=== PATIENT | female | born 1935 | race Caucasian/White ===

== ENCOUNTER 2016-06-16 22:33 | Emergency (ER) | payer OTHER ==
[~2016-06-16] VITALS: Ht 162.6 cm; Wt 47.6 kg
[~2016-06-16 22:33] MED LIST: ALBUTEROL2.5 MG/3 M INH/SOL; ALPRAZOLAM0.25 MG PO; ANTI ITCH TOP; ASPIR 8181 MG PO; ASPIRIN EC81 M1 PO; AUGMENTIN 500M500 MG PO; AUGMENTIN 875 M1 TAB PO; CIPRO 500MG (E500 MG PO; CIPRO 500MG TA500 MG PO; KROGER NIC14 MG/24 H TOP; KROGER NIC21 MG/24 H TOP; NORVASC5 M1 PO; PREDNICOT10 MG PO; PREDNISONE 10MG10 MG PO; PREDNISONE 20MG20 MG PO; PREDNISONE 5 MG5 MG PO; PREDNISONE10 MG PO; PREDNISONE5 MG PO; PROAIR HFA8.5 GM INH; SPIRIVA 18 MCG18 MCG INH; SPIRIVA RE2.5 MCG/Ac INH; SYMBICORT 16010.2 GM INH; XANAX 0.25MG0.25 MG PO; ZOCOR20 M1 PO; [UNRECOGNIZED DRUG - OTHER] TOP
--- NOTE | 2016-06-16 22:49 | ED NECK/BACK PAIN COMPLAINT ---
History of Present Illness General Chief Complaint: General Adult Stated Complaint: BIBA BACK PAIN, DIFFICULTY AMBULATING Source: patient, family, old records, EMS Exam Limitations: no limitations Vital Signs & Intake/Output Vital Signs & Intake/Output Vital Signs Date Time Temp Pulse Resp B/P Pulse O2 O2 Flow FiO2 Ox Delivery Rate 06/17 1136 97.1 68 18 170/82 98 Room Air 06/17 0701 96.3 66 20 100 Nasal 2.0L Cannula 06/16 2252 99 Nasal 2.0L Cannula 06/16 2239 96.5 79 22 176/96 99 Nasal 2.0L Cannula ED Intake and Output 06/17 0000 06/16 1200 Intake Total 0 Output Total Balance 0 Intake, Oral 0 Patient 105 lb Weight Allergies Coded Allergies: indomethacin (UNKNOWN PT DOESNT REMEMBER 07/20/15) naproxen (UNKNOWN PT DOESNT REMEMBER 07/20/15) Triage Note: PT BIBA FROM HOME C/O BACK PAIN FOR A MONTH. SEES DR HENDRICKS. DX WITH COMPRESSION FX T12 VIA MRI ON 06/06. HAD AN APPOINTMENT WITH DR HENDRICKS FOR TOMORROW , BUT "THE PAIN IS SO BAD I CAN'T GET IN A CAR" TOOK VICODIN AT 9A AND 9P AND TRAMADOL AT 2 PM. PAIN CONTINUES. PT SPOKE TO ELADIO'S OFFICE THIS AFTERNOON, WHO ADVISED PT TO COME TO ED. DR FLORES IN TO EVAL PT ON PT ARRIVAL TO ROOM Triage Nurses Notes Reviewed? yes HPI: Patient brought in from home by EMS for increasing back pain. Patient had a recent MRI which showed a T12 compression fracture. Patient has been on tramadol as well as hydrocodone without relief of the pain. Patient had an appointment to see her orthopedist tomorrow however she felt that she would not be able to get normal car to go to the appointment so she called him and he instructed her to come to the emergency department. The pain is 1010 and is throbbing in nature. The pain increases with movement. There is no radiation of the pain. The pain is constant. Patient denies any incontinence of bowel or bladder. There are no fevers or chills. There is no weakness or numbness. Endocrine much confined to bed secondary to the pain. Patient is unable to do her ADLs at home. (MARK BACON,MARI Sylvester) Reconcile Medications Albuterol Sulfate (Proair Hfa) 90 MCG HFA.AER.AD 1-2 PUF INH AD PRN RESPIRATORY (Reported) Albuterol Sulfate 2.5 MG/3 ML (0.083 %) VIAL.NEB 1 Vial INH/CHUNG BID-TID RESPIRATORY (Reported) Amlodipine (Norvasc 5MG Tab) 5 MG TABLET 1 TAB PO DAILY BP (Reported) Aspirin (Ecotrin) 81 MG ECT 1 TAB PO DAILY HEART/BLOOD (Reported) Budesonide/Formoterol Fumara (Symbicort 160-4.5 Mcg Inhaler) 160 MCG/4.5 MCG PUF 2 PUF INH BID COPD (Reported) Hydrocodone/Acetaminophen (Vicodin 5-300 MG Tablet) 5 MG-300 MG TABLET PAIN ( Reported) Oxycodone HCl/Acetaminophen (Percocet 5-325 MG Tablet) 5 MG-325 MG TABLET 1-2 TAB PO Q6P PRN severe pain Prednisone 5 MG TABLET 10 MG PO QAM STEROID (Reported) Simvastatin (Zocor) 20 MG TAB 1 TAB PO QPM CHOLESTEROL (Reported) Tramadol HCl 50 MG TABLET 1 TAB PO Q6H PRN PAIN (Reported) (DEVIN ALMANZA MD) Past History Travel History Traveled to [place] past 21 day No Medical History Any Pertinent Medical History? 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 No (MARK BACON,MARI Sylvester) Review of Systems Review of Systems Constitutional: Reports: no symptoms. Eyes: Reports: no symptoms. Ears, Nose, Throat, Mouth: Reports: no symptoms. Respiratory: Reports: no symptoms. Cardiovascular: Reports: no symptoms. Gastrointestinal/Abdominal: Reports: no symptoms. Musculoskeletal: Reports: see HPI, back pain. Skin: Reports: no symptoms. Neurological/Psychological: Reports: no symptoms. All Other Systems: Reviewed and Negative (MARK BACON,MARI Sylvester) Physical Exam Physical Exam General Appearance: well developed/nourished, alert, anxious, moderate distress Head: atraumatic Eyes: Bilateral: PERRL, EOMI. Ears, Nose, Throat, Mouth: hearing grossly normal, moist mucous membrane Neck: normal inspection, supple, full range of motion, no midline tenderness Respiratory: normal breath sounds Cardiovascular: regular rate/rhythm, normal peripheral pulses Gastrointestinal: normal bowel sounds, soft, non-tender Back: normal inspection, vertebral tenderness Extremities: normal range of motion Straight Leg Raising: Right: Negative. Left: Negative. Neurologic/Psych: awake, alert, oriented x 3, normal mood/affect Skin: intact, normal color, warm/dry (MARK BACON,MARI Sylvester) Progress Differential Diagnosis: INTRACTABLE BACK PAIN SECONDARY TO VERTEBRAL COMPRESSION FRACTURE Plan of Care: Orders Procedure Date/time Status Regular Diet 06/17 B Active EKG 06/17 0750 Active PT Evaluate & Treat 06/17 0018 Active CASE MANAGEMENT CONSULT 06/17 0018 Active Theraputic Activities 15 Min 06/17 UNK Complete Gait Training, 15 Min 06/17 UNK Complete PT EVAL LOW COMPLEX 20 MIN 06/17 UNK Complete URINALYSIS 06/16 2248 Complete COMPREHENSIVE METABOLIC PANEL 06/16 2248 Complete CBC WITHOUT DIFFERENTIAL 06/16 2248 Complete Laboratory Tests 06/16/16 2326: Urine Color YEL, Urine Clarity HAZY H, Urine pH 6.5, Ur Specific [place] 1.015, Urine Protein 30 H, Urine Ketones 15 H, Urine Nitrite NEG, Urine Bilirubin NEG @ICTO, Urine Urobilinogen 1.0, Ur Leukocyte Esterase SMALL H, Ur Microscopic SEDIMENT EXAMINED, Urine WBC 5-10 H, Ur Epithelial Cells FEW, Hyaline Casts 5- 10 H, Urine Hemoglobin NEG, Urine Glucose NEG 06/16/16 2310: Anion Gap 10, Estimated GFR 43 L, BUN/Creatinine Ratio 19.2, Glucose 75, Calcium 10.0, Total Bilirubin 0.6, AST 24, ALT 24, Alkaline Phosphatase 112, Total Protein 7.1, Albumin 4.1, Globulin 3.0, Albumin/Globulin Ratio 1.4, CBC w Diff NO MAN DIFF REQ, RBC 4.35, MCV 93.4, MCH 30.9, RDW 13.6, MPV 6.9 L, Gran % 74.3, Lymphocytes % 16.6 L, Monocytes % 8.2, Eosinophils % 0.6, Basophils % 0.3 , Absolute Granulocytes 7.6 H, Absolute Lymphocytes 1.7, Absolute Monocytes 0.8 H, Absolute Eosinophils 0.1, Absolute Basophils 0, PUBS MCHC 33.0 Hand-Off Endorsed To: DEVIN ALMANZA MD Endorsed Time: 0700 Pending: consult (PT/CASE MANAGEMENT) (MARK BACON,MARI Sylvester) Departure Departure Condition: Stable Clinical Impression Primary Impression: Compression fracture of body of thoracic vertebra Departure Forms: Customer Survey General Discharge Information (MARK BACON,MARI Sylvester) Departure Time of Disposition: 1128 Disposition: HOME OR SELF CARE Referrals: ELADIO BACON,KAMALA GLASS MD,Isael BUCKLEY (PCP/Family) Prescriptions: Current Visit Scripts Oxycodone HCl/Acetaminophen (Percocet 5-325 MG Tablet) 1-2 TAB PO Q6P PRN severe pain #15 TAB (DEVIN ALMANZA MD)
[2016-06-16] MEDS ORDERED: PREDNISONE5 M1 PO (23:08)
[2016-06-16] MEDS ORDERED: VICODIN 5-3001 EACH PO (23:11)
[2016-06-16] MEDS ORDERED: TRAMADOL HCL50 M1 PO (23:11)
[2016-06-16 23:19] LABS: ABSOLUTE BASOPHIL COUNT 0 /CUMM (0.0-0.2); ABSOLUTE EOSINOPHIL COUNT 0.1 /CUMM (0.0-0.7); ABSOLUTE GRANULOCYTE CT 7.6 /CUMM (1.4-6.5); ABSOLUTE LYMPH COUNT 1.7 /CUMM (1.2-3.4); ABSOLUTE MONOCYTE COUNT 0.8 /CUMM (0.10-0.60); BASOPHIL % 0.3 % (0.0-2.0); EOSINOPHIL % 0.6 % (0-5); GRANULOCYTE % 74.3 % (42.2-75.2); HEMATOCRIT 40.6 % (37-47); MEAN CORPUSCULAR HGB 30.9 PG (27.0-31.0); MEAN CORPUSCULAR VOLUME 93.4 FL (81.0-99.0); MEAN PLATELET VOLUME 6.9 FL (7.4-10.4); PLATELET COUNT 399 /CUMM (130-400); RBC DISTRIBUTION WIDTH 13.6 % (11.5-14.5); RED BLOOD CELL CT 4.35 /CUMM (4.20-5.40); WHITE BLOOD CELL COUNT 10.3 /CUMM (4.8-10.8)
[2016-06-17] MEDS ORDERED: PERCOCET 5-3251 EACH PO (11:30)
[2016-06-17 11:36] VITALS: BP 170/82
== END 2016-06-17 12:08 ==
LOC: ERH 22:33
PROVIDERS: Emergency Medicine
DX: S22.009A Unspecified fracture of unspecified thoracic vertebra, initial encounter for closed fracture (principal); X58.XXXA Exposure to other specified factors, initial encounter
CPT/HCPCS: 81001; 96374; 97116-GP; 97161-GP; 97530-GP; J2405

== ENCOUNTER 2016-07-02 14:11 | Emergency (ER) | payer OTHER ==
[~2016-07-02] VITALS: Ht 162.6 cm; Wt 40.8 kg
[~2016-07-02 14:11] MED LIST changes: +PERCOCET 5-3251 EACH PO; +PREDNISONE5 M1 PO; +TRAMADOL HCL50 M1 PO; +VICODIN 5-3001 EACH PO
--- NOTE | 2016-07-02 14:53 | ED GI/GU/ABDOMINAL COMPLAINT ---
History of Present Illness General Chief Complaint: Nausea, Vomiting, Diarrhea Stated Complaint: NAUSEA, DIARRHEA X 2 DAYS, R/O GIB Source: patient, family, old records Exam Limitations: no limitations Vital Signs & Intake/Output Vital Signs & Intake/Output Vital Signs Date Time Temp Pulse Resp B/P Pulse O2 O2 Flow FiO2 Ox Delivery Rate 07/02 1818 98.3 89 16 124/74 100 Nasal 2.0L Cannula 07/02 1658 97.8 89 20 130/80 97 Nasal 1.0L Cannula 07/02 1521 96 Nasal 2.0L Cannula 07/02 1508 94 120/55 07/02 1422 118/78 07/02 1416 97.0 95 22 95 Nasal 3.0L Cannula Allergies Coded Allergies: indomethacin (UNKNOWN PT DOESNT REMEMBER 07/20/15) naproxen (UNKNOWN PT DOESNT REMEMBER 07/20/15) Reconcile Medications Albuterol Sulfate (Proair Hfa) 90 MCG HFA.AER.AD 1-2 PUF INH AD PRN RESPIRATORY (Reported) Albuterol Sulfate 2.5 MG/3 ML (0.083 %) VIAL.NEB 1 Vial INH/CHUNG BID-TID RESPIRATORY (Reported) Amlodipine Besylate (Norvasc) 5 MG TABLET 1 TAB PO DAILY BP (Reported) Aspirin (Ecotrin*) 81 MG TABLET.DR 1 TAB PO DAILY HEART HEALTH (Reported) Budesonide/Formoterol Fumarate (Symbicort 160-4.5 Mcg Inhaler) 160 MCG-4.5 MCG/ ACTUATION HFA.AER.AD 2 PUF INH BID BREATHING PROBLEMS (Reported) Hydrocodone/Acetaminophen (Vicodin 5-300 MG Tablet) 5 MG-300 MG TABLET PAIN ( Reported) Ondansetron (Zofran Odt) 4 MG TAB.RAPDIS 1 TAB SL TID PRN NAUSEA Prednisone 5 MG TABLET 10 MG PO QAM STEROID (Reported) Simvastatin (Zocor*) 20 MG TABLET 1 TAB PO QPM CHOLESTEROL (Reported) Triage Note: RECEIVED 80 YO FEMALE BIBA FROM HOME. ACCORDING TO REPORT, PT HAS HAD NAUSEA WITH DIARRHEA X 2 DAYS WITH BLACK STOOLS YESTERDAY X ONE. PT DENIES ABDOMINAL PAIN, REPORTS CHRONIC BACK PAIN. PT DENIES ANY FURTHUR EPISODES OF BLACK STOOLS. Triage Nurses Notes Reviewed? yes ? N Is pt currently ? No HPI: Patient was seen 2 weeks ago for back pain and diagnosed with a vertebral compression fracture. Patient was discharged on Percocet. Since then she has been feeling nauseous and having intermittent constipation. Patient is been having left lower quadrant abdominal pain constant over the past week and a half. There are no aggravating or mitigating factors. Patient states that she has no desire to eat or drink anything. Patient stopped taking all of her medications except her pain medications 4 days ago because of the anorexia. Yesterday she thought that her stool looked very dark. Patient states that the stool is not quite diarrhea however it is not deformed. There is nausea but no vomiting. The pain is cramping in nature. There is no radiation of pain. The pain is constant. At its worst the pain is 4 out of 10. Patient denies any chest pain or shortness of breath. Past History Travel History Traveled to [place] past 21 day No Medical History Any Pertinent Medical History? 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 No Review of Systems Review of Systems Constitutional: Reports: see HPI, weakness. EENTM: Reports: no symptoms. Respiratory: Reports: no symptoms. Cardiovascular: Reports: no symptoms. GI: Reports: see HPI, abdominal pain, nausea. Genitourinary: Reports: no symptoms. Musculoskeletal: Reports: no symptoms. Skin: Reports: no symptoms. Neurological/Psychological: Reports: no symptoms. Hematologic/Endocrine: Reports: no symptoms. Immunologic/Allergic: Reports: no symptoms. All Other Systems: Reviewed and Negative Physical Exam Physical Exam General Appearance: well developed/nourished, alert, awake, anxious, mild distress Head: atraumatic, normal appearance Eyes: Bilateral: PERRL, EOMI. Ears, Nose, Throat, Mouth: hearing grossly normal, DRY MUCUS MEMBRANES Neck: normal inspection, supple, full range of motion Respiratory: normal breath sounds, chest non-tender, no respiratory distress, lungs clear Cardiovascular: regular rate/rhythm, normal peripheral pulses Gastrointestinal: soft, no organomegaly, abnormal bowel sounds (INCREASED), NO GAURDING OR REBOUND Rectal: NO STOOL IN VAULT BUT CARD TURNED BLUE Back: normal inspection, normal range of motion Extremities: normal range of motion Neurologic/Psych: no motor/sensory deficits, awake, alert, oriented x 3, normal gait, normal mood/affect Skin: intact, normal color, warm/dry Core Measures ACS in differential dx? No Severe Sepsis Present: No Septic Shock Present: No Progress Differential Diagnosis: bowel obstruction, diverticulitis, gastritis, hepatitis, ischemic bowel, inflamm bowel dis, pancreatitis, SBO Plan of Care: Orders Procedure Date/time Status MISTAKE 07/02 145 Active Telemetry/Adon 07/02 145 Active URINALYSIS 07/02 145 Complete TROPONIN LEVEL 07/02 1452 Complete PARTIAL THROMBOPLASTIN TIME 07/02 1452 Complete PROTHROMBIN TIME 07/02 1452 Complete LIPASE 07/02 1452 Complete COMPREHENSIVE METABOLIC PANEL 07/02 1452 Complete CBC WITHOUT DIFFERENTIAL 07/02 1452 Complete AMYLASE 07/02 1452 Complete EKG 07/02 1452 Active TYPE & SCREEN (NOT X-MATCH) 07/02 1452 Active Laboratory Tests 07/02/16 1614: Urine Color STRAW, Urine Clarity CLEAR, Urine pH 7.0, Ur Specific [place] <= 1.005, Urine Protein NEG, Urine Ketones TRACE H, Urine Nitrite NEG, Urine Bilirubin NEG, Urine Urobilinogen 0.2, Ur Leukocyte Esterase NEG, Ur Microscopic EXAM NOT REQUIRED, Urine Hemoglobin NEG, Urine Glucose NEG 07/02/16 1450: Anion Gap 11, Estimated GFR > 60, BUN/Creatinine Ratio 22.9, Glucose 67, Calcium 9.0, Total Bilirubin 0.9, AST 22, ALT 28, Alkaline Phosphatase 100, Troponin I 0.03, Total Protein 6.5, Albumin 3.7, Globulin 2.8, Albumin/Globulin Ratio 1.3, Amylase < 30 L, Lipase 56, PT 10.9, INR 1.04, APTT 29, CBC w Diff NO MAN DIFF REQ, RBC 4.24, MCV 93.9, MCH 31.1 H, RDW 13.6, MPV 7.2 L, Gran % 86.4 H, Lymphocytes % 7.2 L, Monocytes % 5.9, Eosinophils % 0.2, Basophils % 0.3, Absolute Granulocytes 11.8 H, Absolute Lymphocytes 1.0 L, Absolute Monocytes 0.8 H, Absolute Eosinophils 0, Absolute Basophils 0, PUBS MCHC 33.1 Diagnostic Imaging: Viewed by Me: CT Scan. Discussed w/RAD: CT Scan. Radiology Impression: no acute abnormality Initial ED EKG: sr with st epression v4,v5 Prior EKG: changed Rhythm Strip: normal sinus rhythm Departure Departure Disposition: HOME OR SELF CARE Condition: Stable Clinical Impression Primary Impression: Lower abdominal pain, unspecified Secondary Impressions: Nausea Referrals: MARIA LUISA BACON,Isael BUCKLEY (PCP/Family) Additional Instructions: TAKE ZOFRAN NEEDED TAKE YOU R PREDNISONE EVERY DAY. YOU CAN GET VERY SICK IF YOU ABRUPTLY STOP IT. RETURN IF SYMPTOMS WORSEN OR NEEDED Departure Forms: Customer Survey General Discharge Information Prescriptions: Current Visit Scripts Ondansetron (Zofran Odt) 1 TAB SL TID PRN NAUSEA #20 TAB
[2016-07-02 15:04] LABS: ABSOLUTE BASOPHIL COUNT 0 /CUMM (0.0-0.2); ABSOLUTE EOSINOPHIL COUNT 0 /CUMM (0.0-0.7); ABSOLUTE GRANULOCYTE CT 11.8 /CUMM (1.4-6.5); ABSOLUTE MONOCYTE COUNT 0.8 /CUMM (0.10-0.60); BASOPHIL % 0.3 % (0.0-2.0); EOSINOPHIL % 0.2 % (0-5); HEMATOCRIT 39.8 % (37-47); MEAN CORPUSCULAR HGB 31.1 PG (27.0-31.0); MEAN CORPUSCULAR HGB CONC 33.1 G/DL (33.0-37.0); MEAN CORPUSCULAR VOLUME 93.9 FL (81.0-99.0); MEAN PLATELET VOLUME 7.2 FL (7.4-10.4); RBC DISTRIBUTION WIDTH 13.6 % (11.5-14.5); RED BLOOD CELL CT 4.24 /CUMM (4.20-5.40); WHITE BLOOD CELL COUNT 13.7 /CUMM (4.8-10.8)
[2016-07-02 15:16] LABS: PT 10.9 SEC (9.4-12.5); PTT 29 SEC (25-37)
[2016-07-02 15:21] LABS: PLATELET COUNT 324 /CUMM (130-400)
[2016-07-02 15:22] LABS: GRANULOCYTE % 86.4 % (42.2-75.2)
--- NOTE | 2016-07-02 16:37 | CT SCAN REPORT ---
EXAMINATION: CT ABDOMEN AND PELVIS WITH CONTRAST CLINICAL INFORMATION: Abdominal pain. Evaluate for small bowel obstruction. COMPARISON: PET-CT imaging exam of chest, abdomen and pelvis from 08/01/2014. TECHNIQUE: Multidetector volumetric imaging was performed of the abdomen and pelvis before and after the IV administration of 94 mL of of Optiray 320 intravenous contrast. Sagittal and coronal reformatted images were obtained on the technologist's workstation. DLP: 221 mGy-cm FINDINGS: LUNG BASES: There are a few scattered linear opacities of atelectasis in visualized lung bases. Atherosclerotic calcification of the tortuous descending thoracic aorta. Coronary artery atherosclerotic calcification is seen, as well. No pericardial or pleural effusion. LIVER, GALLBLADDER, AND BILIARY TREE: Liver has normal size, contour and attenuation. Gallbladder surgically absent and common bile duct measures up to 0.8 cm diameter. The central intrahepatic bile ducts are mildly dilated. No acute hepatobiliary findings compared to 08/01/2014. PANCREAS: Unremarkable. SPLEEN: Unremarkable. ADRENAL GLANDS: Unremarkable. KIDNEYS AND URETERS: Kidneys are normal in size and enhance symmetrically. There are bilateral renal cortical cysts, largest at the right upper pole measuring 1.8 cm. Small, 0.2 cm calyceal stone in the mid right kidney and 0.4 cm calyceal stone within the right lower pole. There is a 0.4 cm calyceal stone of the mid left kidney, as well. No ureterolithiasis or hydroureteronephrosis. BLADDER: Unremarkable. GASTROINTESTINAL TRACT: Bowel loops are normal in caliber. The wall of the colon is suboptimally evaluated due to lack of distention. There is apparent diffuse circumferential colonic wall thickening. This is associated with mild mesenteric vascular congestion and slight haziness of pericolonic fat within the pelvis. Findings are suggestive of mild pancolitis. Also, there is pancolonic diverticulosis and chronic wall thickening from diverticular disease of the sigmoid colon. No ascites or pneumoperitoneum. ABDOMINAL WALL: Abdominal wall muscles are atrophied. No focal abdominal wall hernia. LYMPH NODES: No pathologic sized lymph nodes within the abdomen or pelvis. VASCULAR: There is extensive atherosclerotic calcification of the abdominal aorta and branch vessels, including renal, superior mesenteric and splenic arteries. The tortuous infrarenal abdominal aorta measures up to 2.5 cm transverse and 2.1 cm AP diameter. Atherosclerotic plaque produces irregular stenosis of the iliac arteries. The calcified plaque produces [id number] stenosis of the SMA. PELVIC VISCERA: There are calcified intramural leiomyomas of the uterus. There is a 2.8 x 3.5 x 2.6 cm septated cystic structure of the left adnexa, similar in size compared to 08/01/2014. At the right adnexa, a 2.1 x 2.4 x 2.3 cm hypodense structure likely represents the right ovary (images [id number], series 2). No pelvic free fluid. OSSEOUS STRUCTURES: Bones appear diffusely osteoporotic. Lines of sclerosis within the sacral ala compatible with subacute, healing insufficiency fractures. Sacral insufficiency fractures were present on the MRI of 06/06/2016. Compression fracture of T12 vertebral body with approximately 60% anterior height loss is a new finding compared to 07/28/2015. The T12 vertebral height loss has progressed compared to 06/06/2016 and sclerosis within the vertebral body suggests possibility of superimposed avascular necrosis. There is vacuum disc phenomenon of T11-T12. At L4-L5, there is moderate loss of disc space, disc bulge, facet arthropathy and minimal anterolisthesis of L4 on L5. IMPRESSION: 1. Colonic wall appears diffusely thickened but suboptimally evaluated due to lack of colonic distention. Mild pancolitis is suspected. 2. Pancolonic diverticulosis. 3. Nonobstructing bilateral renal calculi (and multiple bilateral renal cysts). 4. Stable, mild dilatation of the common bile duct and intrahepatic ducts in this patient who is status post cholecystectomy. 5. 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 6. Osteoporosis with insufficiency fractures of the sacral ala and T12 vertebra. The T12 vertebral compression fracture has worsened compared to 06/06/2016. 7. Septated cyst of the left ovary/adnexa is stable compared to 08/01/2014. Consider pelvic ultrasound follow-up/surveillance.
[2016-07-02] MEDS ORDERED: ZOFRAN ODT4 M1 SL (17:55)
[2016-07-02 18:18] VITALS: BP 124/74
== END 2016-07-02 18:19 ==
LOC: ERH 14:11
PROVIDERS: Emergency Medicine
DX: R10.32 Left lower quadrant pain (principal); R11.0 Nausea; R19.7 Diarrhea, unspecified
CPT/HCPCS: 74177; 81003; 93005; 93010; 96361; 96374; 96375; J1720; J2405

== ENCOUNTER 2016-07-15 13:29 | Observation (INO) | payer OTHER ==
[~2016-07-15] VITALS: Ht 162.6 cm; Wt 40.8 kg
[~2016-07-15 13:29] MED LIST changes: +ZOFRAN ODT4 M1 SL
--- NOTE | 2016-07-15 13:30 | ED NECK/BACK PAIN COMPLAINT ---
History of Present Illness General Chief Complaint: Low Back Pain/Injury Stated Complaint: BIBA BACK PAIN Source: patient, old records, EMS Exam Limitations: no limitations Vital Signs & Intake/Output Vital Signs & Intake/Output Vital Signs Date Time Temp Pulse Resp B/P Pulse O2 O2 Flow FiO2 Ox Delivery Rate 07/15 1420 98 Nasal 3.0L Cannula 07/15 1330 96.9 83 18 180/88 94 Nasal 2.0L Cannula Allergies Coded Allergies: indomethacin (UNKNOWN PT DOESNT REMEMBER 07/20/15) naproxen (UNKNOWN PT DOESNT REMEMBER 07/20/15) Reconcile Medications Albuterol Sulfate (Proair Hfa) 90 MCG HFA.AER.AD 1-2 PUF INH AD PRN RESPIRATORY (Reported) Albuterol Sulfate 2.5 MG/3 ML (0.083 %) VIAL.NEB 1 Vial INH/CHUNG BID-TID RESPIRATORY (Reported) Amlodipine Besylate (Norvasc) 5 MG TABLET 1 TAB PO DAILY BP (Reported) Aspirin (Ecotrin*) 81 MG TABLET.DR 1 TAB PO DAILY HEART HEALTH (Reported) Budesonide/Formoterol Fumarate (Symbicort 160-4.5 Mcg Inhaler) 160 MCG-4.5 MCG/ ACTUATION HFA.AER.AD 2 PUF INH BID BREATHING PROBLEMS (Reported) Hydrocodone/Acetaminophen (Vicodin 5-300 MG Tablet) 5 MG-300 MG TABLET PAIN ( Reported) Ondansetron (Zofran Odt) 4 MG TAB.RAPDIS 1 TAB SL TID PRN NAUSEA Prednisone 5 MG TABLET 10 MG PO QAM STEROID (Reported) Simvastatin (Zocor*) 20 MG TABLET 1 TAB PO QPM CHOLESTEROL (Reported) Tramadol HCl 50 MG TABLET 1 TAB PO Q6P PRN PAIN (Reported) Triage Nurses Notes Reviewed? yes Onset: Gradual Duration: week(s):, constant, getting worse Timing: recent history Quality/Severity: severe, sharpness Location: T-spine Radiation: none Method of Injury: unknown Loss of Consciousness: no loss of consciousness Modifying Factors: movement, pain medication Associated Symptoms: denies HPI: 81-year-old female with history of (on 2 L home O2) on prednisone, lung CA diagnosed 2013, emphysema, HTN, HLD presents brought in by ambulance complaining of an exacerbation of chronic mid back pain unrelieved with taking her Percocet last dose was 3 hours ago. The patient denies any new injury or trauma, there is no radiation of her pain sudden onset aching throbbing severe 10 out of 10. The patient is scheduled to have IR vertebral augmentation performed tomorrow by Dr. Jorge Weiner. The patient states she called his office and the nurse after speaking with him advised the patient to come to the emergency room to be admitted today for her intractable pain. She denies any urinary symptoms urgency frequency and incontinence no abdominal pain fever or chills. The patient denies any exacerbation of her shortness of breath, cough no fever no chills The patient has a history of T12 vertebral body compression fracture found on MRI that was performed in May. The patient has failed outpatient management according to old records. The patient has had severe constant sudden onset worsening of her back pain causing her to have decreased at activities of daily living. The plan was for the patient to have vertebral augmentation performed on July 16 (DAMION BARRETO) Past History Medical History Any Pertinent Medical History? see below for history Neurological: NONE EENT: cataracts Cardiovascular: hypertension, hyperlipidemia, PERIPHERAL EDEMA Respiratory: COPD, emphysema, Lung cancer O2 DEPENDENT AT 2L Gastrointestinal: NONE Hepatic: NONE Renal: NONE Musculoskeletal: fracture, (T12) Psychiatric: NONE Endocrine: NONE Blood Disorders: NONE Cancer(s): LUNG CANCER RT TECHNICAL SME/Reproductive: NONE History of MRSA: No History of VRE: No History of CDIFF: No Surgical History Surgical History: non-contributory Psychosocial History Who do you live with Patient/Self Services at Home None What is your primary language E[place]re[place] Family History Family History, If Any: MOTHER FATHER FH: cancer Hx Contributory? No (DAMION BARRETO) Review of Systems Review of Systems Constitutional: Reports: see HPI. All Other Systems: Reviewed and Negative Comments Review of systems: See HPI, All other systems negative. Constitutional, no chills no fever, no malaise HEENT: no sore throat no congestion Cardiovascular: No chest pain , no palpitation Skin, no rashes, no change in skin Respiratory: dyspnea no cough no sputum no hemoptysis GI: No nausea no vomiting, no diarrhea, : No dysuria No hematuria Muscle skeletal: No joint pain, no joint swelling, back pain, no neck pain, Neurologic: No numbness no headache Psych: No stress Heme/endocrine: No bruising no bleeding Immunology: No lymphadenopathy (DAMION BARRETO) Physical Exam Physical Exam General Appearance: alert, awake, cachetic Neck: normal inspection, supple, full range of motion, normal alignment Comments: Well-developed well-nourished person in no acute distress HEENT: Normal EENT exam; PERRL, EOMI. HEAD is atraumatic. moist mucous membranes. Neck: Supple, normal range of motion Back: Nontender, no CVA tenderness. Limited range of motion secondary to pain Cardiovascular: Regular rate and rhythms no murmurs rubs Respiratory: No respiratory distress. Patient speaking in full complete sentences. Breath sounds clear to auscultation bilaterally: NO W/R/R Abdomen: Soft, nontender nondistended, no appreciable organomegaly. Extremity: No edema, full range of motion of extremities, normal and equal pulses bilaterally, 5 out of 5 strength noted to bilateral upper and lower extremities Neuro: Alert oriented x3, motor sensory normal, There were no obvious focal neurologic abnormalities. Skin: No appreciable rash on exposed skin, skin is warm and dry. Psych: Mood and affect is normal, memory and judgment is normal. (DAMION BARRETO) Progress Differential Diagnosis: cauda equina syn, herniated disc, myofascial strain, pyelo/UTI, spinal cord inj, COMPRESSION FRACTURE INTRACTABLE PAIN Plan of Care: Orders Procedure Date/time Status Regular Diet 07/15 D Active Patient Data 07/[address] in observation 07/15 1538 Active Vital Signs 07/15 1538 Active Code Status 07/15 1538 Active Saline Lock 07/15 1348 Active PROTHROMBIN TIME 07/15 1348 Complete COMPREHENSIVE METABOLIC PANEL 07/15 1348 Complete CBC WITHOUT DIFFERENTIAL 07/15 1348 Complete EKG 07/15 1348 Active TYPE & SCREEN (NOT X-MATCH) 07/15 1348 Complete Laboratory Tests 07/15/16 1400: Anion Gap 11, Estimated GFR 53 L, BUN/Creatinine Ratio 18.0, Glucose 79, Calcium 9.9, Total Bilirubin 0.7, AST 21, ALT 20, Alkaline Phosphatase 93, Total Protein 6.8, Albumin 4.0, Globulin 2.8, Albumin/Globulin Ratio 1.4, PT 10.1, INR 0.96, CBC w Diff NO MAN DIFF REQ, RBC 4.40, MCV 91.6, MCH 30.8, RDW 13.7, MPV 6.5 L, Gran % 83.7 H, Lymphocytes % 8.8 L, Monocytes % 5.5, Eosinophils % 1.0 , Basophils % 1.0, Absolute Granulocytes 9.2 H, Absolute Lymphocytes 1.0 L, Absolute Monocytes 0.6, Absolute Eosinophils 0.1, Absolute Basophils 0.1, PUBS MCHC 33.6 Old records including the patient's previous MRI and CAT scan from 07/02/2016 were reviewed that demonstrated further progression of her compression deformity now at approximately 60% height loss. Call was placed to the patient's INR physician Dr. Weiner PT MED with dilaudid 1mg iv, case d/w dr upton CASE D/W DR SPRAGUE IR- PT SCHEDULED FOR MRI TOMORROW AT 720, FOLLOWD BYKYPHOPLASTY AT 1030 TOMORROW (DAMION BARRETO) Initial ED EKG: NSR AT 60, NO ACUTE ST SEG CHANGES, NORMAL AXIS Prior EKG: unchanged (07/02/2016) (DAMION BARRETO) Departure Departure Time of Disposition: 1535 Disposition: STILL A PATIENT Condition: Stable Clinical Impression Primary Impression: Intractable back pain Referrals: MARIA LUISA BACON,Isael BUCKLEY (PCP/Family) Departure Forms: Customer Survey General Discharge Information Observation Note Spoke With: SARA POZO MD Physician Advisor Notified: BARTOLOME BACON,KLEVER Delaney Patient In: Non-ED OBS Care Area Rationale for Observation: My rational for observation is as follows IV pain control gait instability unable to perform activities of daily living premature discharge be medically harmful (DAMION BARRETO) PA/[employer] RE[employer]ER[employer] WORKER Co-Sign Statement Statement: ED Attending supervision documentation- [X] I saw and evaluated the patient. I have also reviewed all the pertinent lab results and diagnostic results. I agree with the findings and the plan of care as documented in the PA's/AMMONIA REFRIGERATION WORKER's documentation. [X] I have reviewed the ED Record and agree with the PA's/AMMONIA REFRIGERATION WORKER's documentation. [] Additions or exceptions (if any) to the PAs/AMMONIA REFRIGERATION WORKER's note and plan are summarized below: [] (MAL BACON,SIMBA)
--- NOTE | 2016-07-15 13:30 | NUR ---
Case Mgmnt TSF: I was called by [facility] to let me know that patient was being sent in. CM will follow.
--- NOTE | 2016-07-15 13:30 | NUR ---
PT TO ROOM 21 BIBA FROM HOME BY REFERRAL FOR REPEAT MRI. PT HAS BACK SURGERY SCHEDULED FOR TOMORROW AND C/O BACK PAIN 02/17. PT ARRIVED AAOx3, ON O2 2L NC O2SAT 98%. HX OF COPD,LUNG CA. PT ON O2 NEEDED. ALSO PT C/O ABD PAIN AND NAUSEA. SOB SINCE THIS MORNING. DENIES CHEST PAIN. VSS.
--- NOTE | 2016-07-15 14:02 | NUR ---
BLOOD SENT NOW
[2016-07-15 14:08] LABS: ABSOLUTE BASOPHIL COUNT 0.1 /CUMM (0.0-0.2); ABSOLUTE EOSINOPHIL COUNT 0.1 /CUMM (0.0-0.7); ABSOLUTE GRANULOCYTE CT 9.2 /CUMM (1.4-6.5); ABSOLUTE MONOCYTE COUNT 0.6 /CUMM (0.10-0.60); HEMATOCRIT 40.3 % (37-47); MEAN CORPUSCULAR HGB 30.8 PG (27.0-31.0); MEAN CORPUSCULAR HGB CONC 33.6 G/DL (33.0-37.0); MEAN CORPUSCULAR VOLUME 91.6 FL (81.0-99.0); MEAN PLATELET VOLUME 6.5 FL (7.4-10.4); PLATELET COUNT 424 /CUMM (130-400); RBC DISTRIBUTION WIDTH 13.7 % (11.5-14.5)
[2016-07-15 14:13] LABS: PT 10.1 SEC (9.4-12.5)
--- NOTE | 2016-07-15 14:20 | NUR ---
PT MEDCIATED NOW WITH DILAUDID AND TOLERATE WELL STATES PAIN IS NOW 6/10 AND FEELS CONTROLED. PT REPOSTION AND NOTED TO HAVE A ULCER TO HER COCCYX AREA. SKIN APPEARS TO BE HEALING.
[2016-07-15 14:24] LABS: GRANULOCYTE % 83.7 % (42.2-75.2)
[2016-07-15] MEDS ORDERED: TRAMADOL HCL50 M1 PO (14:33)
--- NOTE | 2016-07-15 15:14 | NUR ---
ASSUMED CARE OF PT PER RN JADE. PT SLEEPING WITH RR, PT PLACED ON MONITOR. WILL CONTINUE TO MONITOR
--- NOTE | 2016-07-15 15:53 | NUR ---
PT RECIEVED FOOD TRAY, SOUP AND A COFFEE ALSO ORDERED.
--- NOTE | 2016-07-15 16:02 | History & Physical ---
See Addendum MANAS NICHOLS 07/15/16 1549: General Information and HPI MD Statement: I have seen and personally examined ARDEN ALEXANDRA and documented this H&P. The patient is a 81 year old F who presented with a patient stated chief complaint of [low back pain]. 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 According to the patient she was in the usual state of health up until May when she started to experience lower back pain and saw her primary care physician who was advised her to go to the orthopedic physician. She ended up getting an x-ray and eventually an MRI of the lumbar spine which showed vertebral compression compression fracture of the T12 vertebrae. She was started on oral pain medications including Percocet, however ,her symptoms continued to worsen with worsening pain in her lower back to the point that she was forced to come to the ER today. She denies any radiation of the pain down her lower extremities, any episodes of urinary incontinence or bowel incontinence, any numbness or weakness in her lower extremities. She denies having any fall or having a trauma to her lower back. She does endorse weight loss within the past few months. Patient is scheduled to have an IR guided vertebral augmentation by Dr. Jorge Weiner tomorrow 07/16/16. The patient states that she called his office and nurse after speaking with him advice the patient to come to the ER for further evaluation for intractable pain. Of note patient denies any fever, chills, shortness of breath, cough. Allergies/Medications Allergies: Coded Allergies: indomethacin (UNKNOWN PT DOESNT REMEMBER 07/20/15) naproxen (UNKNOWN PT DOESNT REMEMBER 07/20/15) Home Med list Albuterol Sulfate (Proair Hfa) 90 MCG HFA.AER.AD 1-2 PUF INH AD PRN RESPIRATORY (Reported) Albuterol Sulfate 2.5 MG/3 ML (0.083 %) VIAL.NEB 1 Vial INH/CHUNG BID-TID RESPIRATORY (Reported) Amlodipine Besylate (Norvasc) 5 MG TABLET 1 TAB PO DAILY BP (Reported) Aspirin (Ecotrin*) 81 MG TABLET.DR 1 TAB PO DAILY HEART HEALTH (Reported) Budesonide/Formoterol Fumarate (Symbicort 160-4.5 Mcg Inhaler) 160 MCG-4.5 MCG/ ACTUATION HFA.AER.AD 2 PUF INH BID BREATHING PROBLEMS (Reported) Hydrocodone/Acetaminophen (Vicodin 5-300 MG Tablet) 5 MG-300 MG TABLET PAIN ( Reported) Ondansetron (Zofran Odt) 4 MG TAB.RAPDIS 1 TAB SL TID PRN NAUSEA Prednisone 5 MG TABLET 10 MG PO QAM STEROID (Reported) Simvastatin (Zocor*) 20 MG TABLET 1 TAB PO QPM CHOLESTEROL (Reported) Tramadol HCl 50 MG TABLET 1 TAB PO Q6P PRN PAIN (Reported) Past History Travel History Traveled to [place] past 21 day No Medical History Neurological: NONE EENT: cataracts Cardiovascular: hypertension, hyperlipidemia, PERIPHERAL EDEMA Respiratory: COPD, emphysema, Lung cancer O2 DEPENDENT AT 2L Gastrointestinal: NONE Hepatic: NONE Renal: NONE Musculoskeletal: fracture, (T12) Psychiatric: NONE Endocrine: NONE Blood Disorders: NONE Cancer(s): LUNG CANCER RT SEAT MENDER/Reproductive: NONE History of MRSA: No History of VRE: No History of CDIFF: No Isolation History: Standard Surgical History Surgical History: non-contributory Past Family/Social History Family History Relations & Conditions if any MOTHER FATHER FH: cancer Psychosocial History Services at Home: None Functional Ability ADLs Independent: dressing. Review of Systems Review of Systems Constitutional: Denies: chills, fever, weakness. EENTM: Denies: visual changes. Cardiovascular: Denies: chest pain, orthopena, palpitations, peripheral edema, syncope. Respiratory: Denies: cough, short of breath, sputum production, wheezing. GI: Reports: constipation. Denies: abdominal pain, diarrhea, nausea, vomiting. Genitourinary: Reports: no symptoms. Musculoskeletal: Reports: back pain. Skin: Reports: see HPI, change in skin color. Neurological/Psychological: Denies: headache, numbness, tingling, tremors, unable to move lower ext, unable to move upper ext, weakness. Exam & Diagnostic Data Last 24 Hrs of Vital Signs/I&O Vital Signs Date Time Temp Pulse Resp B/P Pulse O2 O2 Flow FiO2 Ox Delivery Rate 07/15 1420 98 Nasal 3.0L Cannula 07/15 1330 96.9 83 18 180/88 94 Nasal 2.0L Cannula Intake & Output 07/15 1600 07/15 0800 07/15 0000 Intake Total 0 Output Total Balance 0 Intake, Oral 0 Patient 89 lb 15.99 oz Weight Physical Exam General Appearance Alert, Oriented X3, Cooperative, Mild Distress Skin No Rashes, No Breakdown, No Significant Lesion HEENT Atraumatic, PERRLA, EOMI, dry mucous membranes Neck Supple, No JVD, No thryomegaly, +2 Carotid Pulse wo Bruit, No LAD Cardiovascular Regular Rate, Normal S1, Normal S2, No Murmurs Lungs Clear to Auscultation, Normal Air Movement, decreased breath sounds Abdomen Normal Bowel Sounds, Soft, No Hepatospenomegaly, No Masses, mild tenderness to palptaion in lower abdomen Neurological Normal Speech, Strength at 5/5 X4 Ext, Normal Tone, Sensation Intact, Cranial Nerves 3-12 NL, Reflexes 2+ Extremities No Clubbing, No Cyanosis, Normal Pulses, No Tenderness/Swelling, b/l 1-2+ lower extremity edma Vascular Normal Pulses, Pulses Symmetrical Last 24 Hrs of Labs/Nikolas: Laboratory Tests 07/15/16 1400: Anion Gap 11, Estimated GFR 53 L, BUN/Creatinine Ratio 18.0, Glucose 79, Calcium 9.9, Total Bilirubin 0.7, AST 21, ALT 20, Alkaline Phosphatase 93, Total Protein 6.8, Albumin 4.0, Globulin 2.8, Albumin/Globulin Ratio 1.4, PT 10.1, INR 0.96, CBC w Diff NO MAN DIFF REQ, RBC 4.40, MCV 91.6, MCH 30.8, RDW 13.7, MPV 6.5 L, Gran % 83.7 H, Lymphocytes % 8.8 L, Monocytes % 5.5, Eosinophils % 1.0 , Basophils % 1.0, Absolute Granulocytes 9.2 H, Absolute Lymphocytes 1.0 L, Absolute Monocytes 0.6, Absolute Eosinophils 0.1, Absolute Basophils 0.1, PUBS MCHC 33.6 Diagnostic Data EKG Results NSR, HR: 60, normal axis, no ST-T changes, CA: 136 Other Results SERVICE DATE: 06/06/16-9881 EXAM TYPE: MRI - MRI-LUMBAR SPINE EXAMINATION: MR LUMBAR SPINE WITHOUT CONTRAST CLINICAL INFORMATION: Low back pain. COMPARISON: Lumbar spine radiographs 03/17/2016. TECHNIQUE: MRI of the lumbar spine without contrast was obtained using routine sequences. FINDINGS: There is slight grade 1 anterolisthesis of L4 on L5. Vertebral alignment is otherwise maintained in the sagittal dimension. There is bone marrow edema associated with an acute compression fracture of the T12 vertebral body with impaction of the lower endplate and approximately 10% vertebral body height loss anteriorly. There is no retropulsion of posterior cortex an no canal compromise at this level. There is loss of intervertebral disc height and T2 signal intensity at multiple levels within the lumbar spine related to degenerative disc disease. The tip of the conus medullaris is located at the level of L1. No mass effect on the conus. Visualized distal cord signal intensity is normal. At L1-L2 there is a slight annular bulge. No canal or neuroforaminal compromise. At L2-L3 there is a slight annular bulge. No canal or neuroforaminal compromise. At L3-L4 there is a diffusely bulging disc causing ventral flattening of the thecal sac. No canal stenosis. Mild bilateral facet degenerative change. No foraminal nerve root compression. At L4-L5 there is a diffuse annular bulge causing ventral flattening of the thecal sac. Bilateral facet degenerative change. No canal stenosis. No foraminal nerve root compression. At L5-S1 there is a slight annular bulge. Advanced bilateral facet degenerative change. No canal stenosis. No foraminal nerve root compression. Limited visualization of the retroperitoneal structures reveals no abnormal finding. Although only partially visualized within the [id number] this examination there is abnormal bone marrow edema involving the both sacral ala consistent with nondisplaced sacral insufficiency fracture, with greater edema visualized within the left sacral wing. IMPRESSION: There is an acute compression fracture of the T12 vertebral body with impaction of the lower endplate and approximately 10% vertebral body height loss anteriorly. Consultation with interventional radiology is recommended for possible vertebral augmentation for symptomatic relief. There is also bone marrow edema associated with bilateral sacral insufficiency fractures, worse on the left. There is grade 1 anterolisthesis of L4 on L5 related to advanced facet degenerative changes at this level. No canal stenosis and no substantial mass effect on the traversing or foraminal nerve roots. 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 Vitals at the time of admission blood pressure 180/88, respiratory rate 18, pulse 83, afebrile saturating 90% on room air. On physical exam, she is alert and oriented x3, and in mild distress, sitting in bed. HEENT revealed PERRLA, dry mucous membranes. Examinationof neck did not reveal any JVD, or LAD. Cardiobvascular exam was benign with normal S1, S2, no murmurs appreciated. Chest was clear to auscultation bilaterally with decreased breath sounds bilaterally. Abdominal exam revealed mild tenderness to palpation lower abdomen. Abdomen was soft, nondistended, normal bowel sounds in all 4 quadrants. Examination of the lower extremities revealed bilateral lower extremity edema is noted she did have a lot of bruises on her extremities. Labs pertinent for leukocytosis with a white blood cell count of 11,000, H&H of 13.6/40.3, MCV of 91.6 and a platelet count of 424,000. Serum chemistries revealed a sodium of 139, potassium of 3.9, BUN 18, creatinine 1.0 with a normal anion gap of 11. LFTs unremarkable with a total bili of 0.7, AST/L2 21/20, alkaline phosphatase of 93. INR is 0.96. She had an MRI of the lumbar spine done on 06/06/2016 as an outpatient which showed acute compression fracture of the T12 vertebral body with impaction of the lower endplate and approximately 10% vertebral body height loss anteriorly. There is also evidence of bone marrow edema associated with bilateral sacral insufficiency fractures worse on the left, grade 1 anterolisthesis of L4 on L5 related to advanced facet degenerative changes at this level, no canal stenosis and no substantial mass effect on the traversing of foraminal nerve roots. A repeat T scan of the abdomen and pelvis for abdominal pain had revealed worsening of the T12 vertebral compression fracture compared to the one seen on May 12 20 11/27/2016. In the ER she received Dilaudid 1 mg IV 1 She will be admitted to [facility] for observation and will undergo IR vertebral augmentation to be performed by Dr. Jorge Weiner. Assessment and plan #Intractable lower back pain Most likely secondary to compression fraction of T12 vertebral body Optimize pain management with IV Tylenol, Dilaudid. Nothing by mouth after midnight for vertebral augmentation tomorrow. She is scheduled for MRI tomorrow at 7:20 AM followed by kyphoplasty at 10:[address] Casillas is aware,a nd we do not have to put any orders for MRI. #Hypertension Most likely secondary to pain in the setting of benign essential hypertension Continue on amlodipine 5 mg daily #Hyperlipidemia Continue on simvastatin 20 mg daily #COPD Continue on Symbicort and albuterol Couretsy call to rah Encarnacion patient is in the hospital. On 2.0 liters at night and on an as nded basis Due to prophylaxis Heparin 5000 international units 3 times a day subcutaneous Diet Heart healthy CODE STATUS Full Code As Ranked By This Provider Problem List: 1. Intractable back pain Core Measures/Miscellaneous Acute Coronary Syndrome ACS Diagnosis: No Cerebrovascular Accident CVA/TIA Diagnosis: No Congestive Heart Failure CHF Diagnosis: No Venous Thromboembolism VTE Risk Factors: Age > 40 [facility] prophylaxis d/t: No contraindications No VTE Pharm Prophylaxis d/t: No contraindications VTE Diagnosis: No VTE Type: NONE VTE Confirmed by (Test): NONE Severe Sepsis Severe Sepsis Present: No Septic Shock Septic Shock Present: No Miscellaneous Documentation Attending Case Discussed With: Dr. Javier Primary Care Physician: Isael GLASS MD Patient sees these Specialists Gagandeep Anderson MD Level of Patient Care: General Medicine Resident Review Statement Resident Statement: admitted by resident SARA JAVIER MD 07/15/16 1465: Attending MD Review Statement Attending Statement Attending MD Statement: examined this patient, discuss w/resident/PA/ELECTROPLATER, agreed w/resident/PA/ELECTROPLATER, reviewed EMR data (avail), discussed with nursing, reviewed images, amended to note Attending Assessment/Plan: The patient is an 81 yo female with h/o HTN, HL, oxygen dependent COPD (2 L/min) , lung cancer, and osteoporosis who presented in the [place] ED with intractable mid back pain that has been progressing over last several weeks and not responding to po pain medication. She was scheduled for an OP vertebral augmentation procedure (T12) with Dr. Weiner in Interventional Radiology tomorrow, however could no longer tolerate the pain at home. She had some relieve from IV Dilaudid given in ED. She denied any increase in baseline dyspnea, chest pain, fever, or lower extremity weakness or radiation of pain. The patient is followed by Dr. Anderson for pulmonary. Physical Exam: VS: T 96.9, P 83, R 18, BP 180/88, PO 94% on 2 L nasal HEENT: eyes- PERRLA, EOMI kadeem- no lesions, moist mucosa Neck: no adenopathy, bruits, or JVD Chest: mild diffuse diminished breath sounds, clear Cor: RRR, nl S1, S2 w/o murm Abd: BS +, soft, NT, - HSM Ext: no edema, pulses 1+ Neuro: alert & oriented x 3, non-focal exam Derm: multiple ecchymoses Labs/Tests- as above Impression/Plan: #Intractable Back Pain- mid back c/w known T12 compression fracture. Has failed on OP oral pain meds. Responded well to IV Dilaudid in ED. Is scheduled for vertebral augmentation as OP tomorrow. Plan: Will bring into observation bed on medical floor. Treat pain as per pain protocol- IV Dilaudid. Will proceed with planned MRI of spine and vertebral augmentation in IR tomorrow. NPO post midnight and begin IV fluids. Will observe response of pain from augmentation. May need short term rehab. #COPD-Oxygen Dependent- stable at present. Plan: Continue nasal oxygen. Continue Albuterol/Budesonide/Formoterol/Prednisone. Monitor oxygen saturation closely on narcotics. #Essential HTN- on Amlodipine. BP slightly increased due to pain. Plan: Continue Amlodipine and observe. #Hyperlipidemia- on Simvastatin. Plan: Continue Simvastatin.
--- NOTE | 2016-07-15 16:06 | NUR ---
PT HAS SOUP AND COFFEE WITH ASSISTANCE. PT WATCHING TV WITH RR.
--- NOTE | 2016-07-15 17:20 | NUR ---
Emergency Dept UC Admit Note: To be admitted to [facility] by DR POZO with LOW BACK PAIN as the diagnosis, to [facility]OBSERVATION location. Nursing Pool Servicer and admitting notified 07/15/16 at 1550 PT WILL GO TO ROOM [id number]
--- NOTE | 2016-07-15 17:43 | NUR ---
REPORT GIVEN TO CLEMENTE CRUZ, CLEMENTE CRUZ WILL CALL WHEN RM IS CLEAN.
--- NOTE | 2016-07-15 17:55 | Admission Certification ---
Admission Certification Certification Statement - As attending physician, I certify that at the time of - admission, based on clinical presentation, severity of - symptoms, need for further diagnostic testing and - therapeutic interventions, and risk of adverse outcomes - without in-hospital treatment, in my clinical assessment, - this patient requires an acute hospital stay for a minimum - of two nights or longer. I have also considered psychsocial - factors such as support system, advanced age, financial - issues, cognitive issues, and failed out-patient treatments, - past re-admission history, safety of patient, and lack of - compliance as applicable. Specific rationale supporting this admission is: Patient placed in Observation status with intractable back pain requiring IV narcotics for relief. Scheduled for thoracic vertebral augmentation procedure in interventional radiology tomorrow. MRI of spine prior.
--- NOTE | 2016-07-15 18:42 | NUR ---
RM CLEAN, TRANSPORT CALLED
--- NOTE | 2016-07-15 19:10 | NUR ---
PT ARRIVED TO FLOOR AT THIS TIME VIA STRETCHER FROM ER. PT A/V/OX3. ON 2LNC, HX OF COPD. USES O2 SUPPLEMENTALLY AT HOME. DIMINISHED LUNG SOUNDS, EXERTIONAL SOB NOTED. BRUISING TO BUE AND BLE. OPEN AREA TO COCCYX, SKIN MAN COMPLETED. SKIN INTEGRITY & TURN & REPOSITIONED ADDED. SIZEWISE ORDERED. PT IN 01/18 PAIN TO LOWER BACK. 2MG IV DILAUDID ORDERED, VERIFIED DOSE & ORDER WITH VICE PRESIDENT QUALITY ASSURANCE. PER VICE PRESIDENT QUALITY ASSURANCE, PTS PAIN LEVEL IS HIGH, OK TO GIVE 2MG IV DILAUDID. PT TOLERATED DOSE WELL. HX OF FALLS, FALL PROTOCOL IN PLACE. BED ALARM IN PLACE. PT EDUCATED ON USE OF CALL CALERO. #22 SADIA FLUSHING EASILY. PT AWARE OF POC AND BEING NPO AT MIDNIGHT. VSS. PT OFFERS NO COMPLAINTS AT THIS TIME. DAUGHTER AT BEDSIDE. WILL CONTINUE TO MONITOR.
[2016-07-15 19:47] VITALS: BP 142/62
[2016-07-15 22:49] VITALS: BP 138/88
[2016-07-16 06:00] VITALS: BP 102/60
--- NOTE | 2016-07-16 07:27 | PN- Housestaff ---
[facility] 07/16/16 0726: Subjective Follow-up For: Intractable lower back pain Subjective: Patient was in the OR on the whole day, patient was seen around evening time after she came up from OR, pain is controlled with pain medication, patient denied any chest pain, abdominal pain, palpitation, shortness of breath. Vital signs are stable Review of Systems Constitutional: Reports: see HPI. Objective Last 24 Hrs of Vital Signs/I&O Vital Signs Date Time Temp Pulse Resp B/P Pulse O2 O2 Flow FiO2 Ox Delivery Rate 07/16 1530 61 140/60 07/16 1521 97.9 68 20 140/60 97 Nasal 2.0L Cannula 07/16 0800 Nasal 2.0L Cannula 07/16 0600 98.0 61 18 102/60 100 Nasal Cannula 07/16 0000 99 Nasal 2.0L Cannula 07/15 2249 98.0 70 18 138/88 99 Nasal 2.0L Cannula 07/15 1947 142/62 07/15 1915 97.9 68 20 95 Nasal 1.5L Cannula 07/15 1910 Nasal 2.0L Cannula Intake & Output 07/16 1600 07/16 0800 07/16 0000 Intake Total 0 450 480 Output Total 150 750 300 Balance -150 -300 180 Intake, IV 450 Intake, Oral 0 0 480 Number 0 0 Bowel Movements Output, Urine 150 750 300 Patient 40.823 kg Weight Physical Exam General Appearance: Alert, Oriented X3, Cooperative, No Acute Distress Skin: bruses over BUE HEENT: Atraumatic, PERRLA, EOMI, Mucous Membr. 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 MRI of the lumbar spine 06/06/2016 outpatient Reveled acute compression fracture of the T12 vertebral body with impaction of the lower endplate and approximately 10% vertebral body height loss anteriorly. There is also evidence of bone marrow edema associated with bilateral sacral insufficiency fractures worse on the left, grade 1 anterolisthesis of L4 on L5 related to advanced facet degenerative changes at this level, no canal stenosis and no substantial mass effect on the traversing of foraminal nerve roots. CT scan of the abdomen and pelvis 11/27/2016 revealed worsening of the T12 vertebral compression fracture compared to the one seen on May 30 . Assessment and plan #Intractable lower back pain -Secondary to compression fraction of T11 and 12 vertebral body -Patient underwent IR vertebral augmentation performed by Dr. Jroge Weiner -MRI without FAHEEM thoracic and lumbar spines Ryer to IR operation reveled IMPRESSION: Thoracic Spine: 1. There is an acute compression fracture of the body of T12, demonstrated on prior imaging. 2. There is abnormal signal in the body of T11, and abnormal signal in the T12 spinous process, consistent with edema. At present the T11 vertebral body is maintained. 3. Increased STIR signal in the right T11 and T12 ribs is consistent with fractures. 4. There is no spinal cord compression. 5. There is a stable nodule in the right upper lobe. Lumbar Spine: 1. The study redemonstrates multilevel spondylosis. 2. Increased STIR signal in the left greater than right sacral ala are consistent with previously described insufficiency fractures. -Continue pain management acetaminophen 650 mg every 6 when necessary, acetaminophen IV every 6 when necessary, Dilaudid IV 2 mg every 4-6 when necessary #Hypertension -Continue on amlodipine 5 mg daily #Hyperlipidemia -Continue on simvastatin 20 mg daily #COPD -Continue on Symbicort and albuterol -Couretsy call to Dr. Anderson was given, that patient is in the hospital -Nocturnal 2 L oxygen -Continue prednisone 10 mg daily -Due to prophylaxis Heparin subcutaneous -Diet Heart healthy -CODE Full Code -Consultation IR Problem List: 1. Intractable back pain Pain Ratin Pain Location: back pain Pain Goal: Pain 4 or less Pain Plan: acetaminophen 650 mg every 6 when necessary acetaminophen IV every 6 when necessary Dilaudid IV 2 mg every 4-6 when necessary Tomorrow's Labs & Rationales: CBC, CMP SARA POZO MD 07/16/161: Attending MD Review Statement Attending Statement Attending MD Statement: examined this patient, discuss w/resident/PA/UNSTACKER, agreed w/resident/PA/UNSTACKER, reviewed EMR data (avail), discussed with nursing, reviewed images, amended to note Attending Assessment/Plan: The patient was seen after returning from recovering from her vertebral augmentation procedure. As noted, T12 augmentation was planned originally, however pre-procedure MRI showed a new acute fracture in T11 and both bodies were augmented. MRI also showed rib fractures which may be adding to pain. Post procedure the patient does complain of pain and is recovering from sedation. Will have PT evaluation in morning and decide potential need for rehab.
[2016-07-16 08:05] LABS: ABSOLUTE BASOPHIL COUNT 0.1 /CUMM (0.0-0.2); ABSOLUTE EOSINOPHIL COUNT 0.1 /CUMM (0.0-0.7); ABSOLUTE GRANULOCYTE CT 5.9 /CUMM (1.4-6.5); ABSOLUTE LYMPH COUNT 1.2 /CUMM (1.2-3.4); ABSOLUTE MONOCYTE COUNT 0.8 /CUMM (0.10-0.60); BASOPHIL % 0.7 % (0.0-2.0); GRANULOCYTE % 73.8 % (42.2-75.2); HEMATOCRIT 40.5 % (37-47); MEAN CORPUSCULAR HGB 30.6 PG (27.0-31.0); MEAN CORPUSCULAR HGB CONC 32.6 G/DL (33.0-37.0); MEAN CORPUSCULAR VOLUME 93.8 FL (81.0-99.0); MEAN PLATELET VOLUME 7.2 FL (7.4-10.4); PLATELET COUNT 371 /CUMM (130-400); RBC DISTRIBUTION WIDTH 13.8 % (11.5-14.5); RED BLOOD CELL CT 4.32 /CUMM (4.20-5.40)
--- NOTE | 2016-07-16 08:33 | NUR ---
PT LEFT FLOOR VIA STRETCHER TO MRI- PREMEDICATED WITH ATIVAN IV AND IV DILAUDID FOR PAIN, DAUGHTER @ BEDSIDE.
--- NOTE | 2016-07-16 09:58 | NUR ---
PHYSICAL THERAPY: RECIEVED CONSULT ORDERS, REVIEWED CHART. PATIENT CURRENTLY OFF THE FLOOR; P.T. TO F/U APPROPRAITE WHEN PATIENT RETURNS.
--- NOTE | 2016-07-16 10:20 | MRI REPORT ---
EXAMINATION: MR THORACIC SPINE WITHOUT CONTRAST MR LUMBAR SPINE WITHOUT CONTRAST CLINICAL INFORMATION: Back pain. Compression fracture. COMPARISON: MRI scan of the lumbar spine 06/06/2016. CT scan of the abdomen and pelvis 07/02/2016. CT scan of the chest 02/13/2016. TECHNIQUE: MRI of the thoracic and lumbar spine was obtained using routine sequences without contrast. FINDINGS: MRI THORACIC SPINE: Vertebral Bodies and Paraspinal Structures: There is mild hyperkyphosis at T11-T12. Intervertebral disc heights are mildly decreased in the mid thoracic region. There is a compression fracture of the body of T12 with loss of approximately 65% of vertebral body height anteriorly. This vertebral body has diffusely increased STIR signal, also extending into the right pedicle. There is relatively diffuse increased STIR signal in the body of T11 which has mild loss of vertebral body height with invagination of disc into the superior endplate. There is increased STIR signal in the right T11 and T12 posteromedial ribs, and in the spinous process of T11. There may be a fracture of the left T11-T12 facet joint with edematous signal. The signal from the osseous structures elsewhere is normal and homogenous; the signal is increased in the T1 and T2 sequences with low STIR signal consistent with osteopenia/osteoporosis, corresponding to prior CT scans. The study redemonstrates the mass in the right upper lobe anteromedially which measures 1.4 cm in diameter, not significantly changed compared to the prior study. The nodule in the left upper lobe is not visualized on the current study. There is a small hiatal hernia. The paravertebral structures are unremarkable. The conus is at the level of L1-L2. Accounting for artifact, spinal cord signal appears normal. Spinal Levels: C7-T1 through T9-T10: Posterior disc contours appear normal. There is no central stenosis or spinal cord compression. T10-T11: There is mild posterior protrusion of the superior body of T11. There is no central stenosis or spinal cord compression. T11-T12: There is protrusion of the superior body of T12 posteriorly with loss of caliber of the spinal canal at approximately 20%. There is no compression of the lower thoracic spinal cord. The neural foramina are patent. MRI LUMBAR SPINE: Vertebral Bodies and Paraspinal Structures: The study redemonstrates the mild grade 1 anterolisthesis of L4 on L5. There is narrowing of intervertebral disc height at this level. Loss of signal from the intervertebral discs at multiple levels is consistent with disc desiccation. Vertebral body heights are maintained. There are no compression fractures. Increased STIR signal in the left greater than right sacral ala are consistent with previously described insufficiency fractures. Elsewhere, marrow signal is diffusely hyperintense on the T1 and T2 images with low STIR signal, consistent with osteopenia/osteoporosis. Adrenal glands are not enlarged. There is ectasia of the infrarenal abdominal aorta. There are bilateral renal cysts. The visualized pelvic structures are unremarkable. Conus Medullaris and Cauda Equina: Normal, terminating at the level of L1. The cauda equina nerve roots and filum terminale appear normal. Spinal Levels: L1-L2: There is a mild diffuse disc bulge. There is no central stenosis or foraminal narrowing. Facet joints appear normal. L2-L3: There is mild bilateral facet arthropathy. There is a diffuse disc bulge. There is no central stenosis or foraminal narrowing. L3-L4: There is mild bilateral facet arthropathy. There is a broad-based posterior disc protrusion extending into the inferior neural foramina bilaterally. There is no central stenosis or foraminal nerve root compression. L4-L5: There is [id number] bilateral facet arthropathy. There is mild unroofing of the disc as a result of anterolisthesis. There is a right foraminal disc protrusion impinging on the exiting right L4 nerve root, unchanged. L5-S1: There is mild bilateral facet arthropathy. There is a small central disc protrusion. The neural foramina are patent. There is no central stenosis. IMPRESSION: Thoracic Spine: 1. There is an acute compression fracture of the body of T12, demonstrated on prior imaging. 2. There is abnormal signal in the body of T11, and abnormal signal in the T12 spinous process, consistent with edema. At present the T11 vertebral body is maintained. 3. Increased STIR signal in the right T11 and T12 ribs is consistent with fractures. 4. There is no spinal cord compression. 5. There is a stable nodule in the right upper lobe. Lumbar Spine: 1. The study redemonstrates multilevel spondylosis. 2. Increased STIR signal in the left greater than right sacral ala are consistent with previously described insufficiency fractures.
--- NOTE | 2016-07-16 13:57 | NUR ---
PHYSICAL THERAPY: Patient continues to remain off the floor. Will f/u as appropriate for evaluation tomorrow.
[2016-07-16 15:21] VITALS: BP 140/60
--- NOTE | 2016-07-16 15:22 | NUR ---
PT ARRIVED TO FLOOR VIA STRETCHER FROM IIU, AO , 2L NC, VSS, C/O PAIN 12/18, PT TRANSFERRED TO [facility], WILL CONTINUE TO MONITOR.
--- NOTE | 2016-07-16 16:08 | INTERVENTIONAL RADIOLOGY RPT ---
EXAMINATION: FLUOROSCOPICALLY-GUIDED T11 and T12 VERTEBRAL AUGMENTATION DATED 07/16/2016: CLINICAL HISTORY: 81-year-old female with history of COPD, osteoporosis, found to have a mild compression fracture on MRI of the spine performed 06/06/2016. Patient was seen in consultation on 07/14/2016 to discuss vertebral augmentation. Approximately 1 week prior to evaluation the patient had acute worsening of her symptoms. We discussed a plan to perform vertebral augmentation of the T12 vertebral body however before the procedure, we discussed obtaining a thoracic and lumbar spine MRI to evaluate for additional fractures given her new acute onset of worsening pain. The MRI of the thoracic and lumbar spine performed on the morning of 07/16/2016 demonstrates a new acute compression fracture in the T11 vertebral body. The plan to perform vertebral augmentation at both T11 and T12 was discussed with the patient and her daughter. Informed consent was obtained prior to the procedure. INTERVENTIONAL RADIOLOGIST: Jorge Weiner MD TECHNIQUE: Informed consent was obtained from the patient prior to the procedure. During this process, the procedure and potential alternatives were explained along with the intended outcome and benefits. The risks of the procedure including the possibility of an unsuccessful procedure, as well as the risk of not doing the procedure were discussed. The patient was given the opportunity to ask questions regarding the procedure and appeared competent to make decisions. A signed consent form which documented this discussion was placed in the medical record. A time out procedure was performed. The medical record was reviewed to ensure that the patient is stable for the planned surgical procedure. The radiographic studies were reviewed. Radiographic findings were correlated with the clinical examination and the surgical plan is confirmed. I also conferred with the patient and family explaining the current condition and the need for intervention. All questions were answered. Following informed consent the patient was placed prone on the fluoroscopic table. Sedation was provided by the anesthesia service. Please refer to the anesthesia records for medication administration. A total of 25.6 minutes of fluoroscopy and 22.5micro-pearson per meter squared was utilized. T11 VERTEBRAL BODY: A small skin neck was made at the appropriate level. PA and lateral fluoroscopy was utilized for targeting of the abnormal vertebral body. A left transpedicular approach was utilized. Triangulation was performed. A standard Dfine 10.5-gauge needle introducer cannula was utilized. This was placed through the pedicle. Great care was utilized to avoid adjacent structures. The posterior wall of the vertebral body was traversed. After final positioning of the working cannula under fluoroscopic guidance, the introducer 10.5-gauge needle stylette was removed. Under fluoroscopic guidance, an initial cavity was created within the vertebral body by inserting a straight hollow coring cement staging osteotome to the working cannula into the anterior third of the vertebral body. A larger directional staging osteotome was then inserted through the working cannula and across the midline to specific areas within the vertebral body as a cavity was created. The articulated arm was then deployed to further enlarge the cavity. The device was then withdrawn into the working cannula rotated and reinserted and articulated multiple times to large existing cavity at the T11 vertebral body. T12 VERTEBRAL BODY: A small skin neck was made at the appropriate level. PA and lateral fluoroscopy was utilized for targeting of the abnormal vertebral body. A right transpedicular approach was utilized. Triangulation was performed. A standard Dfine 10.5-gauge needle introducer cannula was utilized. This was placed through the pedicle. Great care was utilized to avoid adjacent structures. The posterior wall of the vertebral body was traversed. After final positioning of the working cannula under fluoroscopic guidance, the introducer 10.5-gauge needle stylette was removed. Under fluoroscopic guidance, an initial cavity was created within the vertebral body by inserting a straight hollow coring cement staging osteotome to the working cannula into the anterior third of the vertebral body. A larger directional staging osteotome was then inserted through the working cannula and across the midline to specific areas within the vertebral body as a cavity was created. The articulated arm was then deployed to further enlarge the cavity. The device was then withdrawn into the working cannula rotated and reinserted and articulated multiple times to large existing cavity at the T12 vertebral body. VERTEBRAL AUGMENTATION T11: The controller from the Dfine system was turned on. The warming cartridge, delivery cables, hydraulic assembly were connected to the controller. The bone cement was mixed and the cement cartridge was filled to attach to the warming cartridge. After removal of the introducer stylette, the locking delivery cannula was attached to the cement. This was then inserted through the working cannula and into the locking delivery cannula into the cavity created within the vertebral body. This was then locked in place with the working cannula in the T11 vertebral body to establish and stabilize its position. The bone cement was converted to a ultra-high viscosity, semi-solid material and was driven through the warming cartridge. The Ultra-high viscosity cement was delivered through the locking delivery camera cannula to fill the cavity created by the osteotome. The mass in the ultra high viscosity cement continued to grow at 1.3 cc/minute. This expands the cavity size while filling it. The cement was allowed to interdigitate within the fractures within the vertebral body. The cement was allowed to heal. Great care was utilized to avoid passing the cement to the fractures into the disc spaces. Great care was also utilized to prevent cement from passing into the spinal canal cavity. A total of 3.5 mL of the cement was placed into the T11 vertebral body. This was placed in the appropriate position across the midline. This help to elevate the endplate fracture. The introducer was placed into the cannula to tap out the remaining cement. VERTEBRAL AUGMENTATION T12: After removal of the introducer stylette, the locking delivery cannula was attached to the cement. This was then inserted through the working cannula and into the locking delivery cannula into the cavity created within the vertebral body. This was then locked in place with the working cannula in the T12 vertebral body to establish and stabilize its position. The bone cement was converted to a ultra-high viscosity, semi-solid material and was driven through the warming cartridge. The Ultra-high viscosity cement was delivered through the locking delivery camera cannula to fill the cavity created by the osteotome. The mass in the ultra high viscosity cement continued to grow at 1.3 cc/minute. This expands the cavity size while filling it. The cement was allowed to interdigitate within the fractures within the vertebral body. The cement was allowed to heal. Great care was utilized to avoid passing the cement to the fractures into the disc spaces. Great care was also utilized to prevent cement from passing into the spinal canal cavity. A total of 2.5 mL of the cement was placed into the T12 vertebral body. This was placed in the appropriate position across the midline. This help to elevate the endplate fracture. The introducer was placed into the cannula to tap out the remaining cement. The cannulas were removed under fluoroscopic guidance to ensure stability of the cement. Glue was placed over the wound sites after good hemostasis was achieved. The patient tolerated the procedure well. The patient was discharged from the Department in good condition with written instructions after appropriate monitoring. The patient will followup in one month. FINDINGS: Acute osteoporotic T11 vertebral body fracture. Acute osteoporotic T11 vertebral body fracture. A cavity was created with using a mechanical osteotome in the T11 vertebral body. This was then filled with bone cement. A cavity was created with using a mechanical osteotome in the T12 vertebral body. This was then filled with bone cement. The bone cement appears in good position and across the midline using standard technique. COMPLICATIONS: None. IMPRESSION: Successful T11 and T12 vertebral body augmentation.
[2016-07-16 23:51] VITALS: BP 110/58
[2016-07-17 06:54] VITALS: BP 130/80
--- NOTE | 2016-07-17 07:11 | PN- Housestaff ---
[facility] 07/17/16 0710: Subjective Follow-up For: Intractable lower back pain Post vertebral augmentation Day#1 Subjective: Patient was seen and examined this morning, she is resting comfortably on bed, she reported that back pain improved a lot and its 5 out of 10, well controlled with medication. Patient denied any shortness of breath, cough, chest pain, abdominal pain, nausea or vomiting, dysuria, last bowel movement was last week given the patient was not able to eat well because of the pain and also taking a lot of narcotics. Patient had good sleep overnight, continue to be on 2 L oxygen with saturation 97%, vital signs are stable, no overnight events reported by the nurse or the patient. Patient didn't move out of bed since the surgery, will have PT session this morning, will DC IV fluid as she is eating and drinking well. Review of Systems Constitutional: Reports: see HPI. Objective Last 24 Hrs of Vital Signs/I&O Vital Signs Date Time Temp Pulse Resp B/P Pulse O2 O2 Flow FiO2 Ox Delivery Rate 07/17 0851 76 130/80 07/17 0820 98 Nasal 2.0L Cannula 07/17 0654 97.7 76 20 130/80 98 Nasal 2.0L Cannula 07/17 0000 100 Nasal 2.0L Cannula 07/16 2351 97.8 66 18 110/58 100 Nasal 2.0L Cannula 07/16 2154 Nasal 2.0L Cannula 07/16 1600 Nasal 2.0L Cannula 07/16 1530 61 140/60 07/16 1521 97.9 68 20 140/60 97 Nasal 2.0L Cannula Intake & Output 07/17 1600 07/17 0800 07/17 0000 Intake Total 250 Output Total 150 Balance 250 -150 Intake, IV 10 Intake, Oral 240 Output, Urine 150 Physical Exam General Appearance: Alert, Oriented X3, Cooperative, No Acute Distress Skin: multiple bruses upper and lower extermities bilateral multiple stages HEENT: Atraumatic, PERRLA, EOMI, Mucous Membr. 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 MRI of the lumbar spine 06/06/2016 outpatient Reveled acute compression fracture of the T12 vertebral body with impaction of the lower endplate and approximately 10% vertebral body height loss anteriorly. There is also evidence of bone marrow edema associated with bilateral sacral insufficiency fractures worse on the left, grade 1 anterolisthesis of L4 on L5 related to advanced facet degenerative changes at this level, no canal stenosis and no substantial mass effect on the traversing of foraminal nerve roots. CT scan of the abdomen and pelvis 11/27/2016 revealed worsening of the T12 vertebral compression fracture compared to the one seen on May 30 . Assessment and plan #Intractable lower back pain -Secondary to compression fraction of T11 and 12 vertebral body -Post vertebral augmentation Day #[address] Jorge Weiner -MRI without FAHEEM thoracic and lumbar spines prior to IR operation reveled IMPRESSION: Thoracic Spine: 1. There is an acute compression fracture of the body of T12, demonstrated on prior imaging. 2. There is abnormal signal in the body of T11, and abnormal signal in the T12 spinous process, consistent with edema. At present the T11 vertebral body is maintained. 3. Increased STIR signal in the right T11 and T12 ribs is consistent with fractures. 4. There is no spinal cord compression. 5. There is a stable nodule in the right upper lobe. Lumbar Spine: 1. The study redemonstrates multilevel spondylosis. 2. Increased STIR signal in the left greater than right sacral ala are consistent with previously described insufficiency fractures. -Continue pain management * Acetaminophen 650 mg every 6 for pain 1-3 * Tramadol 50 mg every 4 for pain 4-6 * Percocet 1 tab every 4 for pain 7-10 -Aggressive bowel regimen, MiraLAX, senna and Colace -We will start ambulate the patient with PT today, will follow PT recommendation for discharge plan Patient wishes is to go home with physical therapy services #Hypertension -Continue on amlodipine 5 mg daily #Hyperlipidemia -Continue on simvastatin 20 mg daily #COPD -Continue on Symbicort and albuterol -Couretsy call to Dr. Anderson was given, that patient is in the hospital -Nocturnal 2 L oxygen -Continue prednisone 10 mg daily -DVT prophylaxis Heparin subcutaneous -Diet Heart healthy -CODE Full Code -Consultation IR, PT Problem List: 1. Intractable back pain 2. Compression fracture of body of thoracic vertebra Pain Ratin Pain Location: Low back pain Pain Goal: Pain 4 or less Pain Plan: Acetaminophen 650 mg every 6 for pain 1-3 Tramadol 50 mg every 4 for pain 4-6 Percocet 1 tab every 4 for pain 7-10 Tomorrow's Labs & Rationales: None SARA POZO MD 07/17/16 1215: Attending MD Review Statement Attending Statement Attending MD Statement: examined this patient, discuss w/resident/PA/HISTOLOGY MANAGER, agreed w/resident/PA/HISTOLOGY MANAGER, discussed with family, reviewed EMR data (avail), discussed with nursing, discussed with case mgmt, reviewed images, amended to note Attending Assessment/Plan: The patient was seen and discussed with house staff. Agree with plan of care as outlined.
[2016-07-17 08:27] LABS: ABSOLUTE BASOPHIL COUNT 0 /CUMM (0.0-0.2); ABSOLUTE EOSINOPHIL COUNT 0 /CUMM (0.0-0.7); ABSOLUTE GRANULOCYTE CT 8.6 /CUMM (1.4-6.5); ABSOLUTE LYMPH COUNT 0.5 /CUMM (1.2-3.4); ABSOLUTE MONOCYTE COUNT 0.6 /CUMM (0.10-0.60); BASOPHIL % 0.2 % (0.0-2.0); EOSINOPHIL % 0.1 % (0-5); HEMATOCRIT 38.3 % (37-47); MEAN CORPUSCULAR HGB 30.8 PG (27.0-31.0); MEAN CORPUSCULAR HGB CONC 32.9 G/DL (33.0-37.0); MEAN CORPUSCULAR VOLUME 93.6 FL (81.0-99.0); MEAN PLATELET VOLUME 6.9 FL (7.4-10.4); PLATELET COUNT 353 /CUMM (130-400); RBC DISTRIBUTION WIDTH 13.9 % (11.5-14.5); RED BLOOD CELL CT 4.09 /CUMM (4.20-5.40); WHITE BLOOD CELL COUNT 9.7 /CUMM (4.8-10.8)
[2016-07-17 09:26] LABS: GRANULOCYTE % 88.3 % (42.2-75.2)
--- NOTE | 2016-07-17 14:29 | PN- Student ---
Subjective Subjective: Pt was sitting up in bed eating breakfast. Her son is also present. Pt says her back pain is much better after the t11-t12 vertebroplasty procedure done yesterday but she is overdue for her pain meds and can feel the pain getting worse. Her primary complaint is a lack of bowel movements for the past week. She also conveyed this concern to her nurse who relayed the message to me. She seemed frustrated that so many people kept coming in and out of her room asking her the same questions repeatedly so I respectfull told her that I would stay out of the room during attending rounds so only the MD and internet e commerce specialist would enter her room. She said she preferred that. Her son was inquiring about the "prognosis" which I said the attending MD will discuss with them at [facility]. The pt was also hoping to have the IR MD (Dr.Robert Weiner) come check in on her and I told her I wasn't sure if that typically happens but I could look into it for her. Pt denies N/V, F/C numbness or tingling, dysuria. Objective Objective: Vital Signs Date Time Temp Pulse Resp B/P Pulse O2 O2 Flow FiO2 Ox Delivery Rate 07/17 0851 76 130/80 07/17 0820 98 Nasal 2.0L Cannula 07/17 0800 Nasal 2.0L Cannula 07/17 0654 97.7 76 20 130/80 98 Nasal 2.0L Cannula 07/17 0000 100 Nasal 2.0L Cannula 07/16 2351 97.8 66 18 110/58 100 Nasal 2.0L Cannula 07/16 2154 Nasal 2.0L Cannula 07/16 1600 Nasal 2.0L Cannula 07/16 1530 61 140/60 07/16 1521 97.9 68 20 140/60 97 Nasal 2.0L Cannula 07/16 0800 Nasal 2.0L Cannula 07/16 0600 98.0 61 18 102/60 100 Nasal Cannula 07/16 0000 99 Nasal 2.0L Cannula 07/15 2249 98.0 70 18 138/88 99 Nasal 2.0L Cannula 07/15 1947 142/62 07/15 1915 97.9 68 20 95 Nasal 1.5L Cannula 07/15 1910 Nasal 2.0L Cannula 07/15 1609 98.6 68 18 140/60 94 Room Air 07/15 1420 98 Nasal 3.0L Cannula 07/15 1330 96.9 83 18 180/88 94 Nasal 2.0L Cannula Last 24 Hours I&Os 07/17 1600 07/17 0800 07/17 0000 Intake Total 500 250 Output Total 150 Balance 500 250 -150 Intake, IV 10 Intake, Oral 500 240 Output, Urine 150 Patient 89 lb 15.99 oz Weight Laboratory Tests 07/17/16 0750: Anion Gap 7, Estimated GFR > 60, BUN/Creatinine Ratio 22.9, CBC w Diff NO MAN DIFF REQ, RBC 4.09 L, MCV 93.6, MCH 30.8, RDW 13.9, MPV 6.9 L, Gran % 88.3 H, Lymphocytes % 5.4 L, Monocytes % 6.0, Eosinophils % 0.1, Basophils % 0.2, Absolute Granulocytes 8.6 H, Absolute Lymphocytes 0.5 L, Absolute Monocytes 0.6, Absolute Eosinophils 0, Absolute Basophils 0, PUBS MCHC 32.9 L Orders Procedure Date/time Status CBC WITHOUT DIFFERENTIAL 07/17 599 Complete BASIC ELECTROLYTES PLUS BUN&CR 07/17 599 Complete Gait Training, 15 Min 07/17 UNK Complete PT EVAL LOW COMPLEX 20 MIN 07/17 UNK Complete MISSING MEDICATION FORM 07/17 UNK Active Regular Diet 07/16 D Active Nothing by Mouth 07/16 B Complete THERAPIST ORDERS 07/16 2201 Complete RT: Evaluation 07/17 2151 Active OXYGEN SETUP (GEN) 07/16 1600 Complete CBC WITHOUT DIFFERENTIAL 07/16 06 Complete BASIC ELECTROLYTES PLUS BUN&CR 07/16 06 Complete OXYGEN SETUP CHG 07/16 UNK Complete INCENTIVE SPIROMETRY TRX CHG 07/16 UNK Complete AEROSOL CHG 07/16 UNK Complete OXYGEN 07/16 UNK Complete OXYGEN TRANSPORT 07/16 UNK Complete Regular Diet 07/15 D Complete Turn and Reposition 07/16 1931 Active Skin Integrity Protocol 07/15 193 Active Vital Signs 07/15 1906 Active Teach/Educate 07/15 1906 Active Pain Treatment and Response 07/15 1906 Active Nutritional Intake, Monitor 07/15 1906 Active Isolation 07/15 1906 Active Intake & Output 07/15 1906 Active Patient Care Conference 07/15 1906 Active Activity/Ambulation 07/15 1906 Active Code Status 07/15 1634 Active PT Evaluate & Treat 07/15 1604 Active Pathway - chart 07/15 1604 Active House Staff 07/15 1604 Active Patient Data 07/[address] in observation 07/15 1538 Active Vital Signs 07/15 1538 Active Code Status 07/15 1538 Complete Intake & Output 07/15 1419 Active Skin/Pressure Ulcer Assess (Sk 07/15 1417 Active Saline Lock 07/15 1348 Active PROTHROMBIN TIME 07/15 1348 Complete COMPREHENSIVE METABOLIC PANEL 07/15 1348 Complete CBC WITHOUT DIFFERENTIAL 07/15 1348 Complete EKG 07/15 1348 Active TYPE & SCREEN (NOT X-MATCH) 07/15 1348 Complete TRC EVALUATION (GEN) 07/15 UNK Complete VTE Mechanical Prophylaxis 07/15 UNK Active Vital Signs 07/15 UNK Complete Physical Exam: General: limited due to pt eating breakfast on breakfast tray Neuro: A&O x3, full ROM in both lower extremities, sensation intact bilaterally in lower extremities Resp: no increased work of breathing Card: no peripheral edema, no JVD Extremities: well perfused Current Medications Sig/Yecenia Start time Last Medication Dose Stop Time Status Admin Albuterol Sulfate 3 ML TIDPRN 07/15 1830 AC (Proventil) Albuterol Sulfate 2 PUF Q6P PRN 07/15 1830 AC (Ventolin) Docusate Sodium 100 MG DAILY NEEDED PRN 07/17 1100 AC (Colace) Heparin Sodium 5,000 UNIT Q8 07/15 2200 AC (Porcine) Ondansetron HCl 4 MG Q4-6 PRN PRN 07/15 1845 AC (Zofran) Oxycodone/ 1 TAB Q4P PRN 07/17 1100 AC Acetaminophen (Percocet) Senna 187 MG AT BEDTIME 07/17 2200 AC (Senokot) Tramadol HCl 50 MG Q4P PRN 07/17 1100 AC (Ultram) Results Results: T11 and T12 vertebral body augmentation Report: -Acute osteoporotic T11 vertebral body fracture. -Acute osteoporotic T11 vertebral body fracture. -A cavity was created with using a mechanical osteotome in the T11 vertebral body. This was then filled with bone cement. -A cavity was created with using a mechanical osteotome in the T12 vertebral body. This was then filled with bone cement. -The bone cement appears in good position and across the midline using standard technique. -No complications Assessment/Plan Assessment: Pt is a 81yoF hospitalized for unremitting back pain due to T11-T12 compression fracture. in IR performed an uncomplicated T11-T12 kyphoplasty. Pt is back on the unit and recovering well with medically managed pain but continues to be concerned about absent bowel movements for the past week. Plan: Kyphoplasty - completed with no complications - Pt tolerated treatment well - pt is at her baseline mobility - acute skilled PT is not necessary for the time being, home PT will suffice Pain - pt not complaining of pain - currently managed with PRN meds: Tylenol, Tramadol, Percocet IVF/Diet - d/c as pt is eating regular diet Constipation - miralax had not induced a BM so docusate QD added - will continue to inquire about BMs and abdominal fullness Code status: FULL CODE
[2016-07-17 15:32] VITALS: BP 160/90
[2016-07-17 21:57] VITALS: BP 144/60
--- NOTE | 2016-07-17 23:43 | NUR ---
PT ACCIDENTLY SCRAPPED R LEG AGAINST BEDSIDE RAILING. SMALL SKIN TEAR NOTED, GAUZE APPLIED. NO S/S INFECTION, WILL MONITOR.
--- NOTE | 2016-07-18 07:13 | PN- Housestaff ---
KIP BACON,[facility] 07/18/16 0712: Subjective Follow-up For: Intractable lower back pain Post vertebral augmentation Day#2 Subjective: Patient was seen and examined this morning, no overnight events reported by the nurse or the patient. Vital signs are stable. Patient was lying comfortably on bed having breakfast, her back pain is controlled with medication, aggravate by movement, she had PT session yesterday and was cleared to go home. No bowel movement yet last one on 07/08. No new complaints. Review of Systems Constitutional: Reports: see HPI. Objective Last 24 Hrs of Vital Signs/I&O Vital Signs Date Time Temp Pulse Resp B/P Pulse O2 O2 Flow FiO2 Ox Delivery Rate 07/18 0730 97.5 72 20 120/70 99 Nasal 2.0L Cannula 07/17 2157 98.1 75 20 144/60 94 Nasal 2.0L Cannula 07/17 1845 98 Nasal 2.0L Cannula 07/17 1600 Nasal 2.0L Cannula 07/17 1532 97.9 73 24 160/90 95 Intake & Output 07/18 1600 07/18 0800 07/18 0000 Intake Total 100 450 Output Total 400 Balance -300 450 Intake, Oral 100 450 Output, Urine 400 Physical Exam General Appearance: Alert, Oriented X3, Cooperative, No Acute Distress Skin: No Rashes, No Breakdown, bruses all over upper and lower extermities. HEENT: Atraumatic, PERRLA, EOMI, Mucous Membr. 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 MRI of the lumbar spine 06/06/2016 outpatient Reveled acute compression fracture of the T12 vertebral body with impaction of the lower endplate and approximately 10% vertebral body height loss anteriorly. There is also evidence of bone marrow edema associated with bilateral sacral insufficiency fractures worse on the left, grade 1 anterolisthesis of L4 on L5 related to advanced facet degenerative changes at this level, no canal stenosis and no substantial mass effect on the traversing of foraminal nerve roots. CT scan of the abdomen and pelvis 11/27/2016 revealed worsening of the T12 vertebral compression fracture compared to the one seen on May 30 . Assessment and plan #Intractable lower back pain -Secondary to compression fraction of T11 and 12 vertebral body -Post vertebral augmentation Day #[address] Jorge Weiner -MRI without FAHEEM thoracic and lumbar spines prior to IR operation reveled IMPRESSION: Thoracic Spine: 1. There is an acute compression fracture of the body of T12, demonstrated on prior imaging. 2. There is abnormal signal in the body of T11, and abnormal signal in the T12 spinous process, consistent with edema. At present the T11 vertebral body is maintained. 3. Increased STIR signal in the right T11 and T12 ribs is consistent with fractures. 4. There is no spinal cord compression. 5. There is a stable nodule in the right upper lobe. Lumbar Spine: 1. The study redemonstrates multilevel spondylosis. 2. Increased STIR signal in the left greater than right sacral ala are consistent with previously described insufficiency fractures. -Continue pain management * Acetaminophen 650 mg every 6 for pain 1-3 * Tramadol 50 mg every 4 for pain 4-6 * Percocet 1 tab every 4 for pain 7-10 -Aggressive bowel regimen, MiraLAX, senna and Colace. Patient was given 1 time Dulcolax supp ast night, small bowel movement this morning -PT session yesterday, patient was cleared to go home #History of osteoporosis -Patient is not on any vitamin D or calcium supplementation -Patient was advised to contact her PCP for bone health supplementation #Hypertension -Continue on amlodipine 5 mg daily #Hyperlipidemia -Continue on simvastatin 20 mg daily #COPD -Continue on Symbicort and albuterol -Couretsy call to Dr. Anderson was given, that patient is in the hospital -Nocturnal 2 L oxygen -Continue prednisone 10 mg daily -DVT prophylaxis Heparin subcutaneous -Diet Heart healthy -CODE Full Code -Consultation IR, PT -Patient is for discharge today to home physical therapy services Problem List: 1. Intractable back pain 2. Compression fracture of body of thoracic vertebra Pain Ratin Pain Location: Back pain Pain Goal: Pain 4 or less Pain Plan: Acetaminophen 650 mg every 6 for pain 1-3 Tramadol 50 mg every 4 for pain 4-6 Percocet 1 tab every 4 for pain 7-10 Tomorrow's Labs & Rationales: None SARA POZO MD 07/18/16 1739: Attending MD Review Statement Attending Statement Attending MD Statement: examined this patient, discuss w/resident/PA/LINUX SYSTEM ENGINEER, agreed w/resident/PA/LINUX SYSTEM ENGINEER, discussed with family, reviewed EMR data (avail), discussed with nursing, discussed with case mgmt, reviewed images, amended to note Attending Assessment/Plan: The patient was seen and discussed with house staff. Agree with the plan of care as outlined. OK to discharge to home today with home services.
[2016-07-18] MEDS ORDERED: DOCUSATE SODIU100 M3 PO (07:17)
[2016-07-18] MEDS ORDERED: MIRALAX119 GM PO (07:18)
[2016-07-18] MEDS ORDERED: PERCOCET 5-3251 EACH PO (07:22)
--- NOTE | 2016-07-18 07:27 | Patient Discharge Instructions ---
Discharge Instructions General Discharge Information You were seen/treated for: Intractable back pain You had these procedures: Vertebral augmentation of T11 and T12 Special Instructions: -Please follow up with your primary care physician within one week after discharge -Please follow up with pain clinic for back pain if needed after discharge -Please follow up with Dr. Anderson after discharge Acute Coronary Syndrome Inclusion Criteria At DC or during hospital stay patient has or had the following: ACS DIAGNOSIS No Discharge Core Measures Meds if any: Prescribed or Continued at Discharge Meds if any: NOT Prescribed or Continued at Discharge Congestive Heart Failure Inclusion Criteria At DC or during hospital stay patient has or had the following: CHF DIAGNOSIS No Discharge Core Measures Meds if any: Prescribed or Continued at Discharge Meds if any: NOT Prescribed or Continued at Discharge Cerebrovascular accident Inclusion Criteria At DC or during hospital stay patient has or had the following: CVA/TIA Diagnosis No Discharge Core Measures Meds if any: Prescribed or Continued at Discharge Meds if any: NOT Prescribed or Continued at Discharge Venous thromboembolism Inclusion Criteria VTE Diagnosis No VTE Type NONE VTE Confirmed by (Test) NONE Discharge Core Measures - Per Current guidelines, there needs to be overlap - treatment for the first 5 days of Warfarin therapy. - If discharged on Warfarin prior to 5 days of - overlap therapy, the patient will need to be - assessed for post discharge needs including - *Post discharge parental anticoagulation - *Warfarin and/or parental anticoagulation education - *Follow up date to check INR post discharge At least 5 days overlap therapy as Inpatient Yes Meds if any: Prescribed or Continued at Discharge Note: Overlap Therapy is Warfarin and Anticoagulant Meds if any: NOT Prescribed or Continued at Discharge
[2016-07-18 07:30] VITALS: BP 120/70
--- NOTE | 2016-07-18 09:02 | Discharge Summary ---
Visit Information Visit Dates Admission Date: 07/15/16 Discharge Date: 07/18/16 Hospital Course Course Attending Physician: SARA POZO MD Primary Care Physician: Isael CERVANTES MD [facility] Course: Ms. Shane is a 81 year old female with past medical history significant for hypertension, hyperlipidemia, COPD on 2 L of nocturnal O2, PET positive lung nodule suspicious for malignancy, T11 and T12 vertebral body compression fracture who presented to ED with chief complaint of intractable back pain. Patient was scheduled to have an IR guided vertebral augmentation by Dr. Jorge Weiner as an outpatient on 07/16/16. patient denied any fever, chills, weakness, numbness, urinary or stool incontinence. On admission Vital signs blood pressure 180/88, respiratory rate 18, pulse 83, afebrile saturating 90% on room air Physical exam Alert and oriented x3, and in mild distress, sitting in bed. HEENT revealed PERRLA, dry mucous membranes. Examination of neck did not reveal any JVD, or LAD. Cardiobvascular exam was benign with normal S1, S2, no murmurs appreciated. Chest was clear to auscultation bilaterally with decreased breath sounds bilaterally. Abdominal exam revealed mild tenderness to palpation lower abdomen. Abdomen was soft, nondistended, normal bowel sounds in all 4 quadrants. Examination of the lower extremities revealed bilateral lower extremity edema is noted she did have a lot of bruises on her extremities. Pertinent Lab Leukocytosis with a white blood cell count of 11,000, H&H of 13.6/40.3, MCV of 91.6 and a platelet count of 424,000. Serum chemistries revealed a sodium of 139, potassium of 3.9, BUN 18, creatinine 1.0 with a normal anion gap of 11. LFTs unremarkable with a total bili of 0.7, AST/L2 21/20, alkaline phosphatase of 93. INR is 0.96. 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 MRI of the lumbar spine 06/06/2016 outpatient Reveled acute compression fracture of the T12 vertebral body with impaction of the lower endplate and approximately 10% vertebral body height loss anteriorly. There is also evidence of bone marrow edema associated with bilateral sacral insufficiency fractures worse on the left, grade 1 anterolisthesis of L4 on L5 related to advanced facet degenerative changes at this level, no canal stenosis and no substantial mass effect on the traversing of foraminal nerve roots. CT scan of the abdomen and pelvis 11/27/2016 Revealed worsening of the T12 vertebral compression fracture compared to the one seen on May 30. MRI without FAHEEM thoracic and lumbar spines prior to IR operation On 07/16/16 IMPRESSION: Thoracic Spine: 1. There is an acute compression fracture of the body of T12, demonstrated on prior imaging. 2. There is abnormal signal in the body of T11, and abnormal signal in the T12 spinous process, consistent with edema. At present the T11 vertebral body is maintained. 3. Increased STIR signal in the right T11 and T12 ribs is consistent with fractures. 4. There is no spinal cord compression. 5. There is a stable nodule in the right upper lobe. Lumbar Spine: 1. The study redemonstrates multilevel spondylosis. 2. Increased STIR signal in the left greater than right sacral ala are consistent with previously described insufficiency fractures. Plan #Intractable lower back pain -Secondary to compression fraction of T11 and T12 vertebral body -Post vertebral augmentation performed by Dr. Jorge Weiner -Continue pain management * Acetaminophen 650 mg every 6 for pain 1-3 * Tramadol 50 mg every 4 for pain 4-6 * Percocet 1 tab every 4 for pain 7-10 -Aggressive bowel regimen, MiraLAX, senna and Colace -PT, patient was cleared to go home with home physical therapy -Patient was instructed to follow up with PCP for pain management and pain clinic if needed #History of osteoporosis -Patient is not on any vitamin D or calcium supplementation -Patient was advised to contact her PCP for bone health supplementation #Hypertension -Continue on amlodipine 5 mg daily #Hyperlipidemia -Continue on simvastatin 20 mg daily #COPD -Continue on Symbicort and albuterol -Couretsy call to Dr. Anderson was given, that patient is in the hospital -Nocturnal 2 L oxygen -Continue prednisone 10 mg daily -DVT prophylaxis Heparin subcutaneous -Diet Heart healthy -CODE Full Code -Consultation IR, PT Allergies: Coded Allergies: indomethacin (UNKNOWN PT DOESNT REMEMBER 07/20/15) naproxen (UNKNOWN PT DOESNT REMEMBER 03/11/16) Disposition Summary Disposition Principal Diagnosis: Intractable lower back pain Additional Diagnosis: Constipation Discharge Disposition: home health services Discharge Instructions General Discharge Information Code Status: Full Code Patient's Diet: Heart Healthy diet Patient's Activity: As tolerated Follow-Up Instructions/Appts: -Please follow up with your primary care physician within one week after discharge -Please follow up with pain clinic for back pain if needed after discharge -Please follow up with Dr. Anderson after discharge Medications at Discharge Discharge Medications: Continue taking these medications: Albuterol Sulfate (Proair Hfa) 90 MCG HFA.AER.AD 1-2 Puff Inhale through mouth As Directed as needed for RESPIRATORY Comments: PER PT MED LIST Simvastatin (Zocor*) 20 MG TABLET 1 Tablet ORAL Every night Comments: Last Taken:07/15/16 Time:6 45 PM Budesonide/Formoterol Fumarate (Symbicort 160-4.5 Mcg Inhaler) 160 MCG-4.5 MCG/ ACTUATION HFA.AER.AD 2 Puff Inhale through mouth TWICE DAILY Comments: Last Taken:07/18/16 Time:10 AM Amlodipine Besylate (Norvasc) 5 MG TABLET 1 Tablet ORAL DAILY Comments: Last Taken:07/18/16 Time:10 AM Albuterol Sulfate (Albuterol Sulfate) 2.5 MG/3 ML (0.083 %) VIAL.NEB 1 Vial Inhale Solution BID-TID Comments: PER PT MED LIST Aspirin (Ecotrin*) 81 MG TABLET.DR 1 Tablet ORAL DAILY Prednisone (Prednisone) 5 MG TABLET 10 Milligram ORAL Every Morning Comments: Last Taken:07/18/16 Time:10 AM Ondansetron (Zofran Odt) 4 MG TAB.RAPDIS 1 Tablet SUBLINGUAL THREE TIMES DAILY as needed for NAUSEA Qty = 20 Start taking the following new medications: Docusate Sodium (Docusate Sodium) 100 MG CAPSULE 100 Milligram ORAL DAILY NEEDED as needed for CONSTIPATION Qty = 30 No Refills Polyethylene Glycol 3350 (Miralax) 17 GRAM/DOSE POWDER 17 Gram ORAL DAILY Qty = 30 No Refills The following medications have been changed: Old: Hydrocodone/Acetaminophen (Vicodin 5-300 MG Tablet) 5 MG-300 MG TABLET Tablet ORAL EVERY SIX HOURS as needed for PAIN Qty = 20 New: Hydrocodone/Acetaminophen (Vicodin 5-300 MG Tablet) 5 MG-300 MG TABLET 1 Tablet ORAL EVERY SIX HOURS as needed for PAIN SCALE 7-10 (SEVERE) Qty = 15 Old: Tramadol HCl (Tramadol HCl) 50 MG TABLET 1 Tablet ORAL EVERY SIX HOURS NEEDED as needed for PAIN Qty = 30 New: Tramadol HCl (Tramadol HCl) 50 MG TABLET 1 Tablet ORAL EVERY SIX HOURS NEEDED as needed for PAIN SCALE 4-6 ( MODERATE) Qty = 15 Copies To: Gagandeep ANDERSON MD; Isael CERVANTES MD Attending MD Review Statement Documenting Attending: SARA POZO MD Other Findings: The patient was seen and discussed with house staff. OK to discharge to home today with home PT/OT and services. Patient to discuss possible osteoporosis treatment with her PCP (Dr. Cervantes).
[2016-07-18 09:58] VITALS: BP 132/86
[2016-07-18] MEDS ORDERED: TRAMADOL HCL50 M1 PO (13:52)
[2016-07-18] MEDS ORDERED: VICODIN 5-3001 EACH PO (13:52)
--- NOTE | 2016-07-18 14:25 | NUR ---
1400- PT REFUSES SHORT TERM REHAB. STATES SHE WILL BE FINE AT HOME WITH HOME HEALTH CARE AND PT/OT. PT LIVES WITH 91 Y/O SISTER. 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 HAS FRIEND COME 2X PER WEEK TO HELP WITH LAUNDRY. SON STATES PT DOES FINE AT HOME AND DOES NOT WANT REHAB. HAS HOME O2 ALREADY.
--- NOTE | 2016-07-18 15:09 | NUR ---
1445- PER DR. POZO, DRESSING TO BACK CAN BE REMOVED AND PT MAY SHOWER WHEN SHE GOES HOME. VERTEBRAL AUGMENTATION DONE IN IR AND PT HAS A PUNCTURE ONLY TO BACK.
== END 2016-07-18 15:05 | disposition home health service (06) ==
LOC: ENRESERVDT → ENRESERVTM → ERH 13:29 → ENPENDDIS 15:38 → ERHI 15:38 → 2NA 15:38
PROVIDERS: Internal Medicine; Internal Medicine Infectious Disease; Physician Assistant Medical; ADMIT Internal Medicine
DX: M80.88XA Other osteoporosis with current pathological fracture, vertebra(e), initial encounter for fracture (principal); J44.9 Chronic obstructive pulmonary disease, unspecified; I10 Essential (primary) hypertension; E78.5 Hyperlipidemia, unspecified; J96.10 Chronic respiratory failure, unspecified whether with hypoxia or hypercapnia
CPT/HCPCS: 1255; 1263; 1328; 1425; 1530; 1748; 4007; 72146; 72148; 82436; 93005; 93010; 96374; 97116-GP; 97161-GP; G0378; J0690; J1644; J2060; J3101; J3490; J7042; J7512

== ENCOUNTER 2016-07-25 15:58 | Emergency (ER) | payer OTHER ==
[~2016-07-25] VITALS: Ht 162.6 cm; Wt 40.8 kg
[~2016-07-25 15:58] MED LIST changes: +DOCUSATE SODIU100 M3 PO; +MIRALAX119 GM PO
--- NOTE | 2016-07-25 17:37 | ED GI/GU/ABDOMINAL COMPLAINT ---
History of Present Illness General Chief Complaint: Nausea, Vomiting, Diarrhea Stated Complaint: BIBA FOR [place] Source: patient Exam Limitations: no limitations Vital Signs & Intake/Output Vital Signs & Intake/Output Vital Signs Date Time Temp Pulse Resp B/P Pulse O2 O2 Flow FiO2 Ox Delivery Rate 07/26 0644 96.8 88 18 98 Nasal 2.0L Cannula 07/25 2103 98.0 91 18 160/70 98 Nasal 2.0L Cannula 07/25 1935 98.0 91 18 166/74 98 Nasal 2.0L Cannula 07/25 1812 97.4 94 18 176/91 99 Nasal 2.0L Cannula 07/25 1702 98 07/25 1600 24 98 Room Air 07/25 1559 97.5 98 20 164/79 99 Nasal 2.0L Cannula ED Intake and Output 07/26 0000 07/25 1200 Intake Total 500 Output Total Balance 500 Intake, IV 500 Patient 89 lb 15.99 oz Weight Allergies Coded Allergies: Iodinated Contrast Media - Oral and (RASH ALL OVER BODY 07/25/16) indomethacin (UNKNOWN PT DOESNT REMEMBER 07/20/15) naproxen (UNKNOWN PT DOESNT REMEMBER 07/20/15) Reconcile Medications Albuterol Sulfate (Proair Hfa) 90 MCG HFA.AER.AD 1-2 PUF INH AD PRN RESPIRATORY (Reported) Albuterol Sulfate 2.5 MG/3 ML (0.083 %) VIAL.NEB 1 Vial INH/CHUNG BID-TID RESPIRATORY (Reported) Amlodipine Besylate (Norvasc) 5 MG TABLET 1 TAB PO DAILY BP (Reported) Aspirin (Ecotrin*) 81 MG TABLET.DR 1 TAB PO DAILY HEART HEALTH (Reported) Budesonide/Formoterol Fumarate (Symbicort 160-4.5 Mcg Inhaler) 160 MCG-4.5 MCG/ ACTUATION HFA.AER.AD 2 PUF INH BID BREATHING PROBLEMS (Reported) Docusate Sodium 100 MG CAPSULE 100 MG PO DAILY NEEDED PRN CONSTIPATION Hydrocodone/Acetaminophen (Vicodin 5-300 MG Tablet) 5 MG-300 MG TABLET 1 TAB PO Q6 PRN PAIN SCALE 7-10 (SEVERE) Polyethylene Glycol 3350 (Miralax) 17 GRAM/DOSE POWDER 17 GM PO DAILY CONSTIPATION Prednisone 5 MG TABLET 10 MG PO QAM STEROID (Reported) Simvastatin (Zocor*) 20 MG TABLET 1 TAB PO QPM CHOLESTEROL (Reported) Tramadol HCl 50 MG TABLET 1 TAB PO Q6P PRN PAIN SCALE 4-6 (MODERATE) Triage Note: BIBA FROM HOME C/O NAUSEA AND WEAKNESS SINCE BACK SURGERY 07/16/16, ALSO C/O DIARRHEA FOR 3 DAYS. PT WITH BASELINE COPD, REPORTS INCREASED 02 USE SINCE SURGERY, UNCHANGED SINCE SEVERAL WEEKS AGO. Triage Nurses Notes Reviewed? yes ? N Is pt currently ? No HPI: Patient presents for evaluation of severe nausea and loose bowel movements. Patient states that the nausea status is been present for about one week. She states she feels like she has to vomit but can't. She has been taking sublingual Zofran without relief. She was recently admitted to the hospital for constipation. On Thursday she tried MiraLAX with good effect. She has had multiple formed soft bowel movements since. He is experiencing a severe cramping lower midline abdominal pain prior to bowel movements. She has also felt hot and cold and occasionally sweaty but denies fever or cold symptoms or dysuria. Nothing seems to make her feel better. (GALILEA BACON,GAVIOTA Garcia) Past History Travel History Traveled to [place] past 21 day No Medical History Any Pertinent Medical History? see below for history Neurological: NONE EENT: cataracts Cardiovascular: hypertension, hyperlipidemia, PERIPHERAL EDEMA Respiratory: COPD, emphysema, Lung cancer O2 DEPENDENT AT 2L Gastrointestinal: NONE Hepatic: NONE Renal: NONE Musculoskeletal: fracture, (T12) Psychiatric: NONE Endocrine: NONE Blood Disorders: NONE Cancer(s): LUNG CANCER RT HABILITATION SPECIALIST/Reproductive: NONE History of MRSA: No History of VRE: No History of CDIFF: No Surgical History Surgical History: non-contributory Psychosocial History Who do you live with Patient/Self Services at Home None What is your primary language Faroese Tobacco Use: Never used ETOH Use: denies use Family History Family History, If Any: MOTHER FATHER FH: cancer Hx Contributory? No (GALILEA BACON,GAVIOTA Garcia) Review of Systems Review of Systems Constitutional: Reports: no symptoms. EENTM: Reports: no symptoms. Respiratory: Reports: no symptoms. Cardiovascular: Reports: no symptoms. GI: Reports: see HPI. Genitourinary: Reports: no symptoms. Musculoskeletal: Reports: no symptoms. Skin: Reports: no symptoms. Neurological/Psychological: Reports: no symptoms. Hematologic/Endocrine: Reports: no symptoms. Immunologic/Allergic: Reports: no symptoms. All Other Systems: Reviewed and Negative (GALILEA BACON,GAVIOTA Garcia) Physical Exam Physical Exam Gastrointestinal: see below Comments: Gen.: Well-nourished, well-developed, no acute respiratory distress. Head: Normocephalic, atraumatic. Eyes: Normal inspection bilaterally Ears: Normal inspection bilaterally Nose: Normal inspection Throat/mouth : Moist mucosa Neck: Supple, full range of motion, no goiter Heart: Regular rate and rhythm, no murmurs rubs or gallops Lungs: Clear to auscultation bilaterally with normal air entry Chest: Nontender Back: Normal range of motion Abdomen: Soft, epigastric and left mid abdominal tenderness with brief voluntary guarding but no rebound, nondistended, normal bowel sounds, no palpable masses Extremities: Normal range of motion grossly, equal radial pulses, no cyanosis clubbing or edema Neurologic: Cranial nerves grossly intact, speech is clear Skin: warm and dry Psychiatric: Calm, cooperative, no apparent delusions or hallucinations Core Measures ACS in differential dx? No Severe Sepsis Present: No Septic Shock Present: No (GALILEA BACON,GAVIOTA Garcia) Progress Differential Diagnosis: diverticulitis, ischemic bowel, pancreatitis Plan of Care: Orders Procedure Date/time Status Heart Healthy Diet 07/26 B Active Add-on Test (ER Only) 07/25 2030 Active CULTURE,URINE 07/25 1805 Active URINALYSIS 07/25 1736 Complete LIPASE 07/25 1736 Complete COMPREHENSIVE METABOLIC PANEL 07/25 1736 Complete CBC WITHOUT DIFFERENTIAL 07/25 1736 Complete EKG 07/25 1606 Active Laboratory Tests 07/25/16 1805: Anion Gap 13, Estimated GFR 48 L, BUN/Creatinine Ratio 30.9 H, Glucose 72, Calcium 10.0, Total Bilirubin 0.8, AST 25, ALT 33, Alkaline Phosphatase 120, Total Protein 7.0, Albumin 4.2, Globulin 2.8, Albumin/Globulin Ratio 1.5, Lipase 65, CBC w Diff NO MAN DIFF REQ, RBC 4.73, MCV 92.6, MCH 30.2, RDW 13.7, MPV 7.0 L, Gran % 94.3 H, Lymphocytes % 3.4 L, Monocytes % 1.6 L, Eosinophils % 0.1, Basophils % 0.6, Absolute Granulocytes 10.9 H, Absolute Lymphocytes 0.4 L, Absolute Monocytes 0.2, Absolute Eosinophils 0, Absolute Basophils 0.1, PUBS MCHC 32.6 L, Urine Color YEL, Urine Clarity HAZY H, Urine pH 6.0, Ur Specific [place] 1.025, Urine Protein 30 H, Urine Ketones 40 H, Urine Nitrite NEG, Urine Bilirubin NEG@ICTO, Urine Urobilinogen 1.0, Ur Leukocyte Esterase TRACE H , Ur Microscopic SEDIMENT EXAMINED, Urine RBC 3-5, Urine WBC 5-10 H, Ur Epithelial Cells TRANS H, Hyaline Casts PACK H, Granular Casts FEW H, Urine Mucus MOD H, Urine Hemoglobin TRACE-INTACT, Urine Glucose NEG Microbiology 07/25 1804 URINE ROUT: Urine Culture - RECD 7:10 PM PATIENT SIGNED OUT TO ME BY DR CALERO. PENDING CT SCAN ABDOMEN. CT SCAN SHOWS NOTHING ACUTE. BARRIE WITH PERSISTENT SOFT STOOLS. BARRIE WANTS TO STAY OVERNIGHT FOR OBSERVATION UNTIL HER SON CAN PICK HER UP. CASE MANAGEMENT INVOLVED TO SET UP HOME SERVICES FOR HER. PATIENT WILL WAIT UNTIL AM FOR SON TO PICK HER UP. REFUSING TO GO HOME VIA [employer]. NIECE WILL GO HOME TO TAKE CARE OF THE OLDER SISTER AT THIS TIME. (MAL BACON,SIMBA) Initial ED EKG: sinus tachycardia with a rate of 97 and frequent PACs Prior EKG: unchanged (prior ekg normal) Hand-Off Endorsed To: SIMBA RESENDEZ MD Pending: CT (GALILEA BACON,GAVIOTA Garcia) Diagnostic Imaging: Viewed by Me: CT Scan. Discussed w/RAD: CT Scan. Radiology Impression: PATIENT: ARDEN ALEXANDRA PRESENT AGE: 81 PATIENT ACCOUNT NO: [id number] : 35 LOCATION: [facility] ORDERING PHYSICIAN: GAVIOTA CALERO MD SERVICE DATE: 07/25/16 EXAM TYPE: CAT - CT ABD & PELVIS W/O IV CONTRAS EXAMINATION: CT ABDOMEN AND PELVIS WITHOUT CONTRAST CLINICAL INFORMATION: Epigastric pain. Left-sided abdominal pain and tenderness. Fecal impaction. Colitis. Bowel ischemia. Diverticulitis. COMPARISON: CT scan abdomen and pelvis 07/02/2016. TECHNIQUE: Multidetector volumetric imaging was performed from the superior aspect of the liver through the pubic symphysis. Sagittal and coronal reformatted images were obtained on the technologist's workstation. DLP: 231.15 mGy-cm FINDINGS: LUNG BASES: The visualized lung bases are unremarkable. LIVER, GALLBLADDER, AND BILIARY TREE: The liver is normal in size, shape, and attenuation. No focal hepatic lesion or biliary ductal dilatation is present. Status post cholecystectomy. Extrahepatic CBD measures 1.1 cm and tapers to the ampulla with no calcified stone in the duct. PANCREAS: There is atrophy of the pancreas. SPLEEN: Unremarkable. ADRENAL GLANDS: Unremarkable. KIDNEYS AND URETERS: Left kidney: 5 mm nonobstructive stone in the midpole. No ureteral stone or hydronephrosis. 7 mm pedunculated cortical cyst at the midpole left kidney. Right kidney: Multiple renal stones. Largest in lower pole measuring 5 mm. There are 2 or 3, 1 to 2 mm sized stones in the mid to upper pole; 1.7 cm cortical cyst mid upper pole of right kidney; and a pedunculated 8 mm cyst at the lower pole of right kidney. BLADDER: Unremarkable. GASTROINTESTINAL TRACT: Marked diverticulosis of the sigmoid colon and descending colon with scattered diverticula throughout the colon. No diverticulitis. No acute change of the bowel. No bowel obstruction. No bowel wall thickening or edema. Moderate volume of stool in colon. The appendix is normal. The small-bowel loops are normal. ABDOMINAL WALL: No significant hernia is appreciated. LYMPH NODES: Normal. VASCULAR: Extensive vascular wall calcifications of the aorta and iliac vessels without aneurysm. PELVIC VISCERA: Uterus is anteverted. Coarse calcification and fibroids in the uterus. OSSEOUS STRUCTURES: Compression fracture of T12 vertebrae and T11 vertebrae status post thoracoplasty. IMPRESSION: No acute abnormality CT scan abdomen pelvis. Diverticulosis of colon but no acute change of the bowel. Nonobstructive bilateral renal stones. DICTATED BY: TANNER MONROY MD DATE/TIME DICTATED:07/25/161899 LEAD ACCOUNTANT:RISA DATE/TIME TRANSCRIBED:07/25/161899 CONFIDENTIAL, DO NOT COPY WITHOUT APPROPRIATE AUTHORIZATION. <Electronically signed in Other Vendor System> SIGNED BY: TANNER MONROY MD 07/25/162017 (SIMBA RESENDEZ MD) Departure Departure Condition: Stable Referrals: Isael GLASS MD (PCP/Family) Departure Forms: Customer Survey General Discharge Information (GALILEA BACON,GAVIOTA Garcia) Departure Time of Disposition: 2217 Disposition: HOME OR SELF CARE Clinical Impression Primary Impression: Diarrhea Secondary Impressions: Dehydration Additional Instructions: INCREASE YOUR ORAL FLUID INTAKE. FOLLOW UP WITH YOUR DOCTOR IN THE OFFICE. FOLLOW UP WITH YOUR THE HOME SERVICES SEST UP FOR YOU BY AI FROM OUR CRISIS DEPARTMENT. (MAL BACON,SIMBA)
[2016-07-25 18:17] LABS: ABSOLUTE BASOPHIL COUNT 0.1 /CUMM (0.0-0.2); ABSOLUTE EOSINOPHIL COUNT 0 /CUMM (0.0-0.7); ABSOLUTE GRANULOCYTE CT 10.9 /CUMM (1.4-6.5); ABSOLUTE LYMPH COUNT 0.4 /CUMM (1.2-3.4); ABSOLUTE MONOCYTE COUNT 0.2 /CUMM (0.10-0.60); BASOPHIL % 0.6 % (0.0-2.0); EOSINOPHIL % 0.1 % (0-5); HEMATOCRIT 43.8 % (37-47); MEAN CORPUSCULAR HGB 30.2 PG (27.0-31.0); MEAN CORPUSCULAR HGB CONC 32.6 G/DL (33.0-37.0); MEAN CORPUSCULAR VOLUME 92.6 FL (81.0-99.0); PLATELET COUNT 351 /CUMM (130-400); RBC DISTRIBUTION WIDTH 13.7 % (11.5-14.5); RED BLOOD CELL CT 4.73 /CUMM (4.20-5.40); WHITE BLOOD CELL COUNT 11.5 /CUMM (4.8-10.8)
[2016-07-25 18:46] LABS: GRANULOCYTE % 94.3 % (42.2-75.2)
--- NOTE | 2016-07-25 20:18 | CT SCAN REPORT ---
EXAMINATION: CT ABDOMEN AND PELVIS WITHOUT CONTRAST CLINICAL INFORMATION: Epigastric pain. Left-sided abdominal pain and tenderness. Fecal impaction. Colitis. Bowel ischemia. Diverticulitis. COMPARISON: CT scan abdomen and pelvis 07/02/2016. TECHNIQUE: Multidetector volumetric imaging was performed from the superior aspect of the liver through the pubic symphysis. Sagittal and coronal reformatted images were obtained on the technologist's workstation. DLP: 231.15 mGy-cm FINDINGS: LUNG BASES: The visualized lung bases are unremarkable. LIVER, GALLBLADDER, AND BILIARY TREE: The liver is normal in size, shape, and attenuation. No focal hepatic lesion or biliary ductal dilatation is present. Status post cholecystectomy. Extrahepatic CBD measures 1.1 cm and tapers to the ampulla with no calcified stone in the duct. PANCREAS: There is atrophy of the pancreas. SPLEEN: Unremarkable. ADRENAL GLANDS: Unremarkable. KIDNEYS AND URETERS: Left kidney: 5 mm nonobstructive stone in the midpole. No ureteral stone or hydronephrosis. 7 mm pedunculated cortical cyst at the midpole left kidney. Right kidney: Multiple renal stones. Largest in lower pole measuring 5 mm. There are 2 or 3, 1 to 2 mm sized stones in the mid to upper pole; 1.7 cm cortical cyst mid upper pole of right kidney; and a pedunculated 8 mm cyst at the lower pole of right kidney. BLADDER: Unremarkable. GASTROINTESTINAL TRACT: Marked diverticulosis of the sigmoid colon and descending colon with scattered diverticula throughout the colon. No diverticulitis. No acute change of the bowel. No bowel obstruction. No bowel wall thickening or edema. Moderate volume of stool in colon. The appendix is normal. The small-bowel loops are normal. ABDOMINAL WALL: No significant hernia is appreciated. LYMPH NODES: Normal. VASCULAR: Extensive vascular wall calcifications of the aorta and iliac vessels without aneurysm. PELVIC VISCERA: Uterus is anteverted. Coarse calcification and fibroids in the uterus. OSSEOUS STRUCTURES: Compression fracture of T12 vertebrae and T11 vertebrae status post thoracoplasty. IMPRESSION: No acute abnormality CT scan abdomen pelvis. Diverticulosis of colon but no acute change of the bowel. Nonobstructive bilateral renal stones.
[2016-07-26 09:57] VITALS: BP 156/84
== END 2016-07-26 09:57 ==
LOC: ERH 15:58
PROVIDERS: Emergency Medicine
DX: R19.7 Diarrhea, unspecified (principal); E86.0 Dehydration; R10.9 Unspecified abdominal pain
CPT/HCPCS: 74176; 81001; 87086; 93005; 93010; 96374; J2405; J7040

== ENCOUNTER 2016-08-23 10:52 | Emergency (ER) | payer OTHER ==
[~2016-08-23] VITALS: Ht 154.9 cm; Wt 49.9 kg
--- NOTE | 2016-08-23 10:56 | ED NECK/BACK PAIN COMPLAINT ---
History of Present Illness General Chief Complaint: Abdominal Pain/Flank Pain Stated Complaint: FLANK PAIN Source: patient, old records, EMS Exam Limitations: no limitations Vital Signs & Intake/Output Vital Signs & Intake/Output Vital Signs Date Time Temp Pulse Resp B/P Pulse O2 O2 Flow FiO2 Ox Delivery Rate 08/23 1318 97.3 74 20 144/82 98 Nasal 2.0L Cannula 08/23 1138 97 Nasal 2.0L Cannula 08/23 1053 97.0 90 24 224/107 99 Nasal 3.0L Cannula Allergies Coded Allergies: Iodinated Contrast Media - Oral and (RASH ALL OVER BODY 07/25/16) indomethacin (UNKNOWN PT DOESNT REMEMBER 07/20/15) naproxen (UNKNOWN PT DOESNT REMEMBER 07/20/15) Reconcile Medications Albuterol Sulfate (Proair Hfa) 90 MCG HFA.AER.AD 1-2 PUF INH AD PRN RESPIRATORY (Reported) Albuterol Sulfate 2.5 MG/3 ML (0.083 %) VIAL.NEB 1 Vial INH/CHUNG BID-TID RESPIRATORY (Reported) Amlodipine Besylate (Norvasc) 5 MG TABLET 1 TAB PO DAILY BP (Reported) Aspirin (Ecotrin*) 81 MG TABLET.DR 1 TAB PO DAILY HEART HEALTH (Reported) Budesonide/Formoterol Fumarate (Symbicort 160-4.5 Mcg Inhaler) 160 MCG-4.5 MCG/ ACTUATION HFA.AER.AD 2 PUF INH QPM BREATHING PROBLEMS (Reported) Docusate Sodium 100 MG CAPSULE 100 MG PO DAILY NEEDED PRN CONSTIPATION Oxycodone HCl/Acetaminophen (Oxycodone-Acetaminophen 5-325) 5 MG-325 MG TABLET 1 TAB PO Q6-PRN PRN PAIN (Reported) Polyethylene Glycol 3350 (Miralax) 17 GRAM/DOSE POWDER 17 GM PO DAILY CONSTIPATION Prednisone 5 MG TABLET 10 MG PO QAM STEROID (Reported) Simvastatin (Zocor*) 20 MG TABLET 1 TAB PO QPM CHOLESTEROL (Reported) Tramadol HCl 50 MG TABLET 1 TAB PO Q6P PRN PAIN SCALE 4-6 (MODERATE) Triage Nurses Notes Reviewed? yes HPI: Patient presents with increasing pain to her back. The pain is in the right flank and radiates around to the right upper quadrant. The pain is constant. Patient has been seen multiple times for the same. Patient has a known compression fracture and recent had vertebral plasty. Patient states that the vertebroplasty help the pain for a few days but then the pain came back. Patient has been taking pain medication without relief. Patient states she ambulated home with a walker and has help at home. Patient states that the pain this morning was so bad that she could not even get out of her bed. The pain increases with movement. The pain is sharp and throbbing in nature. Patient rates the pain is 10 out of 10. Past History Medical History Any Pertinent Medical History? see below for history Neurological: NONE EENT: cataracts Cardiovascular: hypertension, hyperlipidemia, PERIPHERAL EDEMA Respiratory: COPD, emphysema, Lung cancer O2 DEPENDENT AT 2L Gastrointestinal: NONE Hepatic: NONE Renal: NONE Musculoskeletal: fracture, (T12) Psychiatric: NONE Endocrine: NONE Blood Disorders: NONE Cancer(s): LUNG CANCER RT CONCERT SINGER/Reproductive: NONE History of MRSA: No History of VRE: No History of CDIFF: No Surgical History Surgical History: non-contributory Psychosocial History Who do you live with Patient/Self Services at Home None What is your primary language Japanese Tobacco Use: Quit >30 days ago ETOH Use: denies use Illicit Drug Use: denies illicit drug use Family History Family History, If Any: MOTHER FATHER FH: cancer Hx Contributory? No Review of Systems Review of Systems Constitutional: Reports: no symptoms. Eyes: Reports: no symptoms. Ears, Nose, Throat, Mouth: Reports: no symptoms. Respiratory: Reports: see HPI, short of breath. Cardiovascular: Reports: no symptoms. Gastrointestinal/Abdominal: Reports: see HPI, abdominal pain. Musculoskeletal: Reports: see HPI, back pain. Skin: Reports: no symptoms. Neurological/Psychological: Reports: no symptoms. All Other Systems: Reviewed and Negative Physical Exam Physical Exam General Appearance: well developed/nourished, alert, awake, anxious, moderate distress Head: atraumatic, normal appearance Eyes: Bilateral: PERRL, EOMI. Ears, Nose, Throat, Mouth: hearing grossly normal, moist mucous membrane Neck: normal inspection, supple, full range of motion Respiratory: normal breath sounds, chest non-tender, no respiratory distress, lungs clear Cardiovascular: regular rate/rhythm, normal peripheral pulses Gastrointestinal: normal bowel sounds, soft, non-tender, no organomegaly Back: decreased range of motion Extremities: non-tender, normal range of motion, pedal edema Straight Leg Raising: Right: Negative. Left: Negative. Neurologic/Psych: no motor/sensory deficits, awake, alert, oriented x 3, normal mood/affect Progress Differential Diagnosis: herniated disc, myofascial strain, sciatica, T/L spine injury Plan of Care: Orders Procedure Date/time Status PT Evaluate & Treat 08/23 1215 Active Add-on Test (ER Only) 08/23 1110 Active EKG 08/23 111 Active URINALYSIS 08/23 1056 Complete D-DIMER 08/23 1056 Complete COMPREHENSIVE METABOLIC PANEL 08/23 1056 Complete CBC WITHOUT DIFFERENTIAL 08/23 1056 Complete Laboratory Tests 08/23/16 1308: Urinalysis LIGHT H, Urine Color YEL, Urine Clarity CLEAR, Urine pH 6.0, Ur Specific [place] 1.015, Urine Protein TRACE H, Urine Ketones NEG, Urine Nitrite NEG, Urine Bilirubin NEG, Urine Urobilinogen 0.2, Ur Leukocyte Esterase NEG, Ur Microscopic SEDIMENT EXAMINED, Urine RBC RARE, Urine WBC 3-5 H, Ur Epithelial Cells FEW, Urine Bacteria RARE H, Hyaline Casts 1-3 H, Urine Mucus RARE, Urine Hemoglobin TRACE-INTACT, Urine Glucose NEG 08/23/16 1137: D-Dimer 571 H 08/23/16 1112: Anion Gap 12, Estimated GFR 48 L, BUN/Creatinine Ratio 32.7 H, Glucose 85, Calcium 10.0, Total Bilirubin 0.6, AST 26, ALT 34, Alkaline Phosphatase 95, Total Protein 7.2, Albumin 4.2, Globulin 3.0, Albumin/Globulin Ratio 1.4, CBC w Diff NO MAN DIFF REQ, RBC 4.17 L, MCV 92.7, MCH 30.4, RDW 14.6 H, MPV 6.5 L, Gran % 84.6 H, Lymphocytes % 8.9 L, Monocytes % 5.8, Eosinophils % 0.5, Basophils % 0.2, Absolute Granulocytes 8.9 H, Absolute Lymphocytes 0.9 L, Absolute Monocytes 0.6, Absolute Eosinophils 0.1, Absolute Basophils 0, PUBS MCHC 32.8 L Diagnostic Imaging: Viewed by Me: CT Scan. Discussed w/RAD: CT Scan. Radiology Impression: PATIENT: ARDEN ALEXANDRA PRESENT AGE: 81 PATIENT ACCOUNT NO: [id number] : 35 LOCATION: [facility] ORDERING PHYSICIAN: MARI FLORES MD SERVICE DATE: 08/23/168849 EXAM TYPE: CAT - CT ABD & PELVIS W/O IV CONTRAS EXAMINATION: CT ABDOMEN AND PELVIS WITHOUT CONTRAST CLINICAL INFORMATION: Severe right-sided flank pain and right upper quadrant pain. Presumptive diagnosis of cholecystitis. COMPARISON: CT scan of the abdomen and pelvis dated 07/25/2016, 07/02/2016. MRI scan of the pelvis dated 07/20/2008. TECHNIQUE: Multidetector volumetric imaging was performed from the superior aspect of the liver through the pubic symphysis. Sagittal and coronal reformatted images were obtained on the technologist workstation. DLP: 207.04 mGy-cm. FINDINGS: LUNG BASES: Scattered areas of subsegmental atelectasis are seen in the lung bases bilaterally. LIVER, GALLBLADDER, AND BILIARY TREE: The liver is normal in size, shape, and attenuation. No focal hepatic lesion on noncontrast imaging. As seen previously, there is abnormal dilatation of the intra and extrahepatic biliary tree with the common hepatic duct measuring 1.4 cm in diameter and tapering smoothly with the common bile duct in the pancreatic head measuring 0.8 cm. Findings are likely related to the patient's postcholecystectomy state and age and are similar to prior exams. PANCREAS, SPLEEN, ADRENAL GLANDS: Diffuse pancreatic atrophy and mild fatty infiltration are noted. No pancreatic ductal dilatation is seen. Spleen is normal in size and unremarkable. Both adrenal glands are unremarkable. KIDNEYS AND URETERS: The kidneys are normal in size, shape, and attenuation. No hydronephrosis or hydroureter seen. There is a 0.5 cm nonobstructing mid left renal calcification and a 0.4 cm nonobstructing lower pole right renal calcification. Additional smaller 0.2 -0.3 cm mid right renal calcifications are noted, unclear if related to additional renal calculi versus renal arterial calcifications. There are multiple bilateral variably sized low-attenuation masses in the kidneys again seen, less well visualized than on the 07/02/2016 contrast enhanced study, but most consistent with cysts. No perinephric stranding. Ureters bilaterally decompressed and unremarkable with no ureteral calculi seen. BLADDER: Partially distended and unremarkable with no bladder calculi noted. GASTROINTESTINAL TRACT : The small and large bowel are decompressed and aside from prominent sigmoid colonic diverticulosis are unremarkable. The appendix is unremarkable. ABDOMINAL WALL: No significant hernia is appreciated. LYMPH NODES, VASCULAR: No significant abdominal or pelvic adenopathy or free fluid collection is seen. There is severe atherosclerotic calcification of the abdominal aorta and all branch vessels, including the renal arteries, SMA and CARISA, causing apparent luminal compromise of these branch vessels. The abdominal aorta is mildly ectatic. No periaortic collections seen. PELVIC VISCERA: Small calcified fibroids are again seen within the uterine fundus, unchanged. Both ovaries are cystic. The left ovary overall is not smaller compared to previous study, measuring 3.2 x 2.1 cm as compared to 3.7 x 2.7 cm previously. On prior MRI scan from 07/20/2008, left ovary measured 2.7 x 2.7 x 3.2 cm. OSSEOUS STRUCTURES: Compression deformities of T11 and T12 with vertebroplasty cement are noted. Diffuse osteopenia is present. Multilevel mild vertebral spondylosis throughout the lumbar spine. Mild degenerative disc disease is seen at L4-L5. Healing bilateral sacral insufficiency fractures are again seen. IMPRESSION: 1. The patient is status post cholecystectomy. There is persistent intra and extrahepatic ductal dilatation seen, similar to prior studies, most likely related to patient's age and postcholecystectomy state. No focal fluid collection in the right upper quadrant. 2. Nonobstructing nephrolithiasis, similar to previous exam. No evidence of ureteral or bladder calculi. 3. Extensive atherosclerotic vascular calcifications involving the aorta and all branch vessels, causing significant luminal narrowing of all of the branch vessels, including mesenteric vessels. Findings would predispose the patient to bowel ischemia, though no abnormality of bowel is appreciated on today's exam. 4. Prominent sigmoid colonic diverticulosis with no evidence of acute diverticulitis. 5. Other incidental findings include stable bilateral renal cysts, fibroid uterus and cystic ovaries, and osteopenia with vertebroplasty changes of compression deformities in the T11 and T12 vertebral bodies. DICTATED BY: CYDNEY BLOCK MD DATE/TIME DICTATED:08/23/161222 INSURANCE LOSS ADJUSTER: RISA DATE/TIME TRANSCRIBED:08/23/161222 CONFIDENTIAL, DO NOT COPY WITHOUT APPROPRIATE AUTHORIZATION. <Electronically signed in Other Vendor System> SIGNED BY: CYDNEY BLOCK MD 08/23/16 9121 Comments: Patient ambulated in the emergency department with the use of the walker. Departure Departure Disposition: HOME OR SELF CARE Condition: Stable Clinical Impression Primary Impression: Back pain Referrals: Isael GLASS MD (PCP/Family) Additional Instructions: FOLLOW UP WITH DR. GLASS FOR FURTHER TREATMENT Departure Forms: Customer Survey General Discharge Information
[2016-08-23 11:20] LABS: ABSOLUTE BASOPHIL COUNT 0 /CUMM (0.0-0.2); ABSOLUTE EOSINOPHIL COUNT 0.1 /CUMM (0.0-0.7); ABSOLUTE GRANULOCYTE CT 8.9 /CUMM (1.4-6.5); ABSOLUTE LYMPH COUNT 0.9 /CUMM (1.2-3.4); ABSOLUTE MONOCYTE COUNT 0.6 /CUMM (0.10-0.60); BASOPHIL % 0.2 % (0.0-2.0); EOSINOPHIL % 0.5 % (0-5); HEMATOCRIT 38.7 % (37-47); MEAN CORPUSCULAR HGB 30.4 PG (27.0-31.0); MEAN CORPUSCULAR HGB CONC 32.8 G/DL (33.0-37.0); MEAN CORPUSCULAR VOLUME 92.7 FL (81.0-99.0); MEAN PLATELET VOLUME 6.5 FL (7.4-10.4); PLATELET COUNT 371 /CUMM (130-400); RBC DISTRIBUTION WIDTH 14.6 % (11.5-14.5); RED BLOOD CELL CT 4.17 /CUMM (4.20-5.40); WHITE BLOOD CELL COUNT 10.5 /CUMM (4.8-10.8)
[2016-08-23 12:06] LABS: GRANULOCYTE % 84.6 % (42.2-75.2)
[2016-08-23] MEDS ORDERED: OXYCODONE-ACET1 EACH PO (12:28)
--- NOTE | 2016-08-23 13:01 | CT SCAN REPORT ---
EXAMINATION: CT ABDOMEN AND PELVIS WITHOUT CONTRAST CLINICAL INFORMATION: Severe right-sided flank pain and right upper quadrant pain. Presumptive diagnosis of cholecystitis. COMPARISON: CT scan of the abdomen and pelvis dated 07/25/2016, 07/02/2016. MRI scan of the pelvis dated 07/20/2008. TECHNIQUE: Multidetector volumetric imaging was performed from the superior aspect of the liver through the pubic symphysis. Sagittal and coronal reformatted images were obtained on the technologist workstation. DLP: 207.04 mGy-cm. FINDINGS: LUNG BASES: Scattered areas of subsegmental atelectasis are seen in the lung bases bilaterally. LIVER, GALLBLADDER, AND BILIARY TREE: The liver is normal in size, shape, and attenuation. No focal hepatic lesion on noncontrast imaging. As seen previously, there is abnormal dilatation of the intra and extrahepatic biliary tree with the common hepatic duct measuring 1.4 cm in diameter and tapering smoothly with the common bile duct in the pancreatic head measuring 0.8 cm. Findings are likely related to the patient's postcholecystectomy state and age and are similar to prior exams. PANCREAS, SPLEEN, ADRENAL GLANDS: Diffuse pancreatic atrophy and mild fatty infiltration are noted. No pancreatic ductal dilatation is seen. Spleen is normal in size and unremarkable. Both adrenal glands are unremarkable. KIDNEYS AND URETERS: The kidneys are normal in size, shape, and attenuation. No hydronephrosis or hydroureter seen. There is a 0.5 cm nonobstructing mid left renal calcification and a 0.4 cm nonobstructing lower pole right renal calcification. Additional smaller 0.2 -0.3 cm mid right renal calcifications are noted, unclear if related to additional renal calculi versus renal arterial calcifications. There are multiple bilateral variably sized low-attenuation masses in the kidneys again seen, less well visualized than on the 07/02/2016 contrast enhanced study, but most consistent with cysts. No perinephric stranding. Ureters bilaterally decompressed and unremarkable with no ureteral calculi seen. BLADDER: Partially distended and unremarkable with no bladder calculi noted. GASTROINTESTINAL TRACT: The small and large bowel are decompressed and aside from prominent sigmoid colonic diverticulosis are unremarkable. The appendix is unremarkable. ABDOMINAL WALL: No significant hernia is appreciated. LYMPH NODES, VASCULAR: No significant abdominal or pelvic adenopathy or free fluid collection is seen. There is severe atherosclerotic calcification of the abdominal aorta and all branch vessels, including the renal arteries, SMA and CARISA, causing apparent luminal compromise of these branch vessels. The abdominal aorta is mildly ectatic. No periaortic collections seen. PELVIC VISCERA: Small calcified fibroids are again seen within the uterine fundus, unchanged. Both ovaries are cystic. The left ovary overall is not smaller compared to previous study, measuring 3.2 x 2.1 cm as compared to 3.7 x 2.7 cm previously. On prior MRI scan from 07/20/2008, left ovary measured 2.7 x 2.7 x 3.2 cm. OSSEOUS STRUCTURES: Compression deformities of T11 and T12 with vertebroplasty cement are noted. Diffuse osteopenia is present. Multilevel mild vertebral spondylosis throughout the lumbar spine. Mild degenerative disc disease is seen at L4-L5. Healing bilateral sacral insufficiency fractures are again seen. IMPRESSION: 1. The patient is status post cholecystectomy. There is persistent intra and extrahepatic ductal dilatation seen, similar to prior studies, most likely related to patient's age and postcholecystectomy state. No focal fluid collection in the right upper quadrant. 2. Nonobstructing nephrolithiasis, similar to previous exam. No evidence of ureteral or bladder calculi. 3. Extensive atherosclerotic vascular calcifications involving the aorta and all branch vessels, causing significant luminal narrowing of all of the branch vessels, including mesenteric vessels. Findings would predispose the patient to bowel ischemia, though no abnormality of bowel is appreciated on today's exam. 4. Prominent sigmoid colonic diverticulosis with no evidence of acute diverticulitis. 5. Other incidental findings include stable bilateral renal cysts, fibroid uterus and cystic ovaries, and osteopenia with vertebroplasty changes of compression deformities in the T11 and T12 vertebral bodies.
[2016-08-23 13:18] VITALS: BP 144/82
== END 2016-08-23 15:33 ==
LOC: ERH 10:52
PROVIDERS: Emergency Medicine
DX: M54.5 Low back pain (principal)
CPT/HCPCS: 74176; 81001; 93005; 93010; 96374; 96376

== ENCOUNTER 2016-08-27 17:26 | Inpatient (IN) | payer OTHER ==
[~2016-08-27] VITALS: Ht 154.9 cm; Wt 43.1 kg
[~2016-08-27 17:26] MED LIST changes: +OXYCODONE-ACET1 EACH PO
--- NOTE | 2016-08-27 17:57 | ED DYSPNEA/ASTHMA COMPLAINT ---
History of Present Illness General Chief Complaint: Dyspnea (COPD, CHF, Other) Stated Complaint: SOB Source: patient Exam Limitations: no limitations Vital Signs & Intake/Output Vital Signs & Intake/Output Vital Signs Date Time Temp Pulse Resp B/P B/P Pulse O2 O2 Flow FiO2 Mean Ox Delivery Rate 09/02 0955 90 130/70 09/02 0855 95 Nasal 2.0L Cannula 09/02 0600 99.0 90 20 130/70 97 Nasal Cannula 09/02 0000 94 Nasal 2.0L Cannula 09/01 2252 97.7 76 20 138/60 94 Nasal 2.0L Cannula 09/01 1912 98 Nasal 2.0L Cannula 09/01 1600 Nasal 2.0L Cannula 09/01 1458 Nasal 2.0L Cannula 09/01 1445 97.8 75 20 120/60 94 Nasal 2.0L Cannula ED Intake and Output 09/02 0000 09/01 1200 Intake Total 1450 Output Total 300 Balance 1150 Intake, Oral 1450 Number 1 Bowel Movements Output, Urine 300 Allergies Coded Allergies: Iodinated Contrast Media - Oral and (RASH ALL OVER BODY 07/25/16) indomethacin (UNKNOWN PT DOESNT REMEMBER 07/20/15) naproxen (UNKNOWN PT DOESNT REMEMBER 07/20/15) Reconcile Medications Albuterol Sulfate (Proair Hfa) 90 MCG HFA.AER.AD 1-2 PUF INH AD PRN RESPIRATORY (Reported) Albuterol Sulfate 2.5 MG/3 ML (0.083 %) VIAL.NEB 1 Vial INH/CHUNG BID-TID RESPIRATORY (Reported) Amlodipine Besylate (Norvasc) 5 MG TABLET 1 TAB PO DAILY BP (Reported) Aspirin (Ecotrin*) 81 MG TABLET.DR 1 TAB PO DAILY HEART HEALTH (Reported) Budesonide/Formoterol Fumarate (Symbicort 160-4.5 Mcg Inhaler) 160 MCG-4.5 MCG/ ACTUATION HFA.AER.AD 2 PUF INH QPM BREATHING PROBLEMS (Reported) Docusate Sodium 100 MG CAPSULE 100 MG PO DAILY NEEDED PRN CONSTIPATION Oxycodone HCl/Acetaminophen (Oxycodone-Acetaminophen 5-325) 5 MG-325 MG TABLET 1 TAB PO Q6-PRN PRN PAIN (Reported) Polyethylene Glycol 3350 (Miralax) 17 GRAM/DOSE POWDER 17 GM PO DAILY CONSTIPATION Prednisone 5 MG TABLET 10 MG PO QAM STEROID (Reported) Prednisone 10 MG TABLET 1 TAB PO BID copd take 40 mg for 3days take 30 mg for 3 days take 20 mg for 3 days take 10 mg and then continue at your baseline. Simvastatin (Zocor*) 20 MG TABLET 1 TAB PO QPM CHOLESTEROL (Reported) Tramadol HCl 50 MG TABLET 1 TAB PO Q6P PRN PAIN SCALE 4-6 (MODERATE) Triage Note: PT TO TRIAGE WITH C/O SOB, CHEST TIGHTNESS SINCE THIS MORNING, ALSO CHRONIC BACK PAIN 11/17. HX OF COPD, LUNG CA, PT O2 DEPENDENT 2L NC. O2SAT 93% ON O2 2L NC IN TRIAGE. PT WAS SEEN HERE IN ER FOR SAME ON 08/23. PT TO [place] FOR EKG. Triage Nurses Notes Reviewed? yes Onset: Abrupt Duration: hour(s): (FEW) Timing: multiple episodes today Severity: moderate, severe Activities at Onset: none Associated Symptoms: cough, DYSPNEA HPI: 81 year old female with history of htn, COPD home oxygen dependent, lung mass, recent vertebral augmentation who presents to [facility] ED for chief complaint of sudden onset shortness of breath since last night. She states she thought she might have been having an allergic reaction to corticosteroid injection. She denies chest pain or palpitations but admits to some chest heaviness. No fever or chills. Past History Travel History Traveled to [place] past 21 day No Medical History Any Pertinent Medical History? 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 No Review of Systems Review of Systems Constitutional: Denies: chills, fever. EENTM: Reports: no symptoms. Respiratory: Reports: cough, short of breath. Denies: sputum production. Cardiovascular: Reports: see HPI (tightness). Denies: chest pain, palpitations. GI: Denies: abdominal pain, nausea, steatorrhea. Genitourinary: Reports: no symptoms. Musculoskeletal: Reports: no symptoms. Skin: Denies: rash. Neurological/Psychological: Reports: anxiety. Hematologic/Endocrine: Denies: bruising, bleeding. Immunologic/Allergic: Reports: no symptoms. All Other Systems: Reviewed and Negative Physical Exam Physical Exam General Appearance: alert, awake, cachetic, thin Head: atraumatic, normal appearance Eyes: Bilateral: normal appearance, PERRL, EOMI. Ears, Nose, Throat: normal pharynx, normal ENT inspection Neck: normal inspection, supple, full range of motion Respiratory: decreased breath sounds, wheezing Cardiovascular: regular rate/rhythm Peripheral Pulses: 2+ radial (R), 2+ radial (L) Gastrointestinal: soft, non-tender Extremities: normal range of motion, no edema Neurologic/Psych: awake, alert, oriented x 3 Skin: intact, normal color, warm/dry Core Measures ACS in differential dx? No Severe Sepsis Present: No Septic Shock Present: No Progress Differential Diagnosis: CHF, COPD, pulmonary embolism, pneumonia, pneumothorax Plan of Care: Orders Procedure Date/time Status House Staff 09/02 UNK Active AEROSOL CHG 09/01 UNK Complete OXYGEN 09/01 UNK Complete OXYGEN DAILY CHARGE 09/01 UNK Complete Nursing Misc 09/01 UNK Active Current Medications Sig/Yecenia Start time Last Medication Dose Stop Time Status Admin Vitamin A/Vitamin D 1 BIPIN BID 09/02 1111 AC (A+D Original) Ondansetron HCl 4 MG Q6 PRN 09/02 1015 CAN (Zofran) Ondansetron HCl 4 MG Q6P PRN 09/02 1015 AC 09/02 (Zofran) 1018 Senna/Docusate Sodium 2 TAB DAILY PRN 09/02 1015 AC (Senokot S) Omeprazole 20 MG DAILY AC 09/02 1014 AC (Prilosec) Prednisone 40 MG DAILY 09/02 1000 AC 09/02 0955 Alprazolam 0.25 MG BID 08/29 2200 AC 09/02 (Xanax) 09/05 2158 0955 Atorvastatin Calcium 10 MG 1700 08/28 1700 AC 09/01 (Lipitor) 1610 Albuterol Sulfate 3 ML BID 08/28 1000 AC 09/02 (Proventil) 0840 Amlodipine Besylate 5 MG DAILY 08/28 1000 AC 09/02 (Norvasc) 0955 Aspirin Buffered 81 MG DAILY 08/28 1000 AC 09/02 (Ecotrin) 0955 Budesonide/ 2 PUF QPM 08/27 220 AC 09/01 Formoterol Fumarate 2158 (Symbicort) Guaifenesin 600 MG Q12 08/27 2200 AC 09/02 (Mucinex) 0955 Heparin Sodium 5,000 UNIT Q8 08/27 2200 AC 08/28 (Porcine) 1425 Albuterol Sulfate 2 PUF Q4P PRN 08/27 2100 AC (Ventolin) Docusate Sodium 100 MG DAILY NEEDED PRN 08/27 2100 AC 09/02 (Colace) 1018 Guaifenesin/ 10 ML Q6P PRN 08/27 2100 AC Dextromethorphan (Robitussin Dm) Oxycodone/ 1 TAB Q6-PRN PRN 08/27 2100 AC Acetaminophen (Percocet) Tramadol HCl 50 MG Q6P PRN 08/27 2100 AC 09/02 (Ultram) 1005 NEBS, IV STEROIDS, LABS, CULTURES, SPUTUM CULTURE, CXR ORDERED. IV ABX ORDERED. PATIENT REPORTS CHANGE IN OLOR OF SPUTUM. CXR NNO ACUTE PROCESS. PATIENT ADMITTED TO HOSPITALIST SERVICE. (MAL BACON,SIMBA) Diagnostic Imaging: Viewed by Me: Radiology Read. Discussed w/RAD: Radiology Read. Initial ED EKG: NSR Rhythm Strip: normal sinus rhythm Comments: PATIENT: ARDEN ALEXANDRA PRESENT AGE: 81 PATIENT ACCOUNT NO: [id number] : 35 LOCATION: [facility] ORDERING PHYSICIAN: SIMBA RESENDEZ MD SERVICE DATE: 08/27/16 EXAM TYPE: RAD - XRY-PORTABLE CHEST XRAY EXAMINATION: XR PORTABLE CHEST CLINICAL INFORMATION: Cough, sputum production COMPARISON: 08/02/2015 TECHNIQUE: Portable AP view of the chest was obtained. FINDINGS: No convincing evidence for an acute process. No obvious failure or infiltrate. There is no effusion. Cardiac comparable to previous. The hilar structures were also comparable to previous. IMPRESSION: No convincing evidence for an acute process. DICTATED BY: GAVIOTA ZHENG MD DATE/TIME DICTATED:08/27/161855 MASTER HEARTH TECHNICIAN:RISA DATE/TIME TRANSCRIBED:08/27/161855 CONFIDENTIAL, DO NOT COPY WITHOUT APPROPRIATE AUTHORIZATION. <Electronically signed in Other Vendor System> SIGNED BY: GAVIOTA ZHENG MD 08/27/161900 Departure Departure Time of Disposition: 1949 Disposition: STILL A PATIENT Condition: Stable Clinical Impression Primary Impression: COPD exacerbation Referrals: Isael GLASS MD (PCP/Family) Departure Forms: Customer Survey General Discharge Information Prescriptions: Current Visit Scripts Prednisone 1 TAB PO BID #10 TAB take 40 mg for 3days take 30 mg for 3 days take 20 mg for 3 days take 10 mg and then continue at your baseline. Admission Note Spoke With: WANDA ODONNELL MD Documentation of Exam: Documentation of any treatments & extenuating circumstances including Concerns Regarding Discharge (functional status, medication knowledge or non-compliance, living conditions, etc.) that warrant an admission rather than observation: [TRC /NEBS, IV STEROIDS,IV ABX, PULM CONSULT] Critical Care Note Critical Care Note Critical Care Time: non-applicable
[2016-08-27 18:47] LABS: ABSOLUTE BASOPHIL COUNT 0 /CUMM (0.0-0.2); ABSOLUTE EOSINOPHIL COUNT 0 /CUMM (0.0-0.7); ABSOLUTE GRANULOCYTE CT 15.4 /CUMM (1.4-6.5); ABSOLUTE LYMPH COUNT 0.2 /CUMM (1.2-3.4); ABSOLUTE MONOCYTE COUNT 0.2 /CUMM (0.10-0.60); BASOPHIL % 0 % (0.0-2.0); EOSINOPHIL % 0.2 % (0-5); HEMATOCRIT 37.8 % (37-47); MEAN CORPUSCULAR HGB 30.2 PG (27.0-31.0); MEAN CORPUSCULAR HGB CONC 32.5 G/DL (33.0-37.0); MEAN CORPUSCULAR VOLUME 92.8 FL (81.0-99.0); MEAN PLATELET VOLUME 6.8 FL (7.4-10.4); PLATELET COUNT 371 /CUMM (130-400); RBC DISTRIBUTION WIDTH 14.8 % (11.5-14.5); RED BLOOD CELL CT 4.07 /CUMM (4.20-5.40)
[2016-08-27 18:48] LABS: WHITE BLOOD CELL COUNT 15.9 /CUMM (4.8-10.8)
[2016-08-27 18:53] LABS: PT 10.1 SEC (9.4-12.5); PTT 25 SEC (25-37)
--- NOTE | 2016-08-27 19:01 | RADIOLOGY REPORT ---
EXAMINATION: XR PORTABLE CHEST CLINICAL INFORMATION: Cough, sputum production COMPARISON: 08/02/2015 TECHNIQUE: Portable AP view of the chest was obtained. FINDINGS: No convincing evidence for an acute process. No obvious failure or infiltrate. There is no effusion. Cardiac comparable to previous. The hilar structures were also comparable to previous. IMPRESSION: No convincing evidence for an acute process.
[2016-08-27 19:02] LABS: GRANULOCYTE % 96.8 % (42.2-75.2)
--- NOTE | 2016-08-27 20:06 | History & Physical ---
NGA BACON,OSMANY 08/27/161957: General Information and HPI History of Present Illness: Ms. Shane is a 81-year-old lady with a PMH significant for HTN, HLD, advanced COPD on 2L nocturnal home oxygen and chronic prednisone, suspected lung cancer on recent PET and CT scan, T12 vertebral body compression fracture s/p vertebral augmentation about a month ago, last admitted in July 2016 for intractable back pain and July 2015 for pneumonia, who presents with worsening dyspnea with cough productive of thick yellowish sputum for a few days. She also reports subjective fever with chills. She increased the home oxygen level without improvement in her sxs. She quit smoking a year ago and has been abstinent since then. Denies any chest pain, palpitations, headaches, dizziness, nausea, vomiting or abdominal pain. In the ED she was found to have leukocytosis of 16 on labs (increased from ER visit 4 days ago). No acute findings on CXR. Patient received one time dose of IV Solumedrol 125mg and antibiotic therapy with IV CTX and Zithromax. PCP - Dr. Cervantes Pulm - Dr. Anderson Full code. Allergies/Medications Allergies: Coded Allergies: Iodinated Contrast Media - Oral and (RASH ALL OVER BODY 07/25/16) indomethacin (UNKNOWN PT DOESNT REMEMBER 07/20/15) naproxen (UNKNOWN PT DOESNT REMEMBER 07/20/15) Home Med list Albuterol Sulfate (Proair Hfa) 90 MCG HFA.AER.AD 1-2 PUF INH AD PRN RESPIRATORY (Reported) Albuterol Sulfate 2.5 MG/3 ML (0.083 %) VIAL.NEB 1 Vial INH/CHUNG BID-TID RESPIRATORY (Reported) Amlodipine Besylate (Norvasc) 5 MG TABLET 1 TAB PO DAILY BP (Reported) Aspirin (Ecotrin*) 81 MG TABLET.DR 1 TAB PO DAILY HEART HEALTH (Reported) Budesonide/Formoterol Fumarate (Symbicort 160-4.5 Mcg Inhaler) 160 MCG-4.5 MCG/ ACTUATION HFA.AER.AD 2 PUF INH QPM BREATHING PROBLEMS (Reported) Docusate Sodium 100 MG CAPSULE 100 MG PO DAILY NEEDED PRN CONSTIPATION Oxycodone HCl/Acetaminophen (Oxycodone-Acetaminophen 5-325) 5 MG-325 MG TABLET 1 TAB PO Q6-PRN PRN PAIN (Reported) Polyethylene Glycol 3350 (Miralax) 17 GRAM/DOSE POWDER 17 GM PO DAILY CONSTIPATION Prednisone 5 MG TABLET 10 MG PO QAM STEROID (Reported) Simvastatin (Zocor*) 20 MG TABLET 1 TAB PO QPM CHOLESTEROL (Reported) Tramadol HCl 50 MG TABLET 1 TAB PO Q6P PRN PAIN SCALE 4-6 (MODERATE) Past History Travel History Traveled to [place] past 21 day No Medical History Neurological: NONE EENT: cataracts Cardiovascular: hypertension, hyperlipidemia, PERIPHERAL EDEMA Respiratory: COPD, emphysema, Lung cancer O2 DEPENDENT AT 2L Gastrointestinal: NONE Hepatic: NONE Renal: NONE Musculoskeletal: fracture, (T12) Psychiatric: NONE Endocrine: NONE Blood Disorders: NONE 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 Review of Systems Review of Systems Constitutional: Reports: see HPI. Exam & Diagnostic Data Last 24 Hrs of Vital Signs/I&O Vital Signs Date Time Temp Pulse Resp B/P B/P Pulse O2 O2 Flow FiO2 Mean Ox Delivery Rate 08/27 1936 96.7 79 20 94 Nasal 2.0L Cannula 08/27 1916 97 Nasal 2.0L Cannula 08/27 1814 Nasal Cannula 08/28 1735 98.0 94 24 132/72 93 Nasal 2.0L Cannula Physical Exam General Appearance Alert, Oriented X3, Cooperative, Mild Distress Skin No Rashes, No Breakdown, No Significant Lesion HEENT Atraumatic, PERRLA, EOMI, Mucous Membr. moist/pink Neck Supple, No JVD, No thryomegaly Cardiovascular Regular Rate, Normal S1, Normal S2, No Murmurs, Gallops, Rubs Lungs Decreased breath sounds, Wheezing diffusely, worse with expiration Abdomen Normal Bowel Sounds, Soft, No Tenderness Neurological Normal Speech, Strength at 5/5 X4 Ext, Sensation Intact, Cranial Nerves 3-12 NL Extremities No Clubbing, No Cyanosis, No Edema, Normal Pulses, No Tenderness/ Swelling Vascular Normal Pulses, Pulses Symmetrical Last 24 Hrs of Labs/Nikolas: Laboratory Tests 08/27/161824: Anion Gap 11, Estimated GFR > 60, BUN/Creatinine Ratio 25.6 H, Glucose 105 H, Calcium 9.4, Total Bilirubin 0.7, AST 24, ALT 28, Alkaline Phosphatase 92, Troponin I 0.03, Djn-L-Acbayfftcsd Pept 1120 H, Total Protein 6.6, Albumin 3.9, Globulin 2.7, Albumin/Globulin Ratio 1.4, PT 10.1, INR 0.96, APTT 25, CBC w Diff NO MAN DIFF REQ, RBC 4.07 L, MCV 92.8, MCH 30.2, RDW 14.8 H, MPV 6.8 L, Gran % 96.8 H, Lymphocytes % 1.5 L, Monocytes % 1.5 L, Eosinophils % 0.2, Basophils % 0 L, Absolute Granulocytes 15.4 H, Absolute Lymphocytes 0.2 L, Absolute Monocytes 0.2, Absolute Eosinophils 0, Absolute Basophils 0, PUBS MCHC 32.5 L Microbiology 08/27 2050 NASOPHARYN: Influenza Virus A & B Rapid Smear - ORD 08/27 2034 LOWER RESP: Respiratory Culture - RECD 08/27 2034 LOWER RESP: Gram Stain - RECD 08/27 2014 BLOOD: Blood Culture - RECD 08/27 2004 BLOOD: Blood Culture - RECD Assessment/Plan Assessment: Ms. Shane is a 81-year-old lady with a PMH significant for HTN, HLD, advanced COPD on 2L nocturnal home oxygen and chronic prednisone, suspected lung cancer on recent PET and CT scan, T12 vertebral body compression fracture s/p vertebral augmentation about a month ago who presents with worsening dyspnea with cough productive of thick yellowish sputum for a few days, concerning for COPD/ bronchitis vs. possible pneumonia. # Acute hypoxic respiratory failure failure 2/2 COPD exacerbation Patient is currently requiring 2L currently to maintain oxygen saturation above 92%. She uses oxygen only during the night at home. CXR without any acute findings. * Admit to GM service * Vitals per protocol * Check ABG * TRC neb tx and * Oxygen support as needed to maintain O2 sat between 88-92% * Serial troponin and EKGs (first set trop = 0.03) # COPD exacerbation * TRC nebulizer tx and oxygen support as needed * Send pancultures * IV Zithromax * Solumedrol 40mg Q6] * Control cough with Mucinex and Robitussin * Consult pulm in the AM (Dr. Anderson) * Resume home inhalers Spiriva, Symbicort * Xanax 0.235 mg BID for anxiety # Leukocytosis WBC on admission elevated to 16, may secondary to chronic steroid use but her WBC 4 days ago in the ED was 10. CXR didn't show any signs of PNA. * CBC daily * Hold off treating for PNA for now * Consider CT chest * Follow sputum cx * Follow Bcx, UA/Ucx # HTN/HLD * Resume home antihypertensives including Norvasc * Resume Lipitor at home dose - Heart healthy diet - Mild pain pathway - DVTppx with SQH - Full code. As Ranked By This Provider Problem List: 1. Lung cancer 2. Pneumonia 3. COPD 4. Benign essential hypertension 5. DVT prophylaxis Core Measures/Miscellaneous Acute Coronary Syndrome ACS Diagnosis: No Cerebrovascular Accident CVA/TIA Diagnosis: No Congestive Heart Failure CHF Diagnosis: No Venous Thromboembolism VTE Risk Factors: Age > 40 [facility] prophylaxis d/t: No contraindications No VTE Pharm Prophylaxis d/t: No contraindications VTE Diagnosis: No VTE Type: NONE VTE Confirmed by (Test): NONE Severe Sepsis Severe Sepsis Present: No Septic Shock Septic Shock Present: No Miscellaneous Documentation Attending Case Discussed With: WANDA ODONNELL MD Primary Care Physician: Isael CERVANTES MD Patient sees these Specialists HPI Level of Patient Care: General Medicine LIOR HARRIS MD 08/27/162044: Resident Review Statement Resident Statement: examined this patient, discussed with international specialist Other Findings: Patient is a 81-year-old lady whose medical issues include long-standing COPD, nocturnal home oxygen dependent, previous history of 60+ pack year smoking, quit 1 year ago, hypertension, hyperlipidemia, recent vertebroplasty by IR the presented to the emergency room today with a chief complaint of cough with productive sputum and tactile fevers over the course of last 4 days. She states that her oxygen demands have increased. She was previously admitted here a few weeks ago for back pain and a vertebroplasty was done by IR. States that that her back pain is a lot better now. Physical exam significant for expiratory wheezing and cachexia, 2/6 systolic ejection murmur at the right upper sternal border Chest x-ray shows no infiltrate Labs significant for a white count of 15,900 (on prednisone chronically), proBNP 1120, troponin 0.03 EKG unchanged since previous, normal sinus rhythm and LVH Assessment- 1. COPD exacerbation 2. Hypertension 3. Hyperlipidemia 4. Recent IR guided vertebroplasty Plan- General medicine admission Vitals per protocol Solu-Medrol 40 every 6 hours Accu-Cheks TR evaluation ABG Redd culture, sputum culture, blood cultures 2, flu swab Continue home meds Pulmonary eval in the morning with Gagandeep Anderson MD Pain pathway Heart healthy diet DVT prophylaxis with subcutaneous heparin Full code WANDA ODONNELL 08/27/16 2333: Attending MD Review Statement Attending Statement Attending MD Statement: examined this patient, discuss w/resident/PA/PRIVATE BRANCH EXCHANGE SERVICE ADVISER, agreed w/resident/PA/PRIVATE BRANCH EXCHANGE SERVICE ADVISER, reviewed EMR data (avail), reviewed images, amended to note Attending Assessment/Plan: CC : SOB, productive cough PMH: HTN, HLD, COPD on continuous O2 2 L by nasal cannula, suspected lung cancer , osteoporosis, history of T2 vertebral fracture S/P surgery Patient presented in ER with severe shortness of breath worsened insults 2 days, associated with productive cough with yellow colored sputum, feeling hot and cold at home, no objective temperature measurement, nausea, decreased appetite, lower abdominal pain. Denies any sinus congestion, flulike symptoms, seasonal allergies. Her sister was sick and was treated with antibiotics 15 days back, with respiratory symptoms. Patient's sister is 91-year-old, has been living with patient. Since July patient has been using oxygen during daytime. Vitals: Afebrile, pulse 94, RR 24, blood pressure 132/72, saturating 93% on 2 L patient desaturates up to 84% with minimal movements, respiratory rate going up to 40s in these episodes. On exam: A O 3, cooperative, severe respiratory distress, cannot complete a sentence without pauses, mouth breather, neck supple, no JVD, no lymphadenopathy , mucosa moist, no focal neurological deficit, trace pedal edema, multiple skin bruises CVS: S1-S2, RRR. RS: Markedly decreased air entry all lung estrada bilaterally. Abdomen: Soft, mild tenderness right lower quadrant, no guarding or rigidity, ND, bowel sounds present. Lower Extremities are cold to touch, pulses normal. Stage I pressure ulcer on sacrum Labs: WBC 15.9 (increased as compared to August 23), neutrophils 96%, sodium 135, chloride 94, bicarbonate 31, glucose 105, calcium 9.4, LFT unremarkable, proBNP 1120 AB.52/30/79/24 on 2 L NC CXR: No acute processes EKG unremarkable A and P Patient presents with severe worsening of shortness of breath, productive cough but denies any pleuritic chest pain, no documented fever. Patient does have some hot and cold feelings and her sister was sick with upper respiratory symptoms treated with antibiotics. Even though patient has significant leukocytosis x-ray does not show any infiltrates at this time. This appears more to be COPD exacerbation, but given respiratory alkalosis, hyperventilation, tachypnea, and desaturation on pulse ox: She will require close monitoring, and reconsideration of diagnosis if not symptomatically better with further evaluation with CT chest without contrast, 2-D echocardiogram to rule out heart failure. At this point we will hold off on this investigations, continue treatment for COPD exacerbation. Patient also complains of right lower quadrant abdominal pain which has been chronic on and off, patient has been in ER a few times for the symptoms with alternating constipation and diarrhea, CT abdomen without contrast obtain at that time did not show any significant changes, patient does have some tenderness to palpation but no guarding and rigidity, does not have significant metabolic acidosis. Conservative management for now. # COPD exacerbation # Respiratory alkalosis # Abdominal pain # History of suspected lung cancer # History of T12 vertebral fracture S/P surgery, HTN, HLD - Admit to telemetry floor at least overnight for continuous pulse ox considering desaturation events - IV methylprednisolone 40 mg every 6 hours - IV azithromycin - Scheduled and when necessary nebulization with albuterol and Atrovent - Mucinex 600 mg by mouth twice a day - Continuous O2 by nasal cannula - Influenza swab, sputum culture, blood culture, - 1 dose of IV Lasix 20 mg - Watch I's and O's - Consider CT chest without contrast if not improving symptomatic - Pulmonary consult in AM
--- NOTE | 2016-08-27 23:35 | Admission Certification ---
Admission Certification Certification Statement - As attending physician, I certify that at the time of - admission, based on clinical presentation, severity of - symptoms, need for further diagnostic testing and - therapeutic interventions, and risk of adverse outcomes - without in-hospital treatment, in my clinical assessment, - this patient requires an acute hospital stay for a minimum - of two nights or longer. I have also considered psychsocial - factors such as support system, advanced age, financial - issues, cognitive issues, and failed out-patient treatments, - past re-admission history, safety of patient, and lack of - compliance as applicable. Specific rationale supporting this admission is: COPD exacerbation, respiratory distress
[2016-08-28 02:16] VITALS: BP 118/80
--- NOTE | 2016-08-28 08:00 | PN- Housestaff ---
Subjective Follow-up For: Worsening shortness of breath Complaints: no change Tele-Events Since Last Visit: Sinus rhythm, heart rate ranging from 70-80 Overnight oxygen saturation has remained above 95% at 3 L oxygen via nasal cannula, most of the time around 97-98%. Subjective: I met the patient, and examined the patient as well. She was resting comfortably in bed, is using additional oxygen via nasal cannula at 3 L/m (her baseline is 2 L/m) with pursed lips, but not in respiratory distress. She does not have any complaints currently, telemetry events recorded as above, with continuous pulse oximetry showing satisfactory recordings above 95% all the time overnight, no overnight event. Of note, patient has multiple bruises over her forearms in her upper arms as well, which she mentioned happens every time if she gets a blood pressure measurement from her upper arm. Review of Systems Constitutional: Reports: see HPI. EENTM: Reports: no symptoms. Cardiovascular: Reports: see HPI, orthopena. Respiratory: Reports: see HPI. Gastrointestinal: Reports: no symptoms. Genitourinary: Reports: no symptoms. Musculoskeletal: Reports: no symptoms. Skin: Reports: see HPI. Neurological/Psychological: Reports: no symptoms. Objective Last 24 Hrs of Vital Signs/I&O Vital Signs Date Time Temp Pulse Resp B/P B/P Pulse O2 O2 Flow FiO2 Mean Ox Delivery Rate 08/28 0817 97.4 78 24 154/78 98 Nasal 3.0L Cannula 08/28 0216 97.9 76 24 118/80 97 Nasal Cannula 08/28 0019 97 Nasal 3.0L Cannula 08/27 2151 96.5 76 24 124/64 97 Nasal 2.0L Cannula 08/27 1937 96.7 79 20 94 Nasal 2.0L Cannula 08/27 1917 97 Nasal 2.0L Cannula 08/27 1815 Nasal Cannula 08/27 1736 98.0 94 24 132/72 93 Nasal 2.0L Cannula Intake & Output 08/28 1600 08/28 0800 08/28 0000 Intake Total 420 520 Output Total 500 Balance -80 520 Intake, IV 400 Intake, Oral 420 120 Output, Urine 500 Patient 43.091 kg 42.638 kg Weight Weight Reported by Patient Reported by Patient Measurement Method Physical Exam General Appearance: Alert, Oriented X3, Cooperative, Mild Distress Other Physical Findings: General Appearance Alert, Oriented X3, Cooperative, Mild resp distress, pursed lips while breathing Skin multiple bruises/ecchymosis over her skin including forearm and upper arms, No Breakdown HEENT Atraumatic, PERRLA, EOMI, Mucous Membr. moist/pink Neck Supple, No JVD, No thryomegaly Cardiovascular Regular Rate, Normal S1, Normal S2, No Murmurs, Gallops, Rubs Lungs Decreased breath sounds, no wheezes heard tis morning Abdomen Normal Bowel Sounds, Soft, No Tenderness Neurological Normal Speech, grossly intact Extremities No Clubbing, No Cyanosis, No Edema, Normal Pulses, No Tenderness/ Swelling Vascular Normal Pulses, Pulses Symmetrical Current Medications: Current Medications Sig/Yecenia Start time Last Medication Dose Route Stop Time Status Admin Albuterol Sulfate 2 PUF Q4P PRN 08/27 2099 AC INH Albuterol Sulfate 3 ML ONCE ONE 08/27 1944 DC 08/27 INH 08/27 Albuterol Sulfate 3 ML ONCE ONE 08/27 1844 DC 08/27 INH 08/27 1845 184 Amlodipine Besylate 5 MG DAILY 08/28 1000 AC PO Aspirin Buffered 81 MG DAILY 08/28 1000 AC PO Atorvastatin Calcium 10 MG 1700 08/28 1700 AC PO Azithromycin 500 MG 2100 08/28 2099 AC Sodium Chloride 250 ML IV Azithromycin 500 MG ONCE ONE 08/27 1914 DC 08/27 Sodium Chloride 250 ML IV 08/27 Budesonide/ 2 PUF QPM 08/27 2199 AC 08/28 Formoterol Fumarate INH 003 Ceftriaxone Sodium 0 .STK-MED ONE 08/27 2025 DC .ROUTE Ceftriaxone Sodium 1,000 MG ONCE ONE 08/27 1914 DC 08/27 IV 08/27 Docusate Sodium 100 MG DAILY NEEDED PRN 08/27 2099 AC PO Furosemide 20 MG ONCE ONE 08/27 2330 DC 08/28 IV 08/27 233 0032 Guaifenesin 600 MG Q12 08/27 2199 AC 08/28 PO 0031 Guaifenesin/ 10 ML Q6P PRN 08/27 2099 AC Dextromethorphan PO Heparin Sodium 5,000 UNIT Q8 08/27 2199 AC 08/28 (Porcine) SC 0628 Ipratropium [place] 2.5 ML ONCE ONE 08/27 1844 DC 08/27 INH 08/27 1845 184 Magnesium Sulfate 1 GM ONCE ONE 08/27 2014 DC 08/27 Dextrose/Water 100 ML IV 08/284 8 Methylprednisolone 40 MG Q6 08/27 2359 AC 08/28 IV 08/30 180 0628 Methylprednisolone 125 MG ONCE ONE 08/27 1844 DC 08/27 IV 08/27 184 184 Methylprednisolone 0 .STK-MED ONE 08/27 1844 DC .ROUTE Oxycodone/ 1 TAB Q6-PRN PRN 08/27 2100 AC Acetaminophen PO Polyethylene Glycol 17 GM DAILY 08/28 1000 AC PO Tramadol HCl 50 MG Q6P PRN 08/27 2100 AC PO Last 24 Hrs of Lab/Nikolas Results Last 24 Hrs of Labs/Mics: Laboratory Tests 08/28/16 0609: Sodium Pending, Potassium Pending, Chloride Pending, Carbon Dioxide Pending, Anion Gap Pending, BUN Pending, Creatinine Pending, BUN/Creatinine Ratio Pending , CBC w Diff Pending, WBC Pending, RBC Pending, Hgb Pending, Hct Pending, MCV Pending, MCH Pending, RDW Pending, Plt Count Pending, MPV Pending, PUBS MCHC Pending 08/28/16 0025: Lactic Acid 1.1 08/27/16 2145: Lactic Acid Cancelled 08/27/160: pH 7.52 H, pCO2 30 L, pO2 79 L, HCO3 24, ABG O2 Sat (Measured) 96.0, P-50 ( Temp Corrected) N, Carboxyhemoglobin 0.1 L, O2 Concentration % 2L, Temperature 97.0, O2 Delivery Method NC, Phlebotomy Draw Site RIGHT RADIAL 08/27/161824: Anion Gap 11, Estimated GFR > 60, BUN/Creatinine Ratio 25.6 H, Glucose 105 H, Calcium 9.4, Total Bilirubin 0.7, AST 24, ALT 28, Alkaline Phosphatase 92, Troponin I 0.03, Yni-T-Blszhzslwjt Pept 1120 H, Total Protein 6.6, Albumin 3.9, Globulin 2.7, Albumin/Globulin Ratio 1.4, PT 10.1, INR 0.96, APTT 25, CBC w Diff NO MAN DIFF REQ, RBC 4.07 L, MCV 92.8, MCH 30.2, RDW 14.8 H, MPV 6.8 L, Gran % 96.8 H, Lymphocytes % 1.5 L, Monocytes % 1.5 L, Eosinophils % 0.2, Basophils % 0 L, Absolute Granulocytes 15.4 H, Absolute Lymphocytes 0.2 L, Absolute Monocytes 0.2, Absolute Eosinophils 0, Absolute Basophils 0, PUBS MCHC 32.5 L Microbiology 08/27 2199 NASOPHARYN: Influenza Virus A & B Rapid Smear - COMP 08/27 2034 LOWER RESP: Respiratory Culture - RES 08/27 2034 LOWER RESP: Gram Stain - RES 08/27 2014 BLOOD: Blood Culture - RECD 08/27 2004 BLOOD: Blood Culture - RECD Assessment/Plan Assessment: Ms. Shane is a 81-year-old lady with a PMH significant for HTN, HLD, advanced COPD on 2L nocturnal home oxygen and chronic prednisone, suspected lung cancer on recent PET and CT scan, T12 vertebral body compression fracture s/p vertebral augmentation about a month ago who presents with worsening dyspnea with cough productive of thick yellowish sputum for a few days, concerning for COPD/ bronchitis vs. possible pneumonia. # Acute hypoxic respiratory failure failure 2/2 COPD exacerbation Patient is currently requiring 3L currently to maintain oxygen saturation above 92%. She uses oxygen only during the night at home. CXR without any acute findings. ABG showed hypoxia at 79. * Continue pulse oxumetry monitoring, and vitals regularly for now. Plan to transfer to [facility] floor once stable. * Continue TRC neb tx and * Oxygen support as needed to maintain O2 sat between 88-92% (currently at 3L/ min) * Follow up cultures * Continue IV Zithromax * Continue Solumedrol 40mg Q6 * Control cough with Mucinex and Robitussin * Appreciate Pulm consultation. Will follow the recommendations and per Dr Anderson, will have a family meeting to discuss about goals of care and code status soon (possibly tomorrow) * Continue home inhalers Spiriva, Symbicort * Xanax 0.235 mg BID for anxiety # Leukocytosis WBC on admission elevated to 16, may secondary to chronic steroid use but her WBC 4 days ago in the ED was 10. CXR didn't show any signs of PNA. * CBC daily * Continue IV Azithromycin * Consider CT chest if she doesn't improve * Follow cultures # HTN/HLD * Resume home antihypertensives including Norvasc * Resume Lipitor at home dose #Recent vertebral augmentation procedure Patient had a recent vertebral augmentation procedure last month, and was supposed to get an MRI of spine tomorrow. Since she is currently admitted and being managed for a completely different reason, upon discharge, she will be handed over a prescription for MRI spine. - Heart healthy diet - Mild pain pathway - DVTppx with SQH - Full code. Problem List: 1. COPD exacerbation 2. Hypoxia Pain Ratin Pain Location: - Pain Goal: Pain 4 or less Pain Plan: prn Tomorrow's Labs & Rationales: CBC, BEP to check on infection, and renal status, had high BUN earlier
[2016-08-28 08:17] VITALS: BP 154/78
[2016-08-28 08:23] LABS: ABSOLUTE BASOPHIL COUNT 0 /CUMM (0.0-0.2); ABSOLUTE EOSINOPHIL COUNT 0 /CUMM (0.0-0.7); ABSOLUTE GRANULOCYTE CT 8.9 /CUMM (1.4-6.5); ABSOLUTE LYMPH COUNT 0.2 /CUMM (1.2-3.4); ABSOLUTE MONOCYTE COUNT 0 /CUMM (0.10-0.60); BASOPHIL % 0 % (0.0-2.0); EOSINOPHIL % 0 % (0-5); HEMATOCRIT 34.3 % (37-47); MEAN CORPUSCULAR HGB 30.8 PG (27.0-31.0); MEAN CORPUSCULAR HGB CONC 33.3 G/DL (33.0-37.0); MEAN CORPUSCULAR VOLUME 92.3 FL (81.0-99.0); MEAN PLATELET VOLUME 7.1 FL (7.4-10.4); PLATELET COUNT 326 /CUMM (130-400); RBC DISTRIBUTION WIDTH 14.3 % (11.5-14.5); RED BLOOD CELL CT 3.72 /CUMM (4.20-5.40); WHITE BLOOD CELL COUNT 9.1 /CUMM (4.8-10.8)
--- NOTE | 2016-08-28 09:08 | PN- Student ---
Subjective Subjective: This morning Mrs. Shane reports no chest pain, abdominal pain, or extremity pain. She is sitting in bed comfortably and on 3L oxygen via nasal cannula. She complains of some shortness of breath that has improved since admission. She is able to carry conversation and answer questions without much difficulty or dyspnea. She is breathing through pursed lips and has occasional cough which was producing sputum. Objective Objective: Vital Signs Date Time Temp Pulse Resp B/P B/P Pulse O2 O2 Flow FiO2 Mean Ox Delivery Rate 08/28 1103 148/88 08/28 1035 Nasal 2.0L Cannula 08/28 0931 95 Nasal 2.0L Cannula 08/28 0817 97.4 78 24 154/78 98 Nasal 3.0L Cannula 08/28 0800 96 Nasal 3.0L Cannula 08/28 0216 97.9 76 24 118/80 97 Nasal Cannula 08/28 0019 97 Nasal 3.0L Cannula 08/27 2151 96.5 76 24 124/64 97 Nasal 2.0L Cannula 08/27 1937 96.7 79 20 94 Nasal 2.0L Cannula 08/27 1917 97 Nasal 2.0L Cannula 08/27 1815 Nasal Cannula 08/27 1736 98.0 94 24 132/72 93 Nasal 2.0L Cannula Telemetry: sinus rhythm 78-82 no events, patient is being monitored for pulse oximetry and her value at time of exam was 98% on 3L NC. overnight low was 95%. Labs: BNP- 1120, H/H-12.3/37.8, WBC- 15.9, BUN- 22, Puller Through.-0.8 ABG: pH- 7.52, pCO2-30, HCO3- 24, PO2- 79 Sputum culture growing mixed jonny Patient was sitting comfortably in bed during the exam and was able to communicate effectively while breathing through pursed lips. She did not seem to be in acute distress and was alert and oriented x3. PE: HEENT- atraumatic, FARRAH, membranes moist and pink Neck- supple, midline trachea, no thyromegaly or lymphadenopathy CV- S1 and S2 appreciated, no rubs or murmurs Chest- decreased breath sounds throughout, no wheezes, no crackles, no rhonchi Abd- no distention, bowel sounds heard, soft with slight tenderness over Right upper quadrant to palpation, no rebound tenderness. Ext.- 5/5 strength in all extremities with intact normal sensation Results Results: Microbiology Date/Time Procedure - Status Source Growth 08/27 2199 Influenza Virus A & B Rapid Smear - COMP NASOPHARYN 08/27 2034 Respiratory Culture - RES LOWER RESP 08/27 2034 Gram Stain - RES LOWER RESP 08/27 2014 Blood Culture - RES BLOOD 08/27 2004 Blood Culture - RES BLOOD Laboratory Tests 08/28 08/28 08/27 0609 0025 2149 Chemistry Sodium (137 - 145 mmol/L) 136 L Potassium (3.5 - 5.1 mmol/L) 3.9 Chloride (98 - 107 mmol/L) 95 L Carbon Dioxide (22 - 30 mmol/L) 29 Anion Gap (5 - 16) 12 BUN (7 - 17 mg/dL) 22 H Creatinine (0.5 - 1.0 mg/dL) 0.8 Estimated GFR (>60 ml/min) > 60 BUN/Creatinine Ratio (7 - 25 %) 27.5 H Lactic Acid (0.7 - 2.1 mmol/L) 1.1 Cancelled Hematology CBC w Diff NO MAN DIFF REQ WBC (4.8 - 10.8 /CUMM) 9.1 RBC (4.20 - 5.40 /CUMM) 3.72 L Hgb (12.0 - 16.0 G/DL) 11.4 L Hct (37 - 47 %) 34.3 L MCV (81.0 - 99.0 FL) 92.3 MCH (27.0 - 31.0 PG) 30.8 RDW (11.5 - 14.5 %) 14.3 Plt Count (130 - 400 /CUMM) 326 MPV (7.4 - 10.4 FL) 7.1 L Gran % (42.2 - 75.2 %) 97.0 H Lymphocytes % (20.5 - 51.1 %) 2.5 L Monocytes % (1.7 - 9.3 %) 0.5 L Eosinophils % (0 - 5 %) 0 Basophils % (0.0 - 2.0 %) 0 L Absolute Granulocytes (1.4 - 6.5 /CUMM) 8.9 H Absolute Lymphocytes (1.2 - 3.4 /CUMM) 0.2 L Absolute Monocytes (0.10 - 0.60 /CUMM) 0 L Absolute Eosinophils (0.0 - 0.7 /CUMM) 0 Absolute Basophils (0.0 - 0.2 /CUMM) 0 PUBS MCHC (33.0 - 37.0 G/DL) 33.3 08/27 1825 Blood Gas pH (7.35 - 7.45 PH) 7.52 H pCO2 (35 - 45 TORR) 30 L pO2 (80 - 100 TORR) 79 L HCO3 (21 - 28 MEQ/L) 24 ABG O2 Sat (Measured) (>96.0 %) 96.0 P-50 (Temp Corrected) N Carboxyhemoglobin (1.5 - 5.0 %) 0.1 L O2 Concentration % 2L Temperature (97.0 - 100.0 FARH) 97.0 O2 Delivery Method NC Chemistry Sodium (137 - 145 mmol/L) 135 L Potassium (3.5 - 5.1 mmol/L) 4.3 Chloride (98 - 107 mmol/L) 94 L Carbon Dioxide (22 - 30 mmol/L) 31 H Anion Gap (5 - 16) 11 BUN (7 - 17 mg/dL) 23 H Creatinine (0.5 - 1.0 mg/dL) 0.9 Estimated GFR (>60 ml/min) > 60 BUN/Creatinine Ratio (7 - 25 %) 25.6 H Glucose (65 - 99 mg/dL) 105 H Calcium (8.4 - 10.2 mg/dL) 9.4 Total Bilirubin (0.2 - 1.3 mg/dL) 0.7 AST (14 - 36 U/L) 24 ALT (9 - 52 U/L) 28 Alkaline Phosphatase (<127 U/L) 92 Troponin I (< 0.11 ng/ml) 0.03 Phv-K-Xqshxwzfskf Pept (<125 pg/mL) 1120 H Total Protein (6.3 - 8.2 g/dL) 6.6 Albumin (3.5 - 5.0 g/dL) 3.9 Globulin (1.9 - 4.2 gm/dL) 2.7 Albumin/Globulin Ratio (1.1 - 2.2 %) 1.4 Coagulation PT (9.4 - 12.5 SEC) 10.1 INR (0.90 - 1.19) 0.96 APTT (25 - 37 SEC) 25 Hematology CBC w Diff NO MAN DIFF REQ WBC (4.8 - 10.8 /CUMM) 15.9 H RBC (4.20 - 5.40 /CUMM) 4.07 L Hgb (12.0 - 16.0 G/DL) 12.3 Hct (37 - 47 %) 37.8 MCV (81.0 - 99.0 FL) 92.8 MCH (27.0 - 31.0 PG) 30.2 RDW (11.5 - 14.5 %) 14.8 H Plt Count (130 - 400 /CUMM) 371 MPV (7.4 - 10.4 FL) 6.8 L Gran % (42.2 - 75.2 %) 96.8 H Lymphocytes % (20.5 - 51.1 %) 1.5 L Monocytes % (1.7 - 9.3 %) 1.5 L Eosinophils % (0 - 5 %) 0.2 Basophils % (0.0 - 2.0 %) 0 L Absolute Granulocytes (1.4 - 6.5 /CUMM) 15.4 H Absolute Lymphocytes (1.2 - 3.4 /CUMM) 0.2 L Absolute Monocytes (0.10 - 0.60 /CUMM) 0.2 Absolute Eosinophils (0.0 - 0.7 /CUMM) 0 Absolute Basophils (0.0 - 0.2 /CUMM) 0 PUBS MCHC (33.0 - 37.0 G/DL) 32.5 L Miscellaneous Phlebotomy Draw Site RIGHT RADIAL Laboratory Tests 08/28/16 0609: Anion Gap 12, Estimated GFR > 60, BUN/Creatinine Ratio 27.5 H, CBC w Diff NO MAN DIFF REQ, RBC 3.72 L, MCV 92.3, MCH 30.8, RDW 14.3, MPV 7.1 L, Gran % 97.0 H, Lymphocytes % 2.5 L, Monocytes % 0.5 L, Eosinophils % 0, Basophils % 0 L, Absolute Granulocytes 8.9 H, Absolute Lymphocytes 0.2 L, Absolute Monocytes 0 L, Absolute Eosinophils 0, Absolute Basophils 0, PUBS MCHC 33.3 08/28/16 0025: Lactic Acid 1.1 08/27/162144: Lactic Acid Cancelled 08/27/162129: pH 7.52 H, pCO2 30 L, pO2 79 L, HCO3 24, ABG O2 Sat (Measured) 96.0, P-50 ( Temp Corrected) N, Carboxyhemoglobin 0.1 L, O2 Concentration % 2L, Temperature 97.0, O2 Delivery Method NC, Phlebotomy Draw Site RIGHT RADIAL 08/27/165: Anion Gap 11, Estimated GFR > 60, BUN/Creatinine Ratio 25.6 H, Glucose 105 H, Calcium 9.4, Total Bilirubin 0.7, AST 24, ALT 28, Alkaline Phosphatase 92, Troponin I 0.03, Xew-A-Evwnbwnmgtm Pept 1120 H, Total Protein 6.6, Albumin 3.9, Globulin 2.7, Albumin/Globulin Ratio 1.4, PT 10.1, INR 0.96, APTT 25, CBC w Diff NO MAN DIFF REQ, RBC 4.07 L, MCV 92.8, MCH 30.2, RDW 14.8 H, MPV 6.8 L, Gran % 96.8 H, Lymphocytes % 1.5 L, Monocytes % 1.5 L, Eosinophils % 0.2, Basophils % 0 L, Absolute Granulocytes 15.4 H, Absolute Lymphocytes 0.2 L, Absolute Monocytes 0.2, Absolute Eosinophils 0, Absolute Basophils 0, PUBS MCHC 32.5 L Microbiology 08/27 2199 NASOPHARYN: Influenza Virus A & B Rapid Smear - COMP 08/27 2034 LOWER RESP: Respiratory Culture - RES 08/27 2034 LOWER RESP: Gram Stain - RES 08/27 2014 BLOOD: Blood Culture - RES 08/27 2004 BLOOD: Blood Culture - RES Assessment/Plan Assessment: Current Medications Sig/Yecenia Start time Last Medication Dose Route Stop Time Status Admin Albuterol Sulfate 3 ML BID 08/28 1000 AC 08/28 INH 0916 Albuterol Sulfate 2 PUF Q4P PRN 08/27 2100 AC INH Albuterol Sulfate 3 ML ONCE ONE 08/27 194 DC 08/27 INH 08/27 194 194 Albuterol Sulfate 3 ML ONCE ONE 08/27 184 DC 08/27 INH 08/27 184 184 Amlodipine Besylate 5 MG DAILY 08/28 1000 AC 08/28 PO 1103 Aspirin Buffered 81 MG DAILY 08/28 1000 AC 08/28 PO 1103 Atorvastatin Calcium 10 MG 1700 08/28 1700 AC PO Azithromycin 500 MG 2100 08/28 2100 AC Sodium Chloride 250 ML IV Azithromycin 500 MG ONCE ONE 08/27 1914 DC 08/27 Sodium Chloride 250 ML IV 08/27 Budesonide/ 2 PUF QPM 08/27 2199 AC 08/28 Formoterol Fumarate INH 003 Ceftriaxone Sodium 0 .STK-MED ONE 08/27 2025 DC .ROUTE Ceftriaxone Sodium 1,000 MG ONCE ONE 08/27 1914 DC 08/27 IV 08/27 Docusate Sodium 100 MG DAILY NEEDED PRN 08/27 2100 AC PO Furosemide 40 MG .STK-MED ONE 08/28 0032 DC IV 08/28 0033 Furosemide 20 MG ONCE ONE 08/27 2329 DC 08/28 IV 08/27 233 0032 Guaifenesin 600 MG Q12 08/270 AC 08/28 PO 1103 Guaifenesin/ 10 ML Q6P PRN 08/27 2100 AC Dextromethorphan PO Heparin Sodium 5,000 UNIT Q8 08/27 2199 AC 08/28 (Porcine) SC 0628 Ipratropium [place] 2.5 ML ONCE ONE 08/27 184 DC 08/27 INH 08/27 184 184 Magnesium Sulfate 1 GM ONCE ONE 08/27 2014 DC 08/27 Dextrose/Water 100 ML IV 08/28 0014 2048 Methylprednisolone 40 MG Q6 08/27 2359 AC 08/28 IV 08/30 180 1103 Methylprednisolone 125 MG ONCE ONE 08/27 1844 DC 08/27 IV 08/27 1845 184 Methylprednisolone 0 .STK-MED ONE 08/27 1844 DC .ROUTE Oxycodone/ 1 TAB Q6-PRN PRN 08/27 2100 AC Acetaminophen PO Patient Medication 1 ED .STK-MED ONE 08/28 1154 DC Teaching ED 08/28 1155 Polyethylene Glycol 17 GM DAILY 08/28 1000 AC 08/28 PO 1103 Tramadol HCl 50 MG Q6P PRN 08/27 2100 AC PO Ms. Shane is a 81-year-old white female with a PMH significant for HTN, HLD, advanced COPD (currently on 3L oxygen NC and prednisone), suspected lung cancer on recent PET and CT scan (patient declined RT), T12 vertebral body compression fracture s/p vertebral augmentation on July 17. Recent admits where July 2016 for intractable back pain and July 2015 for pneumonia. She presented with worsening dyspnea and a cough productive of thick yellowish sputum for a few days. She stated that she quit smoking a year ago and has been smoke free since. She denies any chest pain, palpitations, headaches, dizziness, nausea, vomiting or abdominal pain. She is able to communicate effectively with complete sentences but does have to pause periodically in order to catch her breath. Her sputum culture has grown a mix of jonny thus far and her leukocytosis has seemed to resolved. Will continue to monitor labs and O2 saturation. Plan: Problem List: 1. Acute Hypoxic Resp. failure- monitor oxygen saturation, currently on 3L nasal cannula. increas flow if needed. * Continue pulse ox and vitals monitoring for now. transfer to [facility] floor once stable. * Continue TRC neb tx and Oxygen support as needed to maintain O2 sat between 88 -92% * Follow up cultures- growing mixed jonny * Continue IV Zithromax * Continue Solumedrol 40mg Q6 * Control cough with Mucinex and Robitussin * Team will follow the recommendations and per Dr Anderson, will have a family meeting to discuss about goals of care and code status soon (possibly tomorrow) * Continue home inhalers Spiriva, Symbicort * Xanax 0.235 mg BID for anxiet 2. COPD exacerbation- continue current medication therapy. 3. Leukocytosis- latest labs seem to show resolution, continue to monitor CBC. 4. HTN- continue home medications as long as BP is controlled 5. Hyperlipidemia- continue home medications
--- NOTE | 2016-08-28 09:27 | Cons- Pulmonary ---
General Information and HPI Consulting Request Date of Consult: 08/28/16 Requested By: Dr. Pena Reason for Consult: COPD management Source of Information: patient, old records Exam Limitations: no limitations History of Present Illness: The patient is an 81-year-old female well-known to me from previous hospitalizations and outpatient visits. She has an extensive past medical history. Her most recent problem has been with acute compression fractures, and is status post vertebral augmentation. The patient felt improved following the procedure however she developed increased back pain once again which she has been struggling with. She also has a history of end stage COPD on nocturnal oxygen 2 L, PET positive lung nodule suspicious for malignancy (the patient has opted not to pursue radiation) and long standing tobacco use disorder (quit 1 year ago). She has had previous lung cancer, s/p RT. she also has history of hypertension, and hyperlipidemia. The patient presented to the emergency department with a few days of increased shortness of breath, and cough productive of thick yellow sputum. She also had subjective fever and chills. She was using her home oxygen without improvement in her symptoms. In the ED, the patient was found to have increased leukocytosis, and bronchospasm. She was desaturating into the 80s. An ABG showed respiratory alkalosis. She received IV Solu-Medrol, ceftriaxone and azithromycin. She was admitted to telemetry for oxygen saturation monitoring. She was continued on IV Solu-Medrol, IV azithromycin, TRC/nebs, Spiriva and Symbicort. Allergies/Medications Allergies: Coded Allergies: Iodinated Contrast Media - Oral and (RASH ALL OVER BODY 07/25/16) indomethacin (UNKNOWN PT DOESNT REMEMBER 07/20/15) naproxen (UNKNOWN PT DOESNT REMEMBER 07/20/15) Home Med List: Albuterol Sulfate (Proair Hfa) 90 MCG HFA.AER.AD 1-2 PUF INH AD PRN RESPIRATORY (Reported) Albuterol Sulfate 2.5 MG/3 ML (0.083 %) VIAL.NEB 1 Vial INH/CHUNG BID-TID RESPIRATORY (Reported) Amlodipine Besylate (Norvasc) 5 MG TABLET 1 TAB PO DAILY BP (Reported) Aspirin (Ecotrin*) 81 MG TABLET.DR 1 TAB PO DAILY HEART HEALTH (Reported) Budesonide/Formoterol Fumarate (Symbicort 160-4.5 Mcg Inhaler) 160 MCG-4.5 MCG/ ACTUATION HFA.AER.AD 2 PUF INH QPM BREATHING PROBLEMS (Reported) Docusate Sodium 100 MG CAPSULE 100 MG PO DAILY NEEDED PRN CONSTIPATION Oxycodone HCl/Acetaminophen (Oxycodone-Acetaminophen 5-325) 5 MG-325 MG TABLET 1 TAB PO Q6-PRN PRN PAIN (Reported) Polyethylene Glycol 3350 (Miralax) 17 GRAM/DOSE POWDER 17 GM PO DAILY CONSTIPATION Prednisone 5 MG TABLET 10 MG PO QAM STEROID (Reported) Simvastatin (Zocor*) 20 MG TABLET 1 TAB PO QPM CHOLESTEROL (Reported) Tramadol HCl 50 MG TABLET 1 TAB PO Q6P PRN PAIN SCALE 4-6 (MODERATE) Current Medications: Current Medications Sig/Yecenia Start time Last Medication Dose Route Stop Time Status Admin Albuterol Sulfate 3 ML BID 08/28 1000 AC 08/28 INH 0916 Albuterol Sulfate 2 PUF Q4P PRN 08/27 2099 AC INH Albuterol Sulfate 3 ML ONCE ONE 08/27 1944 DC 08/27 INH 08/27 1945 194 Albuterol Sulfate 3 ML ONCE ONE 08/27 184 DC 08/27 INH 08/27 1845 184 Amlodipine Besylate 5 MG DAILY 08/28 1000 AC PO Aspirin Buffered 81 MG DAILY 08/28 1000 AC PO Atorvastatin Calcium 10 MG 1700 08/28 1700 AC PO Azithromycin 500 MG 2100 08/28 2099 AC Sodium Chloride 250 ML IV Azithromycin 500 MG ONCE ONE 08/27 1914 DC 08/27 Sodium Chloride 250 ML IV 08/27 Budesonide/ 2 PUF QPM 08/27 2199 AC 08/28 Formoterol Fumarate INH 003 Ceftriaxone Sodium 0 .STK-MED ONE 08/27 2025 DC .ROUTE Ceftriaxone Sodium 1,000 MG ONCE ONE 08/27 1914 DC 08/27 IV 08/27 Docusate Sodium 100 MG DAILY NEEDED PRN 08/27 2099 AC PO Furosemide 40 MG .STK-MED ONE 08/29 31 DC IV 08/28 0033 Furosemide 20 MG ONCE ONE 08/27 2329 DC 08/28 IV 08/27 2330 0032 Guaifenesin 600 MG Q12 08/27 2200 AC 08/28 PO 0031 Guaifenesin/ 10 ML Q6P PRN 08/27 2100 AC Dextromethorphan PO Heparin Sodium 5,000 UNIT Q8 08/27 2200 AC 08/28 (Porcine) SC 0628 Ipratropium Azalea 2.5 ML ONCE ONE 08/27 184 DC 08/27 INH 08/27 184 184 Magnesium Sulfate 1 GM ONCE ONE 08/27 2014 DC 08/27 Dextrose/Water 100 ML IV 08/28 0014 2048 Methylprednisolone 40 MG Q6 08/27 2359 AC 08/28 IV 08/30 180 06 Methylprednisolone 125 MG ONCE ONE 08/27 184 DC 08/27 IV 08/27 184 184 Methylprednisolone 0 .STK-MED ONE 08/27 184 DC .ROUTE Oxycodone/ 1 TAB Q6-PRN PRN 08/27 2100 AC Acetaminophen PO Polyethylene Glycol 17 GM DAILY 08/28 1000 AC PO Tramadol HCl 50 MG Q6P PRN 08/27 2100 AC PO Review of Systems Review of Systems All Other Systems: Reviewed and Negative Past History Travel History Traveled to [place] past 21 day No Medical History Blood Transfusion Hx: No Neurological: NONE EENT: cataracts Cardiovascular: hypertension, hyperlipidemia, PERIPHERAL EDEMA Respiratory: COPD, emphysema, Lung cancer O2 DEPENDENT AT 2L Gastrointestinal: NONE Hepatic: NONE Renal: NONE Musculoskeletal: fracture, (T12) Psychiatric: NONE Endocrine: NONE Blood Disorders: NONE Cancer(s): LUNG CANCER RT J2EE CONSULTANT/Reproductive: NONE Surgical History Surgical History: non-contributory Family History Relations & Conditions If Any: MOTHER FATHER FH: cancer Psychosocial History Services at Home: Home Health Aide Smoking Status: Former Smoker Functional Ability ADLs Independent: dressing. Exam & Diagnostic Data Last 24 Hrs of Vital Signs/I&O Vital Signs Date Time Temp Pulse Resp B/P B/P Pulse O2 O2 Flow FiO2 Mean Ox Delivery Rate 08/28 08 97.4 78 24 154/78 98 Nasal 3.0L Cannula 08/28 0216 97.9 76 24 118/80 97 Nasal Cannula 08/28 0019 97 Nasal 3.0L Cannula 08/27 2150 96.5 76 24 124/64 97 Nasal 2.0L Cannula 08/27 193 96.7 79 20 94 Nasal 2.0L Cannula 08/27 191 97 Nasal 2.0L Cannula 08/27 181 Nasal Cannula 08/27 1736 98.0 94 24 132/72 93 Nasal 2.0L Cannula Intake & Output 08/28 1600 08/28 0800 08/28 0000 Intake Total 420 520 Output Total 500 Balance -80 520 Intake, IV 400 Intake, Oral 420 120 Output, Urine 500 Patient 94 lb 15.99 oz 94 lb 0.01 oz Weight Weight Reported by Patient Reported by Patient Measurement Method Physical Exam General Appearance: alert, awake, thin Head: atraumatic, normal appearance Eyes: Bilateral: PERRL. Neck: supple Respiratory: decreased breath sounds, severely diminished breath sounds, lungs expand symmetrically and trachea is midline Cardiovascular: regular rate/rhythm, distant heart sounds Gastrointestinal: normal bowel sounds, soft, non-tender Extremities: no edema Skin: intact, normal color, warm/dry Last 48 Hrs of Labs/Nikolas: Laboratory Tests 08/28/16 0609: Anion Gap 12, Estimated GFR > 60, BUN/Creatinine Ratio 27.5 H, CBC w Diff Pending, WBC Pending, RBC Pending, Hgb Pending, Hct Pending, MCV Pending, MCH Pending, RDW Pending, Plt Count Pending, MPV Pending, Gran % Pending, Lymphocytes % Pending, Monocytes % Pending, Eosinophils % Pending, Basophils % Pending, Absolute Granulocytes Pending, Absolute Lymphocytes Pending, Absolute Monocytes Pending, Absolute Eosinophils Pending, Absolute Basophils Pending, PUBS MCHC Pending 08/28/16 0025: Lactic Acid 1.1 08/27/16 2145: Lactic Acid Cancelled 08/27/16 2130: pH 7.52 H, pCO2 30 L, pO2 79 L, HCO3 24, ABG O2 Sat (Measured) 96.0, P-50 ( Temp Corrected) N, Carboxyhemoglobin 0.1 L, O2 Concentration % 2L, Temperature 97.0, O2 Delivery Method NC, Phlebotomy Draw Site RIGHT RADIAL 08/27/16 1825: Anion Gap 11, Estimated GFR > 60, BUN/Creatinine Ratio 25.6 H, Glucose 105 H, Calcium 9.4, Total Bilirubin 0.7, AST 24, ALT 28, Alkaline Phosphatase 92, Troponin I 0.03, Azx-G-Ogskapvokso Pept 1120 H, Total Protein 6.6, Albumin 3.9, Globulin 2.7, Albumin/Globulin Ratio 1.4, PT 10.1, INR 0.96, APTT 25, CBC w Diff NO MAN DIFF REQ, RBC 4.07 L, MCV 92.8, MCH 30.2, RDW 14.8 H, MPV 6.8 L, Gran % 96.8 H, Lymphocytes % 1.5 L, Monocytes % 1.5 L, Eosinophils % 0.2, Basophils % 0 L, Absolute Granulocytes 15.4 H, Absolute Lymphocytes 0.2 L, Absolute Monocytes 0.2, Absolute Eosinophils 0, Absolute Basophils 0, PUBS MCHC 32.5 L Microbiology 08/27 2200 NASOPHARYN: Influenza Virus A & B Rapid Smear - COMP Diagnostic Data CXR Results No convincing evidence for an acute process. Assessment/Plan Impression/Plan: 1. Acute exacerbation of COPD, with acute hypoxemic respiratory failure. 2. Intractable back pain secondary to compression fractures, status post vertebral augmentation. The patient's back pain is improved due to IV steroids. 3. Leukocytosis, possibly related to chronic steroid use. No evidence of pneumonia, cultures are pending. 4. Hypertension/hyperlipidemia. Recommendations: * Agree with oxygen saturation monitoring. * Continue nebs/total respiratory care. * Since maintain saturations between 80 and 92%. * Follow-up cultures. * Continue on azithromycin pending results. * Continue IV Solu-Medrol 40 mg every 6 hours. * Control cough with Mucinex and Robitussin as ordered. * Continue Spiriva and Simcor. * Continue anxiolytics. * DVT prophylaxis at all times. * Will have a family meeting with the patient and her daughter tomorrow afternoon regarding her direction of care and code status. Consult Acknowledgment - Thank you for your consult request.
--- NOTE | 2016-08-28 16:09 | PN- Att Addend ---
Attending MD Review Statement Attending Statement Attending MD Statement: examined this patient, discuss w/resident/PA/METALLURGICAL TECHNICIAN, agreed w/resident/PA/METALLURGICAL TECHNICIAN, reviewed EMR data (avail), discussed w/nursing, discussed w/ case mgmt Attending Assessment/Plan: Laboratory Tests 08/28/16 0609: Anion Gap 12, Estimated GFR > 60, BUN/Creatinine Ratio 27.5 H, CBC w Diff NO MAN DIFF REQ, RBC 3.72 L, MCV 92.3, MCH 30.8, RDW 14.3, MPV 7.1 L, Gran % 97.0 H, Lymphocytes % 2.5 L, Monocytes % 0.5 L, Eosinophils % 0, Basophils % 0 L, Absolute Granulocytes 8.9 H, Absolute Lymphocytes 0.2 L, Absolute Monocytes 0 L, Absolute Eosinophils 0, Absolute Basophils 0, PUBS MCHC 33.3 08/28/16 0025: Lactic Acid 1.1 08/27/16 2145: Lactic Acid Cancelled 08/27/16 2130: pH 7.52 H, pCO2 30 L, pO2 79 L, HCO3 24, ABG O2 Sat (Measured) 96.0, P-50 ( Temp Corrected) N, Carboxyhemoglobin 0.1 L, O2 Concentration % 2L, Temperature 97.0, O2 Delivery Method NC, Phlebotomy Draw Site RIGHT RADIAL 08/27/16 1825: Anion Gap 11, Estimated GFR > 60, BUN/Creatinine Ratio 25.6 H, Glucose 105 H, Calcium 9.4, Total Bilirubin 0.7, AST 24, ALT 28, Alkaline Phosphatase 92, Troponin I 0.03, Cua-E-Pzunyzvjdee Pept 1120 H, Total Protein 6.6, Albumin 3.9, Globulin 2.7, Albumin/Globulin Ratio 1.4, PT 10.1, INR 0.96, APTT 25, CBC w Diff NO MAN DIFF REQ, RBC 4.07 L, MCV 92.8, MCH 30.2, RDW 14.8 H, MPV 6.8 L, Gran % 96.8 H, Lymphocytes % 1.5 L, Monocytes % 1.5 L, Eosinophils % 0.2, Basophils % 0 L, Absolute Granulocytes 15.4 H, Absolute Lymphocytes 0.2 L, Absolute Monocytes 0.2, Absolute Eosinophils 0, Absolute Basophils 0, PUBS MCHC 32.5 L Microbiology 04/19 2200 NASOPHARYN: Influenza Virus A & B Rapid Smear - COMP Vital Signs Date Time Temp Pulse Resp B/P B/P Pulse O2 O2 Flow FiO2 Mean Ox Delivery Rate 08/28 1103 148/88 08/28 1035 Nasal 2.0L Cannula 08/28 0931 95 Nasal 2.0L Cannula 08/28 0817 97.4 78 24 154/78 98 Nasal 3.0L Cannula 08/28 0800 96 Nasal 3.0L Cannula 08/28 0216 97.9 76 24 118/80 97 Nasal Cannula 08/28 0019 97 Nasal 3.0L Cannula 08/27 2151 96.5 76 24 124/64 97 Nasal 2.0L Cannula 08/27 1937 96.7 79 20 94 Nasal 2.0L Cannula 08/27 1917 97 Nasal 2.0L Cannula 08/27 1815 Nasal Cannula 08/27 1736 98.0 94 24 132/72 93 Nasal 2.0L Cannula Patient seen and examined at bedside. Discussed with patient the care plan. Patient admitted with acute hypoxic respiratory failure secondary to COPD exacerbation. Patient seen by clinical neuropsychologist and we will follow-up with the recommendation. Patient also had recently vertebral augmentation done by interventional radiology. I discussed with interventional radiology today as patient was scheduled to get a repeat MRI. We will reschedule her MRI for next week after which she will follow up with interventional radiology.
[2016-08-28 16:12] VITALS: BP 148/62
[2016-08-29 00:02] VITALS: BP 132/78
--- NOTE | 2016-08-29 07:37 | PN- Housestaff ---
Subjective Follow-up For: Acute hypoxic respiratory failure, secondary to exacerbation of COPD Complaints: no complaints Tele-Events Since Last Visit: Normal sinus rhythm, with heart rate ranging from 71-79, continuous pulse oximetry shows saturation of 96% all the time overnight, and is taking oxygen via nasal cannula at 2 L/m (baseline) Subjective: I followed up and examined the patient today. She is resting comfortably, is using oxygen at 2 L/m which is baseline, not in distress, was mildly nauseated this morning which has now decreased, no vomiting, vitals otherwise has remained stable, no overnight event. Review of Systems Constitutional: Reports: no symptoms. Objective Last 24 Hrs of Vital Signs/I&O Vital Signs Date Time Temp Pulse Resp B/P B/P Pulse O2 O2 Flow FiO2 Mean Ox Delivery Rate 08/29 0743 79 16 140/80 95 Nasal 2.0L Cannula 08/29 0002 97.9 79 20 132/78 95 Nasal Cannula 08/29 0000 Nasal 2.0L Cannula 08/28 1858 98 Nasal 2.0L Cannula 08/28 1612 98.5 84 20 148/62 96 Nasal 2.0L Cannula 08/28 1600 93 Nasal 3.0L Cannula 08/28 1103 148/88 08/28 1035 Nasal 2.0L Cannula 08/28 0931 95 Nasal 2.0L Cannula 08/28 0817 97.4 78 24 154/78 98 Nasal 3.0L Cannula 08/28 0800 96 Nasal 3.0L Cannula Intake & Output 08/29 0800 08/29 0000 08/28 1600 Intake Total 12 440 600 Output Total 350 200 550 Balance -338 240 50 Intake, IV 12 40 Intake, Oral 400 600 Number 1 1 Bowel Movements Output, Urine 350 200 550 Physical Exam General Appearance: Alert, Oriented X3, Cooperative, No Acute Distress Other Physical Findings: General Appearance Alert, Oriented X3, Cooperative, Mild resp distress, pursed lips while breathing Skin multiple bruises/ecchymosis over her skin including forearm and upper arms (since admission), No Breakdown HEENT Atraumatic, PERRLA, EOMI, Mucous Membr. moist/pink Neck Supple, No JVD, No thryomegaly Cardiovascular Regular Rate, Normal S1, Normal S2, No Murmurs, Gallops, Rubs Lungs Breath sounds more clear today, crackles present over left alteral and basal side, no wheezes heard this morning (hasn't received her nebulization yet though) Abdomen Normal Bowel Sounds, Soft, No Tenderness Neurological Normal Speech, grossly intact Extremities No Clubbing, No Cyanosis, No Edema, Normal Pulses, No Tenderness/ Swelling Vascular Normal Pulses, Pulses Symmetrical Current Medications: Current Medications Sig/Yecenia Start time Last Medication Dose Route Stop Time Status Admin Albuterol Sulfate 3 ML BID 08/28 1000 AC 08/28 INH 1857 Albuterol Sulfate 2 PUF Q4P PRN 08/27 2100 AC INH Amlodipine Besylate 5 MG DAILY 08/28 1000 AC 08/28 PO 1103 Aspirin Buffered 81 MG DAILY 08/28 1000 AC 08/28 PO 1103 Atorvastatin Calcium 10 MG 1700 08/28 1700 AC 08/28 PO 1720 Azithromycin 500 MG 08/28 AC 08/28 Sodium Chloride 250 ML IV 2110 Budesonide/ 2 PUF QPM 08/27 2199 AC 08/28 Formoterol Fumarate INH 2116 Docusate Sodium 100 MG DAILY NEEDED PRN 08/27 2099 AC 08/28 PO 211 Guaifenesin 600 MG Q12 08/27 2199 AC 08/28 PO 2118 Guaifenesin/ 10 ML Q6P PRN 08/27 2099 AC Dextromethorphan PO Heparin Sodium 5,000 UNIT Q8 08/27 2199 AC 08/28 (Porcine) SC 1425 Methylprednisolone 40 MG Q6 08/27 2359 AC 08/29 IV 08/30 1801 0549 Ondansetron HCl 4 MG ONCE ONE 08/29 0700 DC 08/29 IV 08/29 0701 0659 Oxycodone/ 1 TAB Q6-PRN PRN 08/27 2100 AC Acetaminophen PO Patient Medication 1 ED .STK-MED ONE 08/28 1154 DC Teaching ED 08/28 1155 Polyethylene Glycol 17 GM DAILY 08/28 1000 AC 08/28 PO 1103 Tramadol HCl 50 MG Q6P PRN 08/27 2100 AC PO Last 24 Hrs of Lab/Nikolas Results Last 24 Hrs of Labs/Mics: Laboratory Tests 08/29/16 0620: Sodium Pending, Potassium Pending, Chloride Pending, Carbon Dioxide Pending, Anion Gap Pending, BUN Pending, Creatinine Pending, BUN/Creatinine Ratio Pending , Magnesium Pending, CBC w Diff Pending, WBC Pending, RBC Pending, Hgb Pending, Hct Pending, MCV Pending, MCH Pending, RDW Pending, Plt Count Pending, MPV Pending, PUBS MCHC Pending Assessment/Plan Assessment: Ms. Shane is a 81-year-old lady with a PMH significant for HTN, HLD, advanced COPD on 2L nocturnal home oxygen and chronic prednisone, suspected lung cancer on recent PET and CT scan, T12 vertebral body compression fracture s/p vertebral augmentation about a month ago who presents with worsening dyspnea with cough productive of thick yellowish sputum for a few days, concerning for COPD/ bronchitis vs. possible pneumonia. # Acute hypoxic respiratory failure failure 2/2 COPD exacerbation Patient is currently requiring 3L currently to maintain oxygen saturation above 92%. She uses oxygen only during the night at home. CXR without any acute findings. ABG showed hypoxia at 79. * Continue pulse oxumetry monitoring, and vitals regularly for now. She does NOT require CONTINOUS pulse oximetry anymore, and orders has been placed accordingly. However, to avoid confusion to the patient, who according to party plan salesperson might be discharged soon, we are keeping her in tele as a [facility] hold, and not transfering physically to [facility] currently. * Continue TRC neb tx * Oxygen support as needed to maintain O2 sat between 88-92% (currently at 2L/ min), she is at her home baseline oxygen requirement level * Follow up cultures, so far negative, final blood culture pending. * Continue IV Zithromax * Solumedrol 40mg has been changed to q8 after reassessment today * Continue to control cough with Mucinex and Robitussin * Appreciate Pulm consultation. Dr Anderson, had a family meeting to discuss about goals of care and code status today and with patient's permission, an advance directive document was prepared. Her code status was changed from full code to do not resuscitate and do ant intubate. She clearly understands the choices and the consequences all available choices. Code status changed accordingly. * Continue home inhalers Spiriva, Symbicort * Xanax 0.25 mg BID for anxiety # Leukocytosis WBC on admission elevated to 16, may be secondary to chronic steroid use. Is still high today. CXR didn't show any signs of PNA. No fever either. * CBC daily * Continue IV Azithromycin * Consider CT chest if she doesn't improve * Awaiting final cultures # HTN/HLD * Resume home antihypertensives including Norvasc * Resume Lipitor at home dose #Recent vertebral augmentation procedure Patient had a recent vertebral augmentation procedure last month, and was supposed to get an MRI of spine tomorrow. Since she is currently admitted and being managed for a completely different reason, upon discharge, she will be handed over a prescription for MRI spine. - Heart healthy diet - Mild pain pathway - DVTppx with SQH - Full code. Problem List: 1. COPD exacerbation 2. Acute and chronic respiratory failure with hypoxia Pain Ratin Pain Location: - Pain Goal: Remain pain free Pain Plan: prn Tomorrow's Labs & Rationales: cbc for her persistant leukocytosis (?steroid use vs infection)
[2016-08-29 07:43] VITALS: BP 140/80
[2016-08-29 08:05] LABS: ABSOLUTE BASOPHIL COUNT 0 /CUMM (0.0-0.2); ABSOLUTE EOSINOPHIL COUNT 0 /CUMM (0.0-0.7); ABSOLUTE GRANULOCYTE CT 14.7 /CUMM (1.4-6.5); ABSOLUTE LYMPH COUNT 0.3 /CUMM (1.2-3.4); ABSOLUTE MONOCYTE COUNT 0.2 /CUMM (0.10-0.60); BASOPHIL % 0.1 % (0.0-2.0); EOSINOPHIL % 0.1 % (0-5); MEAN CORPUSCULAR HGB 30.9 PG (27.0-31.0); MEAN CORPUSCULAR HGB CONC 33.4 G/DL (33.0-37.0); MEAN CORPUSCULAR VOLUME 92.4 FL (81.0-99.0); MEAN PLATELET VOLUME 7.1 FL (7.4-10.4); PLATELET COUNT 332 /CUMM (130-400); RBC DISTRIBUTION WIDTH 14.4 % (11.5-14.5); RED BLOOD CELL CT 3.46 /CUMM (4.20-5.40)
[2016-08-29 08:47] LABS: GRANULOCYTE % 96.9 % (42.2-75.2); WHITE BLOOD CELL COUNT 15.1 /CUMM (4.8-10.8)
--- NOTE | 2016-08-29 09:18 | PN- Pulmonary ---
Subjective HPI/Critical Care Issues: The patient is awake and alert. She reports having ongoing shortness of breath along with some chest congestion. She continues to cough but is not making much sputum. She has ongoing intermittent back pain but notes this is improved, on IV steroids. She has an increasing leukocytosis but is afebrile, and again on steroids. There were no overnight events reported. Objective Current Medications: Current Medications Sig/Yecenia Start time Last Medication Dose Route Stop Time Status Admin Albuterol Sulfate 3 ML BID 08/28 1000 AC 08/28 INH 1857 Albuterol Sulfate 2 PUF Q4P PRN 08/27 2100 AC INH Amlodipine Besylate 5 MG DAILY 08/28 1000 AC 08/29 PO 0913 Aspirin Buffered 81 MG DAILY 08/28 1000 AC 08/29 PO 0913 Atorvastatin Calcium 10 MG 1700 08/28 1700 AC 08/28 PO 1720 Azithromycin 500 MG 2100 08/28 2099 AC 08/28 Sodium Chloride 250 ML IV 2110 Budesonide/ 2 PUF QPM 08/27 2199 AC 08/28 Formoterol Fumarate INH 211 Docusate Sodium 100 MG DAILY NEEDED PRN 08/27 2099 AC 08/28 PO 2118 Guaifenesin 600 MG Q12 08/27 2199 AC 08/29 PO 0913 Guaifenesin/ 10 ML Q6P PRN 08/27 2099 AC Dextromethorphan PO Heparin Sodium 5,000 UNIT Q8 08/270 AC 08/28 (Porcine) SC 1425 Methylprednisolone 40 MG Q6 08/27 2359 AC 08/29 IV 08/30 1801 0549 Ondansetron HCl 4 MG ONCE ONE 08/29 0700 DC 08/29 IV 08/29 0701 0659 Oxycodone/ 1 TAB Q6-PRN PRN 08/27 2100 AC Acetaminophen PO Patient Medication 1 ED .STK-MED ONE 08/28 1154 DC Teaching ED 08/28 1155 Polyethylene Glycol 17 GM DAILY 08/28 1000 AC 08/29 PO 0913 Tramadol HCl 50 MG Q6P PRN 08/27 2100 AC PO Vital Signs & I&O Last 24 Hrs of Vitals and I&O: Vital Signs Date Time Temp Pulse Resp B/P B/P Pulse O2 O2 Flow FiO2 Mean Ox Delivery Rate 08/29 0800 94 Nasal 2.0L Cannula 08/29 0743 79 16 140/80 95 Nasal 2.0L Cannula 08/29 0002 97.9 79 20 132/78 95 Nasal Cannula 08/29 0000 Nasal 2.0L Cannula 08/28 1858 98 Nasal 2.0L Cannula 08/28 1612 98.5 84 20 148/62 96 Nasal 2.0L Cannula 08/28 1600 93 Nasal 3.0L Cannula 08/28 1103 148/88 08/28 1035 Nasal 2.0L Cannula 08/28 0931 95 Nasal 2.0L Cannula Intake & Output 08/29 1600 08/29 0800 08/29 0000 Intake Total 12 440 Output Total 350 250 Balance -338 190 Intake, IV 12 40 Intake, Oral 400 Number 1 Bowel Movements Output, Urine 350 250 Physical Exam General Appearance: alert, awake, thin Head: atraumatic, normal appearance Neck: supple Respiratory: decreased breath sounds, severely diminished breath sounds, lungs expand symmetrically and trachea is midline Cardiovascular: regular rate/rhythm, distant heart sounds Gastrointestinal: normal bowel sounds, soft, non-tender Extremities: no edema Skin: intact, normal color, warm/dry Results Last 24 Hrs of Lab Results: Laboratory Tests 08/29/16 0620: Anion Gap 9, Estimated GFR > 60, BUN/Creatinine Ratio 43.8 H, Magnesium 2.3, CBC w Diff NO MAN DIFF REQ, RBC 3.46 L, MCV 92.4, MCH 30.9, RDW 14.4, MPV 7.1 L, Gran % 96.9 H, Lymphocytes % 1.9 L, Monocytes % 1.0 L, Eosinophils % 0.1, Basophils % 0.1, Absolute Granulocytes 14.7 H, Absolute Lymphocytes 0.3 L, Absolute Monocytes 0.2, Absolute Eosinophils 0, Absolute Basophils 0, PUBS MCHC 33.4 Impression/Plan Impression/Plan Impression/Plan: 1. Acute exacerbation of COPD, with acute hypoxemic respiratory failure. 2. Intractable back pain secondary to compression fractures, status post vertebral augmentation. The patient's back pain is improved due to IV steroids. 3. Leukocytosis secondary to steroids. No evidence of pneumonia, cultures are negative so far. 4. Hypertension/hyperlipidemia. Recommendations: * Continue nebs/total respiratory care. * Maintain saturations between 90 and 92%. * Follow-up cultures. * Continue on azithromycin pending results. * Continue IV Solu-Medrol 40 mg every 6 hours. Will consider decreasing/change to prednisone tomorrow pending results. * Control cough with Mucinex and Robitussin as ordered. * Continue Spiriva and Simbicort. * Continue anxiolytics. * DVT prophylaxis at all times. * Will have a family meeting with the patient and her daughter today regarding her direction of care and code status.
--- NOTE | 2016-08-29 10:30 | PN- Student ---
CHIDI CARTAGENA 08/29/16 1025: Subjective Subjective: Today Mrs. Shane reported some nausea this morning for which she was given zofran. She has no nausea now and has been eating well. She states that she slept very well last night with no problems breathing while on oxygen. She reports no chest pains or abdominal pains at rest. Objective Objective: Vital Signs Date Time Temp Pulse Resp B/P B/P Pulse O2 O2 Flow FiO2 Mean Ox Delivery Rate 08/29 1026 98 Nasal 2.0L Cannula 08/29 0800 94 Nasal 2.0L Cannula 08/29 0743 79 16 140/80 95 Nasal 2.0L Cannula 08/29 0002 97.9 79 20 132/78 95 Nasal Cannula 08/29 0000 Nasal 2.0L Cannula 08/28 1858 98 Nasal 2.0L Cannula 08/28 1612 98.5 84 20 148/62 96 Nasal 2.0L Cannula 08/28 1600 93 Nasal 3.0L Cannula 08/28 1103 148/88 08/28 1035 Nasal 2.0L Cannula Intake & Output 08/29 1600 08/29 0800 08/29 0000 Intake Total 12 440 Output Total 350 250 Balance -338 190 Intake, IV 12 40 Intake, Oral 400 Number 1 Bowel Movements Output, Urine 350 250 Telemetry: SR 71-79, Oxygen saturation 96-98% overnight on 2L nasal Cannula ( baseline) PE: HEENT- atraumatic, FARRAH, membranes moist and pink Neck- supple, midline trachea, no thyromegaly or lymphadenopathy CV- S1 and S2 appreciated, no rubs or murmurs Chest- decreased breath sounds throughout, no wheezes, no crackles, no rhonchi Abd- no distention, bowel sounds heard, soft with slight tenderness over Right and Left upper quadrants to palpation, no rebound tenderness. Ext.- 5/5 strength in all extremities with intact normal sensation Results Results: Laboratory Tests 08/29/16 0620: Anion Gap 9, Estimated GFR > 60, BUN/Creatinine Ratio 43.8 H, Magnesium 2.3, CBC w Diff NO MAN DIFF REQ, RBC 3.46 L, MCV 92.4, MCH 30.9, RDW 14.4, MPV 7.1 L, Gran % 96.9 H, Lymphocytes % 1.9 L, Monocytes % 1.0 L, Eosinophils % 0.1, Basophils % 0.1, Absolute Granulocytes 14.7 H, Absolute Lymphocytes 0.3 L, Absolute Monocytes 0.2, Absolute Eosinophils 0, Absolute Basophils 0, PUBS MCHC 33.4 08/28/16 0609: Anion Gap 12, Estimated GFR > 60, BUN/Creatinine Ratio 27.5 H, CBC w Diff NO MAN DIFF REQ, RBC 3.72 L, MCV 92.3, MCH 30.8, RDW 14.3, MPV 7.1 L, Gran % 97.0 H, Lymphocytes % 2.5 L, Monocytes % 0.5 L, Eosinophils % 0, Basophils % 0 L, Absolute Granulocytes 8.9 H, Absolute Lymphocytes 0.2 L, Absolute Monocytes 0 L, Absolute Eosinophils 0, Absolute Basophils 0, PUBS MCHC 33.3 08/28/16 0025: Lactic Acid 1.1 08/27/162144: Lactic Acid Cancelled 08/27/162129: pH 7.52 H, pCO2 30 L, pO2 79 L, HCO3 24, ABG O2 Sat (Measured) 96.0, P-50 ( Temp Corrected) N, Carboxyhemoglobin 0.1 L, O2 Concentration % 2L, Temperature 97.0, O2 Delivery Method NC, Phlebotomy Draw Site RIGHT RADIAL 08/27/16 1825: Anion Gap 11, Estimated GFR > 60, BUN/Creatinine Ratio 25.6 H, Glucose 105 H, Calcium 9.4, Total Bilirubin 0.7, AST 24, ALT 28, Alkaline Phosphatase 92, Troponin I 0.03, Edb-U-Ihiljnknmvh Pept 1120 H, Total Protein 6.6, Albumin 3.9, Globulin 2.7, Albumin/Globulin Ratio 1.4, PT 10.1, INR 0.96, APTT 25, CBC w Diff NO MAN DIFF REQ, RBC 4.07 L, MCV 92.8, MCH 30.2, RDW 14.8 H, MPV 6.8 L, Gran % 96.8 H, Lymphocytes % 1.5 L, Monocytes % 1.5 L, Eosinophils % 0.2, Basophils % 0 L, Absolute Granulocytes 15.4 H, Absolute Lymphocytes 0.2 L, Absolute Monocytes 0.2, Absolute Eosinophils 0, Absolute Basophils 0, PUBS MCHC 32.5 L [facility] 08/27 2199 NASOPHARYN: Influenza Virus A & B Rapid Smear - COMP 08/27 2034 LOWER RESP: Respiratory Culture - COMP 08/27 2034 LOWER RESP: Gram Stain - COMP 08/27 2014 BLOOD: Blood Culture - RES 08/27 2004 BLOOD: Blood Culture - RES Assessment/Plan Assessment: Current Medications Sig/Yecenia Start time Last Medication Dose Route Stop Time Status Admin Albuterol Sulfate 3 ML BID 08/28 1000 AC 08/29 INH 1021 Albuterol Sulfate 2 PUF Q4P PRN 08/27 2100 AC INH Amlodipine Besylate 5 MG DAILY 08/28 1000 AC 08/29 PO 0913 Aspirin Buffered 81 MG DAILY 08/28 1000 AC 08/29 PO 0913 Atorvastatin Calcium 10 MG 1700 08/28 1700 AC 08/28 PO 1720 Azithromycin 500 MG 2100 08/28 2100 AC 08/28 Sodium Chloride 250 ML IV 211 Budesonide/ 2 PUF QPM 08/27 2200 AC 08/28 Formoterol Fumarate INH 211 Docusate Sodium 100 MG DAILY NEEDED PRN 08/27 2100 AC 08/28 PO 2118 Guaifenesin 600 MG Q12 08/27 2200 AC 08/29 PO 0913 Guaifenesin/ 10 ML Q6P PRN 08/27 2100 AC Dextromethorphan PO Heparin Sodium 5,000 UNIT Q8 08/27 2200 AC 08/28 (Porcine) SC 1425 Methylprednisolone 40 MG Q8 08/29 1400 AC IV 08/31 0601 Methylprednisolone 40 MG Q6 08/27 2359 DC 08/29 IV 08/30 1801 0549 Ondansetron HCl 4 MG ONCE ONE 08/29 0700 DC 08/29 IV 08/29 0701 0659 Oxycodone/ 1 TAB Q6-PRN PRN 08/27 2100 AC Acetaminophen PO Patient Medication 1 ED .STK-MED ONE 08/28 1154 DC Teaching ED 08/28 1155 Polyethylene Glycol 17 GM DAILY 08/28 1000 AC 08/28 PO 1103 Tramadol HCl 50 MG Q6P PRN 08/27 2100 AC PO Ms. Shane is a 81-year-old white female with a PMH significant for HTN, HLD, advanced COPD (currently on 3L oxygen NC and prednisone), suspected lung cancer on recent PET and CT scan (patient declined RT), T12 vertebral body compression fracture s/p vertebral augmentation on July 17. Recent admits where July 2016 for intractable back pain and July 2015 for pneumonia. She presented with worsening dyspnea and a cough productive of thick yellowish sputum for a few days. She stated that she quit smoking a year ago and has been smoke free since. She denies any chest pain, palpitations, headaches, dizziness, nausea, vomiting or abdominal pain. She is able to communicate effectively with complete sentences but does have to pause periodically in order to catch her breath. She is still coughing periodically yet she is not able to produce anything anymore. Her sputum culture has grown a mix of jonny thus far and she has leukocytosis secondary to steroid therapy. She is currently at her baseline oxygen therapy and has a pulse ox of 95%. Will continue to monitor O2 saturation. Plan: Plan to DC tomorrow. Problem List: 1. Acute Hypoxic Resp. failure- monitor oxygen saturation, currently on 2L nasal cannula. * Discontinue Telemetry * Continue TRC neb tx and Oxygen support as needed to maintain O2 sat between 88 -92% * Follow up cultures- growing mixed jonny * Continue IV Zithromax * Continue Solumedrol 40mg Q8 * Control cough with Mucinex and Robitussin * Team will follow the recommendations and per Dr Anderson, will have a family meeting to discuss about goals of care and code status soon (possibly tomorrow) * Continue home inhalers Spiriva, Symbicort * Xanax 0.25 mg prn for anxiety 2. COPD exacerbation- continue current medication therapy. 3. Leukocytosis-secondary to steroid therapy. Is on methylprednisone 40mg Q8, will be switched to PO tomorrow. 4. HTN- continue home medications as long as BP is controlled 5. Hyperlipidemia- continue home medications Patient changed to DNR/DNI after speaking with Dr. Walsh @0400 08/29/2016 MARINE ANDRE MD 09/01/16 1029: Resident Review Statement Resident Statement: examined this patient, discussed with family, reviewed EMR data (avail), discussed with nursing, discussed with case mgmt, reviewed images, amended to note, discussed and agreed with student Other Findings: Patient's code status was discussed and changed to DNR/DNI from Full code at 4pm (1600hrs), and not 0400 hrs as mentioned above. Typographical error. Discussed with student.
--- NOTE | 2016-08-29 14:43 | PN- Att Addend ---
Attending MD Review Statement Attending Statement Attending MD Statement: examined this patient, discuss w/resident/PA/BUILDING CONSTRUCTION CONTRACTOR, agreed w/resident/PA/BUILDING CONSTRUCTION CONTRACTOR, reviewed EMR data (avail), discussed w/nursing, discussed w/ case mgmt Attending Assessment/Plan: Laboratory Tests 08/29/16 0620: Anion Gap 9, Estimated GFR > 60, BUN/Creatinine Ratio 43.8 H, Magnesium 2.3, CBC w Diff NO MAN DIFF REQ, RBC 3.46 L, MCV 92.4, MCH 30.9, RDW 14.4, MPV 7.1 L, Gran % 96.9 H, Lymphocytes % 1.9 L, Monocytes % 1.0 L, Eosinophils % 0.1, Basophils % 0.1, Absolute Granulocytes 14.7 H, Absolute Lymphocytes 0.3 L, Absolute Monocytes 0.2, Absolute Eosinophils 0, Absolute Basophils 0, PUBS MCHC 33.4 Vital Signs Date Time Temp Pulse Resp B/P B/P Pulse O2 O2 Flow FiO2 Mean Ox Delivery Rate 08/29 1026 98 Nasal 2.0L Cannula 08/29 0800 94 Nasal 2.0L Cannula 08/29 0743 79 16 140/80 95 Nasal 2.0L Cannula 08/29 0002 97.9 79 20 132/78 95 Nasal Cannula 08/29 0000 Nasal 2.0L Cannula 08/28 1858 98 Nasal 2.0L Cannula 08/28 1612 98.5 84 20 148/62 96 Nasal 2.0L Cannula 08/28 1600 93 Nasal 3.0L Cannula Patient seen and examined at bedside. Discussed with patient the care plan. We will decrease her steroids to every 8 hours. Leukocytosis likely secondary to her steroids. Her COPD exacerbation is getting better and the lung sounds better with no audible wheezings today. Pulmonology following the patient along with us and they're going to discuss with patient's family the goals of care.
[2016-08-29 16:02] VITALS: BP 142/68
--- NOTE | 2016-08-29 16:02 | Event Note ---
Event Note Event Note: After discussion with the family with Gagnadeep Anderson MD, it was decided that the CODE STATUS changed to DNR/DNI. xanax 0.25 BID on the clock was added as well.
[2016-08-30 00:23] VITALS: BP 110/70
[2016-08-30 07:30] VITALS: BP 138/68
[2016-08-30 08:19] LABS: ABSOLUTE BASOPHIL COUNT 0 /CUMM (0.0-0.2); ABSOLUTE EOSINOPHIL COUNT 0 /CUMM (0.0-0.7); ABSOLUTE GRANULOCYTE CT 13.4 /CUMM (1.4-6.5); ABSOLUTE LYMPH COUNT 0.3 /CUMM (1.2-3.4); ABSOLUTE MONOCYTE COUNT 0.3 /CUMM (0.10-0.60); BASOPHIL % 0.1 % (0.0-2.0); EOSINOPHIL % 0.1 % (0-5); HEMATOCRIT 32.8 % (37-47); MEAN CORPUSCULAR HGB 30.4 PG (27.0-31.0); MEAN CORPUSCULAR VOLUME 92.1 FL (81.0-99.0); MEAN PLATELET VOLUME 6.9 FL (7.4-10.4); PLATELET COUNT 327 /CUMM (130-400); RBC DISTRIBUTION WIDTH 14.6 % (11.5-14.5); RED BLOOD CELL CT 3.56 /CUMM (4.20-5.40)
--- NOTE | 2016-08-30 08:55 | PN- Housestaff ---
Subjective Follow-up For: Acute hypoxic respiratory failure, secondary to exacerbation of COPD Complaints: no complaints Tele-Events Since Last Visit: off telemetry Subjective: patient followed up today by me, she is lying in bed, in mild resp distress, still on oxygen via NC @2L/min (baseline at home), no event overnight Review of Systems Constitutional: Reports: no symptoms. Objective Last 24 Hrs of Vital Signs/I&O Vital Signs Date Time Temp Pulse Resp B/P B/P Pulse O2 O2 Flow FiO2 Mean Ox Delivery Rate 08/30 191 94 Nasal 2.0L Cannula 08/30 1637 98.5 79 20 136/54 93 Nasal Cannula 08/30 1354 96 Nasal 2.0L Cannula 08/30 0913 73 138/68 08/30 0800 Nasal 2.0L Cannula 08/30 0730 98.7 73 14 138/68 94 Nasal 2.0L Cannula 08/30 0023 98.0 84 20 110/70 95 Nasal 2.0L Cannula Intake & Output 08/31 0800 08/31 0000 08/30 1600 Intake Total 360 Output Total 100 Balance -100 360 Intake, Oral 360 Number 1 Bowel Movements Output, Urine 100 Physical Exam General Appearance: Alert, Oriented X3, Cooperative, Mild Distress Other Physical Findings: General Appearance Alert, Oriented X3, Cooperative, Mild resp distress, pursed lips while breathing Skin multiple bruises/ecchymosis over her skin including forearm and upper arms (since admission), No Breakdown HEENT Atraumatic, PERRLA, EOMI, Mucous Membr. moist/pink Neck Supple, No JVD, No thryomegaly Cardiovascular Regular Rate, Normal S1, Normal S2, No Murmurs, Gallops, Rubs Lungs Breath sounds heard b/l with crackles present over left lateral and basal side, wheezes present b/l, pt in mild resp distress Abdomen Normal Bowel Sounds, Soft, No Tenderness Neurological Normal Speech, grossly intact Extremities No Clubbing, No Cyanosis, No Edema, Normal Pulses, No Tenderness/ Swelling Vascular Normal Pulses, Pulses Symmetrical Current Medications: Current Medications Sig/Yecenia Start time Last Medication Dose Route Stop Time Status Admin Albuterol Sulfate 3 ML BID 08/28 1000 AC 08/30 INH 1909 Albuterol Sulfate 2 PUF Q4P PRN 08/27 2099 AC INH Alprazolam 0.25 MG BID 08/29 2199 AC 08/30 PO 09/05 Amlodipine Besylate 5 MG DAILY 08/28 1000 AC 08/30 PO 0913 Aspirin Buffered 81 MG DAILY 08/28 1000 AC 08/30 PO 0913 Atorvastatin Calcium 10 MG 1700 08/28 1700 AC 08/30 PO 1706 Azithromycin 500 MG 2100 08/28 2100 AC 08/30 Sodium Chloride 250 ML IV 220 Budesonide/ 2 PUF QPM 08/27 2199 AC 08/30 Formoterol Fumarate INH 2200 Calcium Carbonate 500 MG ONCE ONE 08/30 0915 DC 08/30 PO 08/30 09 0916 Docusate Sodium 100 MG DAILY NEEDED PRN 08/27 2100 AC 08/29 PO 2102 Guaifenesin 10 ML Q6P PRN 08/30 0245 CAN PO Guaifenesin 600 MG Q12 08/27 2200 AC 08/30 PO 2200 Guaifenesin/ 10 ML Q6P PRN 08/27 2100 AC Dextromethorphan PO Heparin Sodium 5,000 UNIT Q8 08/27 2199 AC 08/28 (Porcine) SC 1425 Methylprednisolone 40 MG Q8 08/29 1400 AC 08/30 IV 08/31 0601 2200 Oxycodone/ 1 TAB Q6-PRN PRN 08/27 2100 AC Acetaminophen PO Polyethylene Glycol 17 GM DAILY 08/28 1000 AC 08/30 PO 0913 Potassium Chloride 40 MEQ ONCE ONE 08/30 1615 CAN PO 08/30 161 Tramadol HCl 50 MG Q6P PRN 08/27 2100 AC PO Last 24 Hrs of Lab/Nikolas Results Last 24 Hrs of Labs/Mics: Laboratory Tests 08/30/16 0645: CBC w Diff NO MAN DIFF REQ, RBC 3.56 L, MCV 92.1, MCH 30.4, RDW 14.6 H, MPV 6.9 L, Gran % 95.3 H, Lymphocytes % 2.4 L, Monocytes % 2.1, Eosinophils % 0.1 , Basophils % 0.1, Absolute Granulocytes 13.4 H, Absolute Lymphocytes 0.3 L, Absolute Monocytes 0.3, Absolute Eosinophils 0, Absolute Basophils 0, PUBS MCHC 33.0 Assessment/Plan Assessment: Ms. Shane is a 81-year-old lady with a PMH significant for HTN, HLD, advanced COPD on 2L nocturnal home oxygen and chronic prednisone, suspected lung cancer on recent PET and CT scan, T12 vertebral body compression fracture s/p vertebral augmentation about a month ago who presents with worsening dyspnea with cough productive of thick yellowish sputum for a few days, concerning for COPD/ bronchitis vs. possible pneumonia. # Acute hypoxic respiratory failure failure 2/2 COPD exacerbation Patient is currently requiring 2L/min to maintain oxygen saturation above 92%. * Pulse oximetry monitoring continously was discontinued yesterday, telemetry discontinued. However, to avoid confusion to the patient, who according to graphic design intern might be discharged soon, we are keeping her in tele as a [facility] hold, and not transfering physically to [facility] currently. * Patient's condition is worse than yesterday, so will not be discharged today. Per PT, she has been recommended for STR. * Continue TRC neb tx * Oxygen support as needed to maintain O2 sat between 88-92% (currently at 2L/ min), she is at her home baseline oxygen requirement level * Follow up cultures, so far negative, final blood culture pending. * Continue IV Zithromax * Continue Solumedrol 40mg q8, no change for today * Continue to control cough with Mucinex and Robitussin * Continue home inhalers Spiriva, Symbicort * Continue Xanax 0.25 mg BID for anxiety # Leukocytosis WBC on admission elevated to 16, may be secondary to chronic steroid use. Is still high today. CXR didn't show any signs of PNA. No fever either. * CBC daily * Continue IV Azithromycin * Consider CT chest if she doesn't improve * Awaiting final cultures # HTN/HLD * Resume home antihypertensives including Norvasc * Resume Lipitor at home dose #Recent vertebral augmentation procedure Patient had a recent vertebral augmentation procedure last month, and was supposed to get an MRI of spine tomorrow. Since she is currently admitted and being managed for a completely different reason, upon discharge, she will be handed over a prescription for MRI spine. - Heart healthy diet - Mild pain pathway - D[facility]ppx with [facility] - Full code. Problem List: 1. COPD exacerbation 2. Acute and chronic respiratory failure with hypoxia Pain Ratin Pain Location: - Pain Goal: Pain 4 or less Pain Plan: prn Tomorrow's Labs & Rationales: CBC to follow up on clinical condition not improving causes
[2016-08-30 09:34] LABS: GRANULOCYTE % 95.3 % (42.2-75.2)
--- NOTE | 2016-08-30 10:23 | PN- Pulmonary ---
Subjective HPI/Critical Care Issues: pt seen and examined afebrile hemodynamically stable code status changed to dnr/dni 94% 2LNC Objective Current Medications: Current Medications Sig/Yecenia Start time Last Medication Dose Route Stop Time Status Admin Albuterol Sulfate 3 ML BID 08/28 1000 AC 08/29 INH 1858 Albuterol Sulfate 2 PUF Q4P PRN 08/27 2100 AC INH Alprazolam 0.25 MG BID 08/290 AC 08/30 PO 09/05 2159 0915 Amlodipine Besylate 5 MG DAILY 08/28 1000 AC 08/30 PO 0913 Aspirin Buffered 81 MG DAILY 08/28 1000 AC 08/30 PO 0913 Atorvastatin Calcium 10 MG 1700 08/28 1700 AC 08/29 PO 1723 Azithromycin 500 MG 08/28 AC 08/29 Sodium Chloride 250 ML IV 205 Budesonide/ 2 PUF QPM 08/270 AC 08/29 Formoterol Fumarate INH 2100 Calcium Carbonate 500 MG ONCE ONE 08/30 0915 DC 08/30 PO 08/30 0916 0916 Docusate Sodium 100 MG DAILY NEEDED PRN 08/27 2100 AC 08/29 PO 2102 Guaifenesin 10 ML Q6P PRN 08/30 0245 CAN PO Guaifenesin 600 MG Q12 08/270 AC 08/30 PO 0913 Guaifenesin/ 10 ML Q6P PRN 08/27 2100 AC Dextromethorphan PO Heparin Sodium 5,000 UNIT Q8 08/270 AC 08/28 (Porcine) SC 1425 Methylprednisolone 40 MG Q8 08/29 1400 AC 08/30 IV 08/31 0601 0555 Oxycodone/ 1 TAB Q6-PRN PRN 08/27 2100 AC Acetaminophen PO Polyethylene Glycol 17 GM DAILY 08/28 1000 AC 08/30 PO 0913 Tramadol HCl 50 MG Q6P PRN 08/27 2100 AC PO Vital Signs & I&O Last 24 Hrs of Vitals and I&O: Vital Signs Date Time Temp Pulse Resp B/P B/P Pulse O2 O2 Flow FiO2 Mean Ox Delivery Rate 08/30 0913 73 138/68 08/30 0800 Nasal 2.0L Cannula 08/30 0730 98.7 73 14 138/68 94 Nasal 2.0L Cannula 08/30 0023 98.0 84 20 110/70 95 Nasal 2.0L Cannula 08/30 0000 Non 2.0L ReBreather 08/29 1858 98 Nasal 2.0L Cannula 08/29 1602 98.0 89 20 142/68 93 Nasal 2.0L Cannula 08/29 1600 94 Nasal 2.0L Cannula 08/29 1026 98 Nasal 2.0L Cannula Intake & Output 08/30 1600 08/30 0800 08/30 0000 Intake Total 120 650 Output Total 700 150 Balance -580 500 Intake, IV 250 Intake, Oral 120 400 Number 0 Bowel Movements Output, Urine 700 150 Exam Other Physical Findings: gen awake and alert heent ncat cvs s1, s2 lungs decreased bs, prolonged end expiratory phase abd soft bs+ ext without edema Results Last 24 Hrs of Lab Results: Laboratory Tests 08/30/16 0645: CBC w Diff NO MAN DIFF REQ, RBC 3.56 L, MCV 92.1, MCH 30.4, RDW 14.6 H, MPV 6.9 L, Gran % 95.3 H, Lymphocytes % 2.4 L, Monocytes % 2.1, Eosinophils % 0.1 , Basophils % 0.1, Absolute Granulocytes 13.4 H, Absolute Lymphocytes 0.3 L, Absolute Monocytes 0.3, Absolute Eosinophils 0, Absolute Basophils 0, PUBS MCHC 33.0 Impression/Plan Impression/Plan Impression/Plan: Impression 81 year old woman * Acute exacebation of COPD - acute hypoxemic respiratory failure * back pain/compression fractures * improved leukocytosis likely steroid induced Plan -code status changed to DNR/DNI -trc/nebs -cont zithromax -mucinex -spiriva/symbicort -anxiolysis and pain control -solumedrol was switched to 40mg iv q8h which we can keep at this time with a very slow taper DVT prophylaxis at all times DNR/DNI
--- NOTE | 2016-08-30 13:42 | PN- Student ---
Subjective Subjective: Today Mrs. Shane was complaining of some chest tightness and some diffuse abdominal pain which she described as "soreness". She denied any palpitations or dyspnea that was out of the norm for her. She also denied any problems urinating or defecating. She directed the chest discomfort to around both sides of her rib cage. She did not seem to be in any distress at the time of exam. Objective Objective: Vital Signs Date Time Temp Pulse Resp B/P B/P Pulse O2 O2 Flow FiO2 Mean Ox Delivery Rate 08/30 0913 73 138/68 08/30 0800 Nasal 2.0L Cannula 08/30 0730 98.7 73 14 138/68 94 Nasal 2.0L Cannula 08/30 0023 98.0 84 20 110/70 95 Nasal 2.0L Cannula 08/30 0000 Non 2.0L ReBreather 08/29 1858 98 Nasal 2.0L Cannula 08/29 1602 98.0 89 20 142/68 93 Nasal 2.0L Cannula 08/29 1600 94 Nasal 2.0L Cannula Intake & Output 08/30 1600 08/30 0800 08/30 0000 Intake Total 120 650 Output Total 700 150 Balance -580 500 Intake, IV 250 Intake, Oral 120 400 Number 0 Bowel Movements Output, Urine 700 150 Telemetry: junctional/NSR; S-space/NSR 65-91 w/PVC. 4 beat triplet @0000. Labs: 24 hr fluid-(-900), WBC- 14, H/H- 10.7/32, BUN- 35, Meat Wrapper- 0.8, BUN/Meat Wrapper- 43.8, Mg- 2.3 PE: HEENT- atraumatic, FARRAH, membranes moist and pink Neck- supple, midline trachea, no thyromegaly or lymphadenopathy CV- S1 and S2 appreciated, no rubs or murmurs Chest- decreased breath sounds throughout, no wheezes, no crackles, no rhonchi Abd- no distention, bowel sounds heard, soft with diffuse tenderness over epigastrum. no rebound tenderness Ext.- 4/5 strength in all extremities with intact normal sensation Skin- slight bruising of upper and lower ext bilaterally that is slowely resolving. no other lesions noted. Results Results: Laboratory Tests 08/30/16 0645: CBC w Diff NO MAN DIFF REQ, RBC 3.56 L, MCV 92.1, MCH 30.4, RDW 14.6 H, MPV 6.9 L, Gran % 95.3 H, Lymphocytes % 2.4 L, Monocytes % 2.1, Eosinophils % 0.1 , Basophils % 0.1, Absolute Granulocytes 13.4 H, Absolute Lymphocytes 0.3 L, Absolute Monocytes 0.3, Absolute Eosinophils 0, Absolute Basophils 0, PUBS MCHC 33.0 08/29/16 0620: Anion Gap 9, Estimated GFR > 60, BUN/Creatinine Ratio 43.8 H, Magnesium 2.3, CBC w Diff NO MAN DIFF REQ, RBC 3.46 L, MCV 92.4, MCH 30.9, RDW 14.4, MPV 7.1 L, Gran % 96.9 H, Lymphocytes % 1.9 L, Monocytes % 1.0 L, Eosinophils % 0.1, Basophils % 0.1, Absolute Granulocytes 14.7 H, Absolute Lymphocytes 0.3 L, Absolute Monocytes 0.2, Absolute Eosinophils 0, Absolute Basophils 0, PUBS MCHC 33.4 08/28/16 0609: Anion Gap 12, Estimated GFR > 60, BUN/Creatinine Ratio 27.5 H, CBC w Diff NO MAN DIFF REQ, RBC 3.72 L, MCV 92.3, MCH 30.8, RDW 14.3, MPV 7.1 L, Gran % 97.0 H, Lymphocytes % 2.5 L, Monocytes % 0.5 L, Eosinophils % 0, Basophils % 0 L, Absolute Granulocytes 8.9 H, Absolute Lymphocytes 0.2 L, Absolute Monocytes 0 L, Absolute Eosinophils 0, Absolute Basophils 0, PUBS MCHC 33.3 08/28/16 0025: Lactic Acid 1.1 08/27/16 2145: Lactic Acid Cancelled 08/27/16 2130: pH 7.52 H, pCO2 30 L, pO2 79 L, HCO3 24, ABG O2 Sat (Measured) 96.0, P-50 ( Temp Corrected) N, Carboxyhemoglobin 0.1 L, O2 Concentration % 2L, Temperature 97.0, O2 Delivery Method NC, Phlebotomy Draw Site RIGHT RADIAL 08/27/16 1825: Anion Gap 11, Estimated GFR > 60, BUN/Creatinine Ratio 25.6 H, Glucose 105 H, Calcium 9.4, Total Bilirubin 0.7, AST 24, ALT 28, Alkaline Phosphatase 92, Troponin I 0.03, Pqc-C-Pdvriapjmsw Pept 1120 H, Total Protein 6.6, Albumin 3.9, Globulin 2.7, Albumin/Globulin Ratio 1.4, PT 10.1, INR 0.96, APTT 25, CBC w Diff NO MAN DIFF REQ, RBC 4.07 L, MCV 92.8, MCH 30.2, RDW 14.8 H, MPV 6.8 L, Gran % 96.8 H, Lymphocytes % 1.5 L, Monocytes % 1.5 L, Eosinophils % 0.2, Basophils % 0 L, Absolute Granulocytes 15.4 H, Absolute Lymphocytes 0.2 L, Absolute Monocytes 0.2, Absolute Eosinophils 0, Absolute Basophils 0, PUBS MCHC 32.5 L Microbiology 08/27 2199 NASOPHARYN: Influenza Virus A & B Rapid Smear - COMP 08/27 2034 LOWER RESP: Respiratory Culture - COMP 08/27 2034 LOWER RESP: Gram Stain - COMP 08/27 2014 BLOOD: Blood Culture - RES 08/27 2004 BLOOD: Blood Culture - RES Assessment/Plan Assessment: Current Medications Sig/Yecenia Start time Last Medication Dose Route Stop Time Status Admin Albuterol Sulfate 3 ML BID 08/28 1000 AC 08/30 INH 1255 Albuterol Sulfate 2 PUF Q4P PRN 08/27 2100 AC INH Alprazolam 0.25 MG BID 08/29 2199 AC 08/30 PO 09/05 215 0915 Amlodipine Besylate 5 MG DAILY 08/28 1000 AC 08/30 PO 09 Aspirin Buffered 81 MG DAILY 08/28 1000 AC 08/30 PO 0913 Atorvastatin Calcium 10 MG 1700 08/28 1700 AC 08/29 PO 1723 Azithromycin 500 MG 2100 08/28 2100 AC 08/29 Sodium Chloride 250 ML IV 205 Budesonide/ 2 PUF QPM 08/27 2199 AC 08/29 Formoterol Fumarate INH 2100 Calcium Carbonate 500 MG ONCE ONE 08/30 0915 DC 08/30 PO 08/30 0916 0916 Docusate Sodium 100 MG DAILY NEEDED PRN 08/27 2100 AC 08/29 PO 210 Guaifenesin 10 ML Q6P PRN 08/30 0245 CAN PO Guaifenesin 600 MG Q12 08/270 AC 08/30 PO 0913 Guaifenesin/ 10 ML Q6P PRN 08/27 2100 AC Dextromethorphan PO Heparin Sodium 5,000 UNIT Q8 08/27 2200 AC 08/28 (Porcine) SC 1425 Methylprednisolone 40 MG Q8 08/29 1400 AC 08/30 IV 08/31 0601 0555 Oxycodone/ 1 TAB Q6-PRN PRN 08/27 2100 AC Acetaminophen PO Polyethylene Glycol 17 GM DAILY 08/28 1000 AC 08/30 PO 0913 Tramadol HCl 50 MG Q6P PRN 08/27 2100 AC PO Ms. Shane is a 81-year-old white female with a PMH significant for HTN, HLD, advanced COPD (currently on 2L oxygen NC and prednisone), suspected lung cancer on recent PET and CT scan (patient declined RT), T12 vertebral body compression fracture s/p vertebral augmentation on July 17. Recent admits where July 2016 for intractable back pain and July 2015 for pneumonia. She presented with worsening dyspnea and a cough productive of thick yellowish sputum for a few days. She stated that she quit smoking a year ago and has been smoke free since. She denies any chest pain, palpitations, headaches, dizziness, nausea, vomiting or abdominal pain. She is able to communicate effectively with complete sentences but does have to pause periodically in order to catch her breath. She is still coughing periodically yet she is not able to produce anything anymore. Her sputum culture has grown a mix of jonny thus far and she has leukocytosis secondary to steroid therapy. She is currently at her baseline oxygen therapy and has a pulse ox of 94%. Will continue to monitor O2 saturation until discharge. Plan: Patient is being held another day to monitor oxygen consumption. Problem List: 1. Acute Hypoxic Resp. failure- monitor oxygen saturation, currently on 2L nasal cannula. * Discontinue Telemetry * Continue TRC neb tx and Oxygen support as needed to maintain O2 sat between 88 -92% * Follow up cultures- growing mixed jonny * Continue IV Zithromax * Continue Solumedrol 40mg Q8 * Control cough with Mucinex and Robitussin * Continue home inhalers Spiriva, Symbicort * Xanax 0.25 mg BID for anxiety 2. COPD exacerbation- continue current medication therapy. 3. Leukocytosis-secondary to steroid therapy. Is on methylprednisone 40mg Q8. 4. HTN- continue home medications as long as BP is controlled 5. Hyperlipidemia- continue home medications Patient changed to DNR/DNI after speaking with Dr. Walsh @[facility] 08/29/2016
[2016-08-30 16:37] VITALS: BP 136/54
--- NOTE | 2016-08-30 18:25 | PN- Att Addend ---
Attending MD Review Statement Attending Statement Attending MD Statement: examined this patient, discuss w/resident/PA/[employer]OPPER MARKETING MANAGER, agreed w/resident/PA/SHOPPER MARKETING MANAGER, reviewed EMR data (avail), discussed w/nursing Attending Assessment/Plan: Laboratory Tests 08/30/16 0645: CBC w Diff NO MAN DIFF REQ, RBC 3.56 L, MCV 92.1, MCH 30.4, RDW 14.6 H, MPV 6.9 L, Gran % 95.3 H, Lymphocytes % 2.4 L, Monocytes % 2.1, Eosinophils % 0.1 , Basophils % 0.1, Absolute Granulocytes 13.4 H, Absolute Lymphocytes 0.3 L, Absolute Monocytes 0.3, Absolute Eosinophils 0, Absolute Basophils 0, PUBS MCHC 33.0 Vital Signs Date Time Temp Pulse Resp B/P B/P Pulse O2 O2 Flow FiO2 Mean Ox Delivery Rate 08/30 1637 98.5 79 20 136/54 93 Nasal Cannula 08/30 1354 96 Nasal 2.0L Cannula 08/30 0913 73 138/68 08/30 0800 Nasal 2.0L Cannula 08/30 0730 98.7 73 14 138/68 94 Nasal 2.0L Cannula 08/30 0023 98.0 84 20 110/70 95 Nasal 2.0L Cannula 08/30 0000 Non 2.0L ReBreather 08/29 1858 98 Nasal 2.0L Cannula Patient seen and examined at bedside. Discussed with patient the care plan. Patient with COPD exacerbation continue with current dose of IV steroids. May taper the steroids tomorrow morning if she is doing better. Appreciated pulmonology follow-up.
[2016-08-31 00:07] VITALS: BP 110/70
[2016-08-31 08:07] VITALS: BP 130/80
[2016-08-31 09:17] LABS: ABSOLUTE BASOPHIL COUNT 0 /CUMM (0.0-0.2); ABSOLUTE EOSINOPHIL COUNT 0 /CUMM (0.0-0.7); ABSOLUTE GRANULOCYTE CT 11.1 /CUMM (1.4-6.5); ABSOLUTE LYMPH COUNT 0.2 /CUMM (1.2-3.4); ABSOLUTE MONOCYTE COUNT 0.3 /CUMM (0.10-0.60); BASOPHIL % 0 % (0.0-2.0); EOSINOPHIL % 0 % (0-5); HEMATOCRIT 32.9 % (37-47); MEAN CORPUSCULAR HGB 30.6 PG (27.0-31.0); MEAN CORPUSCULAR HGB CONC 33.3 G/DL (33.0-37.0); PLATELET COUNT 311 /CUMM (130-400); RBC DISTRIBUTION WIDTH 14.4 % (11.5-14.5); RED BLOOD CELL CT 3.57 /CUMM (4.20-5.40); WHITE BLOOD CELL COUNT 11.6 /CUMM (4.8-10.8)
[2016-08-31 10:08] LABS: GRANULOCYTE % 95.5 % (42.2-75.2)
--- NOTE | 2016-08-31 11:39 | PN- Pulmonary ---
Subjective HPI/Critical Care Issues: Patient seen and examined this morning she is complaining of constipation and her shortness of breath has not changed for the better. She remains on Solu- Medrol and is reluctant to decrease the dose at this point. Objective Current Medications: Current Medications Sig/Yecenia Start time Last Medication Dose Route Stop Time Status Admin Albuterol Sulfate 3 ML BID 08/28 1000 AC 08/31 INH 1040 Albuterol Sulfate 2 PUF Q4P PRN 08/27 2099 AC INH Alprazolam 0.25 MG BID 08/29 2199 AC 08/31 PO 09/05 2159 0956 Amlodipine Besylate 5 MG DAILY 08/28 1000 AC 08/31 PO 0955 Aspirin Buffered 81 MG DAILY 08/28 1000 AC 08/31 PO 0956 Atorvastatin Calcium 10 MG 1700 08/28 1700 AC 08/30 PO 1706 Azithromycin 500 MG 2100 08/28 2099 AC 08/30 Sodium Chloride 250 ML IV 220 Budesonide/ 2 PUF QPM 08/27 2199 AC 08/30 Formoterol Fumarate INH 2200 Docusate Sodium 100 MG DAILY NEEDED PRN 08/27 2099 AC 08/29 PO 2102 Guaifenesin 600 MG Q12 08/27 2199 AC 08/31 PO 0956 Guaifenesin/ 10 ML Q6P PRN 08/27 2099 AC Dextromethorphan PO Heparin Sodium 5,000 UNIT Q8 08/27 2199 AC 08/28 (Porcine) SC 1425 Methylprednisolone 40 MG Q8 08/29 1400 DC 08/31 IV 08/31 0601 0658 Oxycodone/ 1 TAB Q6-PRN PRN 08/27 2099 AC Acetaminophen PO Polyethylene Glycol 17 GM DAILY 08/28 1000 AC 08/31 PO 0956 Potassium Chloride 40 MEQ ONCE ONE 08/30 1615 CAN PO 08/30 1616 Tramadol HCl 50 MG Q6P PRN 08/27 2100 AC PO Vital Signs & I&O Last 24 Hrs of Vitals and I&O: Vital Signs Date Time Temp Pulse Resp B/P B/P Pulse O2 O2 Flow FiO2 Mean Ox Delivery Rate 08/31 1048 94 Nasal 2.0L Cannula 08/31 0955 128/74 08/31 0807 97.7 70 16 130/80 96 Nasal 2.0L Cannula 08/31 0007 98.9 80 20 110/70 95 Nasal 2.0L Cannula 08/31 0000 Nasal 2.0L Cannula 08/30 1910 94 Nasal 2.0L Cannula 08/30 1637 98.5 79 20 136/54 93 Nasal Cannula 08/30 1354 96 Nasal 2.0L Cannula Intake & Output 08/31 1600 08/31 0800 08/31 0000 Intake Total 140 Output Total 500 100 Balance -360 -100 Intake, Oral 140 Number 1 Bowel Movements Output, Urine 500 100 Exam Other Physical Findings: gen awake and alert heent ncat cvs s1, s2 lungs decreased bs, prolonged end expiratory phase abd soft bs+ ext without edema Results Last 24 Hrs of Lab Results: Laboratory Tests 08/31/16622: CBC w Diff NO MAN DIFF REQ, RBC 3.57 L, MCV 92.0, MCH 30.6, RDW 14.4, MPV 7.0 L, Gran % 95.5 H, Lymphocytes % 2.1 L, Monocytes % 2.4, Eosinophils % 0, Basophils % 0 L, Absolute Granulocytes 11.1 H, Absolute Lymphocytes 0.2 L, Absolute Monocytes 0.3, Absolute Eosinophils 0, Absolute Basophils 0, PUBS MCHC 33.3 Impression/Plan Impression/Plan Impression/Plan: Impression 81 year old woman * Acute exacebation of COPD - acute hypoxemic respiratory failure * back pain/compression fractures * improved leukocytosis likely steroid induced Plan -trc/nebs -cont zithromax -mucinex -spiriva/symbicort -anxiolysis and pain control -keep solumedrol 40mg iv q8h today, can reduce to q12h tomorrow if no events -bowel regimen for constipation DVT prophylaxis at all times DNR/DNI
[2016-08-31 15:51] VITALS: BP 100/60
--- NOTE | 2016-08-31 17:23 | PN- Gen Med ---
Assessment/Plan Assessment: Ms. Shane is a 81-year-old lady with a PMH significant for HTN, HLD, advanced COPD on 2L nocturnal home oxygen and chronic prednisone, suspected lung cancer on recent PET and CT scan, T12 vertebral body compression fracture s/p vertebral augmentation about a month ago who presents with worsening dyspnea with cough productive of thick yellowish sputum for a few days, concerning for COPD/ bronchitis vs. possible pneumonia. # Acute hypoxic respiratory failure failure 2/2 COPD exacerbation Patient is currently requiring 2L/min to maintain oxygen saturation above 92%. * Pulse oximetry monitoring continously was discontinued yesterday, telemetry discontinued. Patient will be transferred to a general medical floor today. * Continue TRC neb tx * Oxygen support as needed to maintain O2 sat between 88-92% (currently at 2L/ min), she is at her home baseline oxygen requirement level * Follow up cultures, so far negative, final blood culture pending. * Continue IV Zithromax * Continue Solumedrol 40mg q8, no change for today * Continue to control cough with Mucinex and Robitussin * Continue home inhalers Spiriva, Symbicort * Continue Xanax 0.25 mg BID for anxiety # Leukocytosis WBC trending down and is 11K today. CXR didn't show any signs of PNA. No fever either. * Continue IV Azithromycin * Consider CT chest if she doesn't improve * Awaiting final cultures # HTN/HLD * Resumed home antihypertensives including Norvasc * Resumed Lipitor at home dose #Recent vertebral augmentation procedure Patient had a recent vertebral augmentation procedure last month, and was supposed to get an MRI of spine but was admitted to inpatient service. Since she is currently admitted and being managed for a completely different reason, upon discharge, she will be handed over a prescription for MRI spine to be done next week.. - Heart healthy diet - Mild pain pathway - DVTppx with SQH - Full code. Problem List: 1. COPD exacerbation 2. Acute and chronic respiratory failure with hypoxia Discharge Plan Discharge Disposition: home Stable for Discharge? No Anticipated Discharge (Day): two days Subjective Review of Systems Constitutional: Denies: chills, fever. EENTM: Denies: visual changes. Cardiovascular: Denies: chest pain. Respiratory: Reports: cough. Gastrointestinal: Denies: abdominal pain, diarrhea. Genitourinary: Denies: dysuria. Skin: Denies: rash. Objective Last 24 Hrs of Vital Signs/I&O Vital Signs Date Time Temp Pulse Resp B/P B/P Pulse O2 O2 Flow FiO2 Mean Ox Delivery Rate 08/31 1600 Nasal 2.0L Cannula 08/31 1551 98.1 84 22 100/60 93 08/31 1048 94 Nasal 2.0L Cannula 08/31 0955 128/74 08/31 0807 97.7 70 16 130/80 96 Nasal 2.0L Cannula 08/31 0800 95 Nasal 2.0L Cannula 08/31 0007 98.9 80 20 110/70 95 Nasal 2.0L Cannula 08/31 0000 Nasal 2.0L Cannula 08/30 1910 94 Nasal 2.0L Cannula Intake & Output 08/31 1600 08/31 0800 08/31 0000 Intake Total 140 Output Total 500 100 Balance -360 -100 Intake, Oral 140 Number 1 Bowel Movements Output, Urine 500 100 Physical Exam General Appearance: Alert, Oriented X3, Cooperative, No Acute Distress Skin: No Rashes Skin Temp/Moisture Exam: Warm/Dry Sepsis Skin Exam (color): Normal for Ethnicity HEENT: EOMI Cardiovascular: Regular Rate, Normal S1, Normal S2 Lungs: b/l mild wheezing. Abdomen: Normal Bowel Sounds, Soft, No Tenderness Neurological: Normal Speech, Normal Tone Extremities: No Cyanosis Vascular: Normal Pulses
[2016-08-31 22:49] VITALS: BP 122/60
[2016-09-01 06:49] VITALS: BP 126/66
[2016-09-01 08:05] LABS: ABSOLUTE BASOPHIL COUNT 0 /CUMM (0.0-0.2); ABSOLUTE EOSINOPHIL COUNT 0 /CUMM (0.0-0.7); ABSOLUTE GRANULOCYTE CT 10.4 /CUMM (1.4-6.5); ABSOLUTE LYMPH COUNT 0.3 /CUMM (1.2-3.4); ABSOLUTE MONOCYTE COUNT 0.3 /CUMM (0.10-0.60); BASOPHIL % 0.2 % (0.0-2.0); EOSINOPHIL % 0 % (0-5); GRANULOCYTE % 94.9 % (42.2-75.2); HEMATOCRIT 33.8 % (37-47); MEAN CORPUSCULAR HGB 30.6 PG (27.0-31.0); MEAN CORPUSCULAR HGB CONC 33.1 G/DL (33.0-37.0); MEAN CORPUSCULAR VOLUME 92.4 FL (81.0-99.0); MEAN PLATELET VOLUME 6.9 FL (7.4-10.4); PLATELET COUNT 325 /CUMM (130-400); RBC DISTRIBUTION WIDTH 14.4 % (11.5-14.5); RED BLOOD CELL CT 3.65 /CUMM (4.20-5.40)
[2016-09-01 09:12] LABS: WHITE BLOOD CELL COUNT 10.9 /CUMM (4.8-10.8)
--- NOTE | 2016-09-01 10:15 | PN- Pulmonary ---
Subjective HPI/Critical Care Issues: The patient is awake and alert. She reports feeling improved overall. She has ongoing back pain. Her shortness of breath has improved since admission. Objective Current Medications: Current Medications Sig/Yecenia Start time Last Medication Dose Route Stop Time Status Admin Albuterol Sulfate 3 ML BID 08/28 1000 AC 09/01 INH 0916 Albuterol Sulfate 2 PUF Q4P PRN 08/27 2100 AC INH Alprazolam 0.25 MG BID 08/29 2199 AC 09/01 PO 09/05 2159 0938 Amlodipine Besylate 5 MG DAILY 08/28 1000 AC 09/01 PO 0940 Aspirin Buffered 81 MG DAILY 08/28 1000 AC 09/01 PO 0939 Atorvastatin Calcium 10 MG 1700 08/28 1700 AC 08/31 PO 1715 Azithromycin 500 MG 08/28 AC 08/31 Sodium Chloride 250 ML IV 205 Budesonide/ 2 PUF QPM 08/27 2199 AC 08/31 Formoterol Fumarate INH 2101 Docusate Sodium 100 MG DAILY NEEDED PRN 08/27 2100 AC 09/01 PO 0939 Guaifenesin 600 MG Q12 08/270 AC 09/01 PO 0938 Guaifenesin/ 10 ML Q6P PRN 08/27 2100 AC Dextromethorphan PO Heparin Sodium 5,000 UNIT Q8 08/27 2199 AC 08/28 (Porcine) SC 1425 Methylprednisolone 40 MG Q12 09/01 1000 AC 09/01 IV 0939 Methylprednisolone 40 MG Q8 08/31 1400 DC 09/01 IV 0510 Oxycodone/ 1 TAB Q6-PRN PRN 08/27 2100 AC Acetaminophen PO Polyethylene Glycol 17 GM DAILY 08/28 1000 AC 08/31 PO 0956 Tramadol HCl 50 MG Q6P PRN 08/27 2100 AC PO Vital Signs & I&O Last 24 Hrs of Vitals and I&O: Vital Signs Date Time Temp Pulse Resp B/P B/P Pulse O2 O2 Flow FiO2 Mean Ox Delivery Rate 09/01 0919 95 Nasal 2.0L Cannula 09/01 0800 Nasal 2.0L Cannula 09/01 0649 97.8 76 22 126/66 92 Nasal 2.0L Cannula 09/01 0000 Nasal 2.0L Cannula 08/31 2249 97.5 68 18 122/60 91 Nasal Cannula 08/31 1830 94 Nasal 2.0L Cannula 09/01 1599 Nasal 2.0L Cannula 08/31 1551 98.1 84 22 100/60 93 08/31 1048 94 Nasal 2.0L Cannula Intake & Output 09/01 1600 09/01 0800 09/01 0000 Intake Total 300 Output Total Balance 300 Intake, IV 100 Intake, Oral 200 Physical Exam General Appearance: alert, awake, thin Head: atraumatic, normal appearance Neck: supple Respiratory: decreased breath sounds, severely diminished breath sounds, lungs expand symmetrically and trachea is midline Cardiovascular: regular rate/rhythm, distant heart sounds Gastrointestinal: normal bowel sounds, soft, non-tender Extremities: no edema Skin: intact, normal color, warm/dry Impression/Plan Impression/Plan Impression/Plan: 1. Acute exacerbation of COPD, with acute hypoxemic respiratory failure. 2. Intractable back pain secondary to compression fractures, status post vertebral augmentation. The patient's back pain is improved due to IV steroids. 3. Leukocytosis secondary to steroids. No evidence of pneumonia, cultures are negative so far. 4. Hypertension/hyperlipidemia. Recommendations: * Continue nebs/total respiratory care. * Maintain saturations between 90 and 92%. * Follow-up cultures. * Continue on azithromycin pending results. * Continue IV Solu-Medrol 40 mg every 12 hours. * Control cough with Mucinex and Robitussin. * Continue Spiriva and Simbicort. * Continue anxiolytics. * DVT prophylaxis at all times. * DNR/DNI. * Assess for short-term rehabilitation.
--- NOTE | 2016-09-01 11:39 | PN- Housestaff ---
[facility] 09/01/16 1138: Subjective Follow-up For: Acute hypoxic respiratory failure, secondary to exacerbation of COPD Subjective: Afebrile, hemodynamically stable, no acute overnight events reported. Patient now saturating well on 2 L oxygen, this is her baseline oxygen requirement. Review of Systems Constitutional: Reports: no symptoms. Objective Last 24 Hrs of Vital Signs/I&O Vital Signs Date Time Temp Pulse Resp B/P B/P Pulse O2 O2 Flow FiO2 Mean Ox Delivery Rate 09/01 1445 97.8 75 20 120/60 94 Nasal 2.0L Cannula 09/01 0919 95 Nasal 2.0L Cannula 09/01 0800 Nasal 2.0L Cannula 09/01 0649 97.8 76 22 126/66 92 Nasal 2.0L Cannula 09/01 0000 Nasal 2.0L Cannula 08/31 2249 97.5 68 18 122/60 91 Nasal Cannula 08/31 1830 94 Nasal 2.0L Cannula 08/31 1600 Nasal 2.0L Cannula 08/31 1551 98.1 84 22 100/60 93 Intake & Output 09/01 1600 09/01 0800 09/01 0000 Intake Total 300 Output Total Balance 300 Intake, IV 100 Intake, Oral 200 Physical Exam General Appearance: Alert, Oriented X3, Cooperative, No Acute Distress HEENT: Atraumatic, PERRLA, EOMI, Mucous Membr. moist/pink Cardiovascular: Regular Rate, Normal S1, Normal S2, No Murmurs Lungs: wheezing and rhonchi over lung bilaterally Abdomen: Normal Bowel Sounds, Soft, No Tenderness Neurological: Normal Speech Extremities: No Cyanosis, No Edema Current Medications: Current Medications Sig/Yecenia Start time Last Medication Dose Route Stop Time Status Admin Albuterol Sulfate 3 ML BID 08/28 1000 AC 09/01 INH 0916 Albuterol Sulfate 2 PUF Q4P PRN 08/27 2100 AC INH Alprazolam 0.25 MG BID 08/290 AC 09/01 PO 09/059 0938 Amlodipine Besylate 5 MG DAILY 08/28 1000 AC 09/01 PO 0940 Aspirin Buffered 81 MG DAILY 08/28 1000 AC 09/01 PO 0939 Atorvastatin Calcium 10 MG 1700 08/28 1700 AC 08/31 PO 1715 Azithromycin 250 MG ONCE ONE 09/01 1100 DC 09/01 PO 09/01 1101 1155 Azithromycin 500 MG 2100 08/28 2100 DC 08/31 Sodium Chloride 250 ML IV 2051 Budesonide/ 2 PUF QPM 08/27 2199 AC 08/31 Formoterol Fumarate INH 2101 Docusate Sodium 100 MG DAILY NEEDED PRN 08/27 2099 AC 09/01 PO 0939 Guaifenesin 600 MG Q12 08/27 2199 AC 09/01 PO 0938 Guaifenesin/ 10 ML Q6P PRN 08/27 2099 AC Dextromethorphan PO Heparin Sodium 5,000 UNIT Q8 08/27 2199 AC 08/28 (Porcine) SC 1425 Methylprednisolone 40 MG Q12 09/01 1000 AC 09/01 IV 0939 Methylprednisolone 40 MG Q8 08/31 1400 DC 09/01 IV 0510 Oxycodone/ 1 TAB Q6-PRN PRN 08/27 2099 AC Acetaminophen PO Patient Medication 1 ED .STK-MED ONE 09/01 1346 [place] Teaching ED 09/01 1347 Polyethylene Glycol 17 GM DAILY 08/28 1000 AC 08/31 PO 0956 Tramadol HCl 50 MG Q6P PRN 08/27 2099 AC 09/01 PO 1041 Last 24 Hrs of Lab/Nikolas Results Last 24 Hrs of Labs/Mics: Laboratory Tests 09/01/16 0610: Anion Gap 8, Estimated GFR > 60, BUN/Creatinine Ratio 41.3 H, CBC w Diff MAN DIFF ORDERED, RBC 3.65 L, MCV 92.4, MCH 30.6, RDW 14.4, MPV 6.9 L, Gran % 94.9 H, Lymphocytes % 2.5 L, Monocytes % 2.4, Eosinophils % 0, Basophils % 0.2, Absolute Granulocytes 10.4 H, Absolute Lymphocytes 0.3 L, Absolute Monocytes 0.3, Absolute Eosinophils 0, Absolute Basophils 0, Platelet Estimate VERIFIED BY SMEAR, Poikilocytosis 1+, Ovalocytes 1+, Zahra Cells 1+, PUBS MCHC 33.1 Assessment/Plan Assessment: Ms. Shane is a 81-year-old lady with a PMH significant for HTN, HLD, advanced COPD on 2L nocturnal home oxygen and chronic prednisone, suspected lung cancer on recent PET and CT scan, T12 vertebral body compression fracture s/p vertebral augmentation about a month ago who presents with worsening dyspnea with cough productive of thick yellowish sputum for a few days, concerning for COPD/ bronchitis vs. possible pneumonia. # Acute hypoxic respiratory failure failure 2/2 COPD exacerbation Patient is currently requiring 2L/min to maintain oxygen saturation above 92%. * Continue TRC neb tx * Continue Zithromax to finish 5 days * Decrease Solumedrol 40mg q12 * Continue to control cough with Mucinex and Robitussin * Continue home inhalers Spiriva, Symbicort * Continue Xanax 0.25 mg BID for anxiety # HTN/HLD * Resumed home antihypertensives including Norvasc * Resumed Lipitor at home dose #Recent vertebral augmentation procedure Patient had a recent vertebral augmentation procedure last month, and was supposed to get an MRI of spine but was admitted to inpatient service. Since she is currently admitted and being managed for a completely different reason, upon discharge, she'll be instructed to follow as an outpatient. #History of lung cancer Patient knows that she has a lung cancer, however she stated that the cancer is slowly growing and because of her old age she decided not to pursue any further treatment for it. - Heart healthy diet - Mild pain pathway - DVTppx with SQH - Full code. Problem List: 1. COPD exacerbation Pain Ratin Pain Location: back Pain Goal: Remain pain free Pain Plan: See A&P Tomorrow's Labs & Rationales: none TINO BORRERO 09/01/16 1423: Attending MD Review Statement Attending Statement Attending MD Statement: examined this patient, discuss w/resident/PA/DIRECTOR OF REVENUE CYCLE MANAGEMENT, agreed w/resident/PA/DIRECTOR OF REVENUE CYCLE MANAGEMENT, discussed with family, reviewed EMR data (avail), discussed with nursing, discussed with case mgmt, reviewed images, amended to note Attending Assessment/Plan: "Ms. Shane is a 81-year-old lady with a PMH significant for HTN, HLD, advanced COPD on 2L nocturnal home oxygen and chronic prednisone, suspected lung cancer on recent PET and CT scan, T12 vertebral body compression fracture s/p vertebral augmentation about a month ago who presents with worsening dyspnea with cough productive of thick yellowish sputum for a few days, concerning for COPD/ bronchitis vs. possible pneumonia. " # Acute hypoxic respiratory failure failure 2/2 COPD exacerbation # Leukocytosis # HTN/HLD # h/o lung cancer s/p raditherapy # abnormal CT chest findings but stable. PLAN: Patient is currently requiring 2L/min to maintain oxygen saturation above 92%. Continue TRC neb tx Oxygen support as needed to maintain O2 sat between 88-92% (currently at 2L/min) , she is at her home baseline oxygen requirement level Follow up cultures, so far negative, final blood culture pending. Continue abx Continue steroids, taper as per pulm. Continue to control cough with Mucinex and Robitussin Continue home inhalers Spiriva, Symbicort Continue Xanax 0.25 mg BID for anxiety Patient says she does not want further investiagtion into abnormal CT chest findings even if it is cancer as she thinks it will not be futile. Will respect patient wishes. Also patient had lenghty discussion with her bowling floor manager about CT findings. #Recent vertebral augmentation procedure Patient had a recent vertebral augmentation procedure last month, and was supposed to get an MRI of spine but was admitted to inpatient service. Since she is currently admitted and being managed for a completely different reason, upon discharge, she will be handed over a prescription for MRI spine to be done next week.. d/c planning as per pulmonary, f/u o/p PCP and pulmoanry Dr Anderson.
--- NOTE | 2016-09-01 13:44 | Discharge Summary ---
Visit Information Visit Dates Admission Date: 08/27/16 Discharge Date: 09/05/16 Hospital Course Course Attending Physician: TINO BORRERO MD Primary Care Physician: Isael GLASS MD Hospital Course: The patient is an 81-year-old female with an extensive an extensive past medical history , which includes COPD on nocturnal oxygen 2 L, hypertension, hyperlipidemia history of lung nodule suspicious for malignancy which the patient has opted not to pursue any further workup, She also has a history of acute compression fractures and status post vertebral augmentation. The patient felt improved following the procedure however she developed increased back pain once again which she has been struggling with. she also has history of hypertension, and hyperlipidemia. The patient presented to the emergency department with a few days of increased shortness of breath, and cough productive of thick yellow sputum. She also had subjective fever and chills. She was using her home oxygen without improvement in her symptoms. In the ED, the patient was found to have increased leukocytosis, and bronchospasm. She was desaturating into the 80s. An ABG showed respiratory alkalosis. She received IV Solu-Medrol, ceftriaxone and azithromycin. She was admitted to telemetry for oxygen saturation monitoring. The patient hospital course is as follows and she was treated in the hospital for the following problems 1. Acute hypoxic respiratory failure secondary to COPD exacerbation, requiring continuous pulse oximetry but no noninvasive or invasive pressure ventilation . Patient has a history of COPD maintained on 2 L of nocturnal oxygen 2. Persistent back pain secondary to compression fractures status post vertebral augmentation in July 2016 3. History of suspicion noted to on the PET scan suspicion for malignancy status post radiation therapy in early 2015 but now refusing further workup and treatment 4. History of hypertension 5. History of hyperlipidemia Hospital course The patient was treated with IV Solu-Medrol and IV azithromycin along with TRC evaluation The patient is being discharged on prednisone taper of 40 mg for 3 ,30 mg for 3 ,20 mg for 3 ,10 mg for 3 and then stop. The patient completed 5 days of azithromycin in the hospital The patient needs to follow-up with Gagandeep Rojo MD once discharged For the patient's back pain she is due for a repeat MRI in this week. She's been provided with a prescription for the MRI No changes were made to the patient's other medication. Patient is being discharged to [facility]. Allergies: Coded Allergies: Iodinated Contrast Media - Oral and (RASH ALL OVER BODY 07/25/16) indomethacin (UNKNOWN PT DOESNT REMEMBER 07/20/15) naproxen (UNKNOWN PT DOESNT REMEMBER 07/20/15) Significant Procedures: Laboratory Tests 09/01 08/31 0610 0623 Chemistry Sodium (137 - 145 mmol/L) 137 Potassium (3.5 - 5.1 mmol/L) 3.9 Chloride (98 - 107 mmol/L) 100 Carbon Dioxide (22 - 30 mmol/L) 29 Anion Gap (5 - 16) 8 BUN (7 - 17 mg/dL) 33 H Creatinine (0.5 - 1.0 mg/dL) 0.8 Estimated GFR (>60 ml/min) > 60 BUN/Creatinine Ratio (7 - 25 %) 41.3 H Hematology CBC w Diff MAN DIFF ORDERED NO MAN DIFF REQ WBC (4.8 - 10.8 /CUMM) 10.9 H 11.6 H RBC (4.20 - 5.40 /CUMM) 3.65 L 3.57 L Hgb (12.0 - 16.0 G/DL) 11.2 L 10.9 L Hct (37 - 47 %) 33.8 L 32.9 L MCV (81.0 - 99.0 FL) 92.4 92.0 MCH (27.0 - 31.0 PG) 30.6 30.6 RDW (11.5 - 14.5 %) 14.4 14.4 Plt Count (130 - 400 /CUMM) 325 311 MPV (7.4 - 10.4 FL) 6.9 L 7.0 L Gran % (42.2 - 75.2 %) 94.9 H 95.5 H Lymphocytes % (20.5 - 51.1 %) 2.5 L 2.1 L Monocytes % (1.7 - 9.3 %) 2.4 2.4 Eosinophils % (0 - 5 %) 0 0 Basophils % (0.0 - 2.0 %) 0.2 0 L Absolute Granulocytes (1.4 - 6.5 /CUMM) 10.4 H 11.1 H Absolute Lymphocytes (1.2 - 3.4 /CUMM) 0.3 L 0.2 L Absolute Monocytes (0.10 - 0.60 /CUMM) 0.3 0.3 Absolute Eosinophils (0.0 - 0.7 /CUMM) 0 0 Absolute Basophils (0.0 - 0.2 /CUMM) 0 0 Platelet Estimate (ADEQUATE) VERIFIED BY SMEAR Poikilocytosis 1+ Ovalocytes 1+ [place] Cells 1+ PUBS MCHC (33.0 - 37.0 G/DL) 33.1 33.3 Disposition Summary Disposition Principal Diagnosis: Acute hypoxic respiratory failure secondary to COPD exacerbation Additional Diagnosis: Intractable back pain secondary to compression fractures status post vertebral augmentation History of hypertension and hyperlipidemia History of COPD on nocturnal oxygen at 2 L Discharge Disposition: SNF Discharge Instructions General Discharge Information Code Status: Do Not Resucitate/Intubat Patient's Diet: As tolerated Patient's Activity: As tolerated Follow-Up Instructions/Appts: Please follow-up with Gagandeep Rojo MD in 1 week Please get a repeat MRI of the lumbar spine in 1 week Medications at Discharge Discharge Medications: Stop taking the following medications: Prednisone (Prednisone) 5 MG TABLET ORAL Every Morning Docusate Sodium (Docusate Sodium) 100 MG CAPSULE ORAL DAILY NEEDED as needed for CONSTIPATION Qty = 30 Polyethylene Glycol 3350 (Miralax) 17 GRAM/DOSE POWDER ORAL DAILY Qty = 30 Continue taking these medications: Albuterol Sulfate (Proair Hfa) 90 MCG HFA.AER.AD 1-2 Puff Inhale through mouth As Directed as needed for RESPIRATORY Comments: Last Taken:09/04/16 Time:1029 Simvastatin (Zocor*) 20 MG TABLET 1 Tablet ORAL Every night Comments: Last Taken:09/03/16 LIPITOR Time:174 Budesonide/Formoterol Fumarate (Symbicort 160-4.5 Mcg Inhaler) 160 MCG-4.5 MCG/ ACTUATION HFA.AER.AD 2 Puff Inhale through mouth Every night Comments: Last Taken:09/03/16 Time:213 Amlodipine Besylate (Norvasc) 5 MG TABLET 1 Tablet ORAL DAILY Comments: Last Taken:09/04/16 Time:1129 Albuterol Sulfate (Albuterol Sulfate) 2.5 MG/3 ML (0.083 %) VIAL.NEB 1 Vial Inhale Solution BID-TID Comments: Last Taken:TRC WHILE IN HOSPITAL Time: Aspirin (Ecotrin*) 81 MG TABLET.DR 1 Tablet ORAL DAILY Comments: Last Taken:09/04/16 Time:1128 Tramadol HCl (Tramadol HCl) 50 MG TABLET 1 Tablet ORAL EVERY SIX HOURS NEEDED as needed for PAIN SCALE 4-6 ( MODERATE) Qty = 15 Comments: Last Taken:09/04/16 Time:0538 Oxycodone HCl/Acetaminophen (Oxycodone-Acetaminophen 5-325) 5 MG-325 MG TABLET 1 Tablet ORAL EVERY 6 HOURS NEEDED as needed for PAIN Qty = 20 Comments: Last Taken:NOT TAKEN IN HOSPITAL Time: Start taking the following new medications: Prednisone (Prednisone) 10 MG TABLET 1 Tablet ORAL SEE INSTRUCTIONS Qty = 60 No Refills Instructions: take 30 mg for until 09/07 take 20 mg for 3 days 09/08-09/10 take 10 mg and then continue at your baseline. Docusate Sodium (Docusate Sodium) 100 MG CAPSULE 100 Milligram ORAL DAILY Days = 30 No Refills Comments: Last Taken:09/02/16 Time:1018 Sennosides/Docusate Sodium (Senna Plus Tablet) 8.6 MG-50 MG TABLET 2 Tablet ORAL DAILY Days = 30 No Refills Comments: Last Taken:09/04/16 Time:1128 Copies To: Gagandeep ROJO MD; Isael GLASS MD, MD, K. MARYA; Isael GLASS MD
[2016-09-01 14:45] VITALS: BP 120/60
[2016-09-01 22:52] VITALS: BP 138/60
[2016-09-02 06:00] VITALS: BP 130/70
--- NOTE | 2016-09-02 06:56 | PN- Housestaff ---
MAXI BACON,COLIN 09/02/16 0655: Subjective Follow-up For: COPD exacerbation Subjective: Pt seen today, reports feeling "lousy" and not herself. She is noticable short of breath just talking. She has not ambulated much except to go to the bathroom, with the assistance of walker and her nurse. She does not feel ready to go home. She is currently on 2L NC, which is her home O2 requirement. She reports cough without sputum, not improved. She complains of chest soreness but unable to elaborate. She had a small BM yesterday, and felt better but later in the morning, was complaining that her bottom hurts and her abdomen was sore, and she was feeling nauseous. Zofran and PPI ordered. Will get abdominal xray to r/o obstruction. Pt agreed to have 1X dulcolax . Senna also added. Pt refused miralax because she had incontinence when it was given in the ED and she feels embarrassed. Prednisone has been changed to 40 mg daily. Review of Systems Constitutional: Reports: weakness. Denies: chills, fever. EENTM: Denies: visual changes. Cardiovascular: Reports: chest pain. Respiratory: Reports: cough, short of breath. Denies: sputum production. Gastrointestinal: Reports: abdominal pain, constipation. Genitourinary: Denies: dysuria. Objective Last 24 Hrs of Vital Signs/I&O Vital Signs Date Time Temp Pulse Resp B/P B/P Pulse O2 O2 Flow FiO2 Mean Ox Delivery Rate 09/02 0955 90 130/70 09/02 0855 95 Nasal 2.0L Cannula 09/02 0600 99.0 90 20 130/70 97 Nasal Cannula 09/02 0000 94 Nasal 2.0L Cannula 09/01 2252 97.7 76 20 138/60 94 Nasal 2.0L Cannula 09/01 1912 98 Nasal 2.0L Cannula 09/01 1600 Nasal 2.0L Cannula 09/01 1458 Nasal 2.0L Cannula 09/01 1445 97.8 75 20 120/60 94 Nasal 2.0L Cannula Intake & Output 09/02 1600 09/02 0800 09/02 0000 Intake Total 0 700 Output Total Balance 0 700 Intake, IV 0 Intake, Oral 0 700 Number 0 Bowel Movements Physical Exam General Appearance: Alert, Oriented X3, Cooperative, appears tired and forgetful , anxious about leaving her 91-year-old sister at home by herself Skin: redness over the buttocks (as per nurse), no skin breakdown, diffuse bruises on arms and legs HEENT: Atraumatic Cardiovascular: Regular Rate, Normal S1, Normal S2 Lungs: decreased air entry, no wheezes noted Abdomen: No Tenderness, mildly tender all over, hard to palpation , no guarding Extremities: No Edema Current Medications: Current Medications Sig/Yecenia Start time Last Medication Dose Route Stop Time Status Admin Albuterol Sulfate 3 ML BID 08/28 1000 AC 09/02 INH 0840 Albuterol Sulfate 2 PUF Q4P PRN 08/27 2100 AC INH Alprazolam 0.25 MG BID 08/29 2200 AC 09/02 PO 09/05 2159 0955 Amlodipine Besylate 5 MG DAILY 08/28 1000 AC 09/02 PO 0955 Aspirin Buffered 81 MG DAILY 08/28 1000 AC 09/02 PO 0955 Atorvastatin Calcium 10 MG 1700 08/28 1700 AC 09/01 PO 1610 Bisacodyl 10 MG ONCE ONE 09/02 1015 DC 09/02 SC 09/02 1016 1018 Budesonide/ 2 PUF QPM 08/27 2200 AC 09/01 Formoterol Fumarate INH 2158 Docusate Sodium 100 MG DAILY NEEDED PRN 08/27 2100 AC 09/02 PO 1018 Guaifenesin 600 MG Q12 08/27 2200 AC 09/02 PO 0955 Guaifenesin/ 10 ML Q6P PRN 08/27 2100 AC Dextromethorphan PO Heparin Sodium 5,000 UNIT Q8 08/270 AC 08/28 (Porcine) SC 1425 Methylprednisolone 40 MG Q12 09/01 1000 DC 09/01 IV 0939 Omeprazole 20 MG DAILY AC 09/02 1014 AC PO Ondansetron HCl 4 MG Q6 PRN 09/02 1015 CAN PO Ondansetron HCl 4 MG Q6P PRN 09/02 1015 AC 09/02 IV 1018 Oxycodone/ 1 TAB Q6-PRN PRN 08/27 2100 AC Acetaminophen PO Patient Medication 1 ED .STK-MED ONE 09/01 1346 [place] Teaching ED 09/01 1347 Polyethylene Glycol 17 GM DAILY 08/28 1000 AC 08/31 PO 0956 Prednisone 20 MG ONCE ONE 09/02 1015 DC 09/02 PO 09/02 1016 1012 Prednisone 40 MG DAILY 09/02 1000 AC 09/02 PO 0955 Senna/Docusate Sodium 2 TAB DAILY PRN 09/02 1015 AC PO Tramadol HCl 50 MG Q6P PRN 08/27 2100 AC 09/02 PO 1005 Vitamin A/Vitamin D 1 BIPIN BID 09/02 1111 AC TOP Assessment/Plan Assessment: Ms. Shane is a 81-year-old lady with a PMH significant for HTN, HLD, advanced COPD on 2L nocturnal home oxygen and chronic prednisone, suspected lung cancer on recent PET and CT scan, T12 vertebral body compression fracture s/p vertebral augmentation about a month ago who presents with worsening dyspnea with cough productive of thick yellowish sputum for a few days, concerning for COPD/ bronchitis vs. possible pneumonia. # Acute hypoxic respiratory failure failure 2/2 COPD exacerbation - Patient is currently requiring 2L to maintain oxygen saturation above 92%. * Continue TRC neb tx * Completed 5 days Zithromax * Prednisone 40 mg daily * Continue to control cough with Mucinex and Robitussin * Continue home inhalers Spiriva, Symbicort * Continue Xanax 0.25 mg BID for anxiety * Will discuss home vs STR. Pt needs to take care of her 91-year-old sister at home. # Constipation/abdominal discomfort, could be medication induced (pain meds and steroids) * Bowel regimen with senna and colace. Pt refused miralax. 1X supp as needed * Zofran and PPI for nausea * Abdominal xray to r/o obstruction * Skin precautions, Vit A&D ointment # HTN/HLD * Continue home antihypertensives including Norvasc * Continue Lipitor at home dose # Recent vertebral augmentation procedure - Patient had a recent vertebral augmentation procedure last month, and was supposed to get an MRI of spine but was admitted to inpatient service. Since she is currently admitted and being managed for a completely different reason, upon discharge, she'll be instructed to follow as an outpatient * Will give script for MRI of spine at discharge # History of lung cancer - Patient knows that she has a lung cancer, however she stated that the cancer is slowly growing and because of her old age she decided not to pursue any further treatment for it. Dr. Anderson has discussed this in details with her. - Heart healthy diet - Mild pain pathway - DVTppx with SQ - Full code Problem List: 1. COPD (chronic obstructive pulmonary disease) Pain Ratin Pain Location: abdomen, back Pain Goal: Pain 7 or less Pain Plan: tramadol Tomorrow's Labs & Rationales: none DVT/Prophylaxis: mechanical, pharmacological TINO BORRERO 09/02/16 1049: Attending Review Statement Attending Statement Attending MD Statement: examined this patient, discuss w/resident/PA/GENERAL PRODUCTION LABORER, agreed w/resident/PA/GENERAL PRODUCTION LABORER, discussed with family, reviewed EMR data (avail), discussed with nursing, discussed with case mgmt, reviewed images, amended to note Attending Assessment/Plan: "Ms. Shane is a 81-year-old lady with a PMH significant for HTN, HLD, advanced COPD on 2L nocturnal home oxygen and chronic prednisone, suspected lung cancer on recent PET and CT scan, T12 vertebral body compression fracture s/p vertebral augmentation about a month ago who presents with worsening dyspnea with cough productive of thick yellowish sputum for a few days, concerning for COPD/ bronchitis vs. possible pneumonia. " # Acute hypoxic respiratory failure failure 2/2 COPD exacerbation # Leukocytosis # HTN/HLD # h/o lung cancer s/p raditherapy # abnormal CT chest findings but stable. # Constipation # Nasuea and acute steroid induced gastritis. PLAN: obtain abdominal xray r/o obstruction, add dulcolax suppossitory. PPI . prn zofran. (reduced steroids) Patient is currently requiring 2L/min to maintain oxygen saturation above 92%. Continue TRC neb tx Oxygen support as needed to maintain O2 sat between 88-92% (currently at 2L/min) , she is at her home baseline oxygen requirement level Continue abx, taper steroids as per pulm. Mucinex and Robitussin Continue home inhalers Spiriva, Symbicort Continue Xanax 0.25 mg BID for anxiety skin and fall precautions. Patient says she does not want further investiagtion into abnormal CT chest findings even if it is cancer as she thinks it will not be futile. Will respect patient wishes. Also patient had lenghty discussion with her urologist md about CT findings. #Recent vertebral augmentation procedure Patient had a recent vertebral augmentation procedure last month, and was supposed to get an MRI of spine but was admitted to inpatient service. Since she is currently admitted and being managed for a completely different reason, upon discharge, she will be handed over a prescription for MRI spine to be done next week.. d/c planning as per pulmonary, f/u o/p PCP and pulmoanry Dr Anderson.
--- NOTE | 2016-09-02 07:53 | Patient Discharge Instructions ---
Discharge Instructions General Discharge Information You were seen/treated for: copd exacerbation Special Instructions: please repeat the MRI IN 1 WEEK OF DISCHARGE please f/u with your pcp in1 week of discharge Acute Coronary Syndrome Inclusion Criteria At DC or during hospital stay patient has or had the following: ACS DIAGNOSIS No Discharge Core Measures Meds if any: Prescribed or Continued at Discharge Meds if any: NOT Prescribed or Continued at Discharge Congestive Heart Failure Inclusion Criteria At DC or during hospital stay patient has or had the following: CHF DIAGNOSIS No Discharge Core Measures Meds if any: Prescribed or Continued at Discharge Meds if any: NOT Prescribed or Continued at Discharge Cerebrovascular accident Inclusion Criteria At DC or during hospital stay patient has or had the following: CVA/TIA Diagnosis No Discharge Core Measures Meds if any: Prescribed or Continued at Discharge Meds if any: NOT Prescribed or Continued at Discharge Venous thromboembolism Inclusion Criteria VTE Diagnosis No VTE Type NONE VTE Confirmed by (Test) NONE Discharge Core Measures - Per Current guidelines, there needs to be overlap - treatment for the first 5 days of Warfarin therapy. - If discharged on Warfarin prior to 5 days of - overlap therapy, the patient will need to be - assessed for post discharge needs including - *Post discharge parental anticoagulation - *Warfarin and/or parental anticoagulation education - *Follow up date to check INR post discharge At least 5 days overlap therapy as Inpatient No Meds if any: Prescribed or Continued at Discharge Note: Overlap Therapy is Warfarin and Anticoagulant Meds if any: NOT Prescribed or Continued at Discharge
[2016-09-02] MEDS ORDERED: PREDNISONE10 M2 PO (08:01)
--- NOTE | 2016-09-02 09:29 | PN- Pulmonary ---
Subjective HPI/Critical Care Issues: The patient is awake and alert. She reports feeling generally unwell. She is complaining of a soreness in the buttock area. She has been trying to ambulate more. She complains of feeling anxious. She denies any increased shortness of breath, cough, sputum production, fever or chills. Objective Current Medications: Current Medications Sig/Yecenia Start time Last Medication Dose Route Stop Time Status Admin Albuterol Sulfate 3 ML BID 08/28 1000 AC 09/02 INH 0840 Albuterol Sulfate 2 PUF Q4P PRN 08/27 2100 AC INH Alprazolam 0.25 MG BID 08/29 2200 AC 09/01 PO 09/05 2159 2158 Amlodipine Besylate 5 MG DAILY 08/28 1000 AC 09/01 PO 0940 Aspirin Buffered 81 MG DAILY 08/28 1000 AC 09/01 PO 0939 Atorvastatin Calcium 10 MG 1700 08/28 1700 AC 09/01 PO 1610 Azithromycin 250 MG ONCE ONE 09/01 1100 DC 09/01 PO 09/01 1101 1155 Azithromycin 500 MG 2100 08/28 2100 DC 08/31 Sodium Chloride 250 ML IV 205 Budesonide/ 2 PUF QPM 08/27 2200 AC 09/01 Formoterol Fumarate INH 2158 Docusate Sodium 100 MG DAILY NEEDED PRN 08/27 2100 AC 09/01 PO 0939 Guaifenesin 600 MG Q12 08/27 2200 AC 09/01 PO 2158 Guaifenesin/ 10 ML Q6P PRN 08/27 2100 AC Dextromethorphan PO Heparin Sodium 5,000 UNIT Q8 08/270 AC 08/28 (Porcine) SC 1425 Methylprednisolone 40 MG Q12 09/01 1000 DC 09/01 IV 0939 Methylprednisolone 40 MG Q8 08/31 1400 DC 09/01 IV 0510 Oxycodone/ 1 TAB Q6-PRN PRN 08/27 2100 AC Acetaminophen PO Patient Medication 1 ED .STK-MED ONE 09/01 1346 DC Teaching ED 09/01 1347 Polyethylene Glycol 17 GM DAILY 08/28 1000 AC 08/31 PO 0956 Prednisone 40 MG DAILY 09/02 1000 AC PO Tramadol HCl 50 MG Q6P PRN 08/27 2100 AC 09/01 PO 1041 Vital Signs & I&O Last 24 Hrs of Vitals and I&O: Vital Signs Date Time Temp Pulse Resp B/P B/P Pulse O2 O2 Flow FiO2 Mean Ox Delivery Rate 09/02 0855 95 Nasal 2.0L Cannula 09/02 0600 99.0 90 20 130/70 97 Nasal Cannula 09/02 0000 94 Nasal 2.0L Cannula 09/01 2252 97.7 76 20 138/60 94 Nasal 2.0L Cannula 09/01 1912 98 Nasal 2.0L Cannula 09/01 1600 Nasal 2.0L Cannula 09/01 1458 Nasal 2.0L Cannula 09/01 1445 97.8 75 20 120/60 94 Nasal 2.0L Cannula Intake & Output 09/02 1600 09/02 0800 09/02 0000 Intake Total 0 700 Output Total Balance 0 700 Intake, IV 0 Intake, Oral 0 700 Number 0 Bowel Movements Physical Exam General Appearance: alert, awake, thin Head: atraumatic, normal appearance Neck: supple Respiratory: decreased breath sounds, severely diminished breath sounds, lungs expand symmetrically and trachea is midline Cardiovascular: regular rate/rhythm, distant heart sounds Gastrointestinal: normal bowel sounds, soft, non-tender Extremities: no edema Skin: intact, normal color, warm/dry Impression/Plan Impression/Plan Impression/Plan: 1. Acute exacerbation of COPD, with acute hypoxemic respiratory failure. 2. Intractable back pain secondary to compression fractures, status post vertebral augmentation. The patient's back pain is improved due to IV steroids. 3. Leukocytosis secondary to steroids. No evidence of pneumonia, cultures are negative so far. 4. Hypertension/hyperlipidemia. 5. Previous history of lung cancer, with a known lung nodule. The patient has decided not to pursue treatment due to her advanced age and comorbidities. Recommendations: * Continue nebs/total respiratory care. * Maintain saturations between 90 and 92%. * Follow-up cultures. * Antibiotic course completed. * Change to prednisone 40 mg daily. * Control cough with Mucinex and Robitussin. * Continue Spiriva and Simbicort. * Continue anxiolytics. * DVT prophylaxis at all times. * Skin assessment. * DNR/DNI. * Assess for short-term rehabilitation.
--- NOTE | 2016-09-02 12:23 | RADIOLOGY REPORT ---
EXAMINATION: XR PORTABLE ABDOMEN CLINICAL INFORMATION: Abdominal pain. Presumptive diagnosis of abdominal obstruction. COMPARISON: CT scan of the abdomen and pelvis dated 08/23/2016. TECHNIQUE: AP supine view of the abdomen. FINDINGS: Normal bowel gas pattern with no abnormal distention of bowel loops seen to suspect a bowel obstruction. Right upper quadrant indira from prior cholecystectomy are noted. Midline pelvic popcorn type calcification is seen, consistent with a fibroid uterus. Atherosclerotic vascular calcifications of the aortoiliac vessels is seen. Diffuse osteopenia is present with compression deformities of the T12 and T11 vertebral bodies, status post vertebroplasty. Mild degenerative changes as seen in the lower lumbar spine and in the hip joints bilaterally. IMPRESSION: No abnormal distention of bowel loops seen to suspect an obstruction.
[2016-09-02 14:06] VITALS: BP 122/60
[2016-09-02 23:32] VITALS: BP 124/60
[2016-09-03 06:42] VITALS: BP 118/60
--- NOTE | 2016-09-03 06:57 | PN- Housestaff ---
MAXI BACON,COLIN 09/03/16 0656: Subjective Follow-up For: copd exacerbation Subjective: pt was seen today, asleep and seems tired but arousable. limited history was obtained. she appeared comfortable lying in bed. Still on o2 via nc. lungs sound better today. she had 2 documented BM yesterday. received 2 suppositories. no tenderness on abdominal exam. abdominal xray negative for obstruction. will get repeat pt evaluation for dispo plan - str vs home. 1015am - went back to see her. She was awake, appeared more comfortable compared to yesterday but she still does not feel good and does not feel comfortable going home today. She is agreeable to rehab for a few days before going home. Review of Systems Constitutional: Reports: see HPI. Objective Last 24 Hrs of Vital Signs/I&O Vital Signs Date Time Temp Pulse Resp B/P B/P Pulse O2 O2 Flow FiO2 Mean Ox Delivery Rate 09/03 0642 97.5 70 20 118/60 96 Nasal Cannula 09/03 0000 93 Nasal 2.0L Cannula 09/02 2332 98.1 77 20 124/60 93 Nasal Cannula 09/02 1845 94 Nasal 2.0L Cannula 09/02 1406 97.7 70 20 122/60 95 Nasal 2.0L Cannula 09/02 0955 90 130/70 09/02 0855 95 Nasal 2.0L Cannula 09/02 0800 Nasal 2.0L Cannula Intake & Output 09/03 0800 09/03 0000 09/02 1600 Intake Total 350 360 Output Total 400 Balance 350 -40 Intake, IV 0 Intake, Oral 350 360 Number 2 Bowel Movements Output, Urine 400 Physical Exam General Appearance: asleep but arousable Cardiovascular: Regular Rate, Normal S1, Normal S2 Lungs: Clear to Auscultation, Normal Air Movement Abdomen: Normal Bowel Sounds, Soft, No Tenderness Extremities: No Edema Current Medications: Current Medications Sig/Yecenia Start time Last Medication Dose Route Stop Time Status Admin Albuterol Sulfate 3 ML BID 08/28 1000 AC 09/02 INH 1840 Albuterol Sulfate 2 PUF Q4P PRN 08/27 2100 AC INH Alprazolam 0.25 MG BID 08/290 AC 09/02 PO 09/05 Amlodipine Besylate 5 MG DAILY 08/28 1000 AC 09/02 PO 0955 Aspirin Buffered 81 MG DAILY 08/28 1000 AC 09/02 PO 0955 Atorvastatin Calcium 10 MG 1700 08/28 1700 AC 09/02 PO 1615 Bisacodyl 10 MG ONCE ONE 09/02 1900 DC [place] 09/02 1901 Bisacodyl 10 MG ONCE ONE 09/02 1015 DC 09/02 [place] 09/02 1016 1018 Budesonide/ 2 PUF QPM 08/27 2200 AC 09/02 Formoterol Fumarate INH 2227 Docusate Sodium 100 MG DAILY NEEDED PRN 09/02 2100 AC PO Docusate Sodium 100 MG DAILY NEEDED PRN 08/27 2100 DC 09/02 PO 09/02 2059 1018 Guaifenesin 600 MG Q12 08/27 2200 AC 09/02 PO 2225 Guaifenesin/ 10 ML Q6P PRN 08/27 2100 AC Dextromethorphan PO Heparin Sodium 5,000 UNIT Q8 08/270 AC 08/28 (Porcine) SC 1425 Methylprednisolone 40 MG Q12 09/01 1000 DC 09/01 IV 0939 Omeprazole 20 MG DAILY AC 09/02 1014 AC 09/03 PO 0612 Ondansetron HCl 4 MG Q6 PRN 09/02 1015 CAN PO Ondansetron HCl 4 MG Q6P PRN 09/02 1015 AC 09/02 IV 1018 Oxycodone/ 1 TAB Q6-PRN PRN 08/27 2100 AC Acetaminophen PO Polyethylene Glycol 17 GM DAILY 08/28 1000 DC 08/31 PO 0956 Prednisone 20 MG ONCE ONE 09/02 1015 DC 09/02 PO 09/02 1016 1012 Prednisone 40 MG DAILY 09/02 1000 AC 09/02 PO 0955 Senna/Docusate Sodium 2 TAB DAILY 09/03 1000 AC PO Senna/Docusate Sodium 2 TAB DAILY PRN 09/02 1015 AC PO 09/03 0959 Tramadol HCl 50 MG Q6P PRN 08/27 2100 AC 09/03 PO 0632 Vitamin A/Vitamin D 1 BIPIN BID 09/02 1111 AC 09/02 TOP 2228 Assessment/Plan Assessment: Ms. Shane is a 81-year-old lady with a PMH significant for HTN, HLD, advanced COPD on 2L nocturnal home oxygen and chronic prednisone, suspected lung cancer on recent PET and CT scan, T12 vertebral body compression fracture s/p vertebral augmentation about a month ago who presents with worsening dyspnea with cough productive of thick yellowish sputum for a few days, concerning for COPD/ bronchitis vs. possible pneumonia. # Acute hypoxic respiratory failure failure 2/2 COPD exacerbation - Patient is currently requiring 2L to maintain oxygen saturation above 92%. * Continue TRC neb tx * Completed 5 days Zithromax * Prednisone 40 mg daily * Continue to control cough with Mucinex and Robitussin * Continue home inhalers Spiriva, Symbicort * Continue Xanax 0.25 mg BID for anxiety * Will discuss home vs STR. Pt needs to take care of her 91-year-old sister at home. She is agreeable to be discharged to rehab tomorrow. # Constipation/abdominal discomfort, could be medication induced (pain meds and steroids) * Bowel regimen with senna and colace. Pt refused miralax. Supp given as needed * Zofran and PPI for nausea * Abdominal xray ruled out obstruction * Skin precautions, Vit A&D ointment # HTN/HLD * Continue home antihypertensives including Norvasc * Continue Lipitor at home dose # Recent vertebral augmentation procedure - Patient had a recent vertebral augmentation procedure last month, and was supposed to get an MRI of spine but was admitted to inpatient service. Since she is currently admitted and being managed for a completely different reason, upon discharge, she'll be instructed to follow as an outpatient * Will give script for MRI of spine at discharge # History of lung cancer - Patient knows that she has a lung cancer, however she stated that the cancer is slowly growing and because of her old age she decided not to pursue any further treatment for it. Dr. Anderson has discussed this in details with her. - Heart healthy diet - Mild pain pathway - DVTppx with [facility] - Full code Problem List: 1. Abdominal pain 2. COPD exacerbation Pain Ratin Pain Location: none Pain Goal: Pain 4 or less Pain Plan: tramadol Tomorrow's Labs & Rationales: none DVT/Prophylaxis: mechanical, pharmacological TINO BORRERO 09/03/16 1049: Attending MD Review Statement Attending Statement Attending MD Statement: examined this patient, discuss w/resident/PA/CIDER PRESS OPERATOR, agreed w/resident/PA/CIDER PRESS OPERATOR, discussed with family, reviewed EMR data (avail), discussed with nursing, discussed with case mgmt, reviewed images, amended to note Attending Assessment/Plan: "Ms. Shane is a 81-year-old lady with a PMH significant for HTN, HLD, advanced COPD on 2L nocturnal home oxygen and chronic prednisone, suspected lung cancer on recent PET and CT scan, T12 vertebral body compression fracture s/p vertebral augmentation about a month ago who presents with worsening dyspnea with cough productive of thick yellowish sputum for a few days, concerning for COPD/ bronchitis vs. possible pneumonia. " # Acute hypoxic respiratory failure failure 2/2 COPD exacerbation # Leukocytosis # HTN/HLD # h/o lung cancer s/p raditherapy # abnormal CT chest findings but stable. # Constipation # Nasuea and acute steroid induced gastritis. PLAN: abdominal xray negative for obstruction, added dulcolax suppossitory. PPI . prn zofran. (reduced steroids), had bowel movement. Patient is currently requiring 2L/min to maintain oxygen saturation above 92%. Continue TRC neb tx Oxygen support as needed to maintain O2 sat between 88-92% (currently at 2L/min) , she is at her home baseline oxygen requirement level Continue abx, taper steroids as per pulm. Mucinex and Robitussin Continue home inhalers Spiriva, Symbicort Continue Xanax 0.25 mg BID for anxiety skin and fall precautions. Patient says she does not want further investiagtion into abnormal CT chest findings even if it is cancer as she thinks it will not be futile. Will respect patient wishes. Also patient had lenghty discussion with her furniture installer about CT findings. #Recent vertebral augmentation procedure Patient had a recent vertebral augmentation procedure last month, and was supposed to get an MRI of spine but was admitted to inpatient service. Since she is currently admitted and being managed for a completely different reason, upon discharge, she will be handed over a prescription for MRI spine to be done next week..
--- NOTE | 2016-09-03 08:48 | PN- Pulmonary ---
Subjective HPI/Critical Care Issues: The patient was seen and examined today. She is alert, awake, oriented 3. She stated that he still complaining off back pain, that slightly improved with pain medication. She stated that her overall breathing status comparing with the day of admission getting better. She reports dry cough. She denies any fever, chills, wheezing. Objective Current Medications: Current Medications Sig/Yecenia Start time Last Medication Dose Route Stop Time Status Admin Albuterol Sulfate 3 ML BID 08/28 1000 AC 09/02 INH 1840 Albuterol Sulfate 2 PUF Q4P PRN 08/27 2100 AC INH Alprazolam 0.25 MG BID 08/29 2199 AC 09/02 PO 09/05 215 222 Amlodipine Besylate 5 MG DAILY 08/28 1000 AC 09/02 PO 0955 Aspirin Buffered 81 MG DAILY 08/28 1000 AC 09/02 PO 0955 Atorvastatin Calcium 10 MG 1700 08/28 1700 AC 09/02 PO 1615 Bisacodyl 10 MG ONCE ONE 09/02 1900 DC [place] 09/02 1901 Bisacodyl 10 MG ONCE ONE 09/02 1015 DC 09/02 [place] 09/02 1016 1018 Budesonide/ 2 PUF QPM 08/27 2200 AC 09/02 Formoterol Fumarate INH 2227 Docusate Sodium 100 MG DAILY NEEDED PRN 09/02 2100 AC PO Docusate Sodium 100 MG DAILY NEEDED PRN 08/27 2100 DC 09/02 PO 09/02 2059 1018 Guaifenesin 600 MG Q12 08/27 2200 AC 09/02 PO 2225 Guaifenesin/ 10 ML Q6P PRN 08/27 2100 AC Dextromethorphan PO Heparin Sodium 5,000 UNIT Q8 08/27 2200 AC 08/28 (Porcine) SC 1425 Omeprazole 20 MG DAILY AC 09/02 1014 AC 09/03 PO 0612 Ondansetron HCl 4 MG Q6 PRN 09/02 1015 CAN PO Ondansetron HCl 4 MG Q6P PRN 09/02 1015 AC 09/02 IV 1018 Oxycodone/ 1 TAB Q6-PRN PRN 08/27 2100 AC Acetaminophen PO Polyethylene Glycol 17 GM DAILY 08/28 1000 DC 08/31 PO 0956 Prednisone 20 MG ONCE ONE 09/02 1015 DC 09/02 PO 09/02 1016 1012 Prednisone 40 MG DAILY 09/02 1000 AC 09/02 PO 0955 Senna/Docusate Sodium 2 TAB DAILY 09/03 1000 AC PO Senna/Docusate Sodium 2 TAB DAILY PRN 09/02 1015 AC PO 09/03 0959 Tramadol HCl 50 MG Q6P PRN 08/27 2100 AC 09/03 PO 0632 Vitamin A/Vitamin D 1 BIPIN BID 09/02 1111 AC 09/02 TOP 2228 Vital Signs & I&O Last 24 Hrs of Vitals and I&O: Vital Signs Date Time Temp Pulse Resp B/P B/P Pulse O2 O2 Flow FiO2 Mean Ox Delivery Rate 09/03 0642 97.5 70 20 118/60 96 Nasal Cannula 09/03 0000 93 Nasal 2.0L Cannula 09/02 2332 98.1 77 20 124/60 93 Nasal Cannula 09/02 1845 94 Nasal 2.0L Cannula 09/02 1406 97.7 70 20 122/60 95 Nasal 2.0L Cannula 09/02 0955 90 130/70 09/02 0855 95 Nasal 2.0L Cannula Intake & Output 09/03 1600 09/03 0800 09/03 0000 Intake Total 150 350 Output Total Balance 150 350 Intake, Oral 150 350 Exam General Appearance: alert, awake, thin Head: atraumatic, normal appearance Neck: supple Respiratory: chest non-tender, decreased breath sounds, lung expand symmetrically. Cardiovascular: regular rate/rhythm Abdomen: normal bowel sounds, soft, non-tender Back: mild tenderness with deep palpation on the right lower lumbar area. Extremities: no edema Skin: intact, warm/dry Impression/Plan Impression/Plan Impression/Plan: 1. Acute exacerbation of COPD, with acute hypoxemic respiratory failure. 2. Intractable back pain secondary to compression fractures, status post vertebral augmentation. The patient's back pain is improved due to IV steroids. 3. Leukocytosis secondary to steroids. 5. Previous history of lung cancer, with a known lung nodule. The patient has decided not to pursue treatment due to her advanced age and comorbidities. Recommendations: * Continue nebs/total respiratory care. * Maintain saturations between 90 and 92%. * Follow-up cultures. * Continue prednisone 40 mg daily. * Control cough with Mucinex and Robitussin. * Continue Spiriva and Simbicort. * Continue anxiolytics. * DVT prophylaxis at all times. * Skin assessment. * DNR/DNI. * Assess for short-term rehabilitation.
[2016-09-03] MEDS ORDERED: PREDNISONE10 M2 PO (09:08)
[2016-09-03 15:05] VITALS: BP 120/60
[2016-09-03 23:00] VITALS: BP 120/70
[2016-09-04 06:39] VITALS: BP 122/70
--- NOTE | 2016-09-04 07:11 | PN- Housestaff ---
MAXI BACON,COLIN 09/04/16 0710: Subjective Follow-up For: copd exacerbation Subjective: when i saw the patient this morning, she was asleep but arousable. she was on 3L o2 but did not appear short of breath. will check back on the pt later. her lungs sounded clear. no documented bm yesterday, no abd tenderness noted. plan to dc to rehab today, pt has a bed at [facility]. Review of Systems Constitutional: Reports: see HPI. Objective Last 24 Hrs of Vital Signs/I&O Vital Signs Date Time Temp Pulse Resp B/P B/P Pulse O2 O2 Flow FiO2 Mean Ox Delivery Rate 09/04 0639 97.4 67 20 122/70 97 Nasal Cannula 09/04 0000 91 Nasal 2.0L Cannula 09/03 2300 97.7 86 20 120/70 93 Nasal Cannula 09/03 1959 94 Nasal 2.0L Cannula 09/03 1505 98.0 84 24 120/60 91 09/03 1016 70 118/60 09/03 0942 96 Nasal 2.0L Cannula Intake & Output 09/04 1600 09/04 0800 09/04 0000 Intake Total 240 400 Output Total 300 Balance -60 400 Intake, Oral 240 400 Output, Urine 300 Physical Exam General Appearance: asleep HEENT: Atraumatic Cardiovascular: Regular Rate, Normal S1, Normal S2 Lungs: Clear to Auscultation, Normal Air Movement Abdomen: Normal Bowel Sounds, Soft, No Tenderness Current Medications: Current Medications Sig/Yecenia Start time Last Medication Dose Route Stop Time Status Admin Albuterol Sulfate 3 ML BID 08/28 1000 AC 09/03 INH 1932 Albuterol Sulfate 2 PUF Q4P PRN 08/27 2100 AC INH Alprazolam 0.25 MG BID 08/29 2200 AC 09/03 PO 09/05 2158 2131 Amlodipine Besylate 5 MG DAILY 08/28 1000 AC 09/03 PO 1016 Aspirin Buffered 81 MG DAILY 08/28 1000 AC 09/03 PO 1017 Atorvastatin Calcium 10 MG 1700 08/28 1700 AC 09/03 PO 1747 Bisacodyl 10 MG ONCE ONE 09/03 1900 DC [place] 09/03 1901 Budesonide/ 2 PUF QPM 08/270 AC 09/03 Formoterol Fumarate INH 2132 Docusate Sodium 100 MG DAILY NEEDED PRN 09/02 2100 AC PO Guaifenesin 600 MG Q12 08/270 AC 09/03 PO 2131 Guaifenesin/ 10 ML Q6P PRN 08/27 2100 AC Dextromethorphan PO Heparin Sodium 5,000 UNIT Q8 08/27 2200 AC 08/28 (Porcine) SC 1425 Omeprazole 20 MG DAILY AC 09/02 1014 AC 09/04 PO 0537 Ondansetron HCl 4 MG Q6P PRN 09/02 1015 AC 09/02 IV 1018 Oxycodone/ 1 TAB Q6-PRN PRN 08/27 2100 AC Acetaminophen PO Patient Medication 1 ED .STK-MED ONE 09/03 1412 DC Teaching ED 09/03 1413 Prednisone 40 MG DAILY 09/02 1000 AC 09/03 PO 1016 Senna/Docusate Sodium 2 TAB DAILY 09/03 1000 AC 09/03 PO 1017 Senna/Docusate Sodium 2 TAB DAILY PRN 09/02 1015 DC PO 09/03 0959 Tramadol HCl 50 MG Q6P PRN 08/27 2100 AC 09/04 PO 0538 Vitamin A/Vitamin D 1 BIPIN BID 09/02 1111 AC 09/03 [facility] 2132 Assessment/Plan Assessment: Ms. Shane is a 81-year-old lady with a PMH significant for HTN, HLD, advanced COPD on 2L nocturnal home oxygen and chronic prednisone, suspected lung cancer on recent PET and CT scan, T12 vertebral body compression fracture s/p vertebral augmentation about a month ago who presents with worsening dyspnea with cough productive of thick yellowish sputum for a few days, concerning for COPD/ bronchitis vs. possible pneumonia. # Acute hypoxic respiratory failure failure 2/2 COPD exacerbation - Patient is currently requiring 2L to maintain oxygen saturation above 92%. * Continue TRC neb tx * Completed 5 days Zithromax * Prednisone 40 mg daily (taper 10mg every 3 days) * Continue to control cough with Mucinex and Robitussin * Continue home inhalers Spiriva, Symbicort * Continue Xanax 0.25 mg BID for anxiety * Plan to dc to [facility] today # Constipation/abdominal discomfort, could be medication induced (pain meds and steroids) * Bowel regimen with senna and colace. Pt refused miralax. Supp given as needed * Zofran and PPI for nausea * Abdominal xray ruled out obstruction * Skin precautions, Vit A&D ointment # HTN/HLD * Continue home antihypertensives including Norvasc * Continue Lipitor at home dose # Recent vertebral augmentation procedure - Patient had a recent vertebral augmentation procedure last month, and was supposed to get an MRI of spine but was admitted to inpatient service. Since she is currently admitted and being managed for a completely different reason, upon discharge, she'll be instructed to follow as an outpatient * Will give script for MRI of spine at discharge # History of lung cancer - Patient knows that she has a lung cancer, however she stated that the cancer is slowly growing and because of her old age she decided not to pursue any further treatment for it. Dr. Anderson has discussed this in details with her. - Heart healthy diet - Mild pain pathway - D[facility]ppx with [facility] - Full code Problem List: 1. COPD exacerbation Pain Ratin Pain Location: none Pain Goal: Pain 4 or less Pain Plan: tramadol Tomorrow's Labs & Rationales: none DVT/Prophylaxis: mechanical, pharmacological TINO BORRERO 09/04/16 1316: Attending MD Review Statement Attending Statement Attending MD Statement: examined this patient, discuss w/resident/PA/HEAD TELLER, agreed w/resident/PA/HEAD TELLER, discussed with family, reviewed EMR data (avail), discussed with nursing, discussed with case mgmt, reviewed images, amended to note Attending Assessment/Plan: "Ms. Shane is a 81-year-old lady with a PMH significant for HTN, HLD, advanced COPD on 2L nocturnal home oxygen and chronic prednisone, suspected lung cancer on recent PET and CT scan, T12 vertebral body compression fracture s/p vertebral augmentation about a month ago who presents with worsening dyspnea with cough productive of thick yellowish sputum for a few days, concerning for COPD/ bronchitis vs. possible pneumonia. " # Acute hypoxic respiratory failure failure 2/2 COPD exacerbation # Leukocytosis # HTN/HLD # h/o lung cancer s/p raditherapy # abnormal CT chest findings but stable. # Constipation # Nasuea and acute steroid induced gastritis. PLAN: abdominal xray negative for obstruction, added dulcolax suppossitory. PPI . prn zofran. (reduced steroids), had bowel movement. Patient is currently requiring 2L/min to maintain oxygen saturation above 92%. Continue TRC neb tx Oxygen support as needed to maintain O2 sat between 88-92% (currently at 2L/min) , she is at her home baseline oxygen requirement level Continue abx, taper steroids as per pulm. Mucinex and Robitussin Continue home inhalers Spiriva, Symbicort Continue Xanax 0.25 mg BID for anxiety skin and fall precautions. Patient says she does not want further investiagtion into abnormal CT chest findings even if it is cancer as she thinks it will not be futile. Will respect patient wishes. Also patient had lenghty discussion with her co founder and ceo about CT findings. #Recent vertebral augmentation procedure Patient had a recent vertebral augmentation procedure last month, and was supposed to get an MRI of spine but was admitted to inpatient service. Since she is currently admitted and being managed for a completely different reason, upon discharge, she will be handed over a prescription for MRI spine to be done next week.. D/C PLANNING TO STR. anticipate d/c soon.
[2016-09-04] MEDS ORDERED: PREDNISONE10 M2 PO (08:16)
[2016-09-04] MEDS ORDERED: DOCUSATE SODIU100 M3 PO (08:19)
[2016-09-04] MEDS ORDERED: SENNA PLUS TAB1 EACH PO (08:20)
--- NOTE | 2016-09-04 09:50 | PN- Pulmonary ---
Subjective HPI/Critical Care Issues: The patient was seen and examined today. She is alert, awake, oriented 3. She stated that he still complaining of back pain, that slightly improved with pain medication. She stated that her overall breathing status improved comparing with the day of admission. She still reports dry cough. She reports feeling weak and tired due to lack of sleep. She denies any fever, chills, wheezing. Objective Current Medications: Current Medications Sig/Yecenia Start time Last Medication Dose Route Stop Time Status Admin Albuterol Sulfate 3 ML BID 08/28 1000 AC 09/04 INH 1029 Albuterol Sulfate 2 PUF Q4P PRN 08/27 2100 AC INH Alprazolam 0.25 MG BID 08/29 2200 AC 09/03 PO 09/05 2159 2131 Amlodipine Besylate 5 MG DAILY 08/28 1000 AC 09/03 PO 1016 Aspirin Buffered 81 MG DAILY 08/28 1000 AC 09/03 PO 1017 Atorvastatin Calcium 10 MG 1700 08/28 1700 AC 09/03 PO 1747 Bisacodyl 10 MG ONCE ONE 09/03 1900 DC MD 09/03 1901 Budesonide/ 2 PUF QPM 08/27 2200 AC 09/03 Formoterol Fumarate INH 2132 Docusate Sodium 100 MG DAILY NEEDED PRN 09/02 2100 AC PO Guaifenesin 600 MG Q12 08/27 2200 AC 09/03 PO 2131 Guaifenesin/ 10 ML Q6P PRN 08/27 2100 AC Dextromethorphan PO Heparin Sodium 5,000 UNIT Q8 08/27 2200 AC 08/28 (Porcine) SC 1425 Omeprazole 20 MG DAILY AC 09/02 1014 AC 09/04 PO 0537 Ondansetron HCl 4 MG Q6P PRN 09/02 1015 AC 09/02 IV 1018 Oxycodone/ 1 TAB Q6-PRN PRN 08/27 2100 AC Acetaminophen PO Patient Medication 1 ED .STK-MED ONE 09/03 1412 DC Teaching ED 09/03 1413 Prednisone 40 MG DAILY 09/02 1000 AC 09/03 PO 1016 Senna/Docusate Sodium 2 TAB DAILY 09/03 1000 AC 09/03 PO 1017 Tramadol HCl 50 MG Q6P PRN 08/27 2100 AC 09/04 PO 0538 Vitamin A/Vitamin D 1 BIPIN BID 09/02 1111 AC 09/03 TOP 2132 Vital Signs & I&O Last 24 Hrs of Vitals and I&O: Vital Signs Date Time Temp Pulse Resp B/P B/P Pulse O2 O2 Flow FiO2 Mean Ox Delivery Rate 09/04 0639 97.4 67 20 122/70 97 Nasal Cannula 09/04 0000 91 Nasal 2.0L Cannula 09/03 2300 97.7 86 20 120/70 93 Nasal Cannula 09/03 1959 94 Nasal 2.0L Cannula 09/03 1505 98.0 84 24 120/60 91 Intake & Output 09/04 1600 09/04 0800 09/04 0000 Intake Total 240 400 Output Total 200 300 Balance -200 -60 400 Intake, Oral 240 400 Output, Urine 200 300 Exam General Appearance: alert, awake, thin Head: atraumatic, normal appearance Neck: supple Respiratory: chest non-tender, decreased breath sounds, No wheezing or crackles Cardiovascular: regular rate/rhythm Abdomen: normal bowel sounds, soft, non-tender Extremities: pedal edema, tenderness Impression/Plan Impression/Plan Impression/Plan: 1. Acute exacerbation of COPD, with acute hypoxemic respiratory failure. 2. Intractable back pain secondary to compression fractures, status post vertebral augmentation. The patient's back pain is improved due to IV steroids. 3. Leukocytosis secondary to steroids. 5. Previous history of lung cancer, with a known lung nodule. The patient has decided not to pursue treatment due to her advanced age and comorbidities. Recommendations: * Continue nebs/total respiratory care. * Maintain saturations between 90 and 92%. * Continue prednisone 30 mg daily with taper. * Control cough with Mucinex and Robitussin. * Continue Spiriva and Simbicort. * Continue anxiolytics. * DVT prophylaxis at all times. * Skin assessment. * DNR/DNI. * She will be discharged to short-term rehabilitation.
--- NOTE | 2016-09-04 13:49 | Event Note ---
Event Note Event Note: Patient refuses to go to rehab today. She has decided that she would either go home today or stay another night, while PT has reccommended STR. After speaking with PT, they confirmed that the reason for STR is not due to unsteady gait, rather due to shortness of breath on ambulation. Patient states that her niece would be at her home through the night, and her daughter will be at her home tomorrow, in case she needs help. She feels comfortable going home. Her vitals have been WNL. Everything was set to send her home with health services. At 630pm, she decided she wants to go to rehab. She will stay for the night and plan to discharge to rehab tomorrow.
[2016-09-04 14:19] VITALS: BP 100/60
[2016-09-04 22:53] VITALS: BP 138/60
[2016-09-05 06:30] VITALS: BP 112/60
--- NOTE | 2016-09-05 06:52 | PN- Housestaff ---
MAXI BACON,COLIN 09/05/16 0651: Subjective Follow-up For: COPD EXACERBATION Subjective: Pt is ready to go to rehab today. Does complain of LLQ pain, most likely due to constipation, will give 1X supp before she leaves. Review of Systems Constitutional: Reports: see HPI. Objective Last 24 Hrs of Vital Signs/I&O Vital Signs Date Time Temp Pulse Resp B/P B/P Pulse O2 O2 Flow FiO2 Mean Ox Delivery Rate 09/05 1030 97 Nasal 2.0L Cannula 09/05 0941 80 142/72 09/05 0630 97.7 81 20 112/60 95 Nasal 2.0L Cannula 09/05 0000 94 Nasal 2.0L Cannula 09/04 2253 97.9 77 20 138/60 94 Nasal 2.0L Cannula 09/04 1959 95 Nasal 2.0L Cannula 09/04 1419 98.7 76 20 100/60 90 Nasal 2.0L Cannula 09/04 1129 79 140/70 09/04 1046 94 Nasal 2.0L Cannula Intake & Output 09/05 1600 09/05 0800 09/05 0000 Intake Total 100 240 Output Total 450 426 Balance -350 -186 Intake, IV 0 Intake, Oral 100 240 Number 0 Bowel Movements Output, Stool 1 Output, Urine 450 425 Physical Exam General Appearance: Alert, Oriented X3, Cooperative, No Acute Distress Cardiovascular: Regular Rate, Normal S1, Normal S2 Lungs: Clear to Auscultation, Normal Air Movement Abdomen: Normal Bowel Sounds, Soft, No Tenderness Extremities: No Edema Current Medications: Current Medications Sig/Yecenia Start time Last Medication Dose Route Stop Time Status Admin Albuterol Sulfate 3 ML BID 08/28 1000 AC 09/05 INH 1030 Albuterol Sulfate 2 PUF Q4P PRN 08/27 2100 AC INH Alprazolam 0.25 MG BID 08/29 2200 AC 09/05 PO 09/05 2159 0943 Amlodipine Besylate 5 MG DAILY 08/28 1000 AC 09/05 PO 0941 Aspirin Buffered 81 MG DAILY 08/28 1000 AC 09/05 PO 0941 Atorvastatin Calcium 10 MG 1700 08/28 1700 AC 09/04 PO 1905 Bisacodyl 10 MG ONCE ONE 09/05 1015 DC HI 09/05 1016 Budesonide/ 2 PUF QPM 08/27 220 AC 09/04 Formoterol Fumarate INH 2123 Docusate Sodium 100 MG DAILY NEEDED PRN 09/02 2100 AC PO Guaifenesin 600 MG Q12 08/27 2200 AC 09/05 PO 0941 Guaifenesin/ 10 ML Q6P PRN 08/27 2100 AC Dextromethorphan PO Heparin Sodium 5,000 UNIT Q8 08/270 AC 08/28 (Porcine) SC 1425 Omeprazole 20 MG DAILY AC 09/02 1014 AC 09/05 PO 0653 Ondansetron HCl 4 MG Q6P PRN 09/02 1015 AC 09/02 IV 1018 Oxycodone/ 1 TAB Q6-PRN PRN 08/27 2100 AC 09/05 Acetaminophen PO 0257 Prednisone 30 MG DAILY 09/05 1000 AC 09/05 PO 0941 Prednisone 40 MG DAILY 09/02 1000 DC 09/04 PO 1127 Senna/Docusate Sodium 2 TAB DAILY 09/03 1000 AC 09/05 PO 0941 Tramadol HCl 50 MG Q6P PRN 08/27 2100 AC 09/04 PO 2132 Vitamin A/Vitamin D 1 BIPIN BID 09/02 1111 AC 09/05 TOP 0941 Assessment/Plan Assessment: Ms. Shane is a 81-year-old lady with a PMH significant for HTN, HLD, advanced COPD on 2L nocturnal home oxygen and chronic prednisone, suspected lung cancer on recent PET and CT scan, T12 vertebral body compression fracture s/p vertebral augmentation about a month ago who presents with worsening dyspnea with cough productive of thick yellowish sputum for a few days, concerning for COPD/ bronchitis vs. possible pneumonia. # Acute hypoxic respiratory failure failure 2/2 COPD exacerbation - Patient is currently requiring 2L to maintain oxygen saturation above 92%. * Continue TRC neb tx * Completed 5 days Zithromax * Prednisone 30 mg daily (taper 10mg every 3 days) * Continue to control cough with Mucinex and Robitussin * Continue home inhalers Spiriva, Symbicort * Continue Xanax 0.25 mg BID for anxiety * Plan to dc to [facility] today # Constipation/abdominal discomfort, could be medication induced (pain meds and steroids) * Bowel regimen with senna and colace. Pt refused miralax. Supp given as needed * Zofran and PPI for nausea * Abdominal xray ruled out obstruction * Skin precautions, Vit A&D ointment # HTN/HLD * Continue home antihypertensives including Norvasc * Continue Lipitor at home dose # Recent vertebral augmentation procedure - Patient had a recent vertebral augmentation procedure last month, and was supposed to get an MRI of spine but was admitted to inpatient service. Since she is currently admitted and being managed for a completely different reason, upon discharge, she'll be instructed to follow as an outpatient * Will give script for MRI of spine at discharge # History of lung cancer - Patient knows that she has a lung cancer, however she stated that the cancer is slowly growing and because of her old age she decided not to pursue any further treatment for it. Dr. Anderson has discussed this in details with her. - Heart healthy diet - Mild pain pathway - D[facility]ppx with [facility] - Full code Problem List: 1. COPD exacerbation Pain Ratin Pain Location: llq Pain Goal: Pain 4 or less Pain Plan: suppository Tomorrow's Labs & Rationales: none DVT/Prophylaxis: mechanical, pharmacological TINO BORRERO 09/05/16 1047: Attending MD Review Statement Attending Statement Attending MD Statement: examined this patient, discuss w/resident/PA/DICTAPHONE TECHNICIAN, agreed w/resident/PA/DICTAPHONE TECHNICIAN, discussed with family, reviewed EMR data (avail), discussed with nursing, discussed with case mgmt, reviewed images, amended to note Attending Assessment/Plan: "Ms. Shane is a 81-year-old lady with a PMH significant for HTN, HLD, advanced COPD on 2L nocturnal home oxygen and chronic prednisone, suspected lung cancer on recent PET and CT scan, T12 vertebral body compression fracture s/p vertebral augmentation about a month ago who presents with worsening dyspnea with cough productive of thick yellowish sputum for a few days, concerning for COPD/ bronchitis vs. possible pneumonia. " # Acute hypoxic respiratory failure failure 2/2 COPD exacerbation # Leukocytosis # HTN/HLD # h/o lung cancer s/p raditherapy # abnormal CT chest findings but stable. # Constipation # Nasuea and acute steroid induced gastritis. PLAN: abdominal xray negative for obstruction, added dulcolax suppossitory. PPI . prn zofran. (reduced steroids), had bowel movement. bowel regimen at discharge. Patient is currently requiring 2L/min to maintain oxygen saturation above 92%. Continue TRC neb tx Oxygen support as needed to maintain O2 sat between 88-92% (currently at 2L/min) , she is at her home baseline oxygen requirement level Continue abx, taper steroids as per pulm. Mucinex and Robitussin Continue home inhalers Spiriva, Symbicort Continue Xanax 0.25 mg BID for anxiety skin and fall precautions. Patient says she does not want further investiagtion into abnormal CT chest findings even if it is cancer as she thinks it will not be futile. Will respect patient wishes. Also patient had lenghty discussion with her padder cushion about CT findings. #Recent vertebral augmentation procedure Patient had a recent vertebral augmentation procedure last month, and was supposed to get an MRI of spine but was admitted to inpatient service. Since she is currently admitted and being managed for a completely different reason, upon discharge, she will be handed over a prescription for MRI spine to be done next week.. D/C PLANNING TO STR. anticipate d/c soon.
[2016-09-05] MEDS ORDERED: PREDNISONE10 M2 PO (10:00)
--- NOTE | 2016-09-05 10:20 | PN- Pulmonary ---
Subjective HPI/Critical Care Issues: The patient was seen and examined today. She is alert, awake, oriented 3. She stated that he still complaining of back pain, that improved with pain medication. She stated that her breathing status improved.She denies any fever , chills, wheezing. Objective Current Medications: Current Medications Sig/Yecenia Start time Last Medication Dose Route Stop Time Status Admin Albuterol Sulfate 3 ML BID 08/28 1000 AC 09/05 INH 1030 Albuterol Sulfate 2 PUF Q4P PRN 08/27 2100 AC INH Alprazolam 0.25 MG BID 08/29 2200 AC 09/05 PO 09/05 2159 0943 Amlodipine Besylate 5 MG DAILY 08/28 1000 AC 09/05 PO 0941 Aspirin Buffered 81 MG DAILY 08/28 1000 AC 09/05 PO 0941 Atorvastatin Calcium 10 MG 1700 08/28 1700 AC 09/04 PO 1905 Bisacodyl 10 MG ONCE ONE 09/05 1015 DC [place] 09/05 1016 Budesonide/ 2 PUF QPM 08/27 2200 AC 09/04 Formoterol Fumarate INH 2123 Docusate Sodium 100 MG DAILY NEEDED PRN 09/02 2100 AC PO Guaifenesin 600 MG Q12 08/27 2200 AC 09/05 PO 0941 Guaifenesin/ 10 ML Q6P PRN 08/27 2100 AC Dextromethorphan PO Heparin Sodium 5,000 UNIT Q8 08/27 2200 AC 08/28 (Porcine) SC 1425 Omeprazole 20 MG DAILY AC 09/02 1014 AC 09/05 PO 0653 Ondansetron HCl 4 MG Q6P PRN 09/02 1015 AC 09/02 IV 1018 Oxycodone/ 1 TAB Q6-PRN PRN 08/27 2100 AC 09/05 Acetaminophen PO 0257 Prednisone 30 MG DAILY 09/05 1000 AC 09/05 PO 0941 Prednisone 40 MG DAILY 09/02 1000 DC 09/04 PO 1127 Senna/Docusate Sodium 2 TAB DAILY 09/03 1000 AC 09/05 PO 0941 Tramadol HCl 50 MG Q6P PRN 08/27 2100 AC 09/04 PO 2132 Vitamin A/Vitamin D 1 BIPIN BID 09/02 1111 AC 09/05 TOP 0941 Vital Signs & I&O Last 24 Hrs of Vitals and I&O: Vital Signs Date Time Temp Pulse Resp B/P B/P Pulse O2 O2 Flow FiO2 Mean Ox Delivery Rate 09/05 1042 Nasal 2.0L Cannula 09/05 1030 97 Nasal 2.0L Cannula 09/05 0941 80 142/72 09/05 0800 95 Nasal 2.0L Cannula 09/05 0630 97.7 81 20 112/60 95 Nasal 2.0L Cannula 09/05 0000 94 Nasal 2.0L Cannula 09/04 2253 97.9 77 20 138/60 94 Nasal 2.0L Cannula 09/04 1959 95 Nasal 2.0L Cannula 09/04 1419 98.7 76 20 100/60 90 Nasal 2.0L Cannula 09/04 1129 79 140/70 Intake & Output 09/05 1600 09/05 0800 09/05 0000 Intake Total 100 240 Output Total 400 450 426 Balance -400 -350 -186 Intake, IV 0 Intake, Oral 100 240 Number 0 Bowel Movements Output, Stool 1 Output, Urine 400 450 425 Exam General Appearance: alert, awake, thin Head: atraumatic Neck: supple Respiratory: chest non-tender, quiet respiration, decreased breath sounds, no wheezing Cardiovascular: regular rate/rhythm, edema Abdomen: normal bowel sounds, soft, non-tender Extremities: pedal edema Skin: ecchymosis Impression/Plan Impression/Plan Impression/Plan: 1. Acute exacerbation of COPD, with acute hypoxemic respiratory failure. 2. Intractable back pain secondary to compression fractures, status post vertebral augmentation. The patient's back pain is improved due to IV steroids. 3. Leukocytosis secondary to steroids. 5. Previous history of lung cancer, with a known lung nodule. The patient has decided not to pursue treatment due to her advanced age and comorbidities. Recommendations: * Continue nebs/total respiratory care. * Maintain saturations between 90 and 92%. * Continue prednisone 30 mg daily with taper. * Control cough with Mucinex and Robitussin. * Continue Spiriva and Simbicort. * Continue anxiolytics. * DVT prophylaxis at all times. * Skin assessment. * DNR/DNI. * She will be discharged today to short-term rehabilitation.
[2016-09-05 13:59] VITALS: BP 100/80
[2016-09-05 17:00] VITALS: BP 100/80
== END 2016-09-05 17:30 | DRG 189 ==
LOC: DELPENDDIS → ERH 17:26 → 1NO 19:50 → ERHI 19:50 → CANRESERV 20:24 → ENRESERV 20:24 → 1NO 22:47 → 2NA 08-31 15:07 → ENPENDDIS 09-04 16:02 → 2NA 09-05 17:30
PROVIDERS: Emergency Medicine; Internal Medicine; Internal Medicine Hematology & Oncology; ADMIT Internal Medicine
DX: J96.01 Acute respiratory failure with hypoxia (principal); E87.3 Alkalosis; C34.91 Malignant neoplasm of unspecified part of right bronchus or lung; J44.1 Chronic obstructive pulmonary disease with (acute) exacerbation; E78.5 Hyperlipidemia, unspecified; K59.00 Constipation, unspecified; I10 Essential (primary) hypertension
CPT/HCPCS: 1NSP; 2NASP; 36415; 74000; 82436; 87040; 87070; 87804; 87804-59; 93005; 93010; 96374; 97110-GO; 97116-GO; 97161-GP; 97530-GO; J0456; J0696; J1644; J1940; J2405; J2920; J2930; J3490; J7040; J7512

== ENCOUNTER 2016-10-16 10:51 | Emergency (ER) | payer OTHER ==
[~2016-10-16] VITALS: Ht 162.6 cm; Wt 40.8 kg
[~2016-10-16 10:51] MED LIST changes: +PREDNISONE10 M2 PO; +SENNA PLUS TAB1 EACH PO
--- NOTE | 2016-10-16 11:36 | ED UPPER/LOWER EXTREMITY COMPL ---
History of Present Illness General Chief Complaint: Lower Extremity Problems Stated Complaint: SENT FROM CLINIC FOR US OF LEFT ANKLE Source: patient, family, old records Exam Limitations: no limitations Vital Signs & Intake/Output Vital Signs & Intake/Output Vital Signs Date Time Temp Pulse Resp B/P B/P Pulse O2 O2 Flow FiO2 Mean Ox Delivery Rate 10/16 1526 98.5 85 20 134/65 97 Nasal 2.0L Cannula 10/16 1325 98.8 86 18 158/66 98 Nasal 2.0L Cannula 10/16 1055 98.2 89 20 115/64 93 Nasal 2.0L Cannula Allergies Coded Allergies: Iodinated Contrast- Oral and IV Dye (IODINATED CONTRAST MEDIA - ORAL AND) (RASH ALL OVER BODY 07/25/16) indomethacin (UNKNOWN PT DOESNT REMEMBER 07/20/15) naproxen (UNKNOWN PT DOESNT REMEMBER 07/20/15) Reconcile Medications Albuterol Sulfate (Proair Hfa) 90 MCG HFA.AER.AD 1-2 PUF INH AD PRN RESPIRATORY (Reported) Albuterol Sulfate 2.5 MG/3 ML (0.083 %) VIAL.NEB 1 Vial INH/CHUNG BID-TID RESPIRATORY (Reported) Amlodipine Besylate (Norvasc) 5 MG TABLET 1 TAB PO DAILY BP (Reported) Aspirin (Ecotrin*) 81 MG TABLET.DR 1 TAB PO DAILY HEART HEALTH (Reported) Budesonide/Formoterol Fumarate (Symbicort 160-4.5 Mcg Inhaler) 160 MCG-4.5 MCG/ ACTUATION HFA.AER.AD 2 PUF INH QPM BREATHING PROBLEMS (Reported) Docusate Sodium 100 MG CAPSULE 100 MG PO DAILY CONSTIPATION Oxycodone HCl/Acetaminophen (Oxycodone-Acetaminophen 5-325) 5 MG-325 MG TABLET 1 TAB PO Q6-PRN PRN PAIN (Reported) Prednisone 10 MG TABLET 1 TAB PO SEE ADMIN CRITERIA copd take 30 mg for until 09/07 take 20 mg for 3 days 09/08-09/10 take 10 mg and then continue at your baseline. Sennosides/Docusate Sodium (Senna Plus Tablet) 8.6 MG-50 MG TABLET 2 TAB PO DAILY CONSTIPATION Simvastatin (Zocor*) 20 MG TABLET 1 TAB PO QPM CHOLESTEROL (Reported) Tramadol HCl 50 MG TABLET 1 TAB PO Q6P PRN PAIN SCALE 4-6 (MODERATE) Triage Note: 81 Y/O FEMALE SENT FROM [facility] FOR EVAL OF L LOWER EXTREMITY SWELLING; R/O DVT. PT REPORTS 1 WEEK HISTORY INTERMITTENT SWELLING TO L ANKLE AND L FOOT; IMPROVES IN MORNING BUT GETS WORSE THROUGHOUT THE DAY. DENIES ANY INJURY OR TRAUMA. SWELLING NOTED BUT DOES NOT EXTEND PAST ANKLE. Triage Nurses Notes Reviewed? yes Onset: Abrupt Duration: day(s):, constant, continues in ED Timing: recent history Severity: moderate, severe No Modifying Factors: none HPI: 81-year-old female comes into emergency room with complaints of swelling to her left foot and ankle. Patient was recently discharged from retirement for her COPD. Patient was of COPD clinic today and Dr. Anderson told her that she should come here for an ultrasound to have a DVT ruled out. Some mild swelling to the medial aspect of her right ankle. She is chronically short of breath and is not here for any cardiac or pulmonary complaints. She is primarily here for ultrasound of her leg. It is very painful to touch. It has been swollen for a couple weeks. She does admit that recently a formal stropped on her foot but the swelling had been going on prior to that. Sharp pain. Very sensitive to touch. (STAR SHAFFER) Past History Travel History Traveled to [place] past 21 day No Medical History Any Pertinent Medical History? see below for history Neurological: NONE EENT: cataracts Cardiovascular: hypertension, hyperlipidemia, PERIPHERAL EDEMA Respiratory: COPD, emphysema, Lung cancer O2 DEPENDENT AT 2L Gastrointestinal: NONE Hepatic: NONE Renal: NONE Musculoskeletal: fracture, (T12) Psychiatric: NONE Endocrine: NONE Blood Disorders: NONE Cancer(s): LUNG CANCER RT INTERACTIVE DIGITAL MEDIA SPECIALIST/Reproductive: NONE History of MRSA: No History of VRE: No History of CDIFF: No Surgical History Surgical History: non-contributory Psychosocial History Who do you live with Patient/Self Services at Home Home Health Aide What is your primary language Turkmen Tobacco Use: Quit >30 days ago Family History Family History, If Any: MOTHER FATHER FH: cancer Hx Contributory? No (STAR SHAFFER) Review of Systems Review of Systems Constitutional: Reports: no symptoms. EENTM: Reports: no symptoms. Respiratory: Reports: no symptoms. Cardiovascular: Reports: no symptoms. Gastrointestinal/Abdominal: Reports: no symptoms. Genitourinary: Reports: no symptoms. Musculoskeletal: Reports: see HPI. Skin: Reports: no symptoms. Neurological/Psychological: Reports: no symptoms. Hematologic/Endocrine: Reports: no symptoms. Immunological: Reports: no symptoms. All Other Systems: Reviewed and Negative (STAR SHAFFER) Physical Exam Physical Exam General Appearance: well developed/nourished, mild distress Head: atraumatic Eyes: Bilateral: normal appearance. Ears, Nose, Throat: normal ENT inspection, hearing grossly normal Neck: normal inspection Cardiovascular/Respiratory: no respiratory distress Back: normal inspection Foot Left: soft tissue tenderness, swelling (edema) Foot Right: mild edema right medial ankle Neurologic/Tendon: normal sensation, normal motor functions, responds to pain Skin: intact, normal color, warm/dry Lymphatic: no anterior cervical binta (STAR SHAFFER) Progress Differential Diagnosis: cellulitis, contusion, dislocation, DVT, fracture, gout, septic arthritis, sprain, tendon injury, dvt, Plan of Care: Orders Procedure Date/time Status US-EXT BILAT VENOUS DOPPLER 10/16 1134 Active XRY-FOOT COMPLETE, LEFT 10/16 1134 Active Diagnostic Imaging: Viewed by Me: Radiology Read, Ultrasound. Discussed w/RAD: Radiology Read, Ultrasound. Radiology Impression: SERVICE DATE: 10/16/16 EXAM TYPE: US - US-EXT BILAT VENOUS DOPPLER EXAMINATION: US TRIPLEX OF LOWER EXTREMITIES, BILATERAL CLINICAL INFORMATION: Lower extremity swelling. COMPARISON: None TECHNIQUE: Color-flow triplex imaging with spectral analysis and compression Doppler were performed on the lower extremities. FINDINGS: Respiratory variation, normal compression and augmented flow are noted throughout the lower extremities. The visualized common femoral vein, superficial femoral vein, profunda femoral vein, popliteal vein and midcalf peroneal and posterior tibial venous segments show no evidence of deep venous thrombosis. There is a 2.2 x 0.9 x 1.9 cm right popliteal fossa Moon's cyst. IMPRESSION: Normal triplex scan without evidence of deep venous thrombosis involving the lower extremities. DICTATED BY: DOMINGO MADSEN MD DATE/TIME DICTATED:10/16/161249 THERMODYNAMICS PROFESSOR:RISA , SERVICE DATE: 10/16/16 EXAM TYPE: RAD - XRY-FOOT COMPLETE, LEFT EXAMINATION: XR FOOT, LEFT CLINICAL INFORMATION: Trauma. COMPARISON: None TECHNIQUE: AP, lateral, and oblique views of the left foot. FINDINGS: Bone mineral density is diffusely decreased without evidence of fracture or dislocation. No focal osseous lesions are seen. There are postoperative changes in the first metatarsal. There is an old healed second metatarsal fracture containing a small cerclage wire. Questionable postoperative changes involving the middle phalanges. Second fourth and fifth. There are degenerative changes in the first metatarsophalangeal joint. There is moderate circumferential soft tissue prominence in the mid/ forefoot. IMPRESSION: Osteopenia, I see no evidence of a definitive fracture. Postoperative and degenerative changes as noted. Is the patient point tender anywhere? DICTATED BY: ROMMEL TAYLOR MD DATE/TIME DICTATED:10/16/161214 THERMODYNAMICS PROFESSOR:RISA DATE/TIME TRANSCRIBED:10/16/161214 Comments: 10/16/2016 4:41:39 PM Patient is clinically at her normal baseline of function. She does not appear to be any type of distress. There is no evidence of DVT. No evidence of cellulitis or skin infection. No signs of congestive heart failure clinically. Patient was seen and evaluated by Dr. Dotson. Spoke with Dr. Anderson as well. Manages the patient's COPD. She is going to follow-up with the patient as an outpatient. Patient looks well here in the emergency room. Patient understands and agrees a plan of care. Swelling is unclear at this time. (STAR SHAFFER) Departure Departure Disposition: HOME OR SELF CARE Condition: Stable Clinical Impression Primary Impression: Foot swelling Referrals: MARIA LUISA BACON,Isael BUCKLEY (PCP/Family) Additional Instructions: Follow-up with your primary care doctor. Follow-up with your route rider. Return if any concerns worsening symptoms. Please go over all results of today's visit with your primary care doctor. Contact your primary care doctor to let them know you were here in the emergency room. There may be nonspecific findings which may not be related to your visit today here in the emergency room but may require further evaluation and chronic monitoring by your primary care doctor. If you had a laceration today the chance of foreign body always remains. You should follow-up with your primary care doctor for recheck in 3-5 days for a wound check. If you had an x-ray done there is a chance that a fracture could have been missed on initial read and you should follow-up with your primary care doctor for repeat x-rays if symptoms persist. If your blood pressure was elevated here in the emergency room please have rechecked by her primary care doctor within the next 48 hours by your primary care doctor. If you were prescribed a narcotic here in the emergency room or any type of controlled substances you're not allowed to drive while taking this medication or operate any type of heavy machinery. Narcotics can make you feel lightheaded dizziness nausea and can cause constipation. You may need to belt picker a stool softener. Thank you for choosing [facility] emergency room. Please return to the emergency room immediately if you have any other concerns worsening of symptoms. Departure Forms: Customer Survey General Discharge Information (STAR SHAFFER) PA/EXECUTIVE DIRECTOR [employer]ET[employer] Co-Sign Statement Statement: ED Attending supervision documentation- [X] I saw and evaluated the patient. I have also reviewed all the pertinent lab results and diagnostic results. I agree with the findings and the plan of care as documented in the PA's/EXECUTIVE DIRECTOR [employer]'s documentation. [] I have reviewed the ED Record and agree with the PA's/EXECUTIVE DIRECTOR [employer]'s documentation. [] Additions or exceptions (if any) to the PAs/EXECUTIVE DIRECTOR [employer]'s note and plan are summarized below: [] (GAVIOTA DOTSON DO)
--- NOTE | 2016-10-16 12:22 | RADIOLOGY REPORT ---
EXAMINATION: XR FOOT, LEFT CLINICAL INFORMATION: Trauma. COMPARISON: None TECHNIQUE: AP, lateral, and oblique views of the left foot. FINDINGS: Bone mineral density is diffusely decreased without evidence of fracture or dislocation. No focal osseous lesions are seen. There are postoperative changes in the first metatarsal. There is an old healed second metatarsal fracture containing a small cerclage wire. Questionable postoperative changes involving the middle phalanges. Second fourth and fifth. There are degenerative changes in the first metatarsophalangeal joint. There is moderate circumferential soft tissue prominence in the mid/forefoot. IMPRESSION: Osteopenia, I see no evidence of a definitive fracture. Postoperative and degenerative changes as noted. Is the patient point tender anywhere?
--- NOTE | 2016-10-16 12:57 | ULTRASOUND REPORT ---
EXAMINATION: US TRIPLEX OF LOWER EXTREMITIES, BILATERAL CLINICAL INFORMATION: Lower extremity swelling. COMPARISON: None TECHNIQUE: Color-flow triplex imaging with spectral analysis and compression Doppler were performed on the lower extremities. FINDINGS: Respiratory variation, normal compression and augmented flow are noted throughout the lower extremities. The visualized common femoral vein, superficial femoral vein, profunda femoral vein, popliteal vein and midcalf peroneal and posterior tibial venous segments show no evidence of deep venous thrombosis. There is a 2.2 x 0.9 x 1.9 cm right popliteal fossa Moon's cyst. IMPRESSION: Normal triplex scan without evidence of deep venous thrombosis involving the lower extremities.
[2016-10-16 15:26] VITALS: BP 134/65
== END 2016-10-16 15:32 ==
LOC: ERH 10:51
DX: M79.89 Other specified soft tissue disorders (principal)
CPT/HCPCS: 73630-LT; 93970

== ENCOUNTER 2016-10-25 09:10 | Emergency (ER) | payer OTHER ==
[~2016-10-25] VITALS: Ht 162.6 cm; Wt 40.8 kg
--- NOTE | 2016-10-25 09:38 | ED GENERAL ADULT ---
History of Present Illness General Chief Complaint: Low Back Pain/Injury Stated Complaint: BIBA BACK PAIN Source: patient Exam Limitations: no limitations Vital Signs & Intake/Output Vital Signs & Intake/Output Vital Signs Date Time Temp Pulse Resp B/P B/P Pulse O2 O2 Flow FiO2 Mean Ox Delivery Rate 10/26 1341 98 Nasal 2.0L Cannula 10/26 1309 97.0 90 20 175/79 92 Nasal 3.0L Cannula 10/26 1051 96.9 86 20 176/77 96 Nasal 2.0L Cannula 10/26 0517 95.6 75 22 184/74 98 Nasal 2.0L Cannula 10/25 2212 96.3 76 20 188/77 100 Room Air 10/25 1916 96.5 68 20 174/75 100 Nasal Cannula 10/25 1527 96.2 77 20 182/76 99 ED Intake and Output 10/26 0000 10/25 1200 Intake Total Output Total 350 Balance -350 Output, Urine 350 Patient 89 lb 15.99 oz Weight Allergies Coded Allergies: Iodinated Contrast- Oral and IV Dye (IODINATED CONTRAST MEDIA - ORAL AND) (RASH ALL OVER BODY 07/25/16) indomethacin (UNKNOWN PT DOESNT REMEMBER 07/20/15) naproxen (UNKNOWN PT DOESNT REMEMBER 07/20/15) Reconcile Medications Albuterol Sulfate (Proair Hfa) 90 MCG HFA.AER.AD 1-2 PUF INH AD PRN RESPIRATORY (Reported) Albuterol Sulfate 2.5 MG/3 ML (0.083 %) VIAL.NEB 1 Vial INH/CHUNG BID-TID RESPIRATORY (Reported) Amlodipine Besylate (Norvasc) 5 MG TABLET 1 TAB PO DAILY BP (Reported) Aspirin (Ecotrin*) 81 MG TABLET.DR 1 TAB PO DAILY HEART HEALTH (Reported) Budesonide/Formoterol Fumarate (Symbicort 160-4.5 Mcg Inhaler) 160 MCG-4.5 MCG/ ACTUATION HFA.AER.AD 2 PUF INH QPM BREATHING PROBLEMS (Reported) Docusate Sodium 100 MG CAPSULE 100 MG PO DAILY CONSTIPATION Oxycodone HCl/Acetaminophen (Oxycodone-Acetaminophen 5-325) 5 MG-325 MG TABLET 1 TAB PO Q6-PRN PRN PAIN (Reported) Prednisone 10 MG TABLET 1 TAB PO SEE ADMIN CRITERIA copd take 30 mg for until 09/07 take 20 mg for 3 days 09/08-09/10 take 10 mg and then continue at your baseline. Sennosides/Docusate Sodium (Senna Plus Tablet) 8.6 MG-50 MG TABLET 2 TAB PO DAILY CONSTIPATION Simvastatin (Zocor*) 20 MG TABLET 1 TAB PO QPM CHOLESTEROL (Reported) Tramadol HCl 50 MG TABLET 1 TAB PO Q6P PRN PAIN SCALE 4-6 (MODERATE) Triage Note: PT BIBA FROM HOME FOR EXACERBATION OF CHRONIC LOWER BACK PAIN. DENIES URINARY S/S, DENIES ABD PAIN, REFUSING TO CHANGE INTO A HOSPITAL GOWN AND VERY RESISTENT TO OBTAINING A BLOOD PRESSURE "BECAUSE MY SKIN HURTS" Triage Nurses Notes Reviewed? yes HPI: 81-year-old female with a history of T12 compression fracture in August 2016, status post kyphoplasty, COPD, lung cancer, hypertension, hyperlipidemia presenting with worsening atraumatic back pain 3 days. Reports sharp nonradiating right mid back pain, worse with movement, better with rest. She has tried Tylenol at home without improvement, tried Dilaudid that she had at home with good effect. States that her back had been pain-free after her kyphoplasty up until the past 3 days. Denies any recent injuries or strenuous activity. Unable to recall what she was doing at pain onset. Denies fevers, IV drug use, saddle paresthesias, urinary/bowel incontinence/retention. Denies dysuria, hematuria, urinary frequency/urgency. (JT MARIN PA-C) Past History Travel History Traveled to [place] past 21 day No Medical History Any Pertinent Medical History? see below for history Neurological: NONE EENT: cataracts Cardiovascular: hypertension, hyperlipidemia, PERIPHERAL EDEMA Respiratory: COPD, emphysema, Lung cancer O2 DEPENDENT AT 2L Gastrointestinal: NONE Hepatic: NONE Renal: NONE Musculoskeletal: fracture, (T12) Psychiatric: NONE Endocrine: NONE Blood Disorders: NONE Cancer(s): LUNG CANCER RT SOCIAL WORK SPECIALIST/Reproductive: NONE History of MRSA: No History of VRE: No History of CDIFF: No Surgical History Surgical History: non-contributory Psychosocial History Who do you live with Patient/Self Services at Home Home Health Aide What is your primary language Trinidadian Tobacco Use: Never used ETOH Use: denies use Illicit Drug Use: denies illicit drug use Family History Family History, If Any: MOTHER FATHER FH: cancer Hx Contributory? No (JT MARIN PA-C) Review of Systems Review of Systems Constitutional: Reports: no symptoms. EENTM: Reports: no symptoms. Respiratory: Reports: no symptoms. Cardiovascular: Reports: no symptoms. GI: Reports: no symptoms. Genitourinary: Reports: no symptoms. Musculoskeletal: Reports: back pain. Denies: neck pain. Skin: Reports: no symptoms. Neurological/Psychological: Reports: no symptoms. (TOMAS COTTER,JT) Physical Exam Physical Exam General Appearance: well developed/nourished, awake, mild distress Head: atraumatic Respiratory: normal breath sounds, lungs clear Cardiovascular: regular rate/rhythm, normal peripheral pulses Gastrointestinal: soft, non-tender Back: normal inspection, on exam there are no abrasions, ecchymosis, other signs of physical trauma. No CVA tenderness. No tenderness to palpation over the midline or paraspinal muscles of CT or L-spine. Patient has decreased spinal range of motion secondary to pain. Negative straight leg raise. Neurologic/Psych: no motor/sensory deficits, awake, alert, oriented x 3, normal mood/affect, patient refusing to attempt ambulation secondary to pain Core Measures ACS in differential dx? No CVA/TIA Diagnosis: No Severe Sepsis Present: No Septic Shock Present: No (TOMAS COTTER,JT) Progress Differential Diagnoses I considered the following diagnoses in my evaluation of the patient: [ Musculoskeletal strain versus disc herniation versus compression fracture versus pyelonephritis versus cauda equina versus epidural abscess] Plan of Care: Orders Procedure Date/time Status Theraputic Activities 15 Min 10/26 UNK Complete Neuromuscular Re-Ed 15Min Ea 10/26 UNK Complete PT EVAL MOD COMPLEX 30 MIN 10/26 UNK Complete Regular Diet 10/25 D Active Current Medications Sig/Yecenia Start time Last Medication Dose Stop Time Status Admin Oxycodone/ 1 TAB Q6P PRN 10/26 0145 AC 10/26 Acetaminophen 1057 (Percocet) Urine negative for infection. X-ray imaging shows compression fracture of T7. Patient with difficulty ambulating, required large amount of assistance from nursing staff in order to move from the bed to the commode. Concern for patient safety at home as she lives alone with no nursing services. Care coordination consult placed, plan to discharge from hospital to short-term rehabilitation facility, however patient needs PT evaluation prior. Will place in ED observation for PT evaluation in the morning. (JT MARIN PA-C) Initial ED EKG: none (JT MARIN PA-C) Differential Diagnoses I considered the following diagnoses in my evaluation of the patient: Comments: 10/26/2016 2:48:03 PM patient signed out to be by Dr. 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 The patient has a bed available at a short-term rehabilitation facility and will be discharged. (GAVIOTA CALERO MD) Hand-Off Endorsed To: GAVIOTA CALERO MD Endorsed Time: 0700 Pending: consult (case management PT) (DEVIN ALMANZA MD) Departure Departure Condition: Stable Clinical Impression Primary Impression: Intractable back pain Referrals: Isael GLASS MD (PCP/Family) Departure Forms: Customer Survey General Discharge Information (JT MARIN PA-C) Departure Disposition: ACUTE REHAB FACILITY PA/GOAT HERDER Co-Sign Statement Statement: ED Attending supervision documentation- [x] I saw and evaluated the patient. I have also reviewed all the pertinent lab results and diagnostic results. I agree with the findings and the plan of care as documented in the PA's/GOAT HERDER's documentation. [] I have reviewed the ED Record and agree with the PA's/GOAT HERDER's documentation. [] Additions or exceptions (if any) to the PAs/GOAT HERDER's note and plan are summarized below: [] (GAVIOTA CALERO MD) Critical Care Note Critical Care Note Critical Care Time: non-applicable (JT MARIN PA-C) Critical Care Note Critical Care Time: non-applicable (JT MARIN PA-C)
--- NOTE | 2016-10-25 11:04 | RADIOLOGY REPORT ---
EXAMINATION: XR LUMBOSACRAL SPINE. THORACIC SPINE. CLINICAL INFORMATION: Compression fracture. COMPARISON: 07/28/16. MRI of 07/16/16. TECHNIQUE: AP, lateral and swimmer's views of the thoracic spine were obtained. AP and lateral lumbosacral spine. FINDINGS: THORACIC SPINE: There is new compression deformity of T7 of approximately 60%. Alignment is maintained. Disc spaces are unremarkable. Vertebroplasty cement is present in the T11 and T12 vertebral bodies with stable compression deformity most marked at T12. LUMBOSACRAL SPINE: Moderate disc space narrowing at L4-L5 is unchanged from previous. No acute bony abnormality is demonstrated. Normal alignment is maintained. The sacroiliac joints are unremarkable. IMPRESSION: 1. New 60% compression deformity T7. 2. Other chronic changes as noted.
[2016-10-26 15:00] VITALS: BP 183/81
== END 2016-10-26 16:31 ==
LOC: ERH 09:10
DX: M54.5 Low back pain (principal)
CPT/HCPCS: 1263; 72100; 81003; 87086; 97112-GP; 97162-GP; 97530-GP

== ENCOUNTER 2017-11-08 19:32 | Inpatient (IN) | payer OTHER ==
[~2017-11-08] VITALS: Ht 154.9 cm; Wt 40.0 kg
--- NOTE | 2017-11-08 19:44 | ED GI/GU/ABDOMINAL COMPLAINT ---
History of Present Illness General Chief Complaint: Abdominal Pain/Flank Pain Stated Complaint: BIBA ABD PAIN Source: patient, family, old records, EMS Exam Limitations: clinical condition Vital Signs & Intake/Output Vital Signs & Intake/Output Vital Signs Date Time Temp Pulse Resp B/P B/P Pulse O2 O2 Flow FiO2 Mean Ox Delivery Rate 11/09 2015 98.5 71 22 120/50 100 Nasal 2.0L Cannula Allergies Coded Allergies: Iodinated Contrast- Oral and IV Dye (IODINATED CONTRAST MEDIA - ORAL AND) (RASH ALL OVER BODY 07/25/16) indomethacin (UNKNOWN PT DOESNT REMEMBER 07/20/15) naproxen (UNKNOWN PT DOESNT REMEMBER 07/20/15) Reconcile Medications Albuterol Sulfate (Proair Hfa) 90 MCG HFA.AER.AD 1-2 PUF INH AD PRN RESPIRATORY (Reported) Albuterol Sulfate 2.5 MG/3 ML (0.083 %) VIAL.NEB 1 Vial INH/CHUNG BID-TID RESPIRATORY (Reported) Amlodipine Besylate (Norvasc) 5 MG TABLET 1 TAB PO DAILY BP (Reported) Aspirin (Ecotrin*) 81 MG TABLET.DR 1 TAB PO DAILY HEART HEALTH (Reported) Budesonide/Formoterol Fumarate (Symbicort 160-4.5 Mcg Inhaler) 160 MCG-4.5 MCG/ ACTUATION HFA.AER.AD 2 PUF INH QPM BREATHING PROBLEMS (Reported) Docusate Sodium 100 MG CAPSULE 100 MG PO DAILY CONSTIPATION Oxycodone HCl/Acetaminophen (Oxycodone-Acetaminophen 5-325) 5 MG-325 MG TABLET 1 TAB PO Q6-PRN PRN PAIN (Reported) Prednisone 10 MG TABLET 1 TAB PO SEE ADMIN CRITERIA copd take 30 mg for until 09/07 take 20 mg for 3 days 09/08-09/10 take 10 mg and then continue at your baseline. Sennosides/Docusate Sodium (Senna Plus Tablet) 8.6 MG-50 MG TABLET 2 TAB PO DAILY CONSTIPATION Simvastatin (Zocor*) 20 MG TABLET 1 TAB PO QPM CHOLESTEROL (Reported) Tramadol HCl 50 MG TABLET 1 TAB PO Q6P PRN PAIN SCALE 4-6 (MODERATE) Triage Note: BIBA FROM [facility] ABD PAIN W/ NAUSEA AND VOMITING EXTENSIVE MED HX Triage Nurses Notes Reviewed? yes ? N Is pt currently ? No Onset: Abrupt Duration: day(s): (1), constant Timing: recent history Quality/Severity: moderate, sharpness Location: left lower quadrant Radiation: no radiation Activities at Onset: none Prior Abdominal Problems: none No Modifying Factors: none HPI: 82-year-old female comes into the emergency room with complaints of severe left lower abdominal pain that began earlier today. Some associated nausea and dry heaving. History of cholecystectomy. Pain is sharp. Continuous. Nothing seems to make the symptoms better. She comes from half-way for further evaluation (Salvatore Iqbal) Past History Travel History Traveled to [facility] past 21 day No Medical History Any Pertinent Medical History? see below for history Neurological: NONE EENT: cataracts Cardiovascular: hypertension, hyperlipidemia, PERIPHERAL EDEMA Respiratory: COPD, emphysema, Lung cancer O2 DEPENDENT AT 2L Gastrointestinal: NONE Hepatic: NONE Renal: NONE Musculoskeletal: fracture, (T12) Psychiatric: NONE Endocrine: NONE Blood Disorders: NONE Cancer(s): LUNG CANCER RT [employer]/Reproductive: NONE History of MRSA: No History of VRE: No History of CDIFF: No Surgical History Surgical History: cholecystectomy Psychosocial History Who do you live with Patient/Self Services at Home Home Health Aide What is your primary language Lebanese Tobacco Use: Current Not Daily ETOH Use: denies use Family History Family History, If Any: MOTHER FATHER FH: cancer Hx Contributory? No (Salvatore Iqbal) Review of Systems Review of Systems Constitutional: Reports: no symptoms. EENTM: Reports: no symptoms. Respiratory: Reports: no symptoms. Cardiovascular: Reports: no symptoms. GI: Reports: see HPI. Genitourinary: Reports: no symptoms. Musculoskeletal: Reports: no symptoms. Skin: Reports: no symptoms. Neurological/Psychological: Reports: no symptoms. Hematologic/Endocrine: Reports: no symptoms. Immunologic/Allergic: Reports: no symptoms. All Other Systems: Reviewed and Negative (Salvatore Iqbal) Physical Exam Physical Exam General Appearance: alert, awake, moderate distress, thin Head: atraumatic Eyes: Bilateral: normal appearance. Ears, Nose, Throat, Mouth: hearing grossly normal, moist mucous membrane Neck: normal inspection Respiratory: normal breath sounds, no respiratory distress Gastrointestinal: distention, guarding, tenderness (LLQ) Back: normal inspection Extremities: normal range of motion Neurologic/Psych: awake, alert, oriented x 3 Skin: intact, normal color Core Measures ACS in differential dx? No Sepsis Present: No Sepsis Focused Exam Completed? No (Poncho RIVERA,Salvatore) Progress Differential Diagnosis: appendicitis, bowel obstruction, colon cancer, diverticulitis, ischemic bowel, kidney stone, perforated viscous, UTI/pyelo Plan of Care: Orders Procedure Date/time Status URINALYSIS 11/08 1942 Complete TROPONIN LEVEL 11/08 1942 Complete LACTIC ACID 11/08 1942 Complete COMPREHENSIVE METABOLIC PANEL 11/08 1942 Complete CBC WITHOUT DIFFERENTIAL 11/08 1942 Complete EKG 11/08 1942 Active Current Medications Sig/Yecenia Start time Last Medication Dose Stop Time Status Admin Ampicillin Sodium/ 3,000 MG ONCE ONE 11/08 2214 UNVr Sulbactam Sodium 11/09 2243 (Unasyn) Sodium Chloride 100 ML (Normal Saline 0.9%) Laboratory Tests 11/08/17 2020: Urine Color YEL, Urine Clarity CLEAR, Urine pH 7.0, Ur Specific [place] 1.020, Urine Protein TRACE H, Urine Ketones NEG, Urine Nitrite NEG, Urine Bilirubin NEG, Urine Urobilinogen 0.2, Ur Leukocyte Esterase NEG, Ur Microscopic SEDIMENT EXAMINED, Urine RBC RARE, Urine WBC 1-3 H, Ur Epithelial Cells RARE, Urine Bacteria FEW H, Urine Hemoglobin NEG, Urine Glucose 250 H 11/08/17 2000: Anion Gap 11, Estimated GFR > 60, BUN/Creatinine Ratio 24.3, Glucose 173 H, Lactic Acid 1.9, Calcium 9.2, Total Bilirubin 0.4, AST 46 H, ALT 34, Alkaline Phosphatase 99, Troponin I 0.02, Total Protein 6.4, Albumin 3.7, Globulin 2.7, Albumin/Globulin Ratio 1.4, CBC w Diff NO MAN DIFF REQ, RBC 3.60 L, MCV 90.5, MCH 30.1, MCHC 33.2, RDW 16.1 H, MPV 6.3 L, Gran % 94.4 H, Lymphocytes % 2.2 L, Monocytes % 3.3, Eosinophils % 0.1, Basophils % 0, Absolute Granulocytes 8.8 H, Absolute Lymphocytes 0.2 L, Absolute Monocytes 0.3, Absolute Eosinophils 0, Absolute Basophils 0 Diagnostic Imaging: Viewed by Me: CT Scan. Discussed w/RAD: CT Scan. Radiology Impression: PATIENT: ARDEN ALEXANDRA PRESENT AGE: 82 PATIENT ACCOUNT NO: [id number] : 35 LOCATION: [facility] ORDERING PHYSICIAN: Salvatore RIVERA SERVICE DATE: 11/08/17 EXAM TYPE: CAT - CT ABD & PELVIS W/O IV CONTRAS EXAMINATION: CT ABDOMEN AND PELVIS WITHOUT CONTRAST CLINICAL INFORMATION: Left lower quadrant abdominal pain. COMPARISON: 08/23/2016, 07/25/2016 and 07/02/2016 CT scans. TECHNIQUE: Multidetector volumetric imaging was performed from the superior aspect of the liver through the pubic symphysis. Sagittal and coronal reformatted images were obtained on the technologist's workstation. DLP: 226.87 mGy-cm FINDINGS: LUNG BASES: There is a small right-sided pleural effusion with adjacent atelectatic changes of the pulmonary parenchyma. There are multiple small, 4 to 5 mm noncalcified nodules in the right lower lobe, better seen on axial images 60-70 from series 3. As comparison was made to 08/2016 CT scan, there are new findings. LIVER, GALLBLADDER, AND BILIARY TREE: The liver is normal in size, shape, and attenuation. No focal hepatic lesion or biliary ductal dilatation is present. The gallbladder is absent, prior cholecystectomy. PANCREAS: Unremarkable. SPLEEN : Unremarkable. ADRENAL GLANDS: Unremarkable. KIDNEYS AND URETERS: The kidneys are normal in size, shape, and attenuation. No hydronephrosis, hydroureter seen. There is a 5 mm non-obstructing stone in mid part of the left kidney, unchanged. There is a 4-5 mm non-obstructing stone in the lower pole calyx of the right kidney, unchanged. There is a 2 mm non-obstructing stone in the lower pole calyx of the right kidney, unchanged. A 1-2 mm stone in [id number] part of the right kidney is unchanged. Evaluation for ureter stone is somehow limited however, no definite ureter stone is noted. The urinary bladder is full. No bladder stone. GASTROINTESTINAL TRACT: The loops of the small bowel and colon are not dilated. Significant amount of stool is seen in the course of colon, suggests constipation. Diverticular disease of the sigmoid colon is present. There is mild mesenteric stranding in the left lower quadrant of the abdomen, close to the proximal sigmoid colon as seen on axial images 337-365 from series 3. Possibility of mild acute diverticulitis is not excluded. There is no evidence of perforation or pericolonic collection. The small bowel loops are unremarkable based on nonenhanced images. The appendix is not seen. ABDOMINAL WALL: No significant hernia is appreciated. LYMPH NODES: Normal. VASCULAR: Atherosclerotic calcifications of the abdominal aorta and iliac arteries are noted. No aneurysmal dilatation. PELVIC VISCERA: Calcified uterine fibroids are present. OSSEOUS STRUCTURES: Post vertebroplasty changes of T12 and T11 noted. Mild compression deformity of the upper endplate of L3 vertebral body. No aggressive bony lesion or acute bone fracture. IMPRESSION: 1. Interval development of a small right-sided pleural effusion and a couple of noncalcified pulmonary nodules at the right lung base. Chest CT scan evaluation can be considered, if clinically indicated. 2. Bilateral non-obstructing renal stones. 3. Sigmoid colon diverticulosis with suggestion of mild acute diverticulitis of the proximal sigmoid colon. Clinical correlation is suggested. There is no evidence of perforation or pericolonic collection. DICTATED BY: Mariana Rajput MD DATE/TIME DICTATED:11/08/172114 ART PSYCHOTHERAPIST OR THERAPIST:RISA DATE/TIME TRANSCRIBED:11/08/172114 CONFIDENTIAL, DO NOT COPY WITHOUT APPROPRIATE AUTHORIZATION. <Electronically signed in Other Vendor System> SIGNED BY: Mariana Rajput MD 11/08/172201 Initial ED EKG: none (Salvatore Iqbal) Comments: 11/08/2017 10:13:25 PM Arden is feeling "much better" than when she first arrived. She appears comfortable with mild left lower quadrant abdominal tenderness. (Brielle BACON,Luís Sanchez) Departure Departure Disposition: STILL A PATIENT Condition: Stable Clinical Impression Primary Impression: Acute diverticulitis Referrals: Zoe Boykin MD (PCP/Family) Departure Forms: Customer Survey General Discharge Information Admission Note Spoke With: Silvia Lott MD Documentation of Exam: Documentation of any treatments & extenuating circumstances including Concerns Regarding Discharge (functional status, medication knowledge or non-compliance, living conditions, etc.) that warrant an admission rather than observation: Patient will require IV pain control. IV antibiotics. Acute abdomen on exam initially. Due to age and other comorbidities I feel patient would be better served as an inpatient and will require likely greater than 72 hours of care. (Salvatore Iqbal) PA/DIAMOND SANDER Co-Sign Statement Statement: ED Attending supervision documentation- [x] I saw and evaluated the patient. I have also reviewed all the pertinent lab results and diagnostic results. I agree with the findings and the plan of care as documented in the PA's/DIAMOND SANDER's documentation. Patient presents for evaluation of left lower quadrant abdominal pain. Physical examination reveals tenderness in the left lower quadrant with brief voluntary guarding but no rebound. [] I have reviewed the ED Record and agree with the PA's/DIAMOND SANDER's documentation. [] Additions or exceptions (if any) to the PAs/DIAMOND SANDER's note and plan are summarized below: [] (Brielle BACON,Luís Sanchez)
[2017-11-08 20:08] LABS: ABSOLUTE BASOPHIL COUNT 0 /CUMM (0.0-0.2); ABSOLUTE EOSINOPHIL COUNT 0 /CUMM (0.0-0.7); ABSOLUTE GRANULOCYTE CT 8.8 /CUMM (1.4-6.5); ABSOLUTE LYMPH COUNT 0.2 /CUMM (1.2-3.4); ABSOLUTE MONOCYTE COUNT 0.3 /CUMM (0.10-0.60); BASOPHIL % 0 % (0.0-2.0); EOSINOPHIL % 0.1 % (0-5); GRANULOCYTE % 94.4 % (42.2-75.2); HEMATOCRIT 32.6 % (37-47); MEAN CORPUSCULAR HGB 30.1 PG (27.0-31.0); MEAN CORPUSCULAR HGB CONC 33.2 G/DL (33.0-37.0); MEAN CORPUSCULAR VOLUME 90.5 FL (81.0-99.0); MEAN PLATELET VOLUME 6.3 FL (7.4-10.4); PLATELET COUNT 403 /CUMM (130-400); RBC DISTRIBUTION WIDTH 16.1 % (11.5-14.5); WHITE BLOOD CELL COUNT 9.3 /CUMM (4.8-10.8)
--- NOTE | 2017-11-08 22:02 | CT SCAN REPORT ---
EXAMINATION: CT ABDOMEN AND PELVIS WITHOUT CONTRAST CLINICAL INFORMATION: Left lower quadrant abdominal pain. COMPARISON: 08/23/2016, 07/25/2016 and 07/02/2016 CT scans. TECHNIQUE: Multidetector volumetric imaging was performed from the superior aspect of the liver through the pubic symphysis. Sagittal and coronal reformatted images were obtained on the technologist's workstation. DLP: 226.87 mGy-cm FINDINGS: LUNG BASES: There is a small right-sided pleural effusion with adjacent atelectatic changes of the pulmonary parenchyma. There are multiple small, 4 to 5 mm noncalcified nodules in the right lower lobe, better seen on axial images 60-70 from series 3. As comparison was made to 08/2016 CT scan, there are new findings. LIVER, GALLBLADDER, AND BILIARY TREE: The liver is normal in size, shape, and attenuation. No focal hepatic lesion or biliary ductal dilatation is present. The gallbladder is absent, prior cholecystectomy. PANCREAS: Unremarkable. SPLEEN: Unremarkable. ADRENAL GLANDS: Unremarkable. KIDNEYS AND URETERS: The kidneys are normal in size, shape, and attenuation. No hydronephrosis, hydroureter seen. There is a 5 mm non-obstructing stone in mid part of the left kidney, unchanged. There is a 4-5 mm non-obstructing stone in the lower pole calyx of the right kidney, unchanged. There is a 2 mm non-obstructing stone in the lower pole calyx of the right kidney, unchanged. A 1-2 mm stone in [id number] part of the right kidney is unchanged. Evaluation for ureter stone is somehow limited however, no definite ureter stone is noted. The urinary bladder is full. No bladder stone. GASTROINTESTINAL TRACT: The loops of the small bowel and colon are not dilated. Significant amount of stool is seen in the course of colon, suggests constipation. Diverticular disease of the sigmoid colon is present. There is mild mesenteric stranding in the left lower quadrant of the abdomen, close to the proximal sigmoid colon as seen on axial images 337-365 from series 3. Possibility of mild acute diverticulitis is not excluded. There is no evidence of perforation or pericolonic collection. The small bowel loops are unremarkable based on nonenhanced images. The appendix is not seen. ABDOMINAL WALL: No significant hernia is appreciated. LYMPH NODES: Normal. VASCULAR: Atherosclerotic calcifications of the abdominal aorta and iliac arteries are noted. No aneurysmal dilatation. PELVIC VISCERA: Calcified uterine fibroids are present. OSSEOUS STRUCTURES: Post vertebroplasty changes of T12 and T11 noted. Mild compression deformity of the upper endplate of L3 vertebral body. No aggressive bony lesion or acute bone fracture. IMPRESSION: 1. Interval development of a small right-sided pleural effusion and a couple of noncalcified pulmonary nodules at the right lung base. Chest CT scan evaluation can be considered, if clinically indicated. 2. Bilateral non-obstructing renal stones. 3. Sigmoid colon diverticulosis with suggestion of mild acute diverticulitis of the proximal sigmoid colon. Clinical correlation is suggested. There is no evidence of perforation or pericolonic collection.
--- NOTE | 2017-11-08 22:55 | History & Physical ---
Ankit Chicas 11/08/17 0965: General Information and HPI MD Statement: I have seen and personally examined ARDEN SHANE and documented this H&P. The patient is a 82 year old F who presented with a patient stated chief complaint of abdominal discomfort Source of Information: patient Exam Limitations: no limitations History of Present Illness: Ms Shane is an 82-year-old woman with a past history of hypertension, hyperlipidemia, COPD/ emphysema( supplemental oxygen daily 2 L), lung cancer ( lung nodule no further workup), T12 fracture (vertebral augmentation), previous cholecystectomy was brought in from an extended care facility with a chief concern of left lower quadrant abdominal pain that started on the day of admission. She also reported nausea, not associated w/ vomiting. She was known to be in her usual state of health until the a.m. of admission, and developed acute onset of left lower quadrant abdominal pain after she had her breakfast. Reported pain to be continuous, sharp, without any radiation. No aggravating or exacerbating factors. She reported decreased by mouth intake in the last few weeks. No recent weight loss, melena, abnormal colonoscopy findings such as mass or polyps reported. She had a large bowel movement yesterday, which was nonbloody. No fever, abdominal distention, constipation, diarrhea, or similar symptoms in the past. Last colonoscopy was done in 2009 revealed diverticulosis. She is active, and uses a walker at baseline. No dysuria, or back pain. Reported to have ingrown toenail in the right lower extremity-great toe, and has been complaining of pain. Follows up with Dr. Paez regularly. No ataxia, imbalance, neurological symptoms. Allergies/Medications Allergies: Coded Allergies: Iodinated Contrast- Oral and IV Dye (IODINATED CONTRAST MEDIA - ORAL AND) (RASH ALL OVER BODY 07/25/16) indomethacin (UNKNOWN PT DOESNT REMEMBER 07/20/15) naproxen (UNKNOWN PT DOESNT REMEMBER 07/20/15) Home Med list Albuterol Sulfate (Proair Hfa) 90 MCG HFA.AER.AD 1-2 PUF INH AD PRN RESPIRATORY (Reported) Albuterol Sulfate 2.5 MG/3 ML (0.083 %) VIAL.NEB 1 Vial INH/CHUNG BID-TID RESPIRATORY (Reported) Amlodipine Besylate (Norvasc) 5 MG TABLET 1 TAB PO DAILY BP (Reported) Aspirin (Ecotrin*) 81 MG TABLET.DR 1 TAB PO BID pvd (Reported) Budesonide/Formoterol Fumarate (Symbicort 160-4.5 Mcg Inhaler) 160 MCG-4.5 MCG/ ACTUATION HFA.AER.AD 2 PUF INH QPM BREATHING PROBLEMS (Reported) Docusate Sodium 100 MG CAPSULE 100 MG PO DAILY CONSTIPATION Oxycodone HCl/Acetaminophen (Oxycodone-Acetaminophen 5-325) 5 MG-325 MG TABLET 1 TAB PO Q6-PRN PRN PAIN (Reported) Pentoxifylline 400 MG TABLET.ER 1 TAB PO DAILY pvd (Reported) Prednisone 10 MG TABLET 1 TAB PO SEE ADMIN CRITERIA copd Sennosides/Docusate Sodium (Senna Plus Tablet) 8.6 MG-50 MG TABLET 2 TAB PO DAILY CONSTIPATION Simvastatin (Zocor*) 20 MG TABLET 1 TAB PO QPM CHOLESTEROL (Reported) Tramadol HCl 50 MG TABLET 1 TAB PO Q6P PRN PAIN SCALE 4-6 (MODERATE) Compliance With Home Meds: GOOD Past History Travel History Traveled to [place] past 21 day No Medical History Neurological: NONE EENT: cataracts Cardiovascular: hypertension, hyperlipidemia Respiratory: COPD, emphysema, Lung cancer O2 DEPENDENT AT 2L Gastrointestinal: NONE Hepatic: NONE Renal: NONE Musculoskeletal: fracture, (T12) s/p vertebral augmentation Psychiatric: NONE Endocrine: NONE Blood Disorders: NONE 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 Ambulation: walker IADLs Unknown: shopping, housework, finances, food prep, telephone, transportation, medication admin. Review of Systems Review of Systems Constitutional: Denies: see HPI, chills, fever, weakness. EENTM: Denies: double vision, icterus. Cardiovascular: Denies: chest pain, palpitations. Respiratory: Denies: cough, hemoptysis, short of breath. GI: Reports: abdominal pain. Denies: diarrhea. Genitourinary: Denies: dysuria, hematuria. Musculoskeletal: Denies: joint pain, muscle pain. Skin: Denies: change in skin color. Neurological/Psychological: Denies: numbness. Hematologic/Endocrine: Denies: bruising. Exam & Diagnostic Data Last 24 Hrs of Vital Signs/I&O Vital Signs Date Time Temp Pulse Resp B/P B/P Pulse O2 O2 Flow FiO2 Mean Ox Delivery Rate 11/09 0033 Nasal 2.0L Cannula 11/08 2338 98.0 67 22 121/55 97 Nasal 2.0L Cannula 11/09 2015 98.5 71 22 120/50 100 Nasal 2.0L Cannula Intake & Output 11/09 0800 11/09 0000 11/08 1600 Intake Total Output Total Balance Patient 80 lb 2 oz Weight Weight Bed scale Measurement Method Physical Exam General Appearance Alert, Oriented X3, Cooperative, No Acute Distress Skin No Rashes, right first toe, ulcer w/ erythema, no discharge, dressing in place. Skin Temp/Moisture Exam: Warm/Dry Sepsis Skin Exam (color): Normal for Ethnicity HEENT Atraumatic, PERRLA, EOMI, Mucous Membr. moist/pink Neck Supple, No JVD, No thryomegaly, +2 Carotid Pulse wo Bruit Lymphatic Axillary nl, Cervical nl Cardiovascular Regular Rate, Normal S1, Normal S2, No Murmurs, Gallops, Rubs Lungs Clear to Auscultation, Normal Air Movement Abdomen Normal Bowel Sounds, Soft, No Hepatospenomegaly, No Masses, tenderness in LLQ, no guarding or rigidity. no cva Neurological Normal Speech, Strength at 5/5 X4 Ext, Normal Tone, Sensation Intact, Cranial Nerves 3-12 NL, Reflexes 2+ Extremities No Clubbing, No Cyanosis, No Edema, Normal Pulses, No Tenderness/ Swelling Vascular Normal Pulses, Pulses Symmetrical Sepsis Peripheral Pulse Location: Dorsalis Pedis Sepsis Peripheral Pulse Exam: Normal Sepsis Cap Refill Exam: <2 Sec Body Front and Back (Adult) 1) right great toe, ulcer Last 24 Hrs of Labs/Nikolas: Laboratory Tests 11/09/17 0110: Urine Color Cancelled, Urine Clarity Cancelled, Urine pH Cancelled, Ur Specific [place] Cancelled, Urine Protein Cancelled, Urine Ketones Cancelled, Urine Nitrite Cancelled, Urine Bilirubin Cancelled, Urine Urobilinogen Cancelled, Ur Leukocyte Esterase Cancelled, Ur Microscopic Cancelled, Urine Hemoglobin Cancelled, Urine Glucose Cancelled 11/08/17 2243: Lactic Acid Cancelled 11/08/172019: Urine Color YEL, Urine Clarity CLEAR, Urine pH 7.0, Ur Specific [place] 1.020, Urine Protein TRACE H, Urine Ketones NEG, Urine Nitrite NEG, Urine Bilirubin NEG, Urine Urobilinogen 0.2, Ur Leukocyte Esterase NEG, Ur Microscopic SEDIMENT EXAMINED, Urine RBC RARE, Urine WBC 1-3 H, Ur Epithelial Cells RARE, Urine Bacteria FEW H, Urine Hemoglobin NEG, Urine Glucose 250 H 11/08/171999: Anion Gap 11, Estimated GFR > 60, BUN/Creatinine Ratio 24.3, Glucose 173 H, Lactic Acid 1.9, Calcium 9.2, Total Bilirubin 0.4, AST 46 H, ALT 34, Alkaline Phosphatase 99, Troponin I 0.02, Total Protein 6.4, Albumin 3.7, Globulin 2.7, Albumin/Globulin Ratio 1.4, CBC w Diff NO MAN DIFF REQ, RBC 3.60 L, MCV 90.5, MCH 30.1, MCHC 33.2, RDW 16.1 H, MPV 6.3 L, Gran % 94.4 H, Lymphocytes % 2.2 L, Monocytes % 3.3, Eosinophils % 0.1, Basophils % 0, Absolute Granulocytes 8.8 H, Absolute Lymphocytes 0.2 L, Absolute Monocytes 0.3, Absolute Eosinophils 0, Absolute Basophils 0 Microbiology 11/09 2331 BLOOD: Blood Culture - RECD 11/08 2329 BLOOD: Blood Culture - RECD Assessment/Plan Assessment: Ms Shane is an 82-year-old woman with a past history of hypertension, hyperlipidemia, COPD, emphysema, lung cancer (lung nodule no further workup), supplemental oxygen at home 2 L, T12 fracture (vertebral augmentation), cholecystectomy was brought in from an extended care facility with a chief concern of left lower quadrant abdominal pain 1 day likely secondary to divertiulitis. At the time of admission, temperature 98.1, pulse rate 71, blood pressure 120/50 , respiration 22, pulse ox 100% on 2 L. Pertinent lab findings: WBC 9.3 (granulocytes 94%), hemoglobin 10.8 (his baseline 9.0), MCV 90.5, platelet count 403. Sodium 138, potassium 3.9, chloride 99, bicarbonate 28, anion gap 11. Renal function-BUN 17, creatinine 0.7. Liver function-AST 46, ALT 34, alkaline phosphatase 99 Troponin I-0.02, albumin 3.7, Urinalysis-clear. CT abdomen without IV contrast: 1. Interval development of a small right-sided pleural effusion and a couple of noncalcified pulmonary nodules at the right lung base. 2. Bilateral non-obstructing renal stones. 3. Sigmoid colon diverticulosis with suggestion of mild acute diverticulitis of the proximal sigmoid colon. Clinical correlation is suggested. There is no evidence of perforation or pericolonic collection. Colonoscopy in 2009 revealed diverticulosis performed by Jim Nuñez MD. Problem list: #1 acute diverticulitis #2 history of COPD #3 history of lung nodule, pleural effusion #4 chronic wound RLE first toe. #5 nephrolithiasis Etiology in this case of left lower quadrant pain which likely is uncomplicated diverticulitis. Other possible etiology such as inflammatory bowel disease, colitis, ischemic colitis needs to be ruled out. Lactate is within normal limits, ruling out any ischemic causes. Nephrolithiasis causing LLQ pain is unlikely, but not completely ruled out. In regards to her lung nodule, that sis not worked up so far, is likely malignancy that led to pleural effusion that could be addressed unless indicated. Plan: #1 monitor on general medicine floor, vitals q shift. #2 blood cultures, lactate #3 antibiotics-ceftriaxone, metronidazole. #4 serial abdominal exams #5 antiemetics #6 clear liquid diet #7 if she has any signs of peritonitis/acute abdomen contact surgery stat. #8 Consider GI evaluation #9 Possible colonoscopy pending GI evaluation. #10 TRC evaluation, Symbicort given her use of budesonide daily. Continue on prednisone 10mg which is her daily dose. #11 Check hemoccult #12 Pain mgt w/ non-opiates opiates, although has to be very careful. #13 Contact podiatry, for more inforation on the use of asa BID dosing, and pentoxyphylline x 7 days( which is in'ed recently) Checklist: 1. DVT PPx - heparin sc 2. GI Ppx- Protonix prn 3. Med rec-done 4. Consults- Consider GI. Wound care consult placed. As Ranked By This Provider Problem List: 1. Acute diverticulitis 2. Foot swelling Core Measures/Misc (01/25) Acute Coronary Syndrome ACS Diagnosis: No Congestive Heart Failure Congestive Heart Failure Diagnosis No Cerebrovascular Accident CVA/TIA Diagnosis: No VTE (View Protocol) VTE Risk Factors Acute Medical Illness No Mechanical VTE Prophylaxis d/t N/A MechProphylax Ordered No VTE Pharm Prophylaxis d/t NA PharmProphylax ordered Sepsis (View protocol) Sepsis Present: No If YES complete Sepsis Event Note If YES complete Sepsis Event Note Silvia Lott MD 11/09/17 0001: Core Measures/Misc (01/25) Sepsis (View protocol) If YES complete Sepsis Event Note If YES complete Sepsis Event Note Attending MD Review Statement Attending Statement Attending MD Statement: examined this patient, discuss w/resident/PA/CONCRETE PIPE MAKING MACHINE OPERATOR, agreed w/resident/PA/CONCRETE PIPE MAKING MACHINE OPERATOR, reviewed EMR data (avail) Attending Assessment/Plan: 82F PMH COPD on nocturnal oxygen 2 L, HTN, HLD, history of lung nodule suspicious for malignancy which the patient has opted not to pursue any further workup, presenting with 1 day of significant LLQ pain, nausea without vomiting, no diarrhea or bloody stool, found to have sigmoid diverticulitis. Sent from [facility] due to pain, afebrile, normal WBC, no perforation or signs of sepsis. Pain was significant, improved with Dilaudid in ER, given Unasyn. 1. Acute diverticulitis 2. Intractable LLQ pain Plan - Admit to general medicine - Start Ceftriaxone and Flagyl - GI consult if no improvement - Morphine 2mg q6h PRN severe pain - Tylenol PRN mild-moderate pain - Clear liquid diet, advance tomorrow if tolerated - Continue home medications - DVT PPx
--- NOTE | 2017-11-09 00:03 | Admission Certification ---
Admission Certification Certification Statement - As attending physician, I certify that at the time of - admission, based on clinical presentation, severity of - symptoms, need for further diagnostic testing and - therapeutic interventions, and risk of adverse outcomes - without in-hospital treatment, in my clinical assessment, - this patient requires an acute hospital stay for a minimum - of two nights or longer. I have also considered psychsocial - factors such as support system, advanced age, financial - issues, cognitive issues, and failed out-patient treatments, - past re-admission history, safety of patient, and lack of - compliance as applicable. Specific rationale supporting this admission is: Acute diverticulitis with intractable abdominal pain
[2017-11-09] MEDS ORDERED: PREDNISONE10 M2 PO (02:01)
[2017-11-09] MEDS ORDERED: PENTOXIFYLLINE400 M1 PO (06:29)
[2017-11-09 06:50] VITALS: BP 140/82
--- NOTE | 2017-11-09 07:49 | PN- Housestaff ---
See Addendum Subjective Follow-up For: Uncomplicated Diverticulitis Complaints: Left sided abdominal pain Subjective: Pt. is complaining of left sided abdominal pain, was able to tolerate water and medications last night. Denies nausea/vomiting. Pt. is also c/o pain on her right first toe. States she had removal of ingrown toenail on R. 1st metatarsal w/ Dr. Ryan in september, she has been on Abx for it since september but cannot recall name of ABx at the moment. Review of Systems Constitutional: Reports: no symptoms. Cardiovascular: Reports: no symptoms. Respiratory: Reports: short of breath. Gastrointestinal: Reports: abdominal pain. Denies: bloating, constipation, diarrhea, bloody stool , vomiting. Genitourinary: Reports: no symptoms. Objective Last 24 Hrs of Vital Signs/I&O Vital Signs Date Time Temp Pulse Resp B/P B/P Pulse O2 O2 Flow FiO2 Mean Ox Delivery Rate 11/09 0650 97.6 66 14 140/82 98 Nasal 2.0L Cannula 11/09 0033 Nasal 2.0L Cannula 11/08 2337 98.0 67 22 121/55 97 Nasal 2.0L Cannula 11/09 2015 98.5 71 22 120/50 100 Nasal 2.0L Cannula Intake & Output 11/09 1600 11/09 0800 11/09 0000 Intake Total 450 Output Total 500 Balance -50 Intake, IV 350 Intake, Oral 100 Output, Urine 500 Patient 88 lb 4 oz Weight Weight Bed scale Measurement Method Physical Exam General Appearance: Alert, Oriented X3, Cooperative Skin: No Rashes Skin Temp/Moisture Exam: Warm/Dry HEENT: Atraumatic, PERRLA, EOMI Neck: Supple Cardiovascular: Regular Rate, Normal S1, Normal S2 Lungs: Clear to Auscultation, Normal Air Movement Abdomen: Normal Bowel Sounds, Soft, Tender to Palpation in LLQ Neurological: Normal Speech, Normal Tone Extremities: No Clubbing, No Cyanosis, No Edema, Swelling, erythema present on R. Great Toe, extremely tender to touch Vascular: Normal Pulses Current Medications: Current Medications Sig/Yecenia Start time Last Medication Dose Route Stop Time Status Admin Acetaminophen 650 MG Q8P PRN 11/09 0115 AC 11/09 PO 0404 Albuterol Sulfate See Dose BID 11/09 0900 AC Insts (1) INH Albuterol Sulfate 3 ML Q4P PRN 11/09 0200 AC INH Amlodipine Besylate 5 MG DAILY 11/09 0900 AC PO Ampicillin Sodium/ 0 .STK-MED ONE 11/08 2217 DC Sulbactam Sodium .ROUTE Ampicillin Sodium/ 3,000 MG ONCE ONE 11/08 221 DC 11/08 Sulbactam Sodium IV 11/08 2244 2241 Sodium Chloride 100 ML Aspirin Buffered 81 MG DAILY 11/09 0900 AC PO Atorvastatin Calcium 10 MG 1700 11/09 1700 AC PO Budesonide/ 2 PUF QPM 11/09 2100 AC Formoterol Fumarate INH Ceftriaxone Sodium 1,000 MG 0600 11/09 0600 DC IV Ceftriaxone Sodium 1,000 MG 0400 11/09 0400 AC 11/09 IV 0348 Heparin Sodium 5,000 UNIT Q8 11/09 0600 AC (Porcine) SC Hydromorphone HCl 0 .STK-MED ONE 11/09 1999 DC .ROUTE Hydromorphone HCl 0.4 MG ONCE ONE 11/08 194 DC 11/08 IV 11/08 1942009 Metronidazole 500 MG IQ8 11/09 0800 DC N/A 1 UNIT IV Metronidazole 500 MG 0400,1200,11/09 0400 AC 11/09 N/A 1 UNIT IV 0354 Morphine Sulfate 2 MG Q8P PRN 11/09 0200 AC 11/09 IV 0147 Morphine Sulfate 2 MG Q8P PRN 11/09 0115 DC IV Prednisone 10 MG DAILY 11/09 0900 AC PO Sodium Chloride 1,000 ML .Q20H 11/09 0115 AC 11/09 IV 11/09 2114 0141 Dose Instructions: (1)Albuterol Sulfate: 1-2 PUF Last 24 Hrs of Lab/Nikolas Results Last 24 Hrs of Labs/Mics: Laboratory Tests 11/09/17 0747: Anion Gap 8, Estimated GFR > 60, BUN/Creatinine Ratio 18.6, CBC w Diff NO MAN DIFF REQ, RBC 3.36 L, MCV 90.9, MCH 30.0, MCHC 33.0, RDW 15.6 H, MPV 6.6 L, Gran % 77.6 H, Lymphocytes % 10.7 L, Monocytes % 11.0 H, Eosinophils % 0.3, Basophils % 0.4, Absolute Granulocytes 5.5, Absolute Lymphocytes 0.8 L, Absolute Monocytes 0.8 H, Absolute Eosinophils 0, Absolute Basophils 0 11/09/17 0110: Urine Color Cancelled, Urine Clarity Cancelled, Urine pH Cancelled, Ur Specific [place] Cancelled, Urine Protein Cancelled, Urine Ketones Cancelled, Urine Nitrite Cancelled, Urine Bilirubin Cancelled, Urine Urobilinogen Cancelled, Ur Leukocyte Esterase Cancelled, Ur Microscopic Cancelled, Urine Hemoglobin Cancelled, Urine Glucose Cancelled 11/08/17 2243: Lactic Acid Cancelled 11/08/17 2020: Urine Color YEL, Urine Clarity CLEAR, Urine pH 7.0, Ur Specific [place] 1.020, Urine Protein TRACE H, Urine Ketones NEG, Urine Nitrite NEG, Urine Bilirubin NEG, Urine Urobilinogen 0.2, Ur Leukocyte Esterase NEG, Ur Microscopic SEDIMENT EXAMINED, Urine RBC RARE, Urine WBC 1-3 H, Ur Epithelial Cells RARE, Urine Bacteria FEW H, Urine Hemoglobin NEG, Urine Glucose 250 H 11/08/171999: Anion Gap 11, Estimated GFR > 60, BUN/Creatinine Ratio 24.3, Glucose 173 H, Lactic Acid 1.9, Calcium 9.2, Total Bilirubin 0.4, AST 46 H, ALT 34, Alkaline Phosphatase 99, Troponin I 0.02, Total Protein 6.4, Albumin 3.7, Globulin 2.7, Albumin/Globulin Ratio 1.4, CBC w Diff NO MAN DIFF REQ, RBC 3.60 L, MCV 90.5, MCH 30.1, MCHC 33.2, RDW 16.1 H, MPV 6.3 L, Gran % 94.4 H, Lymphocytes % 2.2 L, Monocytes % 3.3, Eosinophils % 0.1, Basophils % 0, Absolute Granulocytes 8.8 H, Absolute Lymphocytes 0.2 L, Absolute Monocytes 0.3, Absolute Eosinophils 0, Absolute Basophils 0 Microbiology 11/09 2331 BLOOD: Blood Culture - RECD 11/08 2329 BLOOD: Blood Culture - RECD Assessment/Plan Assessment: Ms. 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 Patient denies N/V, had 1 large non-bloody BM, is currently tolerating her liquid diet. Assessment: 1. Uncomplicated Diverticulosis Modified Hinchey classification = 0 Hx of diverticulosis (diagnosed on previous colonoscopy in 2009) CT on 11/08/17 -- Mild acute diverticulitis of proximal sigmoid colon 2. Necrotic Ulcer R. Great Toe Pt. underwent ingrown toe nail removal in September 2017. Pt. was evaulated by Dr. Ryan, recommended Xeroform and dry sterile dressing and change daily. Recommended ordering Arterial U/S of lower extremities. X-Ray negative for osteomyelitis. 3. Hypertension 4. Hyperlipidemia 5. COPD Plan: * Consult Podiatry for Right Great Toe necrosis * Order X-ray of right foot * Order Arterial U/S of lower extremities * Continue Metronidazole and Ceftriaxone * Advance diet to full liquid, is currently on liquid diet * Continue Amlodipine * Continue Atorvasatin * Continue Presdinose and Albuterol Problem List: 1. Acute diverticulitis Pain Ratin Pain Location: LLQ Pain Goal: Remain pain free Pain Plan: Tylenol Tomorrow's Labs & Rationales: CBC and BEP
[2017-11-09 08:36] LABS: ABSOLUTE BASOPHIL COUNT 0 /CUMM (0.0-0.2); ABSOLUTE EOSINOPHIL COUNT 0 /CUMM (0.0-0.7); ABSOLUTE GRANULOCYTE CT 5.5 /CUMM (1.4-6.5); ABSOLUTE LYMPH COUNT 0.8 /CUMM (1.2-3.4); ABSOLUTE MONOCYTE COUNT 0.8 /CUMM (0.10-0.60); BASOPHIL % 0.4 % (0.0-2.0); EOSINOPHIL % 0.3 % (0-5); GRANULOCYTE % 77.6 % (42.2-75.2); HEMATOCRIT 30.5 % (37-47); MEAN CORPUSCULAR VOLUME 90.9 FL (81.0-99.0); MEAN PLATELET VOLUME 6.6 FL (7.4-10.4); PLATELET COUNT 382 /CUMM (130-400); RBC DISTRIBUTION WIDTH 15.6 % (11.5-14.5); RED BLOOD CELL CT 3.36 /CUMM (4.20-5.40); WHITE BLOOD CELL COUNT 7.1 /CUMM (4.8-10.8)
--- NOTE | 2017-11-09 13:01 | RADIOLOGY REPORT ---
EXAMINATION: XR FOOT, RIGHT CLINICAL INFORMATION: Erythema and yellow discharge. No bone. Rule out osteomyelitis. COMPARISON: None TECHNIQUE: AP, lateral, and oblique views of the right foot. FINDINGS: Diffuse marked osteopenia. No acute fracture or dislocation. No abnormal periosteal reaction or focal lytic or destructive bone lesion seen, including in the first toe minimal degenerative changes are seen at the first interphalangeal joint and the DIP joints of the second through fifth digits with joint space narrowing and spurring. No ankle joint effusion is seen. Achilles tendon insertional spur is seen at the posterior calcaneus. Minimal plantar calcaneal spurring is also seen. IMPRESSION: 1. No plain film evidence of osteomyelitis. 2. Diffuse osteopenia is seen, limiting assessment. 3. Mild degenerative changes in the forefoot.
--- NOTE | 2017-11-09 13:14 | Cons- Podiatry ---
General Information and HPI Consulting Request Date of Consult: 11/09/17 Requested By: Tonio Javier MD History of Present Illness: Heather is an 82-year-old female with an extensive past medical history, who was admitted for abdominal discomfort and diagnosed with diverticulitis. The patient was noted on physical exam to have an erythematous right great toe with skin necrosis identified at the distal and medial margin. The patient was seen by me in the office approximately 2 months ago for a routine nail debridement. Patient states that she developed progressive discomfort to her right great toe following this visit. The patient denies fever or chills. Allergies/Medications Allergies: Coded Allergies: Iodinated Contrast- Oral and IV Dye (IODINATED CONTRAST MEDIA - ORAL AND) (RASH ALL OVER BODY 07/25/16) indomethacin (UNKNOWN PT DOESNT REMEMBER 07/20/15) naproxen (UNKNOWN PT DOESNT REMEMBER 07/20/15) Home Med List: Albuterol Sulfate (Proair Hfa) 90 MCG HFA.AER.AD 1-2 PUF INH AD PRN RESPIRATORY (Reported) Albuterol Sulfate 2.5 MG/3 ML (0.083 %) VIAL.NEB 1 Vial INH/CHUNG BID-TID RESPIRATORY (Reported) Amlodipine Besylate (Norvasc) 5 MG TABLET 1 TAB PO DAILY BP (Reported) Aspirin (Ecotrin*) 81 MG TABLET.DR 1 TAB PO BID pvd (Reported) Budesonide/Formoterol Fumarate (Symbicort 160-4.5 Mcg Inhaler) 160 MCG-4.5 MCG/ ACTUATION HFA.AER.AD 2 PUF INH QPM BREATHING PROBLEMS (Reported) Docusate Sodium 100 MG CAPSULE 100 MG PO DAILY CONSTIPATION Oxycodone HCl/Acetaminophen (Oxycodone-Acetaminophen 5-325) 5 MG-325 MG TABLET 1 TAB PO Q6-PRN PRN PAIN (Reported) Pentoxifylline 400 MG TABLET.ER 1 TAB PO DAILY pvd (Reported) Prednisone 10 MG TABLET 1 TAB PO SEE ADMIN CRITERIA copd Sennosides/Docusate Sodium (Senna Plus Tablet) 8.6 MG-50 MG TABLET 2 TAB PO DAILY CONSTIPATION Simvastatin (Zocor*) 20 MG TABLET 1 TAB PO QPM CHOLESTEROL (Reported) Tramadol HCl 50 MG TABLET 1 TAB PO Q6P PRN PAIN SCALE 4-6 (MODERATE) Past History Medical History Blood Transfusion Hx: No Neurological: NONE EENT: cataracts Cardiovascular: hypertension, hyperlipidemia Respiratory: COPD, emphysema, Lung cancer O2 DEPENDENT AT 2L Gastrointestinal: NONE Hepatic: NONE Renal: NONE Musculoskeletal: fracture, (T12) s/p vertebral augmentation Psychiatric: anxiety Endocrine: NONE Blood Disorders: NONE Cancer(s): L [employer]UN[employer]OR SPECIAL EDUCATION/Reproductive: miscarriage Surgical History Pertinent Surgical History: cholecystectomy, BACK SURGERY COMPR DISC TUBAL LIGATION L FOOT SURGERY R BIG TOE SURGERY R SHOULDER ROTATOR CUFF CATARACT SURGERY BOTH EYE Family History Relations & Conditions If Any: MOTHER FATHER FH: cancer Psychosocial History Where Do You Live? Extended Care Facility Services at Home: Home Health Aide Smoking Status: Former Smoker ETOH Use: denies use Functional Ability ADLs Independent: dressing, eating, toileting, bathing. Ambulation: walker IADLs Unknown: shopping, housework, finances, food prep, telephone, transportation, medication admin. Review of Systems Review of Systems: Unremarkable except for that noted in history present illness Exam & Diagnostic Data Vital Signs and I&O Vital Signs Date Time Temp Pulse Resp B/P B/P Pulse O2 O2 Flow FiO2 Mean Ox Delivery Rate 11/09 1049 Nasal 2.0L Cannula 11/09 0908 112/78 11/09 0800 Nasal 2.0L Cannula 11/09 0650 97.6 66 14 140/82 98 Nasal 2.0L Cannula 11/09 0033 Nasal 2.0L Cannula 11/08 2338 98.0 67 22 121/55 97 Nasal 2.0L Cannula 11/09 2015 98.5 71 22 120/50 100 Nasal 2.0L Cannula Intake & Output 11/09 1600 11/09 0811/09 0000 11/08 1600 11/08 0811/08 0000 Intake Total 450 Output Total 500 Balance -50 Intake, IV 350 Intake, Oral 100 Output, Urine 500 Patient 88 lb 4 oz Weight Weight Bed scale Measurement Method Physical Exam: Erythema noted associated with multiple discrete areas of necrosis involving the distal right great toe. No active drainage identified. No crepitus or fluctuance identified. No probing identified. The toe is tender to palpation. Assessment/Plan Assessment/Plan Necrotic ulcer right great toe. Recommend Xeroform and dry sterile dressing to the right great toe daily dressing changes. We will follow up as an outpatient for local wound care. Consult Acknowledgment - Thank you for your consult request.
--- NOTE | 2017-11-09 16:43 | ULTRASOUND REPORT ---
EXAMINATION: US DUPLEX LOWER EXTREMITY ARTERY/GRAFT LIMITED, right lower extremity CLINICAL INFORMATION: 82-year-old female with necrotic right toe. COMPARISON: None TECHNIQUE: Grayscale, color and spectral Doppler imaging was obtained of the deep arterial system of the right lower extremity. FINDINGS: Extensive atherosclerotic disease is present. Abnormal monophasic waveforms with only minimal flow within the right common femoral artery (velocity of 8 cm/s). The right profundus femoris artery is patent but also demonstrates abnormal monophasic waveforms. Abnormal monophasic waveforms are present throughout the right femoral and popliteal arteries with velocities ranging from 60 cm/s down to 22 cm/s. No focal region of increased velocity to suggest localized stenosis. The posterior tibial and anterior tibial arteries are patent but demonstrate monophasic waveforms and low velocities (10 cm/s). IMPRESSION: Deep arteries of the right lower extremity are patent but severely diseased. There is only minimal flow within the right common femoral artery and abnormal monophasic waveforms throughout the entirety of the right lower extremity most consistent with inflow disease. Further evaluation can be obtained with CTA lower extremity runoff if clinically indicated.
--- NOTE | 2017-11-10 06:34 | PN- Housestaff ---
See Addendum Subjective Follow-up For: Uncomplicated Diverticulitis Complaints: pain scale (0-10) Subjective: No acute events overnight. Patient states she had some SOB, which occured while transferrring herself to commode, she states SOB with exertion is normal for her. She is experiencing some soreness on the left side of abdomen, but not pain. She had a BM this morning, which she described as a good bm. Her nausea has improved, she was able to tolerate her meals yesterday. Patient is c/o multiple loose stools this morning. Review of Systems Constitutional: Reports: no symptoms. Denies: chills, fever, weakness. Cardiovascular: Denies: chest pain, palpitations. Respiratory: Reports: short of breath (with activity, states is josep). Denies: cough, hemoptysis. Gastrointestinal: Denies: constipation, diarrhea, bloody stool, changes in stool. Objective Last 24 Hrs of Vital Signs/I&O Vital Signs Date Time Temp Pulse Resp B/P B/P Pulse O2 O2 Flow FiO2 Mean Ox Delivery Rate 11/10 0649 98.1 74 16 108/76 99 Room Air 11/10 0000 100 Nasal 2.0L Cannula 11/09 2205 98.4 77 18 100 07/ 1925 97 Nasal 2.0L Cannula 11/09 1600 83 18 97 Nasal 2.0L Cannula 11/09 1600 87 Nasal 2.0L Cannula 11/09 1049 Nasal 2.0L Cannula 11/09 0908 112/78 Intake & Output 11/10 1600 07/03 0800 07 0000 Intake Total 220 860 Output Total 750 501 Balance -530 359 Intake, IV 120 460 Intake, Oral 100 400 Number 1 Bowel Movements Output, Stool 1 Output, Urine 750 500 Physical Exam General Appearance: Alert, Oriented X3, Cooperative Skin: Patient has ecchymoses throughout her body, most significant in bilateral UE. Skin Temp/Moisture Exam: Warm/Dry HEENT: Atraumatic, EOMI Cardiovascular: Regular Rate, Normal S1, Normal S2 Lungs: Clear to Auscultation, Normal Air Movement Abdomen: Tender to palpation in LLQ, soft, +BS in all 4 quadrants. Neurological: Normal Speech Extremities: No Edema, Right Toe covered with dressing. Vascular: Pulses Symmetrical Current Medications: Current Medications Sig/Yecenia Start time Last Medication Dose Route Stop Time Status Admin Acetaminophen 650 MG Q6P PRN 11/10 0745 AC PO Acetaminophen 650 MG Q8P PRN 11/09 0115 DC 11/10 PO 0440 Albuterol Sulfate 3 ML BID 11/09 2100 AC 11/09 INH 1925 Albuterol Sulfate 2 PUF Q4P PRN 11/09 1100 AC INH Albuterol Sulfate See Dose BID 11/09 0900 DC 11/09 Insts (1) INH 0908 Albuterol Sulfate 3 ML Q4P PRN 11/09 0200 DC INH Amlodipine Besylate 5 MG DAILY 11/09 0900 AC 11/09 PO 0908 Aspirin Buffered 81 MG DAILY 11/09 0900 AC 11/09 PO 0908 Atorvastatin Calcium 10 MG 1700 11/09 1700 AC 11/09 PO 1748 Budesonide/ 2 PUF QPM 11/09 2100 AC 11/09 Formoterol Fumarate INH 2317 Ceftriaxone Sodium 1,000 MG 0400 / 0400 AC 11/10 IV 0431 Heparin Sodium 5,000 UNIT Q8 11/09 0600 AC (Porcine) SC Metronidazole 500 MG 0400,1200,2000 11/09 0400 AC 11/10 N/A 1 UNIT IV 0431 Morphine Sulfate 15 MG Q4 HRS NEEDED PRN 11/10 0745 AC PO Morphine Sulfate 2 MG Q8P PRN 11/09 0200 DC 11/10 IV 0002 Ondansetron HCl 4 MG ONCE PRN 11/09 1430 DC 11/09 PO 1748 Patient Medication 1 ED ONE ONE 11/09 1100 DC 11/09 Teaching ED 11/09 1101 1054 Prednisone 10 MG DAILY 11/09 0900 AC 11/09 PO 0908 Sodium Chloride 1,000 ML .Q20H 11/09 0115 DC 11/09 IV 11/09 2114 0141 Dose Instructions: (1)Albuterol Sulfate: 1-2 PUF Assessment/Plan Assessment: Ms. 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 Patient is tolerating her full liquid diet, had 1 BM this morning. Assessment: 1. Uncomplicated Diverticulosis Modified Hinchey classification = 0 Hx of diverticulosis (diagnosed on previous colonoscopy in 2009) CT on 11/08/17 -- Mild acute diverticulitis of proximal sigmoid colon 2. Diarrhea multiple loose stools this morning has been on Metronidazole and Ceftriaxone for 2 days- suspicious for drug induced diarrhea 2. Necrotic Ulcer R. Great Toe Pt. underwent ingrown toe nail removal in September 2017. Pt. was evaulated by Dr. Ryan, recommended Xeroform and dry sterile dressing and change daily. LE Duplxex US-- Deep arteries are patient but severely disease, minimal flow in the R. common femoral artery and abnormal monophasic waveforms consistent with inflow disease. X-Ray negative for osteomyelitis. 3. Hypertension 4. Hyperlipidemia 5. Respiratory Failure due to chronic hypoxemia Patient is a 60+ PPD smoker, is currently on 2.0 L of Oxygen at home 6. COPD/ Emphysema Plan: * order c.diff stool testing * Advance diet to Regular (Heart Healthy) * Continue Metronidazole and Ceftriaxone day 3 * Continue Amlodipine * Continue Atorvasatin * Continue Presdinose and Albuterol * Continue supplemental Oxygen at 2L Problem List: 1. Acute diverticulitis Pain Ratin Pain Location: LLQ Pain Goal: Remain pain free Pain Plan: Tylenol and Morphine as needed Tomorrow's Labs & Rationales: CBC
[2017-11-10 06:49] VITALS: BP 108/76
[2017-11-10] MEDS ORDERED: CIPRO500 M1 PO (13:14)
[2017-11-10] MEDS ORDERED: FLAGYL500 MG PO ×2 (13:14→13:17)
[2017-11-10] MEDS ORDERED: PREDNISONE10 M2 PO (13:17)
--- NOTE | 2017-11-10 13:23 | Patient Discharge Instructions ---
Discharge Instructions General Discharge Information You were seen/treated for: Acute diverticulitis Watch for these problems: Fever, chest pain, shortness of breath Special Instructions: Please take all medications as directed. Please follow-up with primary care, podiatry, and vascular surgery. Diet Continue normal diet: No Recommended Diet: Low Residue Activity Full Activity/No Limits: Yes Acute Coronary Syndrome Inclusion Criteria At DC or during hospital stay patient has or had the following: ACS DIAGNOSIS No Discharge Core Measures Meds if any: Prescribed or Continued at Discharge Meds if any: NOT Prescribed or Continued at Discharge Congestive Heart Failure Inclusion Criteria At DC or during hospital stay patient has or had the following: CHF DIAGNOSIS No Discharge Core Measures Meds if any: Prescribed or Continued at Discharge Meds if any: NOT Prescribed or Continued at Discharge Cerebrovascular accident Inclusion Criteria At DC or during hospital stay patient has or had the following: CVA/TIA Diagnosis No Discharge Core Measures Meds if any: Prescribed or Continued at Discharge Meds if any: NOT Prescribed or Continued at Discharge Venous thromboembolism Inclusion Criteria VTE Diagnosis No VTE Type NONE VTE Confirmed by (Test) NONE Discharge Core Measures - Per Current guidelines, there needs to be overlap - treatment for the first 5 days of Warfarin therapy. - If discharged on Warfarin prior to 5 days of - overlap therapy, the patient will need to be - assessed for post discharge needs including - *Post discharge parental anticoagulation - *Warfarin and/or parental anticoagulation education - *Follow up date to check INR post discharge At least 5 days overlap therapy as Inpatient No Meds if any: Prescribed or Continued at Discharge Note: Overlap Therapy is Warfarin and Anticoagulant Meds if any: NOT Prescribed or Continued at Discharge
--- NOTE | 2017-11-10 13:32 | Discharge Summary ---
Visit Information Visit Dates Admission Date: 11/08/17 Discharge Date: 11/12/17 Hospital Course Course Attending Physician: Tonio Javier MD Primary Care Physician: Ashutosh BACON,[facility] Course: Ms Shane is an 82-year-old woman with a past history of hypertension, hyperlipidemia, COPD, emphysema, lung cancer (lung nodule no further workup), supplemental oxygen at home 2 L, T12 fracture (vertebral augmentation), cholecystectomy was brought in from an extended care facility with a chief concern of left lower quadrant abdominal pain. At the time of admission, temperature 98.1, pulse rate 71, blood pressure 120/50 , respiration 22, pulse ox 100% on 2 L. Pertinent lab findings: WBC 9.3 (granulocytes 94%), hemoglobin 10.8 (his baseline 9.0), MCV 90.5, platelet count 403. Sodium 138, potassium 3.9, chloride 99, bicarbonate 28, anion gap 11. Renal function-BUN 17, creatinine 0.7. Liver function-AST 46, ALT 34, alkaline phosphatase 99 Troponin I-0.02, albumin 3.7, Urinalysis-clear. CT abdomen without IV contrast: 1. Interval development of a small right-sided pleural effusion and a couple of noncalcified pulmonary nodules at the right lung base. 2. Bilateral non-obstructing renal stones. 3. Sigmoid colon diverticulosis with suggestion of mild acute diverticulitis of the proximal sigmoid colon. Clinical correlation is suggested. There is no evidence of perforation or pericolonic collection. Colonoscopy in 2009 revealed diverticulosis performed by Jim Nuñez MD. She was admitted to general medicine and treated for the following problems: 1. acute diverticulitis 2. chronic wound RLE first toe. The patient presented with left lower quadrant abdominal pain and CT findings suggestive of acute mild diverticulitis. The patient was started on IV ceftriaxone and metronidazole and she was placed on a clear liquid diet. Her nausea was well controlled with medication. Her diet was advanced as tolerated. She is being discharged with ciprofloxacin and metronidazole for total of 10 days of antibiotics. Additionally, the patient was noted to have a necrotic ulcer on the right great toe. X-ray revealed no evidence of osteomyelitis but did show diffuse osteopenia and mild degenerative changes in the forefoot. Duplex arterial ultrasound of the right lower extremity showed patent but severely diseased deep arteries and only minimal flow within the right common femoral artery and abnormal monophasic waveforms throughout the entirety of the right lower extremity most consistent with inflow disease. She has been given follow-up with podiatry and vascular surgery. Her other home medications were continued. Allergies: Coded Allergies: Iodinated Contrast- Oral and IV Dye (IODINATED CONTRAST MEDIA - ORAL AND) (RASH ALL OVER BODY 07/25/16) indomethacin (UNKNOWN PT DOESNT REMEMBER 07/20/15) naproxen (UNKNOWN PT DOESNT REMEMBER 07/20/15) Disposition Summary Disposition Principal Diagnosis: 1. acute diverticulitis Additional Diagnosis: 2. chronic wound RLE first toe. Discharge Disposition: SNF Discharge Instructions General Discharge Information Code Status: Do Not Resucitate/Intubat Patient's Diet: Low residue diet Patient's Activity: As tolerated Follow-Up Instructions/Appts: Please take all medications as directed. Please follow-up with primary care, podiatry, and vascular surgery. Medications at Discharge Discharge Medications: Continue taking these medications: Albuterol Sulfate (Proair Hfa) 90 MCG HFA.AER.AD 1-2 Puff Inhale through mouth As Directed as needed for RESPIRATORY Comments: Last Taken: NOT GIVEN THIS ADMISSION Simvastatin (Zocor*) 20 MG TABLET 1 Tablet ORAL Every night Comments: Last Taken: NOT GIVEN THIS ADMISSION Budesonide/Formoterol Fumarate (Symbicort 160-4.5 Mcg Inhaler) 160 MCG-4.5 MCG/ ACTUATION HFA.AER.AD 2 Puff Inhale through mouth Every night Comments: Last Taken: NOT GIVEN THIS ADMISSION Amlodipine Besylate (Norvasc) 5 MG TABLET 1 Tablet ORAL DAILY Comments: Last Taken: NOT GIVEN THIS ADMISSION Albuterol Sulfate (Albuterol Sulfate) 2.5 MG/3 ML (0.083 %) VIAL.NEB 1 Vial Inhale Solution BID-TID Comments: Last Taken:TR WHILE IN HOSPITAL Time: Aspirin (Ecotrin*) 81 MG TABLET. 1 Tablet ORAL TWICE DAILY Comments: Last Taken: 11/12/17 Time: 10:14 Tramadol HCl (Tramadol HCl) 50 MG TABLET 1 Tablet ORAL EVERY SIX HOURS NEEDED as needed for PAIN SCALE 4-6 ( MODERATE) Qty = 15 Comments: Last Taken: 11/12/17 Time: 10:58PM Oxycodone HCl/Acetaminophen (Oxycodone-Acetaminophen 5-325) 5 MG-325 MG TABLET 1 Tablet ORAL EVERY 6 HOURS NEEDED as needed for PAIN Qty = 20 Comments: Last Taken:NOT TAKEN IN HOSPITAL Time: Docusate Sodium (Docusate Sodium) 100 MG CAPSULE 100 Milligram ORAL DAILY Days = 30 Comments: Last Taken: NOT GIVEN THIS ADMISSION Sennosides/Docusate Sodium (Senna Plus Tablet) 8.6 MG-50 MG TABLET 2 Tablet ORAL DAILY Days = 30 Comments: Last Taken: NOT GIVEN THIS ADMISSION Pentoxifylline (Pentoxifylline) 400 MG TABLET.ER 1 Tablet ORAL DAILY Qty = 7 Comments: Last Taken: NOT GIVEN IN HOSPITAL Prednisone (Prednisone) 10 MG TABLET 1 Tablet ORAL DAILY Qty = 30 Comments: Last Taken: 11/12/17 Time: 10:12AM Start taking the following new medications: Metronidazole (Flagyl) 500 MG TABLET 1 Tablet ORAL THREE TIMES DAILY Qty = 21 No Refills Comments: Last Taken: 11/12/17 Time: 2:42 PM Ciprofloxacin HCl (Cipro) 500 MG TABLET 1 Tablet ORAL TWICE DAILY Qty = 14 No Refills Comments: Last Taken: 11/12/17 Time: 10:13 AM Copies To: Oli Paez DPM; Jerson BACON,[facility].; Ashutosh BACON,Zoe Attending MD Review Statement Documenting Attending: Tonio Javier MD Other Findings: The patient was seen and agree with plan of care upon return to SNF. She declined evaluation of PVD/toe ulcer (?was on Hospice at SNF). Had a loose stool the day of discharge- results negative for C-difficile.
[2017-11-10 14:23] VITALS: BP 110/68
[2017-11-10 22:32] VITALS: BP 122/60
[2017-11-11 06:20] VITALS: BP 116/60
--- NOTE | 2017-11-11 11:35 | PN- Housestaff ---
YordyJenniferdylan 11/11/17 1135: Subjective Complaints: no complaints Subjective: Patient seen and examined at bedside. Patient has no complains of. Patient inquiring when she can go home states her daughter would like to pick her up today. Has had one loose bowel movement today, tolerated her dinner last night and breakfast this morning. Review of Systems Constitutional: Reports: no symptoms. Objective Last 24 Hrs of Vital Signs/I&O Vital Signs Date Time Temp Pulse Resp B/P B/P Pulse O2 O2 Flow FiO2 Mean Ox Delivery Rate 11/11 1545 99 Nasal 2.0L Cannula 11/11 1400 98.6 85 20 130/70 98 Nasal 2.0L Cannula 11/11 0913 99 Nasal 2.0L Cannula 11/11 0800 Part 2.0L ReBreather 11/11 0620 98.4 76 16 116/60 100 Nasal Cannula 11/11 0000 98 Nasal 2.0L Cannula 11/10 2232 98.7 81 14 122/60 98 11/11 2015 98 Nasal 2.0L Cannula Intake & Output 11/11 1600 11/11 0800 11/11 0000 Intake Total 600 100 320 Output Total 650 650 Balance 600 -550 -330 Intake, IV 120 Intake, Oral 600 100 200 Number 2 0 Bowel Movements Output, Stool 0 Output, Urine 650 650 Physical Exam General Appearance: Alert, Oriented X3, Cooperative, No Acute Distress Skin: No Rashes Skin Temp/Moisture Exam: Warm/Dry Sepsis Skin Exam (color): Normal for Ethnicity HEENT: Atraumatic, PERRLA, EOMI Neck: Supple, No JVD, No thryomegaly Cardiovascular: Regular Rate, Normal S1, Normal S2, No Murmurs Lungs: Clear to Auscultation, Normal Air Movement Abdomen: Normal Bowel Sounds, Soft, Tenderness to palpation LLQ, pain 4/10 Neurological: Normal Gait, Normal Speech Extremities: widespread hematomas on extremities Assessment/Plan Tomorrow's Labs & Rationales: No labs Salomon Alex 11/11/17 1227: Subjective Follow-up For: Diverticulitis Review of Systems Constitutional: Reports: no symptoms. Objective Last 24 Hrs of Vital Signs/I&O Vital Signs Date Time Temp Pulse Resp B/P B/P Pulse O2 O2 Flow FiO2 Mean Ox Delivery Rate 11/11 0913 99 Nasal 2.0L Cannula 11/11 0800 Part 2.0L ReBreather 11/11 0620 98.4 76 16 116/60 100 Nasal Cannula 11/11 0000 98 Nasal 2.0L Cannula 11/10 2232 98.7 81 14 122/60 98 11/11 2015 98 Nasal 2.0L Cannula 11/10 1600 92 Nasal 2.0L Cannula 11/10 1423 98.5 72 20 110/68 97 Room Air 11/10 1248 Nasal 2.0L Cannula Intake & Output 11/11 1600 11/11 0800 11/11 0000 Intake Total 100 320 Output Total 650 650 Balance -550 -330 Intake, IV 120 Intake, Oral 100 200 Number 0 Bowel Movements Output, Stool 0 Output, Urine 650 650 Physical Exam General Appearance: Alert, Oriented X3, Cooperative, No Acute Distress Skin: No Rashes Skin Temp/Moisture Exam: Warm/Dry Sepsis Skin Exam (color): Normal for Ethnicity HEENT: Atraumatic, PERRLA, EOMI Neck: Supple, No JVD, No thryomegaly Cardiovascular: Regular Rate, Normal S1, Normal S2, No Murmurs Lungs: Clear to Auscultation, Normal Air Movement Abdomen: Tenderness to palpation LLQ, pain 4/10 Neurological: Normal Speech, Strength at 5/5 X4 Ext, Normal Tone, Sensation Intact Extremities: widespread hematomas on extremities Assessment/Plan Assessment: Ms. 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 Patient is tolerating her full liquid diet, had 1 BM this morning. Assessment: 1. Uncomplicated Diverticulosis Modified Hinchey classification = 0 Hx of diverticulosis (diagnosed on previous colonoscopy in 2009) CT on 11/08/17 -- Mild acute diverticulitis of proximal sigmoid colon 2. Diarrhea has been on Metronidazole and Ceftriaxone for 2 days- suspicious for drug induced diarrhea 3. Necrotic Ulcer R. Great Toe Pt. underwent ingrown toe nail removal in September 2017. Pt. was evaulated by Dr. Ryan, recommended Xeroform and dry sterile dressing and change daily. LE Duplxex US-- Deep arteries are patient but severely disease, minimal flow in the R. common femoral artery and abnormal monophasic waveforms consistent with inflow disease. X-Ray negative for osteomyelitis. 4. Hypertension 5. Hyperlipidemia 6. Respiratory Failure due to chronic hypoxemia Patient is a 60+ PPD smoker, is currently on 2.0 L of Oxygen at home 7. COPD/ Emphysema Discharge today 11/11/17 Problem List: 1. Acute diverticulitis 2. Foot ulcer Pain Ratin Pain Location: Abdomen, left lower quadrant Pain Goal: Remain pain free Pain Plan: Tylenol and morphine as needed Discharge Plan Stable for Discharge? Yes Anticipated Discharge (Day): today Radha Smith MD 11/11/17 1355: Attending MD Review Statement Attending Statement Attending MD Statement: examined this patient, discuss w/resident/PA/LETTER CARRIER, agreed w/resident/PA/LETTER CARRIER, reviewed EMR data (avail), discussed with nursing, reviewed images, amended to note Attending Assessment/Plan: Patient seen and examined, overall doing better. She wants to get discharged today. She denies any abdominal pain but she always has some trouble breathing but that's chronic. Vital Signs Date Time Temp Pulse Resp B/P B/P Pulse O2 O2 Flow FiO2 Mean Ox Delivery Rate 11/11 0913 99 Nasal 2.0L Cannula 11/11 0800 Part 2.0L ReBreather 11/11 0620 98.4 76 16 116/60 100 Nasal Cannula 11/11 0000 98 Nasal 2.0L Cannula 11/10 2232 98.7 81 14 122/60 98 11/10 2016 98 Nasal 2.0L Cannula 11/10 1600 92 Nasal 2.0L Cannula 11/10 1423 98.5 72 20 110/68 97 Room Air on exam: awake, nad. cv; s1,s2, rrr resp; decreased bs overall. abd; soft, nt, bs+ ext; no edema no labs. A/P; 82 y/o F with pmh sig for hypertension, hyperlipidemia, COPD, emphysema, lung cancer (lung nodule no further workup), supplemental oxygen at home 2 L, T12 fracture (vertebral augmentation), cholecystectomy, admitted with acute diverticulitis. Patient currently on by mouth antibiotics and a little improving. Also has necrotic toe ulcer and was seen by podiatry here did recommend outpatient follow -up. Continued TRC nebs and other inhalers. DVT prophylaxis: Heparin subcutaneous. Patient needs to go to rehabilitation and awaiting insurance approval for that.
[2017-11-11 14:00] VITALS: BP 130/70
[2017-11-11 21:55] VITALS: BP 116/60
[2017-11-12 06:37] VITALS: BP 112/64
--- NOTE | 2017-11-12 07:19 | PN- Housestaff ---
YordyEvonjose 11/12/17 0718: Subjective Follow-up For: Diverticulitis Complaints: no complaints Subjective: Patient seen and examined at bedside. Patient has no complains of. Patient inquiring if she will be able to go home today, she says she is feeling much better the pain is resolved, after breakfast she had one episode of watery diarrhea. Has been tolerating her diet. Review of Systems Constitutional: Reports: no symptoms. Cardiovascular: Denies: chest pain, palpitations. Respiratory: Denies: cough, hemoptysis, short of breath. Gastrointestinal: Denies: abdominal pain, constipation, diarrhea, bloody stool. Objective Last 24 Hrs of Vital Signs/I&O Vital Signs Date Time Temp Pulse Resp B/P B/P Pulse O2 O2 Flow FiO2 Mean Ox Delivery Rate 11/12 1642 98.6 89 21 100/60 07/ 1600 99 Nasal 2.0L Cannula 11/12 1347 98.6 89 21 100/60 96 07/05 1100 98 Nasal 2.0L Cannula 11/12 0800 99 Nasal 2.0L Cannula 11/12 0637 98.4 69 20 112/64 100 Nasal 2.5L Cannula 11/12 0000 Nasal 2.0L Cannula 11/11 2155 98.6 82 18 116/60 99 Intake & Output / 1600 07/05 0800 07/05 0000 Intake Total 240 400 360 Output Total 600 225 300 Balance -360 175 60 Intake, Oral 240 400 360 Number 3 Bowel Movements Output, Urine 600 225 300 Physical Exam General Appearance: Alert, Oriented X3, Cooperative Skin: Widespread Eccymoses Skin Temp/Moisture Exam: Warm/Dry HEENT: Atraumatic, PERRLA, EOMI Neck: Supple, No LAD Cardiovascular: Regular Rate, Normal S1, Normal S2 Lungs: Clear to Auscultation, Normal Air Movement Abdomen: Normal Bowel Sounds, Soft, No Tenderness Assessment/Plan Assessment: Assessment: # Uncomplicated Diverticulosis Modified Hinchey classification = 0 Hx of diverticulosis (diagnosed on previous colonoscopy in 2009) CT on 11/08/17 -- Mild acute diverticulitis of proximal sigmoid colon Plan: Continue PO Metronidazole 500mg TID and Ciprofloxacin 500mg BID to complete course on 11/18/17. # Loose Stools has been on Metronidazole and Ceftriaxone Plan: follow up C. diff results. If positive will initate isolation protocol and PO Vancomycin #Necrotic Ulcer R. Great Toe Pt. underwent ingrown toe nail removal in September 2017. Pt. was evaulated by Dr. Ryan, recommended Xeroform and dry sterile dressing and change daily. LE Duplxex US-- Deep arteries are patient but severely disease, minimal flow in the R. common femoral artery and abnormal monophasic waveforms consistent with inflow disease. X-Ray negative for osteomyelitis. Plan: - Daily dry sterile and xeroform dressing #Hypertension plan: Amlodipine 5mg #Hyperlipidemia plan: - Lipitor 10mg # Respiratory Failure due to chronic hypoxemia Patient is a 60+ PPD smoker, is currently on 2.0 L Nasal canula O2 sat of 99 Plan: continue Home O2 at 2.0 L # COPD/ Emphysema plan: -Home O2 at 2.0 L - Albuterol - SYmbicort - Prednisone 10mg Problem List: 1. Acute diverticulitis Pain Ratin Pain Location: N/A Pain Goal: Remain pain free Pain Plan: n/a Tomorrow's Labs & Rationales: n/a Tonio Javier MD 11/12/17 1556: Attending MD Review Statement Attending Statement Attending MD Statement: examined this patient, discuss w/resident/PA/WATER TAXI CAPTAIN, agreed w/resident/PA/WATER TAXI CAPTAIN, reviewed EMR data (avail), discussed with nursing, discussed with case mgmt, reviewed images, amended to note Attending Assessment/Plan: The patient was seen and discussed with house staff, case management and nursing. The patient has significantly clinically improved and advancing diet. Awaiting her insurance to approve or deny rehab state. Once this is done will transfer back to SNF.
[2017-11-12 13:47] VITALS: BP 100/60
[2017-11-12 16:42] VITALS: BP 100/60
== END 2017-11-12 17:00 | DRG 392 ==
LOC: ERH 19:32 → 2NA 22:37 → ERHI 22:37 → ENRESERV 23:06 → 2NA 23:40 → ENPENDDIS 11-12 16:11 → 2NA 11-12 17:00
PROVIDERS: Internal Medicine Endocrinology, Diabetes & Metabolism; Physician Assistant Medical
DX: K57.32 Diverticulitis of large intestine without perforation or abscess without bleeding (principal); J96.11 Chronic respiratory failure with hypoxia; L97.518 Non-pressure chronic ulcer of other part of right foot with other specified severity; I10 Essential (primary) hypertension; E78.5 Hyperlipidemia, unspecified; Z85.118 Personal history of other malignant neoplasm of bronchus and lung; J44.9 Chronic obstructive pulmonary disease, unspecified; Z99.81 Dependence on supplemental oxygen; R10.30 Lower abdominal pain, unspecified; R91.8 Other nonspecific abnormal finding of lung field; Z90.49 Acquired absence of other specified parts of digestive tract; Z79.51 Long term (current) use of inhaled steroids; Z79.52 Long term (current) use of systemic steroids; Z88.8 Allergy status to other drugs, medicaments and biological substances; Z88.6 Allergy status to analgesic agent; Z91.041 Radiographic dye allergy status; Z98.51 Tubal ligation status
CPT/HCPCS: 2NASP; 36415; 73630-RT; 74176; 81001; 82436; 87040; 93005; 93010; 97116-GO; 97161-GP; 97530-GO; J0696; J1644; J2405; J3101; J3490; J7512